=== PATIENT | female | born 1985 | race Caucasian/White ===

== ENCOUNTER 2018-12-02 06:00 | Outpatient (CLI) | payer BC ==
[~2018-12-02] VITALS: Ht 170.2 cm; Wt 99.8 kg
[2018-12-02] MEDS ORDERED: ALPR0.5T7 PO (12:15)
[2018-12-02] MEDS ORDERED: METR500T PO (12:15)
[2018-12-02] MEDS ORDERED: SERT100T8 PO ×2 (12:15→12:25)
[2018-12-02] MEDS ORDERED: L.AC1CAP6 PO (12:15)
[2018-12-02] MEDS ORDERED: SERT50TA9 PO (12:25)
[2018-12-04] MEDS ORDERED: OXYC1TAB87 PO (13:04)
[2018-12-04] MEDS ORDERED: IBUP-1780 PO (13:04)
[2018-12-04] MEDS ORDERED: DOCU100C37 PO (13:04)
== END 2018-12-02 13:20 | disposition home or self-care (01) ==
LOC: PREOP 06:00
PROVIDERS: ATTEND Obstetrics & Gynecology
DX: Z01.818 Encounter for other preprocedural examination (principal)

== ENCOUNTER 2018-12-04 11:07 | Day surgery (SDC) | payer BC ==
[2018-12-04] VITALS (9 sets, daily range): BP systolic 84–133; BP diastolic 36–91
[~2018-12-04] VITALS: Ht 170.2 cm; Wt 99.8 kg
[~2018-12-04 11:07] MED LIST: ALPR0.5T7 PO; L.AC1CAP6 PO; METR500T PO; SERT100T8 PO; SERT50TA9 PO
[2018-12-04 11:39] LABS: BASOPHILS % (AUTO) 1 % (0-10); EOSINOPHILS # (AUTO) 0.2 10^3/uL (0.0-0.3); EOSINOPHILS % (AUTO) 2 % (0-10); HEMATOCRIT 40 % (35-52); HEMOGLOBIN 13.3 G/DL (11.5-16.0); LYMPHOCYTES # (AUTO) 2.1 X 10^3 (1.0-4.0); LYMPHOCYTES % (AUTO) 25 % (12-44); MEAN CORPUSCULAR HEMOGLOBIN 27 PG (25-34); MEAN CORPUSCULAR HGB CONC 33 G/DL (32-36); MEAN CORPUSCULAR VOLUME 82 FL (80-99); MONOCYTES # (AUTO) 0.5 X 10^3 (0.0-1.0); MONOCYTES % (AUTO) 6 % (0-12); NEUTROPHILS # (AUTO) 5.6 X 10^3 (1.8-7.8); NEUTROPHILS % (AUTO) 67 % (42-75); PLATELET COUNT 244 10^3/uL (130-400); RED BLOOD COUNT 4.88 10^6/uL (4.35-5.85); RED CELL DISTRIBUTION WIDTH 15.5 % (10.0-14.5); WHITE BLOOD COUNT 8.4 10^3/uL (4.3-11.0)
[2018-12-04] MEDS: LACTATED RINGERS 1,000 ML IV PRN ×2 (11:50→14:10)
[2018-12-04] MEDS ORDERED: ceFAZolin INJECTION 1,000 MG in NS (IVPB) 50 ML IV ONE (12:00)
[2018-12-04] MEDS ORDERED: fentaNYL INJECTION 100 MCG/2 ML AMP ONE (12:14)
[2018-12-04] MEDS ORDERED: DEXAMETHASONE 10 MG/ML (DECADRON) 1 ML VIAL ONE (12:14)
[2018-12-04] MEDS ORDERED: SEVOFLURANE (ULTANE) 15 ML INHAL SOLN ONE ×9 (12:14→14:59)
[2018-12-04] MEDS ORDERED: ONDANSETRON 4 MG/2 ML (SDV) Z0FRAN ONE (12:14)
[2018-12-04] MEDS ORDERED: LIDOCAINE PF 2% 5 ML (XYLOCAINE) VIAL ONE (12:14)
[2018-12-04] MEDS ORDERED: proPOfol 200 MG/20 ML (DIPRIVAN) VIAL IV ONE ×2 (12:14→14:05)
[2018-12-04] MEDS ORDERED: MIDAZOLAM 2 MG/2 ML (VERSED) VIAL ONE (12:14)
[2018-12-04] MEDS ORDERED: ROCURONIUM 10 MG/ML 5 ML SYRINGE IV ONE ×2 (12:14→14:04)
[2018-12-04] MEDS ORDERED: GLYCOPYRROLATE 0.2 MG/ML (ROBINUL) 2 ML VIAL ONE (12:15)
[2018-12-04] MEDS ORDERED: NEOSTIGMINE 1 MG/ML 5 ML SYRINGE ONE ×4 (12:15→13:34)
[2018-12-04] MEDS ORDERED: KETOROLAC 30 MG/ML VIAL ONE (12:16)
[2018-12-04] MEDS ORDERED: BUP/EPI 0.5% 1:200,000 (SENSORCAINE) 30 ML VIAL ONE (12:26)
--- NOTE | 2018-12-04 12:59 | Progress Note-Pre Operative ---
Pre-Operative Progress Note H&P Reviewed The H&P was reviewed, patient examined and no changes noted. Date Seen by Provider: Dec 04, 2018 Time Seen by Provider: 12:58 Date H&P Reviewed: Dec 04, 2018 Time H&P Reviewed: 12:58 Pre-Operative Diagnosis: Dysfunctional uterine bleeding/chronic pelvic pain/ endometriosis/ovary cyst MIYA RETANA MD Dec 04, 2018 12:59
[2018-12-04] MEDS ORDERED: WATER (STERILE) FOR INJ 10 ML BTL INJ ONE (13:00)
[2018-12-04] MEDS ORDERED: MEPERIDINE (DEMEROL) INJ 100 MG/ML IM PRN (13:00)
[2018-12-04] MEDS ORDERED: ONDANSETRON 4 MG/2 ML (SDV) Z0FRAN IVP PRN ×2 (13:00→15:15)
[2018-12-04] MEDS ORDERED: PROMETHAZINE INJ 25 MG/ML (PHENERGAN) AMP IM PRN (13:00)
--- NOTE | 2018-12-04 13:00 | Progress Note-Post Operative ---
Post-Operative Progess Note Surgeon (s)/Camera Person (s) Surgeon MIYA RETANA MD Camera Person: Joselin Song Pre-Operative Diagnosis Dysfunctional uterine bleeding/chronic pelvic pain/endometriosis/ovary cyst Post-Operative Diagnosis Same with overt endometriosis, pelvic adhesions, abnormal appendix, and with pathology pending Procedure & Operative Findings Date of Procedure 12/04/18 Procedure Performed/Findings TLH with BS and with left oophorectomy, laparoscopic adhesiolysis, laparoscopic destruction of endometriosis, laparoscopic appendectomy Anesthesia Type GETA Estimated Blood Loss Estimated blood loss (mL): Minimal Specimens/Packing Specimens Removed Uterus fallopian tubes left ovary Packing: None MIYA RETANA MD Dec 04, 2018 13:00
[2018-12-04] MEDS ORDERED: OXYC1TAB87 PO (13:04)
[2018-12-04] MEDS ORDERED: IBUP-1780 PO (13:04)
[2018-12-04] MEDS ORDERED: DOCU100C37 PO (13:04)
--- NOTE | 2018-12-04 13:06 | Discharge Instructions ---
Discharge Instructions Discharge Medications New, Converted or Re-Newed RX: RX on Chart Patient Instructions Patient Instructions: As directed Return to The Hospital For: as directed Activity & Diet Discharge Diet: No Restrictions Activity as Tolerated: No Orders-Post D/C & Referrals Follow Up Appt: Return to clinic on Sunday, December 06, 2018 at 930 a.m. for staple removal Call to make follow up appt. for patient in 4 weeks. Activity: Rest for 24 hours, than as tolerated. Wound Care: May remove Band-Aid tomorrow. Replace as desired. Keep incisions clean and dry. Wash daily with soap and water. Please call in RX to patient pharmacy. Diet: As tolerated-Clear Liquids only if nauseated. May shower or tub bathe as desired. No driving for 24 hours, no alcoholic beverages for 24 hours, and nothing per vagina (no tampons, douching, or intercourse) for 8 weeks. Patient to return to the clinic as soon as possible for: Temperature greater than 101F, Severe Pain, Foul discharge from incision or vagina, Excessive Bleeding (more than a period). MIYA RETANA MD Dec 04, 2018 13:06
[2018-12-04] MEDS ORDERED: INDIGO CARMINE 8 MG/ML 5 ML AMP ONE (14:42)
[2018-12-04] MEDS ORDERED: FUROSEMIDE 40 MG/4 ML INJ (LASIX) ONE (14:42)
[2018-12-04] MEDS: KETOROLAC 30 MG/ML VIAL IVP SCH ×2 (15:00→20:26)
--- OUTSIDE RECORDS SUMMARY | 2018-12-04 15:03 | XMS REPORT ---
Author [facility] [employer] [facility] Medical Staff Organization [facility] Address [address] [id number] Phone [phone] Summary purpose TRANSITION OF CARE AUTO GENERATION Chief Complaint and Reason for Visit No authorized Reason for Visit (Admitting Diagnosis) is available for this visit. Problem list No authorized problems tracked for continuity of care are available for this visit. Encounters No authorized problems tracked for encounter diagnoses are available for this visit. Medications No medications recorded for this patient visit Allergies, adverse reactions, alerts Allergen Category Ingredient Status Reaction Severity Onset No Known Drug Allergies No known drug allergies No Known Drug Allergies Confirmed or Verified Immunizations No immunizations recorded for this patient visit Relevant diagnostic tests and/or laboratory data No authorized results are available for this patient visit History of procedures No procedures recorded for this patient visit. Functional status No functional or cognitive status observations are available for this visit. Vital signs No authorized vital signs are available for this visit. Social history No Social History or smoking status observations were recorded for this visit. ( Unknown if ever smoked.) Treatment Plan No treatment plan text is available for this visit. Hospital discharge instructions No discharge instruction text is available for this visit.
--- OUTSIDE RECORDS SUMMARY | 2018-12-04 15:03 | XMS REPORT ---
[facility] Medical Staff Organization [facility] Address [address] [id number] Phone [phone] Care Team Providers Care Radiation Oncology Nurse Name Role Phone MARCEL LORENZANA APRN PP [phone] Summary purpose TRANSITION OF CARE AUTO GENERATION Chief Complaint and Reason for Visit No authorized Reason for Visit (Admitting Diagnosis) is available for this visit. Problem list No authorized problems tracked for continuity of care are available for this visit. Encounters No authorized problems tracked for encounter diagnoses are available for this visit. Medications No home medications recorded for this patient visit Allergies, adverse reactions, alerts Allergen Category Ingredient Status Reaction Severity Onset No Known Drug Allergies No known drug allergies No Known Drug Allergies Confirmed or Verified Immunizations No immunizations recorded for this patient visit Relevant diagnostic tests and/or laboratory data RESULTS Chemistry :00:00 Result Normal Range Units Sodium 141 134-145 mEq/l Potassium 3.7 3.5-5.1 mEq/l Chloride 102 98-107 mEq/l CO2 H 28.3 22-28 mEq/l Glucose H 129 70-105 mg/dl BUN 11 7-18 mg/dl Creatinine 0.97 0.6-1.0 mg/dl Calcium 8.8 8.4-10.2 mg/dl TP - Total Protein 7.5 6.0-8.3 g/dl Albumin 4.1 3.5-5 g/dl Bilirubin - Total 0.4 0.1-1.0 mg/dl AST 14 10-42 IU/L ALT 25 12-65 IU/L ALP H 78 25-72 IU/L Osmolality 282.4 280-300 mOsm/L Albumin/Globulin Ratio 1.2 0-8 Anion GAP 10.7 8-16 BUN/Creatinine Ratio 11.3 10-20 Estimated GFR 67 >=60 mL/min/1.7 C-Reactive Protein 0.2 0-1 mg/dl Hematology :00:00 Result Normal Range Units WBC 8.4 4.8-10.8 103/uL RBC 4.6 4.2-5.4 106/uL HGB 12.7 12.0-16.0 g/dl HCT 39.0 36.9-47.0 % MCV 85.0 81-99 FL MCH 27.7 27-31 pg MCHC L 32.6 33-37 g/dl RDW 13.2 11.5-15.5 % PLT 233 130-400 103/uL MPV H 11.5 7.3-10.4 FL Cardiac :00:00 Result Normal Range Units CK 86 26-192 IU/L CKMB 1.5 0-3.6 ng/ml Patient samples may contain heterophilic antibodies that could react with immunoassays to give falsely elevated or depressed results. This Dimension assay has been designed to minimize interference from heterophilic antibodies. Nevertheless, complete elimination of this interference from all patient specimens cannot be guaranteed. A test result that is inconsistent with the clinical picture and patient history should be interpreted with caution. Troponin I < 0.04 0.0-0.4 ng/ml Patient samples may contain heterophilic antibodies that could react in immunoassays to give falsely elevated or depressed results. This Dimension assay has been designed to minimize interference from heterophilic antibodies. Nevertheless, complete elimination of this interference from all patient specimens cannot be guaranteed. A test result that is inconsistent with the clinical picture and patient history should be interpreted with caution. Hematology - Other (Misc) :00:00 Result Normal Range Units Sed Rate 4 0-20 Test SEDR with result of 4 was originally reported as 2 and was changed on 02/21/2015 22:41 by RW Thyroid Testing :00:00 Result Normal Range Units TSH 2.01 0.36-3.74 uIU/mL Radiology Results :00:00 Result Normal Range Units MPV H 11.5 7.3-10.4 FL History of procedures No procedures recorded for this patient visit. Functional status Functional Status Finding Observation Time Vision Problems yes : Vision Correct Dev glasses : Diet regular : Abdomen Appearance round :30 Abdomen non-tender :30 Bowel Sounds present :30 [place] no :30 Urination normal :30 Quality sym/unlabored : Cough absent : Secretions no : Breath Sounds RUL clear : Breath Sounds RML clear : Breath Sounds RLL clear : Breath Sounds MARIAM clear : Breath Sounds LLL clear :30 Airway natural : Chest Tube no : Oxygen no : Temp >100.4 no : Temp <96.8 no : Chills with rigors no : HR > 90bpm no : Respirations > 20 no : Systolic <90 no : headache stiff neck no :30 Rapid Resp no :30 IV Site Location None :34 Nursing Note Pt was given home instructions and Pt was off of floor in stable condtion :34 Vital signs Type Value Date Respiration Rate 18breaths per minute : Pulse 70beats per minute :30 Oxygen Saturation 100% :30 BP Systolic 109mmHg :30 BP Diastolic 60mmHg :30 Temperature 97.8F :30 Social history Type Value Smoking Status NEVER SMOKER Treatment Plan No treatment plan text is available for this visit. Hospital discharge instructions Dismissal Condition good Disposition on DC home DC Inst/Educ Give yes Med/Side Effects Rev yes Comment: Toradol injection PNE Vac none Flu Vac none Tetanus Vac none
--- OUTSIDE RECORDS SUMMARY | 2018-12-04 15:03 | XMS REPORT ---
[facility] Medical Staff Organization [facility] Address [address] [id number] Phone [phone] Care Team Providers Care Maintenance Associate Name Role Phone MARCEL LORENZANA APRN PP [phone] Summary purpose TRANSITION OF CARE AUTO GENERATION [...] Relevant diagnostic tests and/or laboratory data RESULTS Hematology [id number]:16:00 Result Normal Range Units WBC 7.7 4.8-10.8 103/uL RBC 4.7 4.2-5.4 106/uL HGB 13.4 12.0-16.0 g/dl HCT 41.6 36.9-47.0 % MCV 87.8 81-99 FL MCH 28.3 27-31 pg MCHC L 32.2 33-37 g/dl RDW 12.7 11.5-15.5 % PLT 221 130-400 103/uL MPV H 12.6 7.3-10.4 FL Neutro % 67.9 40-70 % Lymph % 23.9 20-40 % [place] % 6.1 0-10.0 % Eos % 1.3 0-7.0 % Baso % 0.5 0-2 % Neutro # 5.2 1.5-7.5 103/uL Lymph # 1.8 0.9-4.0 103/uL [place] # 0.5 0-0.8 103/uL Eos # 0.1 0-0.6 103/uL Baso # 0.0 0-0.1 103/uL Radiology Results [id number]:16:00 Result Normal Range Units MPV H 12.6 7.3-10.4 FL History of procedures Procedure Code Code Type Description Date Performed Performing Physician 54671 CPT-4 COMPLETE CBC W/AUTO DIFF WBC 12-22-2015 MARCEL LORENZANA Functional status No functional or cognitive status [...]
--- OUTSIDE RECORDS SUMMARY | 2018-12-04 15:03 | XMS REPORT ---
Author [facility] [facility] Medical Staff Organization [facility] Address [address] [id number] Phone [phone] Care Team Providers Care Stitcher Utility Name Role Phone MARCEL LORENZANA APRN PP [phone] Summary purpose TRANSITION OF CARE AUTO GENERATION Chief Complaint and Reason for Visit Admit Diagnosis 1 URINARY FREQUENCY Problem list No authorized problems tracked for [...] Relevant diagnostic tests and/or laboratory data RESULTS Routine Urinalysis [id number]:30:00 Result Normal Range Units Color YELLOW Clarity Hazy Specific [place] 1.025 1.003-1.035 pH 6.5 4.5-8.0 Glucose NEGATIVE Bilirubin NEGATIVE Ketones NEGATIVE Protein 1+ Urobilinogen 0.2 0-0.2 E.U./dL Nitrites NEGATIVE Blood 2+ Leukocytes NEGATIVE WBCs Too numerous to count RBCs 0-5 Squamous Epithelial 1+ Amorphous Crystals Few Bacteria 3+ Mucous 1+ Body Fluid [id number]:30:00 Result Normal Range Units pH 6.5 4.5-8.0 History of procedures Procedure Code Code Type Description Date Performed Performing Physician 57094 CPT-4 URINALYSIS, AUTO W/SCOPE 04-23-2015 MARCEL LORENZANA Functional status No functional or [...]
--- OUTSIDE RECORDS SUMMARY | 2018-12-04 15:03 | XMS REPORT ---
Author [facility] [email or web address] [facility] Medical Staff Organization [facility] Address [address] [id number] Phone [phone] Summary purpose TRANSITION OF CARE AUTO GENERATION [...]
--- OUTSIDE RECORDS SUMMARY | 2018-12-04 15:03 | XMS REPORT ---
Author Author [facility] Medical Staff Organization [facility] [employer] [facility] Address [address] [place] [id number] Phone [phone] Summary purpose TRANSITION OF CARE AUTO GENERATION Chief Complaint and Reason for Visit Admit Diagnosis 1 PALPITATIONS Problem list No authorized problems tracked for [...] for this patient visit History of procedures Procedure Code Code Type Description Date Performed Performing Physician 75759 CPT-4 ELECTROCARDIOGRAM, TRACING 06-16-2015 MICHELLE MORRISON 92413 CPT-4 ECG MONITOR/RECORD, 24 HRS 06-18-2015 MICHELLE MORRISON 15057 CPT-4 ELECTROCARDIOGRAM REPORT 06-19-2015 DEANDRE RASHEED Functional status Functional Status Finding Observation Time Nursing Note Monitor #4 returned and memory card is mailed to [place]. 201412:39 Vital signs No authorized vital signs are available for this visit. Social history No Social History or smoking status observations were recorded for this visit. ( Unknown if ever smoked.) Treatment Plan No treatment plan text is available for this visit. Hospital discharge instructions No discharge instruction text is available for this visit.
--- OUTSIDE RECORDS SUMMARY | 2018-12-04 15:03 | XMS REPORT ---
Author [facility] [email or web address] [facility] Medical Staff Organization [facility] [employer] [facility] Address [address] [id number] Phone [phone] Care Team Providers Care Ross Lift Operator Name Role Phone MARCEL LORENZANA APRN PP [phone] Summary purpose TRANSITION OF CARE AUTO GENERATION [...] diagnostic tests and/or laboratory data RESULTS Chemistry [id number]:00:00 Result Normal Range Units Sodium 140 134-145 mEq/l Potassium 3.9 3.5-5.1 mEq/l Chloride 104 98-107 mEq/l CO2 26.1 22-28 mEq/l Glucose 83 70-105 mg/dl BUN 11 7-18 mg/dl Creatinine 0.88 0.6-1.0 mg/dl Calcium 8.4 8.4-10.2 mg/dl TP - Total Protein 7.4 6.0-8.3 g/dl Albumin 3.8 3.5-5 g/dl Bilirubin - Total 0.4 0.1-1.0 mg/dl AST 16 10-42 IU/L ALT 23 12-65 IU/L ALP 67 25-72 IU/L Osmolality L 277.9 280-300 mOsm/L Albumin/Globulin Ratio 1.1 0-8 Anion GAP 9.9 8-16 BUN/Creatinine Ratio 12.5 10-20 Estimated GFR 75 >=60 mL/min/1.7 Hematology [id number]:00:00 Result Normal Range Units WBC 7.3 4.8-10.8 103/uL RBC 4.5 4.2-5.4 106/uL HGB 12.3 12.0-16.0 g/dl HCT 38.9 36.9-47.0 % MCV 87.2 81-99 FL MCH 27.6 27-31 pg MCHC L 31.6 33-37 g/dl RDW 13.0 11.5-15.5 % PLT 224 130-400 103/uL MPV H 12.1 7.3-10.4 FL History of procedures No procedures [...]
--- OUTSIDE RECORDS SUMMARY | 2018-12-04 15:03 | XMS REPORT ---
Author [facility] Medical Staff Organization [facility] Address [address] [id number] Phone [phone] Care Team Providers Care Bradley Linebacker Crewmember Name Role Phone MARCEL LORENZANA APRN PP [phone] Summary purpose TRANSITION OF CARE AUTO GENERATION [...] tests and/or laboratory data RESULTS Routine Urinalysis [id number]:30:00 Result Normal Range Units Color YELLOW Clarity Hazy Specific [place] 1.025 1.003-1.035 pH 6.5 4.5-8.0 Glucose NEGATIVE Bilirubin NEGATIVE Ketones NEGATIVE Protein 1+ Urobilinogen 0.2 0-0.2 E.U./dL Nitrites NEGATIVE Blood 2+ Leukocytes NEGATIVE WBCs Too numerous to count RBCs 0-5 Squamous Epithelial 1+ Amorphous Crystals Few Bacteria 3+ Mucous 1+ Body Fluid [id number]:30:00 Result Normal Range Units pH 6.5 4.5-8.0 History of procedures No procedures recorded for [...]
--- OUTSIDE RECORDS SUMMARY | 2018-12-04 15:04 | XMS REPORT ---
Author [facility] [employer] [facility] Medical Staff Organization [facility] [employer] [facility] Address [address] [id number] Phone [phone] Care Team Providers Care It Program Auditor Name Role Phone MARCEL LORENZANA APRN PP [phone] Summary purpose TRANSITION OF CARE AUTO GENERATION [...] diagnostic tests and/or laboratory data RESULTS Chemistry [id number]:00:00 Result Normal Range Units Sodium 140 134-145 [...] 10-20 Estimated GFR 75 >=60 mL/min/1.7 Hematology [id number]:00:00 Result Normal Range Units WBC 7.3 4.8-10.8 [...]
--- OUTSIDE RECORDS SUMMARY | 2018-12-04 15:04 | XMS REPORT ---
Author Author PAMELA QUACH Organization [facility] Address [address] [place] [address] Care Team Providers Care Oven Roaster Name Role Phone PAMELA QUACH Unavailable PROBLEMS Type Condition ICD9-CM Code XUR05-XL Code Onset Dates Condition Status SNOMED Code Problem Adjustment disorder with mixed anxiety and depressed mood F43.23 Active 11735284 ALLERGIES No Information ENCOUNTERS Encounter Location Date Diagnosis [place] [address] [address] 15 Sep, 2018 [place] [address] [address] Sep, [place] [address] [address] Apr, Adjustment disorder with mixed anxiety and depressed mood F43.23 [place] [address] [address] March, Adjustment disorder with mixed anxiety and depressed mood F43.23 [place] [address] [place] [id number] [place] [address] March, [facility] [address] [place] [id number] [place] [address] Dec, Adjustment disorder with mixed anxiety and depressed mood F43.23 [place] [address] [place] [id number] [place] [address] Nov, Adjustment disorder with mixed anxiety and depressed mood F43.23 [place] [address] [place] [id number] [place] [address] Sep, Adjustment disorder with mixed anxiety and depressed mood F43.23 [place] [address] [place] [id number] [place] [address] Sep, Adjustment disorder with mixed anxiety and depressed mood F43.23 [facility] [address] [facility] [id number] [place] [address] Aug, Adjustment disorder with mixed anxiety and depressed mood F43.23 IMMUNIZATIONS No Known Immunizations SOCIAL HISTORY Never Assessed REASON FOR VISIT Requests return call PLAN OF CARE VITAL SIGNS MEDICATIONS Unknown Medications RESULTS No Results PROCEDURES No Known procedures INSTRUCTIONS MEDICATIONS ADMINISTERED No Known Medications
--- OUTSIDE RECORDS SUMMARY | 2018-12-04 15:04 | XMS REPORT ---
Author Author [facility] Medical Staff Organization [facility] Address [address] [place] [id number] Phone [phone] Care Team Providers Care Weekday Babysitter Name Role Phone VENTURA PROPERTY SITE MANAGERTOMMARCEL PP [phone] Summary purpose TRANSITION OF CARE AUTO GENERATION Chief Complaint and Reason for Visit Admit Diagnosis 1 CHEST PAIN NEC Problem list No authorized problems tracked for [...] diagnostic tests and/or laboratory data RESULTS Chemistry [id number]:00:00 Result Normal Range Units Sodium 141 134-145 [...] mL/min/1.7 C-Reactive Protein 0.2 0-1 mg/dl Hematology [id number]:00:00 Result Normal Range Units WBC 8.4 4.8-10.8 103/uL RBC 4.6 4.2-5.4 106/uL HGB 12.7 12.0-16.0 g/dl HCT 39.0 36.9-47.0 % MCV 85.0 81-99 FL MCH 27.7 27-31 pg MCHC L 32.6 33-37 g/dl RDW 13.2 11.5-15.5 % PLT 233 130-400 103/uL MPV H 11.5 7.3-10.4 FL Cardiac [id number]:00:00 Result Normal Range Units CK 86 26-192 [...] interpreted with caution. Hematology - Other (Misc) [id number]:00:00 Result Normal Range Units Sed Rate 4 0-20 Test SEDR with result of 4 was originally reported as 2 and was changed on 02/21/2015 22:41 by RW Thyroid Testing [id number]:00:00 Result Normal Range Units TSH 2.01 0.36-3.74 uIU/mL Radiology Results [id number]:13:00 Chest X-Ray - 2 View PACs Image DATE OF EXAM: 2014 RAD 0300-CHEST XRAY 2 VIEW : RADIOLOGY REPORT DATE OF SERVICE: 02/21/15 HISTORY: Chest pain and left arm numbness CHEST 2 VIEWS 2200 HOURS The lungs are clear. Heart size and pulmonary vessels are normal. There are no hilar or mediastinal abnormalities. IMPRESSION: Negative chest. No significant change when compared with 11/14/2011. MD STEPHAN Leblanc/mn02/22/2015 06:53:00 / 02/22/2015 08:26:47 cc:Marcel Ventura APRN This document has been electronically Signed by: On: DATE OF EXAM: 2014 RAD 0300-CHEST XRAY 2 VIEW : RADIOLOGY REPORT DATE OF SERVICE: 02/21/15 HISTORY: Chest pain and left arm numbness CHEST 2 VIEWS 2200 HOURS The lungs are clear. Heart size and pulmonary vessels are normal. There are no hilar or mediastinal abnormalities. IMPRESSION: Negative chest. No significant change when compared with 11/14/2011. MD STEPHAN Leblanc/mn02/22/2015 06:53:00 / 02/22/2015 08:26:47 cc:Marcel Ventura APRN This document has been electronically Signed by: CHAD HOLLIDAY On: 2014 12:13P Result Amended on 2015-02-22 at 12:13:26. Previous status was AR. [id number]:00:00 Result Normal Range Units MPV H 11.5 7.3-10.4 FL History of procedures Procedure Code Code Type Description Date Performed Performing Physician 49850 CPT-4 COMPLETE CBC, AUTOMATED 02-21-2015 HAWA HUGHES 97831 CPT-4 COMPREHEN METABOLIC PANEL 02-21-2015 HAWA HUGHES 20286 CPT-4 ASSAY OF CK (CPK) 02-21-2015 HAWA HUGHES 46598 CPT-4 ASSAY OF TROPONIN, QUANT 02-21-2015 HAWA HUGHES 33734 CPT-4 CREATINE, MB FRACTION 02-21-2015 HAWA HUGHES 11434 CPT-4 CHEST X-RAY 02-21-2015 HAWA HUGHES 93855 CPT-4 RBC SED RATE, NONAUTOMATED 02-21-2015 HAWA HUGHES 05981 CPT-4 C-REACTIVE PROTEIN 02-21-2015 HAWA HUGHES 00510 CPT-4 ASSAY THYROID STIM HORMONE 02-21-2015 HAWA HUGHES 93236 CPT-4 ROUTINE VENIPUNCTURE 02-21-2015 HAWA HUGHES 24769 CPT-4 ELECTROCARDIOGRAM, TRACING 02-21-2015 HAWA HUGHES J1885 CPT-4 TORADOL SYR 30MG/ML 02-21-2015 HAWA HUGHES 65584 CPT-4 EMERGENCY DEPT VISIT 02-21-2015 HAWA HUGHES 40331 CPT-4 THER/PROPH/DIAG INJ, SC/IM 02-21-2015 HAWA HUGHES 23259 CPT-4 EMERGENCY DEPT VISIT 02-21-2015 HAWA HUGHES 84539 CPT-4 ELECTROCARDIOGRAM REPORT 02-26-2015 DEANDRE RASHEED Functional status Functional Status Finding Observation Time Vision Problems yes :30 Vision Correct Dev glasses :30 Diet regular :30 Abdomen Appearance round :30 Abdomen non-tender :30 Bowel Sounds present :30 [place] no :30 Urination normal :30 Quality sym/unlabored : Cough absent : Secretions no :30 Breath Sounds RUL clear :30 Breath Sounds RML clear :30 Breath Sounds RLL clear :30 Breath Sounds MARIAM clear :30 Breath Sounds LLL clear :30 Airway natural :30 Chest Tube no :30 Oxygen no :30 Temp >100.4 no : Temp <96.8 no :30 Chills with rigors no : HR > 90bpm no :30 Respirations > 20 no : Systolic <90 no :30 headache stiff neck no :30 Rapid Resp no :30 IV Site Location None :34 Nursing Note Pt was given home instructions and Pt was off of floor in stable condtion :34 Vital signs Type Value Date Respiration Rate 18breaths per minute :30 Pulse 70beats per minute :30 Oxygen Saturation 100% :30 BP Systolic 109mmHg :30 BP Diastolic 60mmHg 29-39-740832:30 Temperature 97.8F 63-67-091222:30 Social history Type Value Smoking Status NEVER SMOKER Treatment Plan No treatment plan text is available for this visit. Hospital discharge instructions Dismissal Condition good Disposition on DC home DC Inst/Educ Give yes Med/Side Effects Rev yes Comment: Toradol injection PNE Vac none Flu Vac none Tetanus Vac none
--- OUTSIDE RECORDS SUMMARY | 2018-12-04 15:04 | XMS REPORT ---
Author Author PAMELA QUACH Organization [facility] Address [address] [place] [address] Care Team Providers Care Hinging Machine Operator Name Role Phone PAMELA QUACH Unavailable PROBLEMS Type Condition ICD9-CM Code EMI32-MD Code Onset Dates Condition Status SNOMED Code Problem Adjustment disorder with mixed anxiety and depressed mood F43.23 Active 76025543 ALLERGIES No Information ENCOUNTERS Encounter Location Date Diagnosis [place] [address] [address] Nov, [place] [address] 59969- 2218 Nov, [place] [address] 14509- 9339 Nov, [facility] [address] [place] [id number] [place] [address] 29161- 4649 Oct, Adjustment disorder with mixed anxiety and depressed mood F43.23 [place] [address] [place] [id number] [place] [address] 16731- 1451 Sep, Adjustment disorder with mixed anxiety and depressed mood F43.23 [place] [address] [place] [id number] [place] [address] 06174- 0699 Sep, Adjustment disorder with mixed anxiety and depressed mood F43.23 [place] [address] [place] [id number] [place] [address] 26476- 9005 Sep, [place] [address] 31065- 2249 Apr, Adjustment disorder with mixed anxiety and depressed mood F43.23 [place] [address] [place] [id number] [place] [address] 57309- 5975 March, Adjustment disorder with mixed anxiety and depressed mood F43.23 [place] [address], [place] [address] March, [place] [address] [place] [address] 76385- 4937 Dec, Adjustment disorder with mixed anxiety and depressed mood F43.23 [place] [address] [place] [address] 32584- 2801 Nov, Adjustment disorder with mixed anxiety and depressed mood F43.23 [place] [address] [place] [address] 26347- 9512 Sep, Adjustment disorder with mixed anxiety and depressed mood F43.23 [place] [address] [address] Sep, Adjustment disorder with mixed anxiety and depressed mood F43.23 [place] [address] [address] Aug, Adjustment disorder with mixed anxiety and depressed mood F43.23 IMMUNIZATIONS No Known Immunizations SOCIAL HISTORY Never Assessed REASON FOR VISIT Follow-up Adjustment PLAN OF CARE Activity Details Follow Up 3 Weeks Reason: Follow-up VITAL SIGNS MEDICATIONS Unknown Medications RESULTS No Results PROCEDURES Procedure Date Ordered Result Body Site Psychotherapy, patient and family, 45 minutes, established patient Oct 31, 2018 INSTRUCTIONS MEDICATIONS ADMINISTERED No Known Medications
--- OUTSIDE RECORDS SUMMARY | 2018-12-04 15:04 | XMS REPORT ---
Author Author [facility] Medical Staff Organization [facility] Address [address] [id number] Phone [phone] Summary purpose TRANSITION OF CARE AUTO GENERATION [...] Functional Status Finding Observation Time Nursing Note Holter monitor #4 placed on patient. Instructions given to patient verbally and written. Patient voiced understanding. She will return tomorrow with the monitor. [id number] Vital signs No authorized vital signs are available for this visit. Social history No Social History or smoking status observations were recorded for this visit. ( Unknown if ever smoked.) Treatment Plan No treatment plan text is available for this visit. Hospital discharge instructions No discharge instruction text is available for this visit.
--- OUTSIDE RECORDS SUMMARY | 2018-12-04 15:04 | XMS REPORT ---
Author Author PAMELA QUACH Organization [facility] Address [address] [place] [address] Care Team Providers Care Industrial Engineering Manager Name Role Phone PAMELA QUACH Unavailable PROBLEMS Type Condition ICD9-CM Code GVO58-FJ Code Onset Dates Condition Status SNOMED Code Problem Adjustment disorder with mixed anxiety and depressed mood F43.23 Active [id number] ALLERGIES No Information ENCOUNTERS Encounter Location Date Diagnosis [place] [address] [place] [id number] [place] [address] 32372- 6256 Nov, [place] [address] [place] [id number] [place] [address] 94347- 8557 Nov, [place] [address] [place] [id number] [place] [address] 46355- 0692 Oct, [facility] [address] [place] [id number] [place] [address] 56358- 7516 Sep, Adjustment disorder with mixed anxiety and depressed mood F43.23 [place] [address] [place] [id number] [place] [address] 63402- 5275 Sep, Adjustment disorder with mixed anxiety and depressed mood F43.23 [place] [address] [place] [id number] [place] [address] 63692- 7567 Sep, [facility] [address] [place] [address] [id number] [place] [address] 70110- 3652 Apr, Adjustment disorder with mixed anxiety and depressed mood F43.23 [place] [address] [place] [id number] [place] [address] 83916- 5296 March, Adjustment disorder with mixed anxiety and depressed mood F43.23 [place] [address] [place] [id number] [place] [address] 56573- 5119 March, [facility] [address] [facility] [id number] [address] Dec, Adjustment disorder with mixed anxiety and depressed mood F43.23 [place] [address], [place] [address] Nov, Adjustment disorder with mixed anxiety and depressed mood F43.23 [place] [address] [place] [address] 17745- 5609 Sep, Adjustment disorder with mixed anxiety and depressed mood F43.23 [place] [address], [place] [address] 4[address] Sep, Adjustment disorder with mixed anxiety and depressed mood F43.23 [place] [address] [address] 6[address] Aug, Adjustment disorder with mixed anxiety and depressed mood F43.23 IMMUNIZATIONS No Known Immunizations SOCIAL HISTORY Never Assessed REASON FOR VISIT Follow-up depression/anxiety PLAN OF CARE Activity Details Follow Up Next available Reason: Follow-up VITAL SIGNS MEDICATIONS Unknown Medications RESULTS No Results PROCEDURES Procedure Date Ordered Result Body Site Psychotherapy, patient and/family, 45 minutes, established patient Oct 15, 2018 INSTRUCTIONS MEDICATIONS ADMINISTERED No Known Medications
--- OUTSIDE RECORDS SUMMARY | 2018-12-04 15:04 | XMS REPORT ---
Author Author [facility] Medical Staff Organization [facility] Address [address] [id number] Phone [phone] Care Team Providers Care Overage Shortage And Damage Clerk Name Role Phone MARCEL LORENZANA APRN PP [phone] Summary purpose TRANSITION OF CARE AUTO GENERATION [...] diagnostic tests and/or laboratory data RESULTS Hematology [id number]:00 Result Normal Range Units WBC 7.7 4.8-10.8 103/uL RBC 4.7 4.2-5.4 106/uL HGB 13.4 12.0-16.0 g/dl HCT 41.6 36.9-47.0 % MCV 87.8 81-99 FL MCH 28.3 27-31 pg MCHC L 32.2 33-37 g/dl RDW 12.7 11.5-15.5 % PLT 221 130-400 103/uL MPV H 12.6 7.3-10.4 FL Neutro % 67.9 40-70 % Lymph % 23.9 20-40 % Ellsworth % 6.1 0-10.0 % Eos % 1.3 0-7.0 % Baso % 0.5 0-2 % Neutro # 5.2 1.5-7.5 103/uL Lymph # 1.8 0.9-4.0 103/uL Ellsworth # 0.5 0-0.8 103/uL Eos # 0.1 0-0.6 103/uL Baso # 0.0 0-0.1 103/uL Radiology Results [id number]:00 Result Normal Range Units MPV H 12.6 7.3-10.4 FL History of procedures No procedures [...]
--- OUTSIDE RECORDS SUMMARY | 2018-12-04 15:05 | XMS REPORT ---
Author Author PAMELA QUACH Organization [facility] Address [address] [place] [address] Care Team Providers Care Patent Engineer Name Role Phone PAMELA QUACH Unavailable PROBLEMS Type Condition ICD9-CM Code GEY28-WH Code Onset Dates Condition Status SNOMED Code Problem Adjustment disorder with mixed anxiety and depressed mood F43.23 Active [id number] ALLERGIES No Information ENCOUNTERS Encounter Location Date Diagnosis [place] [address] [place] [id number] [place] [address] 54621- 8262 Apr, Adjustment disorder with mixed anxiety and depressed mood F43.23 [place] [address] 37810- 2603 March, Adjustment disorder with mixed anxiety and depressed mood F43.23 [place] [address] [place] [id number] [place] [address] 59677- 8611 March, [place] [address] 91811- 4093 Dec, Adjustment disorder with mixed anxiety and depressed mood F43.23 [place] [address] [id number] [place] [address] 51792- 0883 Nov, Adjustment disorder with mixed anxiety and depressed mood F43.23 [place] [address] [place] [id number] [place] [address] 31257- 8911 Sep, Adjustment disorder with mixed anxiety and depressed mood F43.23 [place] [address] [place] [id number] [place] [address] 88865- 3828 Sep, Adjustment disorder with mixed anxiety and depressed mood F43.23 [place] [address] [id number] [place] [address] 79817- 8644 Aug, Adjustment disorder with mixed anxiety and depressed mood F43.23 IMMUNIZATIONS No Known Immunizations SOCIAL HISTORY Never Assessed REASON FOR VISIT Requests return call PLAN OF CARE VITAL SIGNS MEDICATIONS Unknown Medications RESULTS No Results PROCEDURES No Known procedures INSTRUCTIONS MEDICATIONS ADMINISTERED No Known Medications
--- OUTSIDE RECORDS SUMMARY | 2018-12-04 15:05 | XMS REPORT ---
Author Author PAMELA QUACH Organization [facility] Address [address] [place] [address] Care Team Providers Care Aerial Applicator Pilot Name Role Phone PAMELA QUACH Unavailable PROBLEMS Type Condition ICD9-CM Code XVS88-KK Code Onset Dates Condition Status SNOMED Code Problem Adjustment disorder with mixed anxiety and depressed mood F43.23 Active [id number] ALLERGIES No Information ENCOUNTERS Encounter Location Date Diagnosis [place] [address] [place] [id number] [place] [address] 95507- 8851 Apr, [place] [address] 70611- 7611 Apr, Adjustment disorder with mixed anxiety and depressed mood F43.23 [place] [address] [place] [id number] [place] [address] 17808- 7422 March, Adjustment disorder with mixed anxiety and depressed mood F43.23 [place] [address] 49388- 2260 March, [place] [address] [place] [id number] [place] [address] 28686- 8727 Dec, Adjustment disorder with mixed anxiety and depressed mood F43.23 [place] [address] [place] [id number] [place] [address] 10165- 7111 Nov, Adjustment disorder with mixed anxiety and depressed mood F43.23 [place] [address] 92681- 4191 Sep, Adjustment disorder with mixed anxiety and depressed mood F43.23 [place] [address] [place] [id number] [place] [address] 74247- 9091 Sep, Adjustment disorder with mixed anxiety and depressed mood F43.23 [place] [address] [facility] [id number] [address]- 3[address] Aug, Adjustment disorder with mixed anxiety and depressed mood F43.23 IMMUNIZATIONS No Known Immunizations SOCIAL HISTORY Never Assessed REASON FOR VISIT Follow-up Depression/Anxiety PLAN OF CARE Activity Details Follow Up 2 Weeks Reason: Folllow-up VITAL SIGNS MEDICATIONS Unknown Medications RESULTS No Results PROCEDURES Procedure Date Ordered Result Body Site Psychotherapy, patient &/family, 45 minutes, established patient Nov 22, 2017 INSTRUCTIONS MEDICATIONS ADMINISTERED No Known Medications
--- OUTSIDE RECORDS SUMMARY | 2018-12-04 15:05 | XMS REPORT ---
Author Author PAMELA QUACH Organization [facility] Address [address] [place] [address] Care Team Providers Care Robotic Welding Operator Name Role Phone PAMELA QUACH Unavailable PROBLEMS Type Condition ICD9-CM Code OBG54-VV Code Onset Dates Condition Status SNOMED Code Problem Adjustment disorder with mixed anxiety and depressed mood F43.23 Active [id number] ALLERGIES No Information ENCOUNTERS Encounter Location Date Diagnosis [place] [address] [place] [id number] [place] [address] 00798- 4546 Apr, Adjustment disorder with mixed anxiety and depressed mood F43.23 [place] [address] 90663- 4046 March, Adjustment disorder with mixed anxiety and depressed mood F43.23 [place] [address] [place] [id number] [place] [address] 04501- 7841 March, [place] [address] 88631- 7043 Dec, Adjustment disorder with mixed anxiety and depressed mood F43.23 [place] [address] [place] [id number] [place] [address] 17596- 8796 Nov, Adjustment disorder with mixed anxiety and depressed mood F43.23 [place] [address] [place] [id number] [place] [address] 05198- 0120 Sep, Adjustment disorder with mixed anxiety and depressed mood F43.23 [place] [address] [place] [id number] [place] [address] 85097- 3459 Sep, Adjustment disorder with mixed anxiety and depressed mood F43.23 [place] [address] [place] [id number] [place] [address] 69523- 6441 Aug, Adjustment disorder with mixed anxiety and depressed mood F43.23 IMMUNIZATIONS No Known Immunizations SOCIAL HISTORY Never Assessed REASON FOR VISIT Follow-up Depression/Anxiety PLAN OF CARE Activity Details Follow Up Next available Reason: Follow-up VITAL SIGNS MEDICATIONS Unknown Medications RESULTS No Results PROCEDURES Procedure Date Ordered Result Body Site Psychotherapy, patient &/family, 45 minutes, established patient March 27, 2018 INSTRUCTIONS MEDICATIONS ADMINISTERED No Known Medications
--- OUTSIDE RECORDS SUMMARY | 2018-12-04 15:05 | XMS REPORT ---
Author Author PAMELA QUACH Organization [facility] Address [address] [place] [address] Care Team Providers Care Transitional Care Liaison Name Role Phone PAMELA QUACH Unavailable PROBLEMS Type Condition ICD9-CM Code QGO64-AL Code Onset Dates Condition Status SNOMED Code Problem Adjustment disorder with mixed anxiety and depressed mood F43.23 Active 73533741 ALLERGIES No Information ENCOUNTERS Encounter Location Date Diagnosis [place] [address] [place] [address] [id number] [place] [address] 08505- 3981 Apr, Adjustment disorder with mixed anxiety and depressed mood F43.23 [place] [address] 85635- 7993 March, Adjustment disorder with mixed anxiety and depressed mood F43.23 [place] [address] [place] [id number] [place] [address] 26010- 9452 March, [place] [address] 35902- 6025 Dec, Adjustment disorder with mixed anxiety and depressed mood F43.23 [place] [address] [place] [id number] [place] [address] 50988- 7146 Nov, Adjustment disorder with mixed anxiety and depressed mood F43.23 [place] [address] [id number] [place] [address] 25722- 5862 Sep, Adjustment disorder with mixed anxiety and depressed mood F43.23 [place] [address] [place] [id number] [place] [address] 94794- 8255 Sep, Adjustment disorder with mixed anxiety and depressed mood F43.23 [place] [address] [place] [id number] [place] [address] 86028- 1289 Aug, Adjustment disorder with mixed anxiety and depressed mood F43.23 IMMUNIZATIONS No Known Immunizations SOCIAL HISTORY Never Assessed REASON FOR VISIT Follow-up Depression/Anxiety PLAN OF CARE Activity Details Follow Up Next available Reason: Follow-up VITAL SIGNS MEDICATIONS Unknown Medications RESULTS No Results PROCEDURES Procedure Date Ordered Result Body Site Psychotherapy, patient &/family, 45 minutes, established patient Jan 15, 2018 INSTRUCTIONS MEDICATIONS ADMINISTERED No Known Medications
--- OUTSIDE RECORDS SUMMARY | 2018-12-04 15:05 | XMS REPORT ---
Author Author PAMELA QUACH Organization [facility] Address [address] [place] [address] Care Team Providers Care Superintendent Institution Name Role Phone PAMELA QUACH Unavailable PROBLEMS Type Condition ICD9-CM Code UYQ19-VD Code Onset Dates Condition Status SNOMED Code Problem Adjustment disorder with mixed anxiety and depressed mood F43.23 Active 94543254 ALLERGIES No Information ENCOUNTERS Encounter Location Date Diagnosis [place] [address] 33875- 9063 Apr, [place] [address] 75828- 7984 Apr, [place] [address] 79864- 9283 March, Adjustment disorder with mixed anxiety and depressed mood F43.23 [place] [address] 34623- 2095 March, [place] [address] 29732- 6704 Dec, Adjustment disorder with mixed anxiety and depressed mood F43.23 [place] [address] 18654- 4999 Nov, Adjustment disorder with mixed anxiety and depressed mood F43.23 [facility] [address] [place] [id number] [place] [address] 62623- 8522 Sep, Adjustment disorder with mixed anxiety and depressed mood F43.23 [place] [address] [place] [address] [id number] [place] [address] 37820- 2100 Sep, Adjustment disorder with mixed anxiety and depressed mood F43.23 [place] [address] 59605- 9936 Aug, Adjustment disorder with mixed anxiety and depressed mood F43.23 IMMUNIZATIONS No Known Immunizations SOCIAL HISTORY Never Assessed REASON FOR VISIT intake PLAN OF CARE Activity Details Follow Up 2 Weeks Reason: Follow-up VITAL SIGNS MEDICATIONS Medication Instructions Dosage Frequency Start Date End Date Duration Status Zoloft Active RESULTS No Results PROCEDURES Procedure Date Ordered Result Body Site Psych diagnostic evaluation, established patient Sep 11, 2017 INSTRUCTIONS MEDICATIONS ADMINISTERED No Known Medications
--- OUTSIDE RECORDS SUMMARY | 2018-12-04 15:05 | XMS REPORT ---
Author Author PAMELA QUACH Organization [facility] Address [address] [place] [address] Care Team Providers Care Washer Blanket Name Role Phone PAMELA QUACH Unavailable PROBLEMS Type Condition ICD9-CM Code SHE99-KM Code Onset Dates Condition Status SNOMED Code Problem Adjustment disorder with mixed anxiety and depressed mood F43.23 Active 59626410 ALLERGIES No Information ENCOUNTERS Encounter Location Date Diagnosis [place] [address] [id number] [place] [address] 96644- 3814 Apr, Adjustment disorder with mixed anxiety and depressed mood F43.23 [place] [address] 91097- 4788 March, Adjustment disorder with mixed anxiety and depressed mood F43.23 [place] [address] [place] [id number] [place] [address] 96222- 4649 March, [place] [address] 48790- 8380 Dec, Adjustment disorder with mixed anxiety and depressed mood F43.23 [place] [address] [place] [id number] [place] [address] 78411- 0151 Nov, Adjustment disorder with mixed anxiety and depressed mood F43.23 [place] [address] [place] [id number] [place] [address] 39654- 5486 Sep, Adjustment disorder with mixed anxiety and depressed mood F43.23 [place] [address] [id number] [place] [address] 40869- 5811 Sep, Adjustment disorder with mixed anxiety and depressed mood F43.23 [place] [address] [place] [address] [id number] [place] [address] 65470- 4212 Aug, Adjustment disorder with mixed anxiety and depressed mood F43.23 IMMUNIZATIONS No Known Immunizations SOCIAL HISTORY Never Assessed REASON FOR VISIT Follow-up Depression/Anxiety PLAN OF CARE Activity Details Follow Up 2 Weeks Reason: Follow-up VITAL SIGNS MEDICATIONS Unknown Medications RESULTS No Results PROCEDURES Procedure Date Ordered Result Body Site Psychotherapy, patient &/family, 45 minutes, established patient April 30, 2018 INSTRUCTIONS MEDICATIONS ADMINISTERED No Known Medications
--- OUTSIDE RECORDS SUMMARY | 2018-12-04 15:05 | XMS REPORT ---
Author Author PAMELA QUACH Organization [facility] Address [address] [place] [address] Care Team Providers Care Photo Tube Assembler Name Role Phone PAMELA QUACH Unavailable PROBLEMS Type Condition ICD9-CM Code DEP88-ZS Code Onset Dates Condition Status SNOMED Code Problem Adjustment disorder with mixed anxiety and depressed mood F43.23 Active 44488881 ALLERGIES No Information ENCOUNTERS Encounter Location Date Diagnosis [place] [address] 12661- 3503 Apr, [place] [address] 62479- 9490 Apr, [place] [address] 85497- 1394 March, Adjustment disorder with mixed anxiety and depressed mood F43.23 [place] [address] 48240- 7302 March, [place] [address] 73446- 3144 Dec, Adjustment disorder with mixed anxiety and depressed mood F43.23 [place] [address] 10612- 7290 Nov, Adjustment disorder with mixed anxiety and depressed mood F43.23 [facility] [address] [place] [id number] [place] [address] 70438- 6401 Sep, Adjustment disorder with mixed anxiety and depressed mood F43.23 [place] [address] [place] [id number] [place] [address] 71228- 9604 Sep, Adjustment disorder with mixed anxiety and depressed mood F43.23 [place] [address] 96070- 4656 Aug, Adjustment disorder with mixed anxiety and depressed mood F43.23 IMMUNIZATIONS No Known Immunizations SOCIAL HISTORY Never Assessed REASON FOR VISIT Follow-up Depression/Anxiety PLAN OF CARE Activity Details Follow Up 2 Weeks Reason: Follow-up VITAL SIGNS MEDICATIONS Unknown Medications RESULTS No Results PROCEDURES Procedure Date Ordered Result Body Site Psychotherapy, patient &/family, 45 minutes, established patient Sep 24, 2017 INSTRUCTIONS MEDICATIONS ADMINISTERED No Known Medications
--- OUTSIDE RECORDS SUMMARY | 2018-12-04 15:06 | XMS REPORT | Clinical Summary ---
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 UPPER RESPIRATORY INFECTION, ACUTE 465.9 Resolved Esperanza Pool PA Acute upper respiratory infections of unspecified site EUSTACHIAN TUBE DYSFUNCTION, RIGHT 381.81 Resolved Esperanza Pool PA Dysfunction of Eustachian tube CHEST PAIN 786.50 Resolved Esperanza Pool PA Unspecified chest pain ROUTINE GYNECOLOGICAL EXAMINATION V72.31 Resolved Esperanza Pool PA Routine gynecological examination ROUTINE GYNECOLOGICAL EXAMINATION V72.31 Resolved Lulu Arreguin MD Routine gynecological examination SINUSITIS, ACUTE 461.9 Resolved Esperanza Pool PA Acute sinusitis, unspecified EUSTACHIAN TUBE DYSFUNCTION, RIGHT 381.81 Resolved Esperanza Pool PA Dysfunction of Eustachian tube ALLERGIC RHINITIS 477.9 Active Esperanza Pool PA Allergic rhinitis, cause unspecified FATIGUE 780.79 Resolved Esperanza Pool PA Other malaise and fatigue SNORING 786.09 Resolved Esperanza Pool PA Other dyspnea and respiratory abnormality HYPERSOMNIA 780.54 Resolved Esperanza Pool PA Hypersomnia, unspecified COLITIS 558.9 Resolved Esperanza Pool PA Other and unspecified noninfectious gastroenteritis and colitis MENSTRUAL BLEEDING, ABNORMAL 626.9 Resolved Esperanza Pool PA Unspecified disorders of menstruation and other abnormal bleeding from female genital tract PELVIC PAIN 789.09 Resolved Esperanza Pool PA Abdominal pain, other specified site; multiple sites FOOT PAIN, LEFT 729.5 Resolved Esperanza Pool PA Pain in limb SINUSITIS, ACUTE 461.9 Resolved Esperanza Pool PA Acute sinusitis, unspecified ANKLE EDEMA 782.3 Resolved Esperanza Pool PA Edema KNEE PAIN, RIGHT, ACUTE 719.46 Resolved Esperanza Pool PA Pain in joint involving lower leg BENIGN PAROXYSMAL POSITIONAL VERTIGO 386.11 Resolved Esperanza Pool PA Benign paroxysmal positional vertigo DIETARY SURVEILLANCE AND COUNSELING V65.3 Active Esperanza Pool PA Dietary surveillance and counseling NEED PROPHYLACTIC VACCINATION&INOCULATION FLU V04.81 Active 2012 Esperanza Pool PA Need for prophylactic vaccination and inoculation against influenza Obesity 278.00 Active Isatu Coburn APRN Obesity, unspecified Hematuria 599.70 Resolved Lulu Arreguin MD Hematuria, unspecified Elevated blood pressure 796.2 Active Isatu Coburn APRN Elevated blood pressure reading without diagnosis of hypertension Knee pain, right 719.46 Active Isatu Coburn APRN Pain in joint involving lower leg UTI 599.0 Resolved Lulu Arreguin MD Urinary tract infection, site not specified Vaginal pruritus 698.1 Active Lulu Arreguin MD Pruritus of genital organs WELL WOMAN EXAMINATION V72.31 Active Lulu Arreguin MD Routine gynecological examination Menorrhagia 626.2 Active Lulu Arreguin MD Excessive or frequent menstruation UPPER RESPIRATORY INFECTION, ACUTE ICD-465.9 Inactive Esperanza Pool PA EUSTACHIAN TUBE DYSFUNCTION, RIGHT ICD-381.81 Inactive Esperanza Pool PA CHEST PAIN ICD-786.50 Inactive Esperanza Pool PA 06/09 ROUTINE GYNECOLOGICAL EXAMINATION ICD-V72.31 Inactive Lulu Arreguin MD SINUSITIS, ACUTE ICD-461.9 Inactive Esperanza Pool PA EUSTACHIAN TUBE DYSFUNCTION, RIGHT ICD-381.81 Inactive Esperanza Pool PA FATIGUE ICD-780.79 Inactive Esperanza Pool PA SNORING ICD-786.09 Inactive Esperanza Pool PA HYPERSOMNIA ICD-780.54 Inactive Esperanza Pool PA 08/27 COLITIS ICD-558.9 Inactive Esperanza Pool PA MENSTRUAL BLEEDING, ABNORMAL ICD-626.9 Inactive Esperanza Pool PA PELVIC PAIN ICD-789.09 Inactive Esperanza Pool PA 2012 FOOT PAIN, LEFT ICD-729.5 Inactive Esperanza Pool PA SINUSITIS, ACUTE ICD-461.9 Inactive Esperanza Pool PA ANKLE EDEMA ICD-782.3 Inactive Esperanza Pool PA 06/09 KNEE PAIN, RIGHT, ACUTE ICD-719.46 Inactive Esperanza Pool PA BENIGN PAROXYSMAL POSITIONAL VERTIGO ICD-386.11 Inactive Esperanza Sanabria PA Hematuria ICD-599.70 Inactive Lulu Arreguin MD 2013 UTI ICD-599.0 Inactive Lulu Arreguin MD Medication List Medication Instructions Start Date Stop Date Generic Name NDC Status Provider Patient Instruction FLAGYL 500 MG TAB 1 tablet by mouth bid METRONIDAZOLE 03719443193 Active Cynthia Rae LPN Active DIFLUCAN 150 MG TABS one tab PO x 1 FLUCONAZOLE 15479440465 No Longer Active Lulu Arreguin MD Active CIPRO 500 MG TAB 1 tablet by mouth twice daily CIPROFLOXACIN HCL 08340610545 No Longer Active Lulu Arreguin MD Active PYRIDIUM 200 MG TAB 1 po TID PRN Dysuria PHENAZOPYRIDINE HCL 87349475391 No Longer Active Isatu Coburn APRN Active BRITTANIE-28 0.15-30 MG-MCG TABS take one tab po daily LEVONORGESTREL-ETHINYL ESTRAD 87211939117 No Longer Active Petty Mcgrath Active ALPRAZOLAM 0.5 MG TABS one tab tid as needed ALPRAZOLAM 36065913901 Active 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 PHENTERMINE HCL 37.5 MG TABS take one tab po daily PHENTERMINE HCL 83984483464 No Longer Active Isatu Coburn APRN Active DIETHYLPROPION HCL ER 75 MG [id number] take one tab po daily 09/04 DIETHYLPROPION HCL 99269786469 No Longer Active Esperanza Sanabria PA Active FLEXERIL 10 MG TABS take one tab po tid prn CYCLOBENZAPRINE HCL 54403754658 No Longer Active Esperanza Sanabria PA Active TEMAZEPAM 15 MG CAPS 2 capsules every h.s TEMAZEPAM 14759775178 No Longer Active Esperanza Sanabria PA Active PRILOSEC OTC 20 MG TBEC take one tab po bid OMEPRAZOLE MAGNESIUM 65039111151 No Longer Active Esperanza Pool PA Active TRIAMTERENE-HCTZ 37.5-25 MG CAPS Take 1 tablet by mouth daily TRIAMTERENE-HCTZ 81499153339 No Longer Active Esperanza Pool PA Active AMOXICILLIN 875 MG TABS Take one (1) tablet by mouth twice a day AMOXICILLIN 31466556117 No Longer Active Esperanza Pool PA Active HYDROCODONE-ACETAMINOPHEN 5-325 MG TABS take 1 tab po q4-6 hrs prn HYDROCODONE-ACETAMINOPHEN 73419400639 No Longer Active Esperanza Pool PA Active PREDNISONE 20 MG TAB 1 twice daily for two days, the once daily for two days PREDNISONE 51731760159 No Longer Active Esperanza Pool PA Active TAMIFLU 75 MG CAPS take one tab po daily x 10 days OSELTAMIVIR PHOSPHATE 79561541746 No Longer Active Esperanza Pool PA Active FLAGYL 500 MG TABS take one tab po bid x 10 days METRONIDAZOLE 63951240258 No Longer Active Esperanza Pool PA Active CIPRO 500 MG TABS take one tab po bid x 10 days CIPROFLOXACIN HCL 89535102062 No Longer Active Esperanza Pool PA Active SUDAFED 12 HOUR 120 MG [id number] take 1 tab po bid prn PSEUDOEPHEDRINE HCL 63170117316 No Longer Active Esperanza Pool PA Active MEDROL (JESSICA) 4 MG TABS take as directed METHYLPREDNISOLONE 95085750108 No Longer Active Sammi Hernandes RN Active BRITTANIE-28 TABS one tab p.o. q.d LEVONORGESTREL- ETHINYL ESTRAD TABS 12990973347 No Longer Active Esperanza Pool PA Active ZITHROMAX 250 MG TABS take 2 tabs po day one then 1 tab po days 2-5 AZITHROMYCIN 68082373472 No Longer Active Esperanza Pool PA Active METRONIDAZOLE 500 MG TABS 1 tab po bid x 7 days METRONIDAZOLE 83796969994 No Longer Active Lock RN Active AMOXICILLIN 500 MG TABS Take one (1) tablet by mouth three times a day 03/08 AMOXICILLIN 51207448104 No Longer Active Lock RN Active CLINDAMYCIN HCL 300 MG CAPS take 1 cap po QID x 10 days CLINDAMYCIN HCL 31054401461 No Longer Active Lock RN Active CIPRO 500 MG TABS take 1 tab po bid x 10 days CIPROFLOXACIN HCL 22122667923 No Longer Active Lock RN Active BACTRIM DS 800-160 MG TABS 1 tab po bid x 10 days SULFAMETHOXAZOLE-TRIMETHOPRIM 64029546344 No Longer Active Esperanza Pool PA Active ZOLOFT 100 MG TABS take 1 tab po daily SERTRALINE HCL 24205295374 Active Shannan Yoabum INSPECTOR [employer]IE Active ZOLOFT 100 MG TABS take 1/2 tab po daily SERTRALINE HCL 13337284239 No Longer Active Esperanza Pool PA Active BACTRIM DS 800-160 MG TABS 1 tab po bid x 10 days BACTRIM DS 800-160 MG TABS 689968 SULFAMETHOXAZOLE-TRIMETHOPRIM Inactive CIPRO 500 MG TABS take 1 tab po bid x 10 days CIPRO 500 MG TABS 562225 CIPROFLOXACIN HCL Inactive CLINDAMYCIN HCL 300 MG CAPS take 1 cap po QID x 10 days CLINDAMYCIN HCL 300 MG CAPS 642582 CLINDAMYCIN HCL Inactive AMOXICILLIN 500 MG TABS Take one (1) tablet by mouth three times a day 03/08 AMOXICILLIN 500 MG TABS 825085 AMOXICILLIN Inactive METRONIDAZOLE 500 MG TABS 1 tab po bid x 7 days METRONIDAZOLE 500 MG TABS 112474 METRONIDAZOLE Inactive ZITHROMAX 250 MG TABS take 2 tabs po day one then 1 tab po days 2-5 ZITHROMAX 250 MG TABS 4192570 AZITHROMYCIN Inactive BRITTANIE-28 TABS one tab p.o. q.d BRITTANIE-28 TABS LEVONORGESTREL-ETHINYL ESTRAD TABS Inactive MEDROL (JESSICA) 4 MG TABS take as directed MEDROL (JESSICA) 4 MG TABS METHYLPREDNISOLONE Inactive SUDAFED 12 HOUR 120 MG [id number] take 1 tab po bid prn SUDAFED 12 HOUR 120 MG [id number] PSEUDOEPHEDRINE HCL Inactive CIPRO 500 MG TABS take one tab po bid x 10 days CIPRO 500 MG TABS 349875 CIPROFLOXACIN HCL Inactive FLAGYL 500 MG TABS take one tab po bid x 10 days FLAGYL 500 MG TABS 402009 METRONIDAZOLE Inactive TAMIFLU 75 MG CAPS take one tab po daily x 10 days TAMIFLU 75 MG CAPS OSELTAMIVIR PHOSPHATE Inactive PREDNISONE 20 MG TAB 1 twice daily for two days, the once daily for two days PREDNISONE 20 MG TAB 671787 PREDNISONE Inactive HYDROCODONE-ACETAMINOPHEN 5-325 MG TABS take 1 tab po q4-6 hrs prn HYDROCODONE-ACETAMINOPHEN 5-325 MG TABS 463608 HYDROCODONE- ACETAMINOPHEN Inactive AMOXICILLIN 875 MG TABS Take one (1) tablet by mouth twice a day AMOXICILLIN 875 MG TABS 757127 AMOXICILLIN Inactive TRIAMTERENE-HCTZ 37.5-25 MG CAPS Take 1 tablet by mouth daily TRIAMTERENE-HCTZ 37.5-25 MG CAPS 851274 TRIAMTERENE-HCTZ Inactive PRILOSEC OTC 20 MG TBEC take one tab po bid PRILOSEC OTC 20 MG TBEC OMEPRAZOLE MAGNESIUM Inactive TEMAZEPAM 15 MG CAPS 2 capsules every h.s TEMAZEPAM 15 MG CAPS 105546 TEMAZEPAM Inactive FLEXERIL 10 MG TABS take one tab po tid prn FLEXERIL 10 MG TABS CYCLOBENZAPRINE HCL Inactive DIETHYLPROPION HCL ER 75 MG [id number] take one tab po daily 09/04 DIETHYLPROPION HCL ER 75 MG [id number] DIETHYLPROPION HCL Inactive PHENTERMINE HCL 37.5 MG TABS take one tab po daily PHENTERMINE HCL 37.5 MG TABS 927219 PHENTERMINE HCL Inactive BRITTANIE-28 0.15-30 MG-MCG TABS take one tab po daily BRITTANIE-28 0.15-30 MG-MCG TABS 920100 LEVONORGESTREL-ETHINYL ESTRAD Inactive CIPRO 500 MG TAB 1 tablet by mouth twice daily CIPRO 500 MG TAB 750924 CIPROFLOXACIN HCL Inactive ZOLOFT 100 MG TABS take 1/2 tab po daily ZOLOFT 100 MG TABS 093622 SERTRALINE HCL Inactive PYRIDIUM 200 MG TAB 1 po TID PRN Dysuria PYRIDIUM 200 MG TAB 5936106 PHENAZOPYRIDINE HCL Inactive DIFLUCAN 150 MG TABS one tab PO x 1 DIFLUCAN 150 MG TABS 918252 FLUCONAZOLE Inactive Immunizations Vaccine Administration Date Value Standard Description Seasonal influenza vaccine, injectable, containing preservative, for > 3 years old (Afluria, FluLaval, Fluzone, Fluvirin, Fluarix, Agriflu(>=18 yo)) Fluzone (>3 yrs.) [[id number]] Influenza, seasonal, injectable Diagnostic Results Date Name Value Unit Range Description Lab Report: UADIP W/MICRO, AUTO - Chemistry protein, total urine random Negative mg/dL Negative RBC, urine, dipstick Negative Negative Lab Report: UADIP W/MICRO, AUTO - Urinalysis urobilinogen, urine, semiquantitative (dipstick) 0.2 Normal leukocyte esterase, urine, by dipstick Negative Negative nitrite, urine, semiquantitative Negative Negative glucose, urine, semiquantitative Negative Negative ketones, urine, by test strip Negative Negative bilirubin, urine Negative Negative urine color Yellow Colorless;Lightyellow;Straw;Yellow appearance, urine Hazy Clear specific gravity, urine 1.020 1.000-1.030 pH, urine, semiquantitative 7.5 5.0-8.5 Encounters Code Encounter Date Provider Facility CPT-41946 Level 3 Est. Patient 11:13:24 AGRONOMY PROFESSOR Isatu Coburn [facility] CPT-10339 Level 3 Est. Patient 11:56:59 AGRONOMY PROFESSOR Isatu Coburn [facility] CPT-98620 Level 3 Est. Patient 11:17:35 AGRONOMY PROFESSOR Isatu Coburn [facility] CPT-62934 Level 3 Est. Patient 11:02:41 CDT Esperanza Sanabria [facility] CPT-41152 Level 3 Est. Patient 14:35:51 CDT Kalin Carlos DO [facility] CPT-99023 Level 3 Est. Patient 15:48:05 CDT Esperanza Sanabria [facility] CPT-43464 Level 3 Est. Patient 10:40:32 CDT Gonzalez Pinto [facility] CPT-26950 Level 3 Est. Patient 16:15:36 CDT Esperanza Sanabria [facility] CPT-37887 Level 3 Est. Patient 08:25:45 AGRONOMY PROFESSOR Esperanza Sanabria [facility] CPT-85081 Level 3 Est. Patient 16:30:43 AGRONOMY PROFESSOR Esperanza Sanabria [facility] CPT-99821 Level 3 Est. Patient 09:15:02 AGRONOMY PROFESSOR Esperanza Sanabria [facility]-83234 Level 3 Est. Patient 15:29:15 CDT Esperanza [facility] CPT-31382 Level 3 Est. [facility] 12:48:[facility] Est. Patient 14:10:29 CDT Esperanza [facility] CPT-31187 Level 3 Est. Patient 10:08:36 CDT Esperanza [facility] CPT-68763 Level 3 Est. Patient 08:21:51 CDT Gonzalez Pinto [facility] CPT-54566 Level 3 Est. Patient 15:57:32 AGRONOMY PROFESSOR Esperanaz [facility] CPT-76285 Level 3 Est. Patient 09:40:30 AGRONOMY PROFESSOR Esperanza [facility] CPT-44577 Level 3 Est. Patient 08:57:52 A[facility]ONOMY [facility]ESS[facility]67311 Level 3 Est. Patient 14:31:11 [facility]33416 Level 3 Est. Patient 09:44:45 [facility] Procedures Code Procedure Name Date Entry Date Standard Description CPT-OV Office Visit 12:35:22 AGRONOMY PROFESSOR CPT-OV Office Visit 10:39:58 AGRONOMY PROFESSOR CPT-OV Office Visit 10:06:26 CDT CPT-OV Office Visit 14:03:44 CDT CPT-66503 Sono retroperitoneal complete kidneys and bladder 12:58: 45 AGRONOMY PROFESSOR CPT-J1020 Depo Medrol 20 mg (Methyl Prednisolone Acetate) 15:48: 05 CDT CPT-J1020 Depo Medrol 100 mg (Methyl Prednisolone Acetate) 15:48: 05 CDT CPT-59377 Abx/Therapy Injection 15:48:05 CDT CPT-OV Office Visit 14:58:44 AGRONOMY PROFESSOR CPT-66218 Sono transvag pelvis non OB uterus ovaries cervix 16:31: 03 AGRONOMY PROFESSOR CPT-14575 Venipuncture Draw Fee 09:15:02 AGRONOMY PROFESSOR CPT-87405 Venipuncture Draw Fee 15:29:15 CDT CPT-88090 Abx/Therapy Injection 14:10:29 CDT CPT-J1030 Depo Medrol 40 mg (Methyl Prednisolone Acetate) 14:10: 29 CDT CPT-J1040 Depo Medrol 80 mg (Methyl Prednisolone Acetate) 14:10: 29 CDT CPT-11794 Spec Collection and Handling Fee 08:44:23 AGRONOMY PROFESSOR CPT-56555 Prv Med Est Pt 18-39yrs 08:44:23 AGRONOMY PROFESSOR CPT-37895 Abx/Therapy Injection 08:57:52 AGRONOMY PROFESSOR CPT-J1030 Depo Medrol 40 mg (Methyl Prednisolone Acetate) 08:57: 52 AGRONOMY PROFESSOR CPT-J1040 Depo Medrol 80 mg (Methyl Prednisolone Acetate) 08:57: 52 AGRONOMY PROFESSOR
--- OUTSIDE RECORDS SUMMARY | 2018-12-04 15:06 | XMS REPORT | Clinical Summary ---
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 Obesity, unspecified Hematuria 599.70 Resolved Lulu Arreguin [...] TAB 1 tablet by mouth bid METRONIDAZOLE 59675474398 Active Cynthia Rae LPN Active DIFLUCAN 150 MG TABS one tab PO x 1 FLUCONAZOLE 69137411547 No Longer Active Lulu Arreguin MD Active CIPRO 500 MG TAB 1 tablet by mouth twice daily CIPROFLOXACIN HCL 98353975180 No Longer Active Lulu Arreguin MD Active PYRIDIUM 200 MG TAB 1 po TID PRN Dysuria PHENAZOPYRIDINE HCL 80651972742 No Longer Active Isatu Coburn APRN Active BRITTANIE-28 0.15-30 MG-MCG TABS take one tab po daily LEVONORGESTREL-ETHINYL ESTRAD 75884270927 No Longer Active Petty Mcgrath Active ALPRAZOLAM 0.5 MG TABS one tab tid as needed ALPRAZOLAM 27418730348 Active Shannan Yomark CHEMICAL ENGINEERING TEACHER Active PHENTERMINE HCL 37.5 MG TABS take one tab po daily PHENTERMINE HCL 27613714035 No Longer Active Isatu Coburn APRN Active DIETHYLPROPION HCL ER 75 MG [id number] take one tab po daily 09/04 DIETHYLPROPION HCL 43935399723 No Longer Active Esperanza Sanabria PA Active FLEXERIL 10 MG TABS take one tab po tid prn CYCLOBENZAPRINE HCL 04349662171 No Longer Active Esperanza Sanabria PA Active TEMAZEPAM 15 MG CAPS 2 capsules every h.s TEMAZEPAM 98139541184 No Longer Active Esperanza Sanabria PA Active PRILOSEC OTC 20 MG TBEC take one tab po bid OMEPRAZOLE MAGNESIUM 80930822337 No Longer Active Esperanza Pool PA Active TRIAMTERENE-HCTZ 37.5-25 MG CAPS Take 1 tablet by mouth daily TRIAMTERENE-HCTZ 95038527900 No Longer Active Esperanza Pool PA Active AMOXICILLIN 875 MG TABS Take one (1) tablet by mouth twice a day AMOXICILLIN 57561176563 No Longer Active Esperanza Pool PA Active HYDROCODONE-ACETAMINOPHEN 5-325 MG TABS take 1 tab po q4-6 hrs prn HYDROCODONE-ACETAMINOPHEN 81439873116 No Longer Active Esperanza Pool PA Active PREDNISONE 20 MG TAB 1 twice daily for two days, the once daily for two days PREDNISONE 65849473817 No Longer Active Esperanza Pool PA Active TAMIFLU 75 MG CAPS take one tab po daily x 10 days OSELTAMIVIR PHOSPHATE 88088068674 No Longer Active Esperanza Pool PA Active FLAGYL 500 MG TABS take one tab po bid x 10 days METRONIDAZOLE 28528253980 No Longer Active Esperanza Pool PA Active CIPRO 500 MG TABS take one tab po bid x 10 days CIPROFLOXACIN HCL 53017534066 No Longer Active Esperanza Pool PA Active SUDAFED 12 HOUR 120 MG [id number] take 1 tab po bid prn PSEUDOEPHEDRINE HCL 47235485991 No Longer Active Esperanza Pool PA Active MEDROL (JESSICA) 4 MG TABS take as directed METHYLPREDNISOLONE 72554366133 No Longer Active Sammi Hernandes RN Active BRITTANIE-28 TABS one tab p.o. q.d LEVONORGESTREL- ETHINYL ESTRAD TABS 53996408312 No Longer Active Esperanza Pool PA Active ZITHROMAX 250 MG TABS take 2 tabs po day one then 1 tab po days 2-5 AZITHROMYCIN 53491918295 No Longer Active Esperanza Pool PA Active METRONIDAZOLE 500 MG TABS 1 tab po bid x 7 days METRONIDAZOLE 87367263675 No Longer Active Lock RN Active AMOXICILLIN 500 MG TABS Take one (1) tablet by mouth three times a day 03/08 AMOXICILLIN 72315659162 No Longer Active Lock RN Active CLINDAMYCIN HCL 300 MG CAPS take 1 cap po QID x 10 days CLINDAMYCIN HCL 49873380196 No Longer Active Lock RN Active CIPRO 500 MG TABS take 1 tab po bid x 10 days CIPROFLOXACIN HCL 34022910208 No Longer Active Lock RN Active BACTRIM DS 800-160 MG TABS 1 tab po bid x 10 days SULFAMETHOXAZOLE-TRIMETHOPRIM 47663198089 No Longer Active Esperanza Pool PA Active ZOLOFT 100 MG TABS take 1 tab po daily SERTRALINE HCL 30797718585 Active Shannan Yoabum CHEMICAL ENGINEERING TEACHER Active ZOLOFT 100 MG TABS take 1/2 tab po daily SERTRALINE HCL 60964999572 No Longer Active Esperanza Pool PA Active BACTRIM DS 800-160 MG TABS 1 tab po bid x 10 days BACTRIM DS 800-160 MG TABS 926488 SULFAMETHOXAZOLE-TRIMETHOPRIM Inactive CIPRO 500 MG TABS take 1 tab po bid x 10 days CIPRO 500 MG TABS 274839 CIPROFLOXACIN HCL Inactive CLINDAMYCIN HCL 300 MG CAPS take 1 cap po QID x 10 days CLINDAMYCIN HCL 300 MG CAPS 027901 CLINDAMYCIN HCL Inactive AMOXICILLIN 500 MG TABS Take one (1) tablet by mouth three times a day 03/08 AMOXICILLIN 500 MG TABS 236875 AMOXICILLIN Inactive METRONIDAZOLE 500 MG TABS 1 tab po bid x 7 days METRONIDAZOLE 500 MG TABS 196337 METRONIDAZOLE Inactive ZITHROMAX 250 MG TABS take 2 tabs po day one then 1 tab po days 2-5 ZITHROMAX 250 MG TABS 6194694 AZITHROMYCIN Inactive BRITTANIE-28 TABS one tab p.o. q.d BRITTANIE-28 TABS LEVONORGESTREL-ETHINYL ESTRAD TABS Inactive MEDROL (JESSICA) 4 MG TABS take as directed MEDROL (JESSICA) 4 MG TABS METHYLPREDNISOLONE Inactive SUDAFED 12 HOUR 120 MG [id number] take 1 tab po bid prn SUDAFED 12 HOUR 120 MG [id number] PSEUDOEPHEDRINE HCL Inactive CIPRO 500 MG TABS take one tab po bid x 10 days CIPRO 500 MG TABS 116624 CIPROFLOXACIN HCL Inactive FLAGYL 500 MG TABS take one tab po bid x 10 days FLAGYL 500 MG TABS 726798 METRONIDAZOLE Inactive TAMIFLU 75 MG CAPS take one tab po daily x 10 days TAMIFLU 75 MG CAPS OSELTAMIVIR PHOSPHATE Inactive PREDNISONE 20 MG TAB 1 twice daily for two days, the once daily for two days PREDNISONE 20 MG TAB 154611 PREDNISONE Inactive HYDROCODONE-ACETAMINOPHEN 5-325 MG TABS take 1 tab po q4-6 hrs prn HYDROCODONE-ACETAMINOPHEN 5-325 MG TABS 818612 HYDROCODONE- ACETAMINOPHEN Inactive AMOXICILLIN 875 MG TABS Take one (1) tablet by mouth twice a day AMOXICILLIN 875 MG TABS 603676 AMOXICILLIN Inactive TRIAMTERENE-HCTZ 37.5-25 MG CAPS Take 1 tablet by mouth daily TRIAMTERENE-HCTZ 37.5-25 MG CAPS 464296 TRIAMTERENE-HCTZ Inactive PRILOSEC OTC 20 MG TBEC take one tab po bid PRILOSEC OTC 20 MG TBEC OMEPRAZOLE MAGNESIUM Inactive TEMAZEPAM 15 MG CAPS 2 capsules every h.s TEMAZEPAM 15 MG CAPS 19820217 TEMAZEPAM Inactive FLEXERIL 10 MG TABS take one tab po tid prn FLEXERIL 10 MG TABS CYCLOBENZAPRINE HCL Inactive DIETHYLPROPION HCL ER 75 MG [id number] take one tab po daily 09/04 DIETHYLPROPION HCL ER 75 MG [id number] DIETHYLPROPION HCL Inactive PHENTERMINE HCL 37.5 MG TABS take one tab po daily PHENTERMINE HCL 37.5 MG TABS 506899 PHENTERMINE HCL Inactive BRITTANIE-28 0.15-30 MG-MCG TABS take one tab po daily BRITTANIE-28 0.15-30 MG-MCG TABS 861628 LEVONORGESTREL-ETHINYL ESTRAD Inactive CIPRO 500 MG TAB 1 tablet by mouth twice daily CIPRO 500 MG TAB 867478 CIPROFLOXACIN HCL Inactive ZOLOFT 100 MG TABS take 1/2 tab po daily ZOLOFT 100 MG TABS 586523 SERTRALINE HCL Inactive PYRIDIUM 200 MG TAB 1 po TID PRN Dysuria PYRIDIUM 200 MG TAB 8828669 PHENAZOPYRIDINE HCL Inactive DIFLUCAN 150 MG TABS one tab PO x 1 DIFLUCAN 150 MG TABS 313609 FLUCONAZOLE Inactive Immunizations Vaccine Administration Date Value Standard Description Seasonal influenza vaccine, injectable, containing preservative, for > 3 years old (Afluria, FluLaval, Fluzone, Fluvirin, Fluarix, Agriflu(>=18 yo)) Fluzone (>3 yrs.) [[id number]] Influenza, seasonal, injectable Vital Signs Date Name Value Unit Range Description blood pressure, diastolic - 8462-4 74 mm[Hg] BP tineo blood pressure, systolic - 8480-6 148 mm[Hg] BP sys pulse rate E&M - 8867-4 77 /min Heart rate temperature E&M 99.3 [degF] Body temperature weight E&M - 3141-9 239 [lb_av] Weight Measured Diagnostic Results Date Name Value Unit Range [...] 5.0-8.5 Encounters Code Encounter Date Provider Facility CPT-01232 Level 3 Est. Patient 11:13:24 CHIEF WRITER Isatu Coburn [facility] CPT-11475 Level 3 Est. Patient 11:56:59 CHIEF WR[address] Isatu Coburn [facility] CPT-53859 Level 3 Est. Patient 11:17:35 CHIEF WRITER Isatu Coburn [facility] CPT-02372 Level 3 Est. Patient 11:02:41 CDT Esperanza Sanabria [facility] CPT-49978 Level 3 Est. Patient 14:35:51 CDT Kalin Carlos DO [facility] CPT-45835 Level 3 Est. Patient 15:48:05 CDT Esperanza Sanabria [facility] CPT-77887 Level 3 Est. Patient 10:40:32 CDT Gonzalez Pinto [facility] CPT-41775 Level 3 Est. Patient 16:15:36 CDT [facility] CPT-48845 Level 3 Est. Patient 08:25:45 CHIEF WRITER [facility] CPT-04617 Level 3 Est. Patient 16:30:43 CHIEF WRITER [facility] CPT-21897 Level 3 Est. Patient 09:15:02 CHIEF WRITER Esperanza [facility] CPT-28358 Level 3 Est. Patient 15:29:15 CDT [facility] CPT-56362 Level 3 Est. Patient 12:48:23 CDT [facility] CPT-53231 Level 3 Est. Patient 14[facility]10:29 [facility]45[facility] Level 3 Est. Patient 10:08:36 [facility] CPT-12695 Level 3 Est. Patient 08:21:51 CDT Goznalez Pinto [facility] CPT-93175 Level 3 Est. Patient 15:57:32 [facility] CPT-18651 Level 3 Est. Patient 09:40:30 CHIEF WRITER Esperanza [facility] CPT-53938 Level 3 Est. Patient 08:57:52 [facility] CPT-64948 Level 3 Est. Patient 14:31:11 [facility] CPT-09651 Level 3 Est. Patient 09:44:45 [facility] Procedures Code Procedure Name Date Entry Date Standard Description CPT-05645 Sono pelvis non OB uterus ovaries cervix 12:08:42 CHIEF WRITER CPT-OV Office Visit 12:35:22 CHIEF WRITER CPT-OV Office Visit 10:39:58 CHIEF WRITER CPT-OV Office Visit 10:06:26 CDT CPT-OV Office Visit 14:03:44 CDT CPT-41958 Sono retroperitoneal complete kidneys and bladder 12:58: 45 CHIEF WRITER CPT-J1020 Depo Medrol 20 mg (Methyl Prednisolone Acetate) 15:48: 05 CDT CPT-J1020 Depo Medrol 100 mg (Methyl Prednisolone Acetate) 15:48: 05 CDT CPT-09782 Abx/Therapy Injection 15:48:05 CDT CPT-OV Office Visit 14:58:44 CHIEF WRITER CPT-48899 Sono transvag pelvis non OB uterus ovaries cervix 16:31: 03 CHIEF WRITER CPT-71506 Venipuncture Draw Fee 09:15:02 CHIEF WRITER CPT-28707 Venipuncture Draw Fee 15:29:15 CDT CPT-02124 Abx/Therapy Injection 14:10:29 CDT CPT-J1030 Depo Medrol 40 mg (Methyl Prednisolone Acetate) 14:10: 29 CDT CPT-J1040 Depo Medrol 80 mg (Methyl Prednisolone Acetate) 14:10: 29 CDT CPT-84219 Spec Collection and Handling Fee 08:44:23 CHIEF WRITER CPT-25768 Prv Med Est Pt 18-39yrs 08:44:23 CHIEF WRITER CPT-23445 Abx/Therapy Injection 08:57:52 CHIEF WRITER CPT-J1030 Depo Medrol 40 mg (Methyl Prednisolone Acetate) 08:57: 52 CHIEF WRITER CPT-J1040 Depo Medrol 80 mg (Methyl Prednisolone Acetate) 08:57: 52 CHIEF WRITER
--- OUTSIDE RECORDS SUMMARY | 2018-12-04 15:07 | XMS REPORT | Clinical Summary ---
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 UPPER RESPIRATORY INFECTION, [...] against influenza Obesity 278.00 Active 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 Obesity, unspecified Hematuria 599.70 Resolved Lulu Arreguin [...] TAB 1 tablet by mouth bid METRONIDAZOLE 25077235033 Active Cynthia Rae LPN Active DIFLUCAN 150 MG TABS one tab PO x 1 FLUCONAZOLE 80138224529 No Longer Active Lulu Arreguin MD Active CIPRO 500 MG TAB 1 tablet by mouth twice daily CIPROFLOXACIN HCL 38452169665 No Longer Active Lulu Arreguin MD Active PYRIDIUM 200 MG TAB 1 po TID PRN Dysuria PHENAZOPYRIDINE HCL 92916405430 No Longer Active Isatu Coburn APRN Active BRITTANIE-28 0.15-30 MG-MCG TABS take one tab po daily LEVONORGESTREL-ETHINYL ESTRAD 19078867577 No Longer Active Petty Mcgrath Active ALPRAZOLAM 0.5 MG TABS one tab tid as needed ALPRAZOLAM 26574599104 Active Shannan Yomark SERVICE ARCHITECT Active PHENTERMINE HCL 37.5 MG TABS take one tab po daily PHENTERMINE HCL 82499558092 No Longer Active Isatu Coburn APRN Active DIETHYLPROPION HCL ER 75 MG [id number] take one tab po daily 09/04 DIETHYLPROPION HCL 01161786386 No Longer Active Esperanza Sanabria PA Active FLEXERIL 10 MG TABS take one tab po tid prn CYCLOBENZAPRINE HCL 11656642549 No Longer Active Esperanza Sanabria PA Active TEMAZEPAM 15 MG CAPS 2 capsules every h.s TEMAZEPAM 23914671887 No Longer Active Esperanza Sanabria PA Active PRILOSEC OTC 20 MG TBEC take one tab po bid OMEPRAZOLE MAGNESIUM 91198960219 No Longer Active Esperanza Pool PA Active TRIAMTERENE-HCTZ 37.5-25 MG CAPS Take 1 tablet by mouth daily TRIAMTERENE-HCTZ 93436006221 No Longer Active Esperanza Pool PA Active AMOXICILLIN 875 MG TABS Take one (1) tablet by mouth twice a day AMOXICILLIN 56427965372 No Longer Active Esperanza Pool PA Active HYDROCODONE-ACETAMINOPHEN 5-325 MG TABS take 1 tab po q4-6 hrs prn HYDROCODONE-ACETAMINOPHEN 68095092528 No Longer Active Esperanza Pool PA Active PREDNISONE 20 MG TAB 1 twice daily for two days, the once daily for two days PREDNISONE 18198344313 No Longer Active Esperanza Pool PA Active TAMIFLU 75 MG CAPS take one tab po daily x 10 days OSELTAMIVIR PHOSPHATE 14707568119 No Longer Active Esperanza Pool PA Active FLAGYL 500 MG TABS take one tab po bid x 10 days METRONIDAZOLE 14283905144 No Longer Active Esperanza Pool PA Active CIPRO 500 MG TABS take one tab po bid x 10 days CIPROFLOXACIN HCL 63425885772 No Longer Active Esperanza Pool PA Active SUDAFED 12 HOUR 120 MG [id number] take 1 tab po bid prn PSEUDOEPHEDRINE HCL 54371923786 No Longer Active Esperanza Pool PA Active MEDROL (JESSICA) 4 MG TABS take as directed METHYLPREDNISOLONE 78416509261 No Longer Active Sammi Hernandes RN Active BRITTANIE-28 TABS one tab p.o. q.d LEVONORGESTREL- ETHINYL ESTRAD TABS 65251128494 No Longer Active Esperanza Pool PA Active ZITHROMAX 250 MG TABS take 2 tabs po day one then 1 tab po days 2-5 AZITHROMYCIN 59118695314 No Longer Active Esperanza Pool PA Active METRONIDAZOLE 500 MG TABS 1 tab po bid x 7 days METRONIDAZOLE 84026797991 No Longer Active Lock RN Active AMOXICILLIN 500 MG TABS Take one (1) tablet by mouth three times a day 03/08 AMOXICILLIN 29200009564 No Longer Active Lock RN Active CLINDAMYCIN HCL 300 MG CAPS take 1 cap po QID x 10 days CLINDAMYCIN HCL 20475637529 No Longer Active Lock RN Active CIPRO 500 MG TABS take 1 tab po bid x 10 days CIPROFLOXACIN HCL 71200089857 No Longer Active Lock RN Active BACTRIM DS 800-160 MG TABS 1 tab po bid x 10 days SULFAMETHOXAZOLE-TRIMETHOPRIM 32021350683 No Longer Active Esperanza Pool PA Active ZOLOFT 100 MG TABS take 1 tab po daily SERTRALINE HCL 60673213584 Active Shannan Yoabum SERVICE ARCHITECT Active ZOLOFT 100 MG TABS take 1/2 tab po daily SERTRALINE HCL 28232373775 No Longer Active Esperanza Pool PA Active BACTRIM DS 800-160 MG TABS 1 tab po bid x 10 days BACTRIM DS 800-160 MG TABS 033520 SULFAMETHOXAZOLE-TRIMETHOPRIM Inactive CIPRO 500 MG TABS take 1 tab po bid x 10 days CIPRO 500 MG TABS 510916 CIPROFLOXACIN HCL Inactive CLINDAMYCIN HCL 300 MG CAPS take 1 cap po QID x 10 days CLINDAMYCIN HCL 300 MG CAPS 633860 CLINDAMYCIN HCL Inactive AMOXICILLIN 500 MG TABS Take one (1) tablet by mouth three times a day 03/08 AMOXICILLIN 500 MG TABS 644774 AMOXICILLIN Inactive METRONIDAZOLE 500 MG TABS 1 tab po bid x 7 days METRONIDAZOLE 500 MG TABS 287293 METRONIDAZOLE Inactive ZITHROMAX 250 MG TABS take 2 tabs po day one then 1 tab po days 2-5 ZITHROMAX 250 MG TABS 2766460 AZITHROMYCIN Inactive BRITTANIE-28 TABS one tab p.o. q.d BRITTANIE-28 TABS LEVONORGESTREL-ETHINYL ESTRAD TABS Inactive MEDROL (JESSICA) 4 MG TABS take as directed MEDROL (JESSICA) 4 MG TABS METHYLPREDNISOLONE Inactive SUDAFED 12 HOUR 120 MG [id number] take 1 tab po bid prn SUDAFED 12 HOUR 120 MG [id number] PSEUDOEPHEDRINE HCL Inactive CIPRO 500 MG TABS take one tab po bid x 10 days CIPRO 500 MG TABS 529023 CIPROFLOXACIN HCL Inactive FLAGYL 500 MG TABS take one tab po bid x 10 days FLAGYL 500 MG TABS 909995 METRONIDAZOLE Inactive TAMIFLU 75 MG CAPS take one tab po daily x 10 days TAMIFLU 75 MG CAPS OSELTAMIVIR PHOSPHATE Inactive PREDNISONE 20 MG TAB 1 twice daily for two days, the once daily for two days PREDNISONE 20 MG TAB 382363 PREDNISONE Inactive HYDROCODONE-ACETAMINOPHEN 5-325 MG TABS take 1 tab po q4-6 hrs prn HYDROCODONE-ACETAMINOPHEN 5-325 MG TABS 301286 HYDROCODONE- ACETAMINOPHEN Inactive AMOXICILLIN 875 MG TABS Take one (1) tablet by mouth twice a day AMOXICILLIN 875 MG TABS 792854 AMOXICILLIN Inactive TRIAMTERENE-HCTZ 37.5-25 MG CAPS Take 1 tablet by mouth daily TRIAMTERENE-HCTZ 37.5-25 MG CAPS 396831 TRIAMTERENE-HCTZ Inactive PRILOSEC OTC 20 MG TBEC take one tab po bid PRILOSEC OTC 20 MG TBEC OMEPRAZOLE MAGNESIUM Inactive TEMAZEPAM 15 MG CAPS 2 capsules every h.s TEMAZEPAM 15 MG CAPS 19820217 TEMAZEPAM Inactive FLEXERIL 10 MG TABS take one tab po tid prn FLEXERIL 10 MG TABS CYCLOBENZAPRINE HCL Inactive DIETHYLPROPION HCL ER 75 MG [id number] take one tab po daily 09/04 DIETHYLPROPION HCL ER 75 MG [id number] DIETHYLPROPION HCL Inactive PHENTERMINE HCL 37.5 MG TABS take one tab po daily PHENTERMINE HCL 37.5 MG TABS 548540 PHENTERMINE HCL Inactive BRITTANIE-28 0.15-30 MG-MCG TABS take one tab po daily BRITTANIE-28 0.15-30 MG-MCG TABS 529916 LEVONORGESTREL-ETHINYL ESTRAD Inactive CIPRO 500 MG TAB 1 tablet by mouth twice daily CIPRO 500 MG TAB 194131 CIPROFLOXACIN HCL Inactive ZOLOFT 100 MG TABS take 1/2 tab po daily ZOLOFT 100 MG TABS 409365 SERTRALINE HCL Inactive PYRIDIUM 200 MG TAB 1 po TID PRN Dysuria PYRIDIUM 200 MG TAB 3123946 PHENAZOPYRIDINE HCL Inactive DIFLUCAN 150 MG TABS one tab PO x 1 DIFLUCAN 150 MG TABS 694105 FLUCONAZOLE Inactive Immunizations Vaccine Administration Date Value Standard Description Seasonal influenza vaccine, injectable, containing preservative, for > 3 years old (Afluria, FluLaval, Fluzone, Fluvirin, Fluarix, Agriflu(>=18 yo)) Fluzone (>3 yrs.) [[id number]] Influenza, seasonal, injectable Vital Signs Date Name [...] 5.0-8.5 Encounters Code Encounter Date Provider Facility CPT-15430 Level 3 Est. Patient 11:13:24 BPM ANALYST Isatu Coburn [facility] CPT-13987 Level 3 Est. Patient 11:56:59 BPM ANALYST Isatu Coburn [facility] CPT-72032 Level 3 Est. Patient 11:17:35 BPM ANALYST Isatu Coburn [facility] CPT-29042 Level 3 Est. Patient 11:02:41 CDT Esperanza Sanabria [facility] CPT-68760 Level 3 Est. Patient 14:35:51 CDT Kalin Carlos DO [facility] CPT-11503 Level 3 Est. Patient 15:48:05 CDT Esperanza Sanabria [facility] CPT-05668 Level 3 Est. Patient 10:40:32 CDT Gonzalez Pinto [facility] CPT-61767 Level 3 Est. Patient 16:15:36 CDT Esperanza [facility] CPT-27653 Level 3 Est. Patient 08:25:45 BPM ANALYST Esperanza [facility] CPT-73072 Level 3 Est. Patient 16:30:43 BPM ANALYST Esperanza [facility] CPT-23740 Level 3 Est. Patient 09:15:02 BPM ANALYST Esperanza [facility] CPT-81947 Level 3 Est. Patient 15:29:15 CDT Esperanza [facility] CPT-95270 Level 3 Est. Patient 12:48:23 CDT Esperanza [facility] CPT-98305 Level 3 Est. [facility] 14:10:[facility] Level [facility] Est[facility] 10:08:36 [facility] Level 3 Est. Patient 08:21:51 CDT Gonzalez Pinto [facility] CPT-57609 Level 3 Est. Patient 15:57:32 [facility] Level 3 Est. Patient 09:40:30 BPM ANALYST Esperanza [facility] CPT-86327 Level 3 Est. Patient 08:57:52 [facility] Level 3 Est. Patient 14:31:11 CD[facility] CPT-43198 Level 3 Est. Patient 09:44:45 CDT [facility] Procedures Code Procedure Name Date Entry Date Standard Description CPT-34779 Sono pelvis non OB uterus ovaries cervix 12:08:42 BPM ANALYST CPT-OV Office Visit 12:35:22 BPM ANALYST CPT-OV Office Visit 10:39:58 BPM ANALYST CPT-OV Office Visit 10:06:26 CDT CPT-OV Office Visit 14:03:44 CDT CPT-78801 Sono retroperitoneal complete kidneys and bladder 12:58: 45 BPM ANALYST CPT-J1020 Depo Medrol 20 mg (Methyl Prednisolone Acetate) 15:48: 05 CDT CPT-J1020 Depo Medrol 100 mg (Methyl Prednisolone Acetate) 15:48: 05 CDT CPT-55428 Abx/Therapy Injection 15:48:05 CDT CPT-OV Office Visit 14:58:44 BPM ANALYST CPT-40203 Sono transvag pelvis non OB uterus ovaries cervix 16:31: 03 BPM ANALYST CPT-72877 Venipuncture Draw Fee 09:15:02 BPM ANALYST CPT-65083 Venipuncture Draw Fee 15:29:15 CDT CPT-56852 Abx/Therapy Injection 14:10:29 CDT CPT-J1030 Depo Medrol 40 mg (Methyl Prednisolone Acetate) 14:10: 29 CDT CPT-J1040 Depo Medrol 80 mg (Methyl Prednisolone Acetate) 14:10: 29 CDT CPT-16403 Spec Collection and Handling Fee 08:44:23 BPM ANALYST CPT-90048 Prv Med Est Pt 18-39yrs 08:44:23 BPM ANALYST CPT-58987 Abx/Therapy Injection 08:57:52 BPM ANALYST CPT-J1030 Depo Medrol 40 mg (Methyl Prednisolone Acetate) 08:57: 52 BPM ANALYST CPT-J1040 Depo Medrol 80 mg (Methyl Prednisolone Acetate) 08:57: 52 BPM ANALYST
--- OUTSIDE RECORDS SUMMARY | 2018-12-04 15:07 | XMS REPORT | Clinical Summary ---
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 Obesity, unspecified Hematuria 599.70 Resolved Lulu Arreguin [...] Lulu Arreguin MD SINUSITIS, ACUTE ICD-461.9 Inactive Espernaza Pool PA EUSTACHIAN TUBE DYSFUNCTION, RIGHT ICD-381.81 [...] TAB 1 tablet by mouth bid METRONIDAZOLE 64203778056 Active Cynthia Rae LPN Active DIFLUCAN 150 MG TABS one tab PO x 1 FLUCONAZOLE 21619168613 No Longer Active Lulu Arreguin MD Active CIPRO 500 MG TAB 1 tablet by mouth twice daily CIPROFLOXACIN HCL 29687649389 No Longer Active Lulu Arreguin MD Active PYRIDIUM 200 MG TAB 1 po TID PRN Dysuria PHENAZOPYRIDINE HCL 80583249851 No Longer Active Isatu Coburn APRN Active BRITTANIE-28 0.15-30 MG-MCG TABS take one tab po daily LEVONORGESTREL-ETHINYL ESTRAD 59073428762 No Longer Active Petty Mcgrath Active ALPRAZOLAM 0.5 MG TABS one tab tid as needed ALPRAZOLAM 76574593640 Active Shannan Yomark [employer]2B SALES PROFESSIONAL Active PHENTERMINE HCL 37.5 MG TABS take one tab po daily PHENTERMINE HCL 14439661157 No Longer Active Isatu Coburn APRN Active DIETHYLPROPION HCL ER 75 MG [id number] take one tab po daily 09/04 DIETHYLPROPION HCL 53787813710 No Longer Active Esperanza Sanabria PA Active FLEXERIL 10 MG TABS take one tab po tid prn CYCLOBENZAPRINE HCL 41752053439 No Longer Active Esperanza Sanabria PA Active TEMAZEPAM 15 MG CAPS 2 capsules every h.s TEMAZEPAM 77369353440 No Longer Active Esperanza Sanabria PA Active PRILOSEC OTC 20 MG TBEC take one tab po bid OMEPRAZOLE MAGNESIUM 54272840001 No Longer Active Esperanza Pool PA Active TRIAMTERENE-HCTZ 37.5-25 MG CAPS Take 1 tablet by mouth daily TRIAMTERENE-HCTZ 27522950777 No Longer Active Esperanza Pool PA Active AMOXICILLIN 875 MG TABS Take one (1) tablet by mouth twice a day AMOXICILLIN 77247912138 No Longer Active Esperanza Pool PA Active HYDROCODONE-ACETAMINOPHEN 5-325 MG TABS take 1 tab po q4-6 hrs prn HYDROCODONE-ACETAMINOPHEN 58081469080 No Longer Active Esperanza Pool PA Active PREDNISONE 20 MG TAB 1 twice daily for two days, the once daily for two days PREDNISONE 26303628805 No Longer Active Esperanza Pool PA Active TAMIFLU 75 MG CAPS take one tab po daily x 10 days OSELTAMIVIR PHOSPHATE 39015569302 No Longer Active Esperanza Pool PA Active FLAGYL 500 MG TABS take one tab po bid x 10 days METRONIDAZOLE 40894069238 No Longer Active Esperanza Pool PA Active CIPRO 500 MG TABS take one tab po bid x 10 days CIPROFLOXACIN HCL 58912854498 No Longer Active Esperanza Pool PA Active SUDAFED 12 HOUR 120 MG [id number] take 1 tab po bid prn PSEUDOEPHEDRINE HCL 67745024402 No Longer Active Esperanza Pool PA Active MEDROL (JESSICA) 4 MG TABS take as directed METHYLPREDNISOLONE 67967558646 No Longer Active Sammi Hernandes RN Active BRITTANIE-28 TABS one tab p.o. q.d LEVONORGESTREL- ETHINYL ESTRAD TABS 64284131423 No Longer Active Esperanza Pool PA Active ZITHROMAX 250 MG TABS take 2 tabs po day one then 1 tab po days 2-5 AZITHROMYCIN 14434523264 No Longer Active Esperanza Pool PA Active METRONIDAZOLE 500 MG TABS 1 tab po bid x 7 days METRONIDAZOLE 24443279002 No Longer Active Lock RN Active AMOXICILLIN 500 MG TABS Take one (1) tablet by mouth three times a day 03/08 AMOXICILLIN 07197615348 No Longer Active Lock RN Active CLINDAMYCIN HCL 300 MG CAPS take 1 cap po QID x 10 days CLINDAMYCIN HCL 38190626383 No Longer Active Lock RN Active CIPRO 500 MG TABS take 1 tab po bid x 10 days CIPROFLOXACIN HCL 03949065049 No Longer Active Lock RN Active BACTRIM DS 800-160 MG TABS 1 tab po bid x 10 days SULFAMETHOXAZOLE-TRIMETHOPRIM 05220683853 No Longer Active Esperanza Pool PA Active ZOLOFT 100 MG TABS take 1 tab po daily SERTRALINE HCL 55647999928 Active Shannan Yoabum B2B SALES PROFESSIONAL Active ZOLOFT 100 MG TABS take 1/2 tab po daily SERTRALINE HCL 05505026226 No Longer Active Esperanza Pool PA Active BACTRIM DS 800-160 MG TABS 1 tab po bid x 10 days BACTRIM DS 800-160 MG TABS 830990 SULFAMETHOXAZOLE-TRIMETHOPRIM Inactive CIPRO 500 MG TABS take 1 tab po bid x 10 days CIPRO 500 MG TABS 919558 CIPROFLOXACIN HCL Inactive CLINDAMYCIN HCL 300 MG CAPS take 1 cap po QID x 10 days CLINDAMYCIN HCL 300 MG CAPS 727850 CLINDAMYCIN HCL Inactive AMOXICILLIN 500 MG TABS Take one (1) tablet by mouth three times a day 03/08 AMOXICILLIN 500 MG TABS 050645 AMOXICILLIN Inactive METRONIDAZOLE 500 MG TABS 1 tab po bid x 7 days METRONIDAZOLE 500 MG TABS 689980 METRONIDAZOLE Inactive ZITHROMAX 250 MG TABS take 2 tabs po day one then 1 tab po days 2-5 ZITHROMAX 250 MG TABS 2777748 AZITHROMYCIN Inactive BRITTANIE-28 TABS one tab p.o. q.d BRITTANIE-28 TABS LEVONORGESTREL-ETHINYL ESTRAD TABS Inactive MEDROL (JESSICA) 4 MG TABS take as directed MEDROL (JESSICA) 4 MG TABS METHYLPREDNISOLONE Inactive SUDAFED 12 HOUR 120 MG [id number] take 1 tab po bid prn SUDAFED 12 HOUR 120 MG [id number] PSEUDOEPHEDRINE HCL Inactive CIPRO 500 MG TABS take one tab po bid x 10 days CIPRO 500 MG TABS 923575 CIPROFLOXACIN HCL Inactive FLAGYL 500 MG TABS take one tab po bid x 10 days FLAGYL 500 MG TABS 669297 METRONIDAZOLE Inactive TAMIFLU 75 MG CAPS take one tab po daily x 10 days TAMIFLU 75 MG CAPS OSELTAMIVIR PHOSPHATE Inactive PREDNISONE 20 MG TAB 1 twice daily for two days, the once daily for two days PREDNISONE 20 MG TAB 394561 PREDNISONE Inactive HYDROCODONE-ACETAMINOPHEN 5-325 MG TABS take 1 tab po q4-6 hrs prn HYDROCODONE-ACETAMINOPHEN 5-325 MG TABS 649058 HYDROCODONE- ACETAMINOPHEN Inactive AMOXICILLIN 875 MG TABS Take one (1) tablet by mouth twice a day AMOXICILLIN 875 MG TABS 625325 AMOXICILLIN Inactive TRIAMTERENE-HCTZ 37.5-25 MG CAPS Take 1 tablet by mouth daily TRIAMTERENE-HCTZ 37.5-25 MG CAPS 488521 TRIAMTERENE-HCTZ Inactive PRILOSEC OTC 20 MG TBEC take one tab po bid PRILOSEC OTC 20 MG TBEC OMEPRAZOLE MAGNESIUM Inactive TEMAZEPAM 15 MG CAPS 2 capsules every h.s TEMAZEPAM 15 MG CAPS 19820217 TEMAZEPAM Inactive FLEXERIL 10 MG TABS take one tab po tid prn FLEXERIL 10 MG TABS CYCLOBENZAPRINE HCL Inactive DIETHYLPROPION HCL ER 75 MG [id number] take one tab po daily 09/04 DIETHYLPROPION HCL ER 75 MG [id number] DIETHYLPROPION HCL Inactive PHENTERMINE HCL 37.5 MG TABS take one tab po daily PHENTERMINE HCL 37.5 MG TABS 219436 PHENTERMINE HCL Inactive BRITTANIE-28 0.15-30 MG-MCG TABS take one tab po daily BRITTANIE-28 0.15-30 MG-MCG TABS 846271 LEVONORGESTREL-ETHINYL ESTRAD Inactive CIPRO 500 MG TAB 1 tablet by mouth twice daily CIPRO 500 MG TAB 951390 CIPROFLOXACIN HCL Inactive ZOLOFT 100 MG TABS take 1/2 tab po daily ZOLOFT 100 MG TABS 185243 SERTRALINE HCL Inactive PYRIDIUM 200 MG TAB 1 po TID PRN Dysuria PYRIDIUM 200 MG TAB 5519024 PHENAZOPYRIDINE HCL Inactive DIFLUCAN 150 MG TABS one tab PO x 1 DIFLUCAN 150 MG TABS 926222 FLUCONAZOLE Inactive Immunizations Vaccine Administration Date Value Standard Description Seasonal influenza vaccine, injectable, containing preservative, for > 3 years old (Afluria, FluLaval, Fluzone, Fluvirin, Fluarix, Agriflu(>=18 yo)) Fluzone (>3 yrs.) [[id number]] Influenza, seasonal, injectable Diagnostic Results Date Name [...] 5.0-8.5 Encounters Code Encounter Date Provider Facility CPT-29751 Level 3 Est. Patient 11:13:24 BOTTLE CAPPING MACHINE OPERATOR Isatu Coburn [facility] CPT-85623 Level 3 Est. Patient 11:56:59 BOTTLE CAPPING MACHINE OPERATOR Isatu Coburn [facility] CPT-52422 Level 3 Est. Patient 11:17:35 BOTTLE CAPPING MACHINE OPERATOR Isatu Coburn [facility] CPT-11824 Level 3 Est. Patient 11:02:41 CDT Esperanza Sanabria [facility] CPT-91336 Level 3 Est. Patient 14:35:51 CDT Kalin Carlos DO [facility] CPT-84512 Level 3 Est. Patient 15:48:05 CDT Esperanza Sanabria [facility] CPT-88126 Level 3 Est. Patient 10:40:32 CDT Gonzalez Pinto [facility] CPT-77219 Level 3 Est. Patient 16:15:36 CDT Esperanza Sanabria [facility] CPT-24277 Level 3 Est. Patient 08:25:45 BOTTLE CAPPING MACHINE OPERATOR Esperanza Sanabria [facility] CPT-28382 Level 3 Est. Patient 16:30:43 BOTTLE CAPPING MACHINE OPERATOR Esperanza Sanabria [facility] CPT-09012 Level 3 Est. Patient 09:15:02 BOTTLE CAPPING MACHINE OPERATOR Esperanza Sanabria [facility]-25343 Level 3 Est. Patient 15:29:15 CDT Esperanza [facility] CPT-20070 Level 3 Est. Patient 12:48:23 CDT Esperanza [facility] CPT-01406 Level 3 Est. Patient 14:10:29 CDT Esperanza [facility] CPT-56162 Level 3 Est. Patient 10:08:36 CDT Esperanza [facility] CPT-05870 Level 3 Est. Patient 08:21:51 CDT Gonzalez Pinto [facility] CPT-37727 Level 3 Est. Patient 15:57:32 BOTTLE CAPPING MACHINE OPERATOR Esperanza [facility] CPT-37997 Level 3 Est. Patient 09:40:30 BOTTLE CAPPING MACHINE OPERATOR [facility]-35737 Level 3 Est. Patient 08:57:52 BOTTLE CAPPING MACHINE OPERATOR [facility] CPT-51634 Level 3 Est. Patient 14:31:11 CDT [facility] CPT-54049 Level 3 Est. Patient 09:44:45 CDT [facility] Procedures Code Procedure Name Date Entry Date Standard Description CPT-OV Office Visit 12:35:22 BOTTLE CAPPING MACHINE OPERATOR CPT-OV Office Visit 10:39:58 BOTTLE CAPPING MACHINE OPERATOR CPT-OV Office Visit 10:06:26 CDT CPT-OV Office Visit 14:03:44 CDT CPT-76674 Sono retroperitoneal complete kidneys and bladder 12:58: 45 BOTTLE CAPPING MACHINE OPERATOR CPT-J1020 Depo Medrol 20 mg (Methyl Prednisolone Acetate) 15:48: 05 CDT CPT-J1020 Depo Medrol 100 mg (Methyl Prednisolone Acetate) 15:48: 05 CDT CPT-11306 Abx/Therapy Injection 15:48:05 CDT CPT-OV Office Visit 14:58:44 BOTTLE CAPPING MACHINE OPERATOR CPT-77389 Sono transvag pelvis non OB uterus ovaries cervix 16:31: 03 BOTTLE CAPPING MACHINE OPERATOR CPT-06495 Venipuncture Draw Fee 09:15:02 BOTTLE CAPPING MACHINE OPERATOR CPT-04825 Venipuncture Draw Fee 15:29:15 CDT CPT-94417 Abx/Therapy Injection 14:10:29 CDT CPT-J1030 Depo Medrol 40 mg (Methyl Prednisolone Acetate) 14:10: 29 CDT CPT-J1040 Depo Medrol 80 mg (Methyl Prednisolone Acetate) 14:10: 29 CDT CPT-76953 Spec Collection and Handling Fee 08:44:23 BOTTLE CAPPING MACHINE OPERATOR CPT-04933 Prv Med Est Pt 18-39yrs 08:44:23 BOTTLE CAPPING MACHINE OPERATOR CPT-85875 Abx/Therapy Injection 08:57:52 BOTTLE CAPPING MACHINE OPERATOR CPT-J1030 Depo Medrol 40 mg (Methyl Prednisolone Acetate) 08:57: 52 BOTTLE CAPPING MACHINE OPERATOR CPT-J1040 Depo Medrol 80 mg (Methyl Prednisolone Acetate) 08:57: 52 BOTTLE CAPPING MACHINE OPERATOR
--- OUTSIDE RECORDS SUMMARY | 2018-12-04 15:08 | XMS REPORT | Clinical Summary ---
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 UPPER RESPIRATORY INFECTION, ACUTE 465.9 Resolved Esperanza Pool PA Acute upper respiratory infections of unspecified site EUSTACHIAN TUBE DYSFUNCTION, RIGHT 381.81 Resolved Esperanza Pool PA Dysfunction of Eustachian tube CHEST PAIN 786.50 Resolved Esperanza Pool PA Unspecified chest pain ROUTINE GYNECOLOGICAL EXAMINATION V72.31 Resolved Esperanza Pool PA Routine gynecological examination ROUTINE GYNECOLOGICAL EXAMINATION V72.31 Resolved Luul Arreguin MD Routine gynecological examination SINUSITIS, ACUTE [...] TAB 1 tablet by mouth bid METRONIDAZOLE 72207357799 Active Cynthia Rae LPN Active DIFLUCAN 150 MG TABS one tab PO x 1 FLUCONAZOLE 78346897438 No Longer Active Lulu Arreguin MD Active CIPRO 500 MG TAB 1 tablet by mouth twice daily CIPROFLOXACIN HCL 02963459522 No Longer Active Lulu Arreguin MD Active PYRIDIUM 200 MG TAB 1 po TID PRN Dysuria PHENAZOPYRIDINE HCL 55762679034 No Longer Active Isatu Coburn APRN Active BRITTANIE-28 0.15-30 MG-MCG TABS take one tab po daily LEVONORGESTREL-ETHINYL ESTRAD 22477819496 No Longer Active Petty Mcgrath Active ALPRAZOLAM 0.5 MG TABS one tab tid as needed ALPRAZOLAM 39581662633 Active Shannan Yomark TELEMARKETING SUPERVISOR Active PHENTERMINE HCL 37.5 MG TABS take one tab po daily PHENTERMINE HCL 54075252802 No Longer Active Isatu Coburn APRN Active DIETHYLPROPION HCL ER 75 MG [id number] take one tab po daily 09/04 DIETHYLPROPION HCL 35286488232 No Longer Active Esperanza Sanabria PA Active FLEXERIL 10 MG TABS take one tab po tid prn CYCLOBENZAPRINE HCL 94861916986 No Longer Active Esperanza Sanabria PA Active TEMAZEPAM 15 MG CAPS 2 capsules every h.s TEMAZEPAM 55607150998 No Longer Active Esperanza Sanabria PA Active PRILOSEC OTC 20 MG TBEC take one tab po bid OMEPRAZOLE MAGNESIUM 19438568017 No Longer Active Esperanza Pool PA Active TRIAMTERENE-HCTZ 37.5-25 MG CAPS Take 1 tablet by mouth daily TRIAMTERENE-HCTZ 72399921593 No Longer Active Esperanza Pool PA Active AMOXICILLIN 875 MG TABS Take one (1) tablet by mouth twice a day AMOXICILLIN 42340736964 No Longer Active Esperanza Pool PA Active HYDROCODONE-ACETAMINOPHEN 5-325 MG TABS take 1 tab po q4-6 hrs prn HYDROCODONE-ACETAMINOPHEN 07861695731 No Longer Active Esperanza Pool PA Active PREDNISONE 20 MG TAB 1 twice daily for two days, the once daily for two days PREDNISONE 98572760602 No Longer Active Esperanza Pool PA Active TAMIFLU 75 MG CAPS take one tab po daily x 10 days OSELTAMIVIR PHOSPHATE 94921848129 No Longer Active Esperanza Pool PA Active FLAGYL 500 MG TABS take one tab po bid x 10 days METRONIDAZOLE 30132603009 No Longer Active Esperanza Pool PA Active CIPRO 500 MG TABS take one tab po bid x 10 days CIPROFLOXACIN HCL 67812145787 No Longer Active Esperanza Pool PA Active SUDAFED 12 HOUR 120 MG [id number] take 1 tab po bid prn PSEUDOEPHEDRINE HCL 49288844909 No Longer Active Esperanza Pool PA Active MEDROL (JESSICA) 4 MG TABS take as directed METHYLPREDNISOLONE 25202347896 No Longer Active Sammi Hernandes RN Active BRITTANIE-28 TABS one tab p.o. q.d LEVONORGESTREL- ETHINYL ESTRAD TABS 14478424542 No Longer Active Esperanza Pool PA Active ZITHROMAX 250 MG TABS take 2 tabs po day one then 1 tab po days 2-5 AZITHROMYCIN 60483060284 No Longer Active Esperanza Pool PA Active METRONIDAZOLE 500 MG TABS 1 tab po bid x 7 days METRONIDAZOLE 47251659735 No Longer Active Lock RN Active AMOXICILLIN 500 MG TABS Take one (1) tablet by mouth three times a day 03/08 AMOXICILLIN 84941496152 No Longer Active Lock RN Active CLINDAMYCIN HCL 300 MG CAPS take 1 cap po QID x 10 days CLINDAMYCIN HCL 74476592877 No Longer Active Lock RN Active CIPRO 500 MG TABS take 1 tab po bid x 10 days CIPROFLOXACIN HCL 25111341744 No Longer Active Lock RN Active BACTRIM DS 800-160 MG TABS 1 tab po bid x 10 days SULFAMETHOXAZOLE-TRIMETHOPRIM 33525849038 No Longer Active Esperanza Pool PA Active ZOLOFT 100 MG TABS take 1 tab po daily SERTRALINE HCL 51632897586 Active Shannan Yoabum TELEMARKETING SUPERVISOR Active ZOLOFT 100 MG TABS take 1/2 tab po daily SERTRALINE HCL 03856140473 No Longer Active Esperanza Pool PA Active BACTRIM DS 800-160 MG TABS 1 tab po bid x 10 days BACTRIM DS 800-160 MG TABS 391126 SULFAMETHOXAZOLE-TRIMETHOPRIM Inactive CIPRO 500 MG TABS take 1 tab po bid x 10 days CIPRO 500 MG TABS 351680 CIPROFLOXACIN HCL Inactive CLINDAMYCIN HCL 300 MG CAPS take 1 cap po QID x 10 days CLINDAMYCIN HCL 300 MG CAPS 834698 CLINDAMYCIN HCL Inactive AMOXICILLIN 500 MG TABS Take one (1) tablet by mouth three times a day 03/08 AMOXICILLIN 500 MG TABS 236253 AMOXICILLIN Inactive METRONIDAZOLE 500 MG TABS 1 tab po bid x 7 days METRONIDAZOLE 500 MG TABS 966303 METRONIDAZOLE Inactive ZITHROMAX 250 MG TABS take 2 tabs po day one then 1 tab po days 2-5 ZITHROMAX 250 MG TABS 0395210 AZITHROMYCIN Inactive BRITTANIE-28 TABS one tab p.o. q.d BRITTANIE-28 TABS LEVONORGESTREL-ETHINYL ESTRAD TABS Inactive MEDROL (JESSICA) 4 MG TABS take as directed MEDROL (JESSICA) 4 MG TABS METHYLPREDNISOLONE Inactive SUDAFED 12 HOUR 120 MG [id number] take 1 tab po bid prn SUDAFED 12 HOUR 120 MG [id number] PSEUDOEPHEDRINE HCL Inactive CIPRO 500 MG TABS take one tab po bid x 10 days CIPRO 500 MG TABS 846363 CIPROFLOXACIN HCL Inactive FLAGYL 500 MG TABS take one tab po bid x 10 days FLAGYL 500 MG TABS 059056 METRONIDAZOLE Inactive TAMIFLU 75 MG CAPS take one tab po daily x 10 days TAMIFLU 75 MG CAPS OSELTAMIVIR PHOSPHATE Inactive PREDNISONE 20 MG TAB 1 twice daily for two days, the once daily for two days PREDNISONE 20 MG TAB 792928 PREDNISONE Inactive HYDROCODONE-ACETAMINOPHEN 5-325 MG TABS take 1 tab po q4-6 hrs prn HYDROCODONE-ACETAMINOPHEN 5-325 MG TABS 073078 HYDROCODONE- ACETAMINOPHEN Inactive AMOXICILLIN 875 MG TABS Take one (1) tablet by mouth twice a day AMOXICILLIN 875 MG TABS 729240 AMOXICILLIN Inactive TRIAMTERENE-HCTZ 37.5-25 MG CAPS Take 1 tablet by mouth daily TRIAMTERENE-HCTZ 37.5-25 MG CAPS 495696 TRIAMTERENE-HCTZ Inactive PRILOSEC OTC 20 MG TBEC take one tab po bid PRILOSEC OTC 20 MG TBEC OMEPRAZOLE MAGNESIUM Inactive TEMAZEPAM 15 MG CAPS 2 capsules every h.s TEMAZEPAM 15 MG CAPS 900225 TEMAZEPAM Inactive FLEXERIL 10 MG TABS take one tab po tid prn FLEXERIL 10 MG TABS CYCLOBENZAPRINE HCL Inactive DIETHYLPROPION HCL ER 75 MG [id number] take one tab po daily 09/04 DIETHYLPROPION HCL ER 75 MG [id number] DIETHYLPROPION HCL Inactive PHENTERMINE HCL 37.5 MG TABS take one tab po daily PHENTERMINE HCL 37.5 MG TABS 020719 PHENTERMINE HCL Inactive BRITTANIE-28 0.15-30 MG-MCG TABS take one tab po daily BRITTANIE-28 0.15-30 MG-MCG TABS 700661 LEVONORGESTREL-ETHINYL ESTRAD Inactive CIPRO 500 MG TAB 1 tablet by mouth twice daily CIPRO 500 MG TAB 803571 CIPROFLOXACIN HCL Inactive ZOLOFT 100 MG TABS take 1/2 tab po daily ZOLOFT 100 MG TABS 296811 SERTRALINE HCL Inactive PYRIDIUM 200 MG TAB 1 po TID PRN Dysuria PYRIDIUM 200 MG TAB 1276735 PHENAZOPYRIDINE HCL Inactive DIFLUCAN 150 MG TABS one tab PO x 1 DIFLUCAN 150 MG TABS 454413 FLUCONAZOLE Inactive Immunizations Vaccine Administration Date Value Standard Description Seasonal influenza vaccine, injectable, containing preservative, for > 3 years old (Afluria, FluLaval, Fluzone, Fluvirin, Fluarix, Agriflu(>=18 yo)) Fluzone (>3 yrs.) [[id number]] Influenza, seasonal, injectable Vital Signs Date Name [...] 5.0-8.5 Encounters Code Encounter Date Provider Facility CPT-81251 Level 3 Est. Patient 11:13:24 DATA SCIENCE AND IOT MANAGER Isatu Coburn [facility] CPT-43226 Level 3 Est. Patient 11:56:59 DATA SCIENCE AND IOT MANAGER Isatu Coburn [facility] CPT-33630 Level 3 Est. Patient 11:17:35 DATA SCIENCE AND IOT MANAGER Isatu Coburn [facility] CPT-04848 Level 3 Est. Patient 11:02:41 CDT Esperanza Sanabria [facility] CPT-78601 Level 3 Est. Patient 14:35:51 CDT Kalin Carlos DO [facility] CPT-29411 Level 3 Est. Patient 15:48:05 CDT Esperanza Sanabria [facility] CPT-00960 Level 3 Est. Patient 10:40:32 CDT Gonzalez Pinto [facility] CPT-66565 Level 3 Est. Patient 16:15:36 CDT Esperanza [facility] CPT-16953 Level 3 Est. Patient 08:25:45 DATA SCIENCE AND IOT MANAGER Esperanza [facility] CPT-27418 Level 3 Est. Patient 16:30:43 DATA SCIENCE AND IOT MANAGER [facility]14 Level 3 Est. Patient 09:15:02 DATA SCIENCE AND IOT MANAGER Esperanza [facility] CPT-65932 Level 3 Est. Patient 15:29:15 CDT Esperanza [facility] CPT-83552 Level 3 Est. Patient 12:48:23 CDT Esperanza [facility] CPT-01265 Level 3 Est. Patient 14:10:29 CDT [facility] CPT-04632 Level 3 Est. Patient 10:08:36 CDT [facility] CPT-38498 Level 3 Est. Patient 08:21:51 CDT Gonzalez Pinto [facility] CPT-26552 Level 3 Est. Patient 15:57:32 DATA SCIENCE AND IOT MANAGER [facility] CPT-11264 Level 3 Est. Patient 09:40:30 DATA SCIENCE AND IOT MANAGER Esperanza [facility] CPT-78502 Level 3 Est. Patient 08:57:52 DATA SCIENCE AND IOT MANAGER [facility] CPT-19385 Level 3 Est. Patient 14:31:11 [facility] Level 3 Est. [facility] 09:44:45 [facility] Procedures Code Procedure Name Date Entry Date Standard Description CPT-64934 Sono pelvis non OB uterus ovaries cervix 12:08:42 DATA SCIENCE AND IOT MANAGER CPT-OV Office Visit 12:35:22 DATA SCIENCE AND IOT MANAGER CPT-OV Office Visit 10:39:58 DATA SCIENCE AND IOT MANAGER CPT-OV Office Visit 10:06:26 CDT CPT-OV Office Visit 14:03:44 CDT CPT-81260 Sono retroperitoneal complete kidneys and bladder 12:58: 45 DATA SCIENCE AND IOT MANAGER CPT-J1020 Depo Medrol 20 mg (Methyl Prednisolone Acetate) 15:48: 05 CDT CPT-J1020 Depo Medrol 100 mg (Methyl Prednisolone Acetate) 15:48: 05 CDT CPT-15881 Abx/Therapy Injection 15:48:05 CDT CPT-OV Office Visit 14:58:44 DATA SCIENCE AND IOT MANAGER CPT-55168 Sono transvag pelvis non OB uterus ovaries cervix 16:31: 03 DATA SCIENCE AND IOT MANAGER CPT-17110 Venipuncture Draw Fee 09:15:02 DATA SCIENCE AND IOT MANAGER CPT-95253 Venipuncture Draw Fee 15:29:15 CDT CPT-21332 Abx/Therapy Injection 14:10:29 CDT CPT-J1030 Depo Medrol 40 mg (Methyl Prednisolone Acetate) 14:10: 29 CDT CPT-J1040 Depo Medrol 80 mg (Methyl Prednisolone Acetate) 14:10: 29 CDT CPT-47406 Spec Collection and Handling Fee 08:44:23 DATA SCIENCE AND IOT MANAGER CPT-53030 Prv Med Est Pt 18-39yrs 08:44:23 DATA SCIENCE AND IOT MANAGER CPT-53380 Abx/Therapy Injection 08:57:52 DATA SCIENCE AND IOT MANAGER CPT-J1030 Depo Medrol 40 mg (Methyl Prednisolone Acetate) 08:57: 52 DATA SCIENCE AND IOT MANAGER CPT-J1040 Depo Medrol 80 mg (Methyl Prednisolone Acetate) 08:57: 52 DATA SCIENCE AND IOT MANAGER
--- OUTSIDE RECORDS SUMMARY | 2018-12-04 15:09 | XMS REPORT | Clinical Summary ---
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 UPPER RESPIRATORY [...] TAB 1 tablet by mouth bid METRONIDAZOLE 58241853828 Active Cynthia Rae LPN Active DIFLUCAN 150 MG TABS one tab PO x 1 FLUCONAZOLE 32296296097 No Longer Active Lulu Arreguin MD Active CIPRO 500 MG TAB 1 tablet by mouth twice daily CIPROFLOXACIN HCL 10621969027 No Longer Active Lulu Arreguin MD Active PYRIDIUM 200 MG TAB 1 po TID PRN Dysuria PHENAZOPYRIDINE HCL 29712357403 No Longer Active Isatu Coburn APRN Active BRITTANIE-28 0.15-30 MG-MCG TABS take one tab po daily LEVONORGESTREL-ETHINYL ESTRAD 30947706267 No Longer Active Petty Mcgrath Active ALPRAZOLAM 0.5 MG TABS one tab tid as needed ALPRAZOLAM 83980392640 Active Shannan Yomark DISPATCH ASSOCIATE Active PHENTERMINE HCL 37.5 MG TABS take one tab po daily PHENTERMINE HCL 26877176959 No Longer Active Isatu Coburn APRN Active DIETHYLPROPION HCL ER 75 MG [id number] take one tab po daily 09/04 DIETHYLPROPION HCL 01340823668 No Longer Active Esperanza Sanabria PA Active FLEXERIL 10 MG TABS take one tab po tid prn CYCLOBENZAPRINE HCL 25130406572 No Longer Active Esperanza Sanabria PA Active TEMAZEPAM 15 MG CAPS 2 capsules every h.s TEMAZEPAM 44680685906 No Longer Active Esperanza Sanabria PA Active PRILOSEC OTC 20 MG TBEC take one tab po bid OMEPRAZOLE MAGNESIUM 62372887470 No Longer Active Esperanza Pool PA Active TRIAMTERENE-HCTZ 37.5-25 MG CAPS Take 1 tablet by mouth daily TRIAMTERENE-HCTZ 81572712546 No Longer Active Esperanza Pool PA Active AMOXICILLIN 875 MG TABS Take one (1) tablet by mouth twice a day AMOXICILLIN 48807187854 No Longer Active Esperanza Pool PA Active HYDROCODONE-ACETAMINOPHEN 5-325 MG TABS take 1 tab po q4-6 hrs prn HYDROCODONE-ACETAMINOPHEN 53553118782 No Longer Active Esperanza Pool PA Active PREDNISONE 20 MG TAB 1 twice daily for two days, the once daily for two days PREDNISONE 92754562322 No Longer Active Esperanza Pool PA Active TAMIFLU 75 MG CAPS take one tab po daily x 10 days OSELTAMIVIR PHOSPHATE 67545865620 No Longer Active Esperanza Pool PA Active FLAGYL 500 MG TABS take one tab po bid x 10 days METRONIDAZOLE 14869076108 No Longer Active Esperanza Pool PA Active CIPRO 500 MG TABS take one tab po bid x 10 days CIPROFLOXACIN HCL 56785762173 No Longer Active Esperanza Pool PA Active SUDAFED 12 HOUR 120 MG [id number] take 1 tab po bid prn PSEUDOEPHEDRINE HCL 74725440565 No Longer Active Esperanza Pool PA Active MEDROL (JESSICA) 4 MG TABS take as directed METHYLPREDNISOLONE 99666853562 No Longer Active Sammi Hernandes RN Active BRITTANIE-28 TABS one tab p.o. q.d LEVONORGESTREL- ETHINYL ESTRAD TABS 38204533873 No Longer Active Esperanza Pool PA Active ZITHROMAX 250 MG TABS take 2 tabs po day one then 1 tab po days 2-5 AZITHROMYCIN 02409058565 No Longer Active Esperanza Pool PA Active METRONIDAZOLE 500 MG TABS 1 tab po bid x 7 days METRONIDAZOLE 85790214442 No Longer Active Lock RN Active AMOXICILLIN 500 MG TABS Take one (1) tablet by mouth three times a day 03/08 AMOXICILLIN 87716039376 No Longer Active Lock RN Active CLINDAMYCIN HCL 300 MG CAPS take 1 cap po QID x 10 days CLINDAMYCIN HCL 24833113273 No Longer Active Lock RN Active CIPRO 500 MG TABS take 1 tab po bid x 10 days CIPROFLOXACIN HCL 88780328665 No Longer Active Lock RN Active BACTRIM DS 800-160 MG TABS 1 tab po bid x 10 days SULFAMETHOXAZOLE-TRIMETHOPRIM 13306284726 No Longer Active Esperanza Pool PA Active ZOLOFT 100 MG TABS take 1 tab po daily SERTRALINE HCL 86675913712 Active Shannan Yoabum DISPATCH ASSOCIATE Active ZOLOFT 100 MG TABS take 1/2 tab po daily SERTRALINE HCL 63605271527 No Longer Active Esperanza Pool PA Active BACTRIM DS 800-160 MG TABS 1 tab po bid x 10 days BACTRIM DS 800-160 MG TABS 191018 SULFAMETHOXAZOLE-TRIMETHOPRIM Inactive CIPRO 500 MG TABS take 1 tab po bid x 10 days CIPRO 500 MG TABS 546808 CIPROFLOXACIN HCL Inactive CLINDAMYCIN HCL 300 MG CAPS take 1 cap po QID x 10 days CLINDAMYCIN HCL 300 MG CAPS 936535 CLINDAMYCIN HCL Inactive AMOXICILLIN 500 MG TABS Take one (1) tablet by mouth three times a day 03/08 AMOXICILLIN 500 MG TABS 701157 AMOXICILLIN Inactive METRONIDAZOLE 500 MG TABS 1 tab po bid x 7 days METRONIDAZOLE 500 MG TABS 630262 METRONIDAZOLE Inactive ZITHROMAX 250 MG TABS take 2 tabs po day one then 1 tab po days 2-5 ZITHROMAX 250 MG TABS 4575717 AZITHROMYCIN Inactive BRITTANIE-28 TABS one tab p.o. q.d BRITTANIE-28 TABS LEVONORGESTREL-ETHINYL ESTRAD TABS Inactive MEDROL (JESSICA) 4 MG TABS take as directed MEDROL (JESSICA) 4 MG TABS METHYLPREDNISOLONE Inactive SUDAFED 12 HOUR 120 MG [id number] take 1 tab po bid prn SUDAFED 12 HOUR 120 MG [id number] PSEUDOEPHEDRINE HCL Inactive CIPRO 500 MG TABS take one tab po bid x 10 days CIPRO 500 MG TABS 440710 CIPROFLOXACIN HCL Inactive FLAGYL 500 MG TABS take one tab po bid x 10 days FLAGYL 500 MG TABS 923532 METRONIDAZOLE Inactive TAMIFLU 75 MG CAPS take one tab po daily x 10 days TAMIFLU 75 MG CAPS OSELTAMIVIR PHOSPHATE Inactive PREDNISONE 20 MG TAB 1 twice daily for two days, the once daily for two days PREDNISONE 20 MG TAB 201183 PREDNISONE Inactive HYDROCODONE-ACETAMINOPHEN 5-325 MG TABS take 1 tab po q4-6 hrs prn HYDROCODONE-ACETAMINOPHEN 5-325 MG TABS 799716 HYDROCODONE- ACETAMINOPHEN Inactive AMOXICILLIN 875 MG TABS Take one (1) tablet by mouth twice a day AMOXICILLIN 875 MG TABS 260004 AMOXICILLIN Inactive TRIAMTERENE-HCTZ 37.5-25 MG CAPS Take 1 tablet by mouth daily TRIAMTERENE-HCTZ 37.5-25 MG CAPS 617662 TRIAMTERENE-HCTZ Inactive PRILOSEC OTC 20 MG TBEC take one tab po bid PRILOSEC OTC 20 MG TBEC OMEPRAZOLE MAGNESIUM Inactive TEMAZEPAM 15 MG CAPS 2 capsules every h.s TEMAZEPAM 15 MG CAPS 942853 TEMAZEPAM Inactive FLEXERIL 10 MG TABS take one tab po tid prn FLEXERIL 10 MG TABS CYCLOBENZAPRINE HCL Inactive DIETHYLPROPION HCL ER 75 MG [id number] take one tab po daily 09/04 DIETHYLPROPION HCL ER 75 MG [id number] DIETHYLPROPION HCL Inactive PHENTERMINE HCL 37.5 MG TABS take one tab po daily PHENTERMINE HCL 37.5 MG TABS 188584 PHENTERMINE HCL Inactive BRITTANIE-28 0.15-30 MG-MCG TABS take one tab po daily BRITTANIE-28 0.15-30 MG-MCG TABS 810729 LEVONORGESTREL-ETHINYL ESTRAD Inactive CIPRO 500 MG TAB 1 tablet by mouth twice daily CIPRO 500 MG TAB 553072 CIPROFLOXACIN HCL Inactive ZOLOFT 100 MG TABS take 1/2 tab po daily ZOLOFT 100 MG TABS 382193 SERTRALINE HCL Inactive PYRIDIUM 200 MG TAB 1 po TID PRN Dysuria PYRIDIUM 200 MG TAB 8690183 PHENAZOPYRIDINE HCL Inactive DIFLUCAN 150 MG TABS one tab PO x 1 DIFLUCAN 150 MG TABS 493712 FLUCONAZOLE Inactive Immunizations Vaccine Administration Date Value Standard Description Seasonal influenza vaccine, injectable, containing preservative, for > 3 years old (Afluria, FluLaval, Fluzone, Fluvirin, Fluarix, Agriflu(>=18 yo)) Fluzone (>3 yrs.) [CBQ031] Influenza, seasonal, injectable Vital Signs Date Name [...] 5.0-8.5 Encounters Code Encounter Date Provider Facility CPT-65103 Level 3 Est. Patient 11:13:24 GERIATRIC SOCIAL WORK PROFESSOR Isatu Coburn [facility] CPT-99829 Level 3 Est. Patient 11:56:59 GERIATRIC SOCIAL WORK PROFESSOR Isatu Coburn [facility] CPT-08544 Level 3 Est. Patient 11:17:35 GERIATRIC SOCIAL WORK PROFESSOR Isatu Coburn [facility] CPT-54077 Level 3 Est. Patient 11:02:41 CDT Esperanza Sanabria [facility] CPT-35695 Level 3 Est. Patient 14:35:51 CDT Kalin Carlos DO [facility] CPT-89343 Level 3 Est. Patient 15:48:05 CDT Esperanza Sanabria [facility] CPT-49559 Level 3 Est. Patient 10:40:32 CDT Gonzalez Pinto [facility] CPT-71633 Level 3 Est. Patient 16:15:36 CDT Esperanza [facility] CPT-01749 Level 3 Est. Patient 08:25:45 GERIATRIC SOCIAL WORK PROFESSOR Esperanza [facility] CPT-24318 Level 3 Est. Patient 16:30:43 GERIATRIC SOCIAL WORK PROFESS[facility] Level 3 Est. Patient 09:15:02 GERIATRIC SOCIAL WORK PROFESSOR Esperanza [facility] CPT-92573 Level 3 Est. Patient 15:29:15 CDT Esperanza [facility] CPT-66227 Level 3 Est. Patient 12:48:23 CDT Esperanza [facility] CPT-02701 Level 3 Est. Patient 14:10:29 [facility]66[facility] Level 3 Est. Patient 10:08:36 [facility] CPT-75969 Level 3 Est. Patient 08:21:51 CDT Gonzalez Pinto [facility] CPT-31436 Level 3 Est. Patient 15:57:32 GERIATRIC SOCIAL WORK PROFESSOR [facility] CPT-94042 Level 3 Est. Patient 09:40:30 GERIATRIC SOCIAL WORK PROFESSOR Esperanza [facility] CPT-13344 Level 3 Est. Patient 08:57:52 GERIATRIC SOCIAL WORK PROFESSOR [facility] CPT-46317 Level 3 Est. Patient 14:31:11 [facility]PT-15441 Level 3 Est. Patient 09:44:45 CDT [facility] Procedures Code Procedure Name Date Entry Date Standard Description CPT-61205 Sono pelvis non OB uterus ovaries cervix 12:08:42 GERIATRIC SOCIAL WORK PROFESSOR CPT-OV Office Visit 12:35:22 GERIATRIC SOCIAL WORK PROFESSOR CPT-OV Office Visit 10:39:58 GERIATRIC SOCIAL WORK PROFESSOR CPT-OV Office Visit 10:06:26 CDT CPT-OV Office Visit 14:03:44 CDT CPT-23590 Sono retroperitoneal complete kidneys and bladder 12:58: 45 GERIATRIC SOCIAL WORK PROFESSOR CPT-J1020 Depo Medrol 20 mg (Methyl Prednisolone Acetate) 15:48: 05 CDT CPT-J1020 Depo Medrol 100 mg (Methyl Prednisolone Acetate) 15:48: 05 CDT CPT-19108 Abx/Therapy Injection 15:48:05 CDT CPT-OV Office Visit 14:58:44 GERIATRIC SOCIAL WORK PROFESSOR CPT-30891 Sono transvag pelvis non OB uterus ovaries cervix 16:31: 03 GERIATRIC SOCIAL WORK PROFESSOR CPT-78818 Venipuncture Draw Fee 09:15:02 GERIATRIC SOCIAL WORK PROFESSOR CPT-72321 Venipuncture Draw Fee 15:29:15 CDT CPT-49604 Abx/Therapy Injection 14:10:29 CDT CPT-J1030 Depo Medrol 40 mg (Methyl Prednisolone Acetate) 14:10: 29 CDT CPT-J1040 Depo Medrol 80 mg (Methyl Prednisolone Acetate) 14:10: 29 CDT CPT-32230 Spec Collection and Handling Fee 08:44:23 GERIATRIC SOCIAL WORK PROFESSOR CPT-79774 Prv Med Est Pt 18-39yrs 08:44:23 GERIATRIC SOCIAL WORK PROFESSOR CPT-01186 Abx/Therapy Injection 08:57:52 GERIATRIC SOCIAL WORK PROFESSOR CPT-J1030 Depo Medrol 40 mg (Methyl Prednisolone Acetate) 08:57: 52 GERIATRIC SOCIAL WORK PROFESSOR CPT-J1040 Depo Medrol 80 mg (Methyl Prednisolone Acetate) 08:57: 52 GERIATRIC SOCIAL WORK PROFESSOR
--- OUTSIDE RECORDS SUMMARY | 2018-12-04 15:09 | XMS REPORT | Clinical Summary ---
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.] TAB 1 tablet by mouth bid METRONIDAZOLE 60587033732 Active Cynthia Rae LPN Active DIFLUCAN 150 MG TABS one tab PO x 1 FLUCONAZOLE 68336640981 No Longer Active Lulu Arreguin MD Active CIPRO 500 MG TAB 1 tablet by mouth twice daily CIPROFLOXACIN HCL 72491457624 No Longer Active Lulu Arerguin MD Active PYRIDIUM 200 MG TAB 1 po TID PRN Dysuria PHENAZOPYRIDINE HCL 31825078094 No Longer Active Isatu Coburn APRN Active BRITTANIE-28 0.15-30 MG-MCG TABS take one tab po daily LEVONORGESTREL-ETHINYL ESTRAD 29106616368 No Longer Active Petty Mcgrath Active ALPRAZOLAM 0.5 MG TABS one tab tid as needed ALPRAZOLAM 70824659588 Active Shannan Yomark WIND POWER PROJECT MANAGER Active PHENTERMINE HCL 37.5 MG TABS take one tab po daily PHENTERMINE HCL 81736542660 No Longer Active Isatu Coburn APRN Active DIETHYLPROPION HCL ER 75 MG [id number] take one tab po daily 09/04 DIETHYLPROPION HCL 86729357030 No Longer Active Esperanza Sanabria PA Active FLEXERIL 10 MG TABS take one tab po tid prn CYCLOBENZAPRINE HCL 14025206521 No Longer Active Esperanza Sanabria PA Active TEMAZEPAM 15 MG CAPS 2 capsules every h.s TEMAZEPAM 57184787881 No Longer Active Esperanza Sanabria PA Active PRILOSEC OTC 20 MG TBEC take one tab po bid OMEPRAZOLE MAGNESIUM 80312565659 No Longer Active Esperanza Pool PA Active TRIAMTERENE-HCTZ 37.5-25 MG CAPS Take 1 tablet by mouth daily TRIAMTERENE-HCTZ 54140882932 No Longer Active Esperanza Pool PA Active AMOXICILLIN 875 MG TABS Take one (1) tablet by mouth twice a day AMOXICILLIN 73311914255 No Longer Active Esperanza Pool PA Active HYDROCODONE-ACETAMINOPHEN 5-325 MG TABS take 1 tab po q4-6 hrs prn HYDROCODONE-ACETAMINOPHEN 51592078163 No Longer Active Esperanza Pool PA Active PREDNISONE 20 MG TAB 1 twice daily for two days, the once daily for two days PREDNISONE 25487124805 No Longer Active Esperanza Pool PA Active TAMIFLU 75 MG CAPS take one tab po daily x 10 days OSELTAMIVIR PHOSPHATE 23618235042 No Longer Active Esperanza Pool PA Active FLAGYL 500 MG TABS take one tab po bid x 10 days METRONIDAZOLE 54792644814 No Longer Active Esperanza Pool PA Active CIPRO 500 MG TABS take one tab po bid x 10 days CIPROFLOXACIN HCL 57228032380 No Longer Active Esperanza Pool PA Active SUDAFED 12 HOUR 120 MG [id number] take 1 tab po bid prn PSEUDOEPHEDRINE HCL 71380015233 No Longer Active Esperanza Pool PA Active MEDROL (JESSICA) 4 MG TABS take as directed METHYLPREDNISOLONE 39264288283 No Longer Active Sammi Hernandes RN Active BRITTANIE-28 TABS one tab p.o. q.d LEVONORGESTREL- ETHINYL ESTRAD TABS 71296971759 No Longer Active Esperanza Pool PA Active ZITHROMAX 250 MG TABS take 2 tabs po day one then 1 tab po days 2-5 AZITHROMYCIN 68617729871 No Longer Active Esperanza Pool PA Active METRONIDAZOLE 500 MG TABS 1 tab po bid x 7 days METRONIDAZOLE 56861340632 No Longer Active Lock RN Active AMOXICILLIN 500 MG TABS Take one (1) tablet by mouth three times a day 03/08 AMOXICILLIN 33109435432 No Longer Active Lock RN Active CLINDAMYCIN HCL 300 MG CAPS take 1 cap po QID x 10 days CLINDAMYCIN HCL 36951623986 No Longer Active Lock RN Active CIPRO 500 MG TABS take 1 tab po bid x 10 days CIPROFLOXACIN HCL 78049399491 No Longer Active Lock RN Active BACTRIM DS 800-160 MG TABS 1 tab po bid x 10 days SULFAMETHOXAZOLE-TRIMETHOPRIM 50631443357 No Longer Active Esperanza Pool PA Active ZOLOFT 100 MG TABS take 1 tab po daily SERTRALINE HCL 58846538214 Active Shannan Yoabum WIND POWER PROJECT MANAGER Active ZOLOFT 100 MG TABS take 1/2 tab po daily SERTRALINE HCL 20370133120 No Longer Active Esperanza Pool PA Active BACTRIM DS 800-160 MG TABS 1 tab po bid x 10 days BACTRIM DS 800-160 MG TABS 217984 SULFAMETHOXAZOLE-TRIMETHOPRIM Inactive CIPRO 500 MG TABS take 1 tab po bid x 10 days CIPRO 500 MG TABS 738655 CIPROFLOXACIN HCL Inactive CLINDAMYCIN HCL 300 MG CAPS take 1 cap po QID x 10 days CLINDAMYCIN HCL 300 MG CAPS 243282 CLINDAMYCIN HCL Inactive AMOXICILLIN 500 MG TABS Take one (1) tablet by mouth three times a day 03/08 AMOXICILLIN 500 MG TABS 991232 AMOXICILLIN Inactive METRONIDAZOLE 500 MG TABS 1 tab po bid x 7 days METRONIDAZOLE 500 MG TABS 098726 METRONIDAZOLE Inactive ZITHROMAX 250 MG TABS take 2 tabs po day one then 1 tab po days 2-5 ZITHROMAX 250 MG TABS 8102438 AZITHROMYCIN Inactive BRITTANIE-28 TABS one tab p.o. q.d BRITTANIE-28 TABS LEVONORGESTREL-ETHINYL ESTRAD TABS Inactive MEDROL (JESSICA) 4 MG TABS take as directed MEDROL (JESSICA) 4 MG TABS METHYLPREDNISOLONE Inactive SUDAFED 12 HOUR 120 MG [id number] take 1 tab po bid prn SUDAFED 12 HOUR 120 MG [id number] PSEUDOEPHEDRINE HCL Inactive CIPRO 500 MG TABS take one tab po bid x 10 days CIPRO 500 MG TABS 451132 CIPROFLOXACIN HCL Inactive FLAGYL 500 MG TABS take one tab po bid x 10 days FLAGYL 500 MG TABS 830361 METRONIDAZOLE Inactive TAMIFLU 75 MG CAPS take one tab po daily x 10 days TAMIFLU 75 MG CAPS OSELTAMIVIR PHOSPHATE Inactive PREDNISONE 20 MG TAB 1 twice daily for two days, the once daily for two days PREDNISONE 20 MG TAB 634129 PREDNISONE Inactive HYDROCODONE-ACETAMINOPHEN 5-325 MG TABS take 1 tab po q4-6 hrs prn HYDROCODONE-ACETAMINOPHEN 5-325 MG TABS 568498 HYDROCODONE- ACETAMINOPHEN Inactive AMOXICILLIN 875 MG TABS Take one (1) tablet by mouth twice a day AMOXICILLIN 875 MG TABS 601636 AMOXICILLIN Inactive TRIAMTERENE-HCTZ 37.5-25 MG CAPS Take 1 tablet by mouth daily TRIAMTERENE-HCTZ 37.5-25 MG CAPS 749463 TRIAMTERENE-HCTZ Inactive PRILOSEC OTC 20 MG TBEC take one tab po bid PRILOSEC OTC 20 MG TBEC OMEPRAZOLE MAGNESIUM Inactive TEMAZEPAM 15 MG CAPS 2 capsules every h.s TEMAZEPAM 15 MG CAPS 19820217 TEMAZEPAM Inactive FLEXERIL 10 MG TABS take one tab po tid prn FLEXERIL 10 MG TABS CYCLOBENZAPRINE HCL Inactive DIETHYLPROPION HCL ER 75 MG [id number] take one tab po daily 09/04 DIETHYLPROPION HCL ER 75 MG [id number] DIETHYLPROPION HCL Inactive PHENTERMINE HCL 37.5 MG TABS take one tab po daily PHENTERMINE HCL 37.5 MG TABS 224554 PHENTERMINE HCL Inactive BRITTANIE-28 0.15-30 MG-MCG TABS take one tab po daily BRITTANIE-28 0.15-30 MG-MCG TABS 787621 LEVONORGESTREL-ETHINYL ESTRAD Inactive CIPRO 500 MG TAB 1 tablet by mouth twice daily CIPRO 500 MG TAB 407714 CIPROFLOXACIN HCL Inactive ZOLOFT 100 MG TABS take 1/2 tab po daily ZOLOFT 100 MG TABS 680018 SERTRALINE HCL Inactive PYRIDIUM 200 MG TAB 1 po TID PRN Dysuria PYRIDIUM 200 MG TAB 8513817 PHENAZOPYRIDINE HCL Inactive DIFLUCAN 150 MG TABS one tab PO x 1 DIFLUCAN 150 MG TABS 950762 FLUCONAZOLE Inactive Immunizations Vaccine Administration Date Value Standard Description Seasonal influenza vaccine, injectable, containing preservative, for > 3 years old (Afluria, FluLaval, Fluzone, Fluvirin, Fluarix, Agriflu(>=18 yo)) Fluzone (>3 yrs.) [[id number]] Influenza, seasonal, injectable Vital Signs Date Name [...] 5.0-8.5 Encounters Code Encounter Date Provider Facility CPT-79339 Level 3 Est. Patient 11:13:24 FITNESS AND WELLNESS MANAGER Isatu Coburn [facility] CPT-35968 Level 3 Est. Patient 11:56:59 FITNESS AND WELLNESS MANAGER Isatu Coburn [facility] CPT-28865 Level 3 Est. Patient 11:17:35 FITNESS AND WELLNESS MANAGER Isatu Coburn [facility] CPT-41895 Level 3 Est. Patient 11:02:41 CDT Esperanza Sanabria [facility] CPT-28271 Level 3 Est. Patient 14:35:51 CDT Kalin Carlos DO [facility] CPT-69552 Level 3 Est. Patient 15:48:05 CDT Esperanza Sanabria [facility] CPT-35455 Level 3 Est. Patient 10:40:32 CDT Gonzalez Pinto [facility] CPT-55525 Level 3 Est. Patient 16:15:36 CDT Esperanza [facility] CPT-59894 Level 3 Est. Patient 08:25:45 FITNESS AND WELLNESS MANAGER Esperanza [facility] CPT-58010 Level 3 Est. Patient 16:30:43 FITNESS AND WELLNESS MANAGER Esperanza [facility] CPT-74551 Level 3 Est. Patient 09:15:02 FITNESS AND WELLNESS MANAGER Esperanza [facility] CPT-07264 Level 3 Est. Patient 15:29:15 CDT Esperanza [facility] CPT-48205 Level 3 Est. Patient 12:48:23 CDT Esperanza [facility] CPT-86807 Level 3 Est. Patient 14:10:29 [facility]28 Level 3 Est. Patient 10:08:36 [facility] CPT-53197 Level 3 Est. Patient 08:21:51 CDT Gonzalez Pinto [facility] CPT-57912 Level 3 Est. Patient 15:57:32 FITNESS AND WELLNESS MANAGER [facility] CPT-38179 Level 3 Est. Patient 09:40:30 FITNESS AND WELLNESS MANAGER Esperanza [facility] CPT-72510 Level 3 Est. Patient 08:57:52 FITNESS AND WELLNESS MANAGER [facility]17688 Level 3 Est. Patient 14:31:11 [facility]997 Level 3 Est. Patient 09:44:45 [facility] Procedures Code Procedure Name Date Entry Date Standard Description CPT-22165 Sono pelvis non OB uterus ovaries cervix 12:08:42 FITNESS AND WELLNESS MANAGER CPT-OV Office Visit 12:35:22 FITNESS AND WELLNESS MANAGER CPT-OV Office Visit 10:39:58 FITNESS AND WELLNESS MANAGER CPT-OV Office Visit 10:06:26 CDT CPT-OV Office Visit 14:03:44 CDT CPT-11062 Sono retroperitoneal complete kidneys and bladder 12:58: 45 FITNESS AND WELLNESS MANAGER CPT-J1020 Depo Medrol 20 mg (Methyl Prednisolone Acetate) 15:48: 05 CDT CPT-J1020 Depo Medrol 100 mg (Methyl Prednisolone Acetate) 15:48: 05 CDT CPT-77217 Abx/Therapy Injection 15:48:05 CDT CPT-OV Office Visit 14:58:44 FITNESS AND WELLNESS MANAGER CPT-65511 Sono transvag pelvis non OB uterus ovaries cervix 16:31: 03 FITNESS AND WELLNESS MANAGER CPT-46867 Venipuncture Draw Fee 09:15:02 FITNESS AND WELLNESS MANAGER CPT-58615 Venipuncture Draw Fee 15:29:15 CDT CPT-72962 Abx/Therapy Injection 14:10:29 CDT CPT-J1030 Depo Medrol 40 mg (Methyl Prednisolone Acetate) 14:10: 29 CDT CPT-J1040 Depo Medrol 80 mg (Methyl Prednisolone Acetate) 14:10: 29 CDT CPT-11933 Spec Collection and Handling Fee 08:44:23 FITNESS AND WELLNESS MANAGER CPT-72798 Prv Med Est Pt 18-39yrs 08:44:23 FITNESS AND WELLNESS MANAGER CPT-38962 Abx/Therapy Injection 08:57:52 FITNESS AND WELLNESS MANAGER CPT-J1030 Depo Medrol 40 mg (Methyl Prednisolone Acetate) 08:57: 52 FITNESS AND WELLNESS MANAGER CPT-J1040 Depo Medrol 80 mg (Methyl Prednisolone Acetate) 08:57: 52 FITNESS AND WELLNESS MANAGER
--- OUTSIDE RECORDS SUMMARY | 2018-12-04 15:10 | XMS REPORT | Clinical Summary ---
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5 MG TABS one tab tid as needed ALPRAZOLAM 57918292478 Active Shannan Yomark BRAIDING MACHINE TENDER Active PHENTERMINE HCL 37.5 MG TABS take one tab po daily PHENTERMINE HCL 43787953424 No Longer Active Isatu Coburn APRN Active DIETHYLPROPION HCL ER 75 MG [id number] take one tab po daily 09/04 DIETHYLPROPION HCL 29054482902 No Longer Active Esperanza Sanabria PA Active FLEXERIL 10 MG TABS take one tab po tid prn CYCLOBENZAPRINE HCL 04398933955 No Longer Active Esperanza Sanabria PA Active TEMAZEPAM 15 MG CAPS 2 capsules every h.s TEMAZEPAM 70052057290 No Longer Active Esperanza Sanabria PA Active PRILOSEC OTC 20 MG TBEC take one tab po bid OMEPRAZOLE MAGNESIUM 09804789512 No Longer Active Esperanza Pool PA Active TRIAMTERENE-HCTZ 37.5-25 MG CAPS Take 1 tablet by mouth daily TRIAMTERENE-HCTZ 17787625216 No Longer Active Esperanza Pool PA Active AMOXICILLIN 875 MG TABS Take one (1) tablet by mouth twice a day AMOXICILLIN 44302386426 No Longer Active Esperanza Pool PA Active HYDROCODONE-ACETAMINOPHEN 5-325 MG TABS take 1 tab po q4-6 hrs prn HYDROCODONE-ACETAMINOPHEN 17534835301 No Longer Active Esperanza Pool PA Active PREDNISONE 20 MG TAB 1 twice daily for two days, the once daily for two days PREDNISONE 01589655645 No Longer Active Esperanza Pool PA Active TAMIFLU 75 MG CAPS take one tab po daily x 10 days OSELTAMIVIR PHOSPHATE 43143163667 No Longer Active Esperanza Pool PA Active FLAGYL 500 MG TABS take one tab po bid x 10 days METRONIDAZOLE 95631210959 No Longer Active Esperanza Pool PA Active CIPRO 500 MG TABS take one tab po bid x 10 days CIPROFLOXACIN HCL 04210289980 No Longer Active Esperanza Pool PA Active SUDAFED 12 HOUR 120 MG [id number] take 1 tab po bid prn PSEUDOEPHEDRINE HCL 56938215709 No Longer Active Esperanza Pool PA Active MEDROL (JESSICA) 4 MG TABS take as directed METHYLPREDNISOLONE 91601747968 No Longer Active Sammi Hernandes RN Active BRITTANIE-28 TABS one tab p.o. q.d LEVONORGESTREL- ETHINYL ESTRAD TABS 61762115731 No Longer Active Esperanza Pool PA Active ZITHROMAX 250 MG TABS take 2 tabs po day one then 1 tab po days 2-5 AZITHROMYCIN 69343451433 No Longer Active Esperanza Pool PA Active METRONIDAZOLE 500 MG TABS 1 tab po bid x 7 days METRONIDAZOLE 94194827015 No Longer Active Lock RN Active AMOXICILLIN 500 MG TABS Take one (1) tablet by mouth three times a day 03/08 AMOXICILLIN 69572670239 No Longer Active Lock RN Active CLINDAMYCIN HCL 300 MG CAPS take 1 cap po QID x 10 days CLINDAMYCIN HCL 33699578575 No Longer Active Lock RN Active CIPRO 500 MG TABS take 1 tab po bid x 10 days CIPROFLOXACIN HCL 40712883429 No Longer Active Lock RN Active BACTRIM DS 800-160 MG TABS 1 tab po bid x 10 days SULFAMETHOXAZOLE-TRIMETHOPRIM 41040975554 No Longer Active Esperanza Pool PA Active ZOLOFT 100 MG TABS take 1 tab po daily SERTRALINE HCL 96539394772 Active Shannan Yoabum BRAIDING MACHINE TENDER Active ZOLOFT 100 MG TABS take 1/2 tab po daily SERTRALINE HCL 44478070144 No Longer Active Esperanza Pool PA Active BACTRIM DS 800-160 MG TABS 1 tab po bid x 10 days BACTRIM DS 800-160 MG TABS 873447 SULFAMETHOXAZOLE-TRIMETHOPRIM Inactive CIPRO 500 MG TABS take 1 tab po bid x 10 days CIPRO 500 MG TABS 484092 CIPROFLOXACIN HCL Inactive CLINDAMYCIN HCL 300 MG CAPS take 1 cap po QID x 10 days CLINDAMYCIN HCL 300 MG CAPS 590003 CLINDAMYCIN HCL Inactive AMOXICILLIN 500 MG TABS Take one (1) tablet by mouth three times a day 03/08 AMOXICILLIN 500 MG TABS 419517 AMOXICILLIN Inactive METRONIDAZOLE 500 MG TABS 1 tab po bid x 7 days METRONIDAZOLE 500 MG TABS 194613 METRONIDAZOLE Inactive ZITHROMAX 250 MG TABS take 2 tabs po day one then 1 tab po days 2-5 ZITHROMAX 250 MG TABS 6958137 AZITHROMYCIN Inactive BRITTANIE-28 TABS one tab p.o. q.d BRITTANIE-28 TABS LEVONORGESTREL-ETHINYL ESTRAD TABS Inactive MEDROL (JESSICA) 4 MG TABS take as directed MEDROL (JESSICA) 4 MG TABS METHYLPREDNISOLONE Inactive SUDAFED 12 HOUR 120 MG [id number] take 1 tab po bid prn SUDAFED 12 HOUR 120 MG [id number] PSEUDOEPHEDRINE HCL Inactive CIPRO 500 MG TABS take one tab po bid x 10 days CIPRO 500 MG TABS 186484 CIPROFLOXACIN HCL Inactive FLAGYL 500 MG TABS take one tab po bid x 10 days FLAGYL 500 MG TABS 775640 METRONIDAZOLE Inactive TAMIFLU 75 MG CAPS take one tab po daily x 10 days TAMIFLU 75 MG CAPS OSELTAMIVIR PHOSPHATE Inactive PREDNISONE 20 MG TAB 1 twice daily for two days, the once daily for two days PREDNISONE 20 MG TAB 273021 PREDNISONE Inactive HYDROCODONE-ACETAMINOPHEN 5-325 MG TABS take 1 tab po q4-6 hrs prn HYDROCODONE-ACETAMINOPHEN 5-325 MG TABS 688867 HYDROCODONE- ACETAMINOPHEN Inactive AMOXICILLIN 875 MG TABS Take one (1) tablet by mouth twice a day AMOXICILLIN 875 MG TABS 818644 AMOXICILLIN Inactive TRIAMTERENE-HCTZ 37.5-25 MG CAPS Take 1 tablet by mouth daily TRIAMTERENE-HCTZ 37.5-25 MG CAPS 029889 TRIAMTERENE-HCTZ Inactive PRILOSEC OTC 20 MG TBEC take one tab po bid PRILOSEC OTC 20 MG TBEC OMEPRAZOLE MAGNESIUM Inactive TEMAZEPAM 15 MG CAPS 2 capsules every h.s TEMAZEPAM 15 MG CAPS 536474 TEMAZEPAM Inactive FLEXERIL 10 MG TABS take one tab po tid prn FLEXERIL 10 MG TABS CYCLOBENZAPRINE HCL Inactive DIETHYLPROPION HCL ER 75 MG [id number] take one tab po daily 09/04 DIETHYLPROPION HCL ER 75 MG [id number] DIETHYLPROPION HCL Inactive PHENTERMINE HCL 37.5 MG TABS take one tab po daily PHENTERMINE HCL 37.5 MG TABS 422344 PHENTERMINE HCL Inactive BRITTANIE-28 0.15-30 MG-MCG TABS take one tab po daily BRITTANIE-28 0.15-30 MG-MCG TABS 424896 LEVONORGESTREL-ETHINYL ESTRAD Inactive CIPRO 500 MG TAB 1 tablet by mouth twice daily CIPRO 500 MG TAB 228089 CIPROFLOXACIN HCL Inactive ZOLOFT 100 MG TABS take 1/2 tab po daily ZOLOFT 100 MG TABS 052829 SERTRALINE HCL Inactive PYRIDIUM 200 MG TAB 1 po TID PRN Dysuria PYRIDIUM 200 MG TAB 4681765 PHENAZOPYRIDINE HCL Inactive DIFLUCAN 150 MG TABS one tab PO x 1 DIFLUCAN 150 MG TABS 734992 FLUCONAZOLE Inactive Immunizations Vaccine Administration Date Value Standard Description Seasonal influenza vaccine, injectable, containing preservative, for > 3 years old (Afluria, FluLaval, Fluzone, Fluvirin, Fluarix, Agriflu(>=18 yo)) Fluzone (>3 yrs.) [[id number]] Influenza, seasonal, injectable Diagnostic Results Date Name [...] 5.0-8.5 Encounters Code Encounter Date Provider Facility CPT-84458 Level 3 Est. Patient 11:13:24 INSIDE B2B SALES Isatu Coburn [facility] CPT-62225 Level 3 Est. Patient 11:56:59 INSIDE B2B SALES Isatu Coburn [facility] CPT-29227 Level 3 Est. Patient 11:17:35 INSIDE B2B SALES Isatu Coburn [facility] CPT-07449 Level 3 Est. Patient 11:02:41 CDT Esperanza Sanabria [facility] CPT-25658 Level 3 Est. Patient 14:35:51 CDT Kalin Carlos DO [facility] CPT-44180 Level 3 Est. Patient 15:48:05 CDT Esperanza Sanabria [facility] CPT-14684 Level 3 Est. Patient 10:40:32 CDT Gonzalez Pinto [facility] CPT-77962 Level 3 Est. Patient 16:15:36 CDT Esperanza Sanabria [facility] CPT-92179 Level 3 Est. Patient 08:25:45 INSIDE B2B SALES Esperanza Sanabria [facility] CPT-23335 Level 3 Est. Patient 16:30:43 INSIDE B2B SALES Esperanza Sanabria [facility] CPT-49757 Level 3 Est. Patient 09:15:02 INSIDE B2B SALES Esperanza Sanabria [facility]-13653 Level 3 Est. Patient 15:29:15 CDT Esperanza [facility] CPT-37110 Level 3 Est. [facility] 12:48:23 [facility] Level 3 Est. Patient 14:10:29 CDT Esperanza [facility] CPT-46266 Level 3 Est. Patient 10:08:36 CDT Esperanza [facility] CPT-41412 Level 3 Est. Patient 08:21:51 CDT Gonzalez Pinto [facility] CPT-82577 Level 3 Est. Patient 15:57:32 INSIDE B2B SALES Esperanza [facility] CPT-31668 Level 3 Est. Patient 09:40:30 INSIDE B2B SALES Esperanza [facility] CPT-80243 Level 3 Est. Patient 08:57:52 INSIDE B2B SALES [facility]95 Level 3 Est. Patient 14:31:11 [facility]-74177 Level 3 Est. Patient 09:44:45 [facility] Procedures Code Procedure Name Date Entry Date Standard Description CPT-OV Office Visit 12:35:22 INSIDE B2B SALES CPT-OV Office Visit 10:39:58 INSIDE B2B SALES CPT-OV Office Visit 10:06:26 CDT CPT-OV Office Visit 14:03:44 CDT CPT-23206 Sono retroperitoneal complete kidneys and bladder 12:58: 45 INSIDE B2B SALES CPT-J1020 Depo Medrol 20 mg (Methyl Prednisolone Acetate) 15:48: 05 CDT CPT-J1020 Depo Medrol 100 mg (Methyl Prednisolone Acetate) 15:48: 05 CDT CPT-95180 Abx/Therapy Injection 15:48:05 CDT CPT-OV Office Visit 14:58:44 INSIDE B2B SALES CPT-98710 Sono transvag pelvis non OB uterus ovaries cervix 16:31: 03 INSIDE B2B SALES CPT-78411 Venipuncture Draw Fee 09:15:02 INSIDE [employer]2B SALES CPT-24076 Venipuncture Draw Fee 15:29:15 CDT CPT-62451 Abx/Therapy Injection 14:10:29 CDT CPT-J1030 Depo Medrol 40 mg (Methyl Prednisolone Acetate) 14:10: 29 CDT CPT-J1040 Depo Medrol 80 mg (Methyl Prednisolone Acetate) 14:10: 29 CDT CPT-20381 Spec Collection and Handling Fee 08:44:23 INSIDE B2B SALES CPT-61531 Prv Med Est Pt 18-39yrs 08:44:23 INSIDE B2B SALES CPT-00798 Abx/Therapy Injection 08:57:52 INSIDE B2B SALES CPT-J1030 Depo Medrol 40 mg (Methyl Prednisolone Acetate) 08:57: 52 INSIDE B2B SALES CPT-J1040 Depo Medrol 80 mg (Methyl Prednisolone Acetate) 08:57: 52 INSIDE B2B SALES
--- OUTSIDE RECORDS SUMMARY | 2018-12-04 15:11 | XMS REPORT | Clinical Summary ---
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5 MG TABS one tab tid as needed ALPRAZOLAM 28518673749 Active Shannan Yomark WELDER OPERATOR Active PHENTERMINE HCL 37.5 MG TABS take one tab po daily PHENTERMINE HCL 94707004313 No Longer Active Isatu Coburn APRN Active DIETHYLPROPION HCL ER 75 MG [id number] take one tab po daily 09/04 DIETHYLPROPION HCL 21562746563 No Longer Active Esperanza Sanabria PA Active FLEXERIL 10 MG TABS take one tab po tid prn CYCLOBENZAPRINE HCL 01103294742 No Longer Active Esperanza Sanabria PA Active TEMAZEPAM 15 MG CAPS 2 capsules every h.s TEMAZEPAM 16177278025 No Longer Active Esperanza Sanabria PA Active PRILOSEC OTC 20 MG TBEC take one tab po bid OMEPRAZOLE MAGNESIUM 38491460205 No Longer Active Esperanza Pool PA Active TRIAMTERENE-HCTZ 37.5-25 MG CAPS Take 1 tablet by mouth daily TRIAMTERENE-HCTZ 83955433923 No Longer Active Esperanza Pool PA Active AMOXICILLIN 875 MG TABS Take one (1) tablet by mouth twice a day AMOXICILLIN 11321990259 No Longer Active Esperanza Pool PA Active HYDROCODONE-ACETAMINOPHEN 5-325 MG TABS take 1 tab po q4-6 hrs prn HYDROCODONE-ACETAMINOPHEN 59066818559 No Longer Active Esperanza Pool PA Active PREDNISONE 20 MG TAB 1 twice daily for two days, the once daily for two days PREDNISONE 97142021580 No Longer Active Esperanza Pool PA Active TAMIFLU 75 MG CAPS take one tab po daily x 10 days OSELTAMIVIR PHOSPHATE 97223592028 No Longer Active Esperanza Pool PA Active FLAGYL 500 MG TABS take one tab po bid x 10 days METRONIDAZOLE 16744546934 No Longer Active Esperanza Pool PA Active CIPRO 500 MG TABS take one tab po bid x 10 days CIPROFLOXACIN HCL 60331375482 No Longer Active Esperanza Pool PA Active SUDAFED 12 HOUR 120 MG [id number] take 1 tab po bid prn PSEUDOEPHEDRINE HCL 41104470506 No Longer Active Esperanza Pool PA Active MEDROL (JESSICA) 4 MG TABS take as directed METHYLPREDNISOLONE 09797540376 No Longer Active Sammi Hernandes RN Active BRITTANIE-28 TABS one tab p.o. q.d LEVONORGESTREL- ETHINYL ESTRAD TABS 07344460901 No Longer Active Esperanza Pool PA Active ZITHROMAX 250 MG TABS take 2 tabs po day one then 1 tab po days 2-5 AZITHROMYCIN 01851897216 No Longer Active Esperanza Pool PA Active METRONIDAZOLE 500 MG TABS 1 tab po bid x 7 days METRONIDAZOLE 70626256817 No Longer Active Lock RN Active AMOXICILLIN 500 MG TABS Take one (1) tablet by mouth three times a day 03/08 AMOXICILLIN 45434373100 No Longer Active Lock RN Active CLINDAMYCIN HCL 300 MG CAPS take 1 cap po QID x 10 days CLINDAMYCIN HCL 71441181595 No Longer Active Lock RN Active CIPRO 500 MG TABS take 1 tab po bid x 10 days CIPROFLOXACIN HCL 34505944803 No Longer Active Lock RN Active BACTRIM DS 800-160 MG TABS 1 tab po bid x 10 days SULFAMETHOXAZOLE-TRIMETHOPRIM 07347725493 No Longer Active Esperanza Pool PA Active ZOLOFT 100 MG TABS take 1 tab po daily SERTRALINE HCL 72649079111 Active Shannan Yoabum WELDER OPERATOR Active ZOLOFT 100 MG TABS take 1/2 tab po daily SERTRALINE HCL 31923937491 No Longer Active Esperanza Pool PA Active BACTRIM DS 800-160 MG TABS 1 tab po bid x 10 days BACTRIM DS 800-160 MG TABS 947049 SULFAMETHOXAZOLE-TRIMETHOPRIM Inactive CIPRO 500 MG TABS take 1 tab po bid x 10 days CIPRO 500 MG TABS 231723 CIPROFLOXACIN HCL Inactive CLINDAMYCIN HCL 300 MG CAPS take 1 cap po QID x 10 days CLINDAMYCIN HCL 300 MG CAPS 505442 CLINDAMYCIN HCL Inactive AMOXICILLIN 500 MG TABS Take one (1) tablet by mouth three times a day 03/08 AMOXICILLIN 500 MG TABS 574922 AMOXICILLIN Inactive METRONIDAZOLE 500 MG TABS 1 tab po bid x 7 days METRONIDAZOLE 500 MG TABS 728192 METRONIDAZOLE Inactive ZITHROMAX 250 MG TABS take 2 tabs po day one then 1 tab po days 2-5 ZITHROMAX 250 MG TABS 7743377 AZITHROMYCIN Inactive BRITTANIE-28 TABS one tab p.o. q.d BRITTANIE-28 TABS LEVONORGESTREL-ETHINYL ESTRAD TABS Inactive MEDROL (JESSICA) 4 MG TABS take as directed MEDROL (JESSICA) 4 MG TABS METHYLPREDNISOLONE Inactive SUDAFED 12 HOUR 120 MG [id number] take 1 tab po bid prn SUDAFED 12 HOUR 120 MG [id number] PSEUDOEPHEDRINE HCL Inactive CIPRO 500 MG TABS take one tab po bid x 10 days CIPRO 500 MG TABS 082089 CIPROFLOXACIN HCL Inactive FLAGYL 500 MG TABS take one tab po bid x 10 days FLAGYL 500 MG TABS 974804 METRONIDAZOLE Inactive TAMIFLU 75 MG CAPS take one tab po daily x 10 days TAMIFLU 75 MG CAPS OSELTAMIVIR PHOSPHATE Inactive PREDNISONE 20 MG TAB 1 twice daily for two days, the once daily for two days PREDNISONE 20 MG TAB 981659 PREDNISONE Inactive HYDROCODONE-ACETAMINOPHEN 5-325 MG TABS take 1 tab po q4-6 hrs prn HYDROCODONE-ACETAMINOPHEN 5-325 MG TABS 911735 HYDROCODONE- ACETAMINOPHEN Inactive AMOXICILLIN 875 MG TABS Take one (1) tablet by mouth twice a day AMOXICILLIN 875 MG TABS 399022 AMOXICILLIN Inactive TRIAMTERENE-HCTZ 37.5-25 MG CAPS Take 1 tablet by mouth daily TRIAMTERENE-HCTZ 37.5-25 MG CAPS 787570 TRIAMTERENE-HCTZ Inactive PRILOSEC OTC 20 MG TBEC take one tab po bid PRILOSEC OTC 20 MG TBEC OMEPRAZOLE MAGNESIUM Inactive TEMAZEPAM 15 MG CAPS 2 capsules every h.s TEMAZEPAM 15 MG CAPS 828828 TEMAZEPAM Inactive FLEXERIL 10 MG TABS take one tab po tid prn FLEXERIL 10 MG TABS CYCLOBENZAPRINE HCL Inactive DIETHYLPROPION HCL ER 75 MG [id number] take one tab po daily 09/04 DIETHYLPROPION HCL ER 75 MG [id number] DIETHYLPROPION HCL Inactive PHENTERMINE HCL 37.5 MG TABS take one tab po daily PHENTERMINE HCL 37.5 MG TABS 560469 PHENTERMINE HCL Inactive BRITTANIE-28 0.15-30 MG-MCG TABS take one tab po daily BRITTANIE-28 0.15-30 MG-MCG TABS 456209 LEVONORGESTREL-ETHINYL ESTRAD Inactive CIPRO 500 MG TAB 1 tablet by mouth twice daily CIPRO 500 MG TAB 790506 CIPROFLOXACIN HCL Inactive ZOLOFT 100 MG TABS take 1/2 tab po daily ZOLOFT 100 MG TABS 961642 SERTRALINE HCL Inactive PYRIDIUM 200 MG TAB 1 po TID PRN Dysuria PYRIDIUM 200 MG TAB 1773671 PHENAZOPYRIDINE HCL Inactive DIFLUCAN 150 MG TABS one tab PO x 1 DIFLUCAN 150 MG TABS 827428 FLUCONAZOLE Inactive Immunizations Vaccine Administration Date Value Standard Description Seasonal influenza vaccine, injectable, containing preservative, for > 3 years old (Afluria, FluLaval, Fluzone, Fluvirin, Fluarix, Agriflu(>=18 yo)) Fluzone (>3 yrs.) [[id number]] Influenza, seasonal, injectable Diagnostic Results Date Name [...] 5.0-8.5 Encounters Code Encounter Date Provider Facility CPT-05966 Level 3 Est. 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 Patient 11:56:59 BOARD WORKER Isatu Coburn [facility] CPT-36493 Level 3 Est. Patient 11:17:35 BOARD WORKER Isatu Coburn [facility] CPT-67357 Level 3 Est. Patient 11:02:41 CDT Esperanza Sanabria [facility] CPT-92565 Level 3 Est. Patient 14:35:51 CDT Kalin aCrlos DO [facility] CPT-84069 Level 3 Est. Patient 15:48:05 CDT Esperanza Sanabria [facility] CPT-58606 Level 3 Est. Patient 10:40:32 CDT Gonzalez Pinto [facility] CPT-70064 Level 3 Est. Patient 16:15:36 CDT Esperanza Sanabria [facility] CPT-21181 Level 3 Est. Patient 08:25:45 BOARD WORKER Esperanza Sanabria [facility] CPT-82997 Level 3 Est. Patient 16:30:43 BOARD WORKER Esperanza Sanabria [facility] CPT-93329 Level 3 Est. Patient 09:15:02 BOARD WORKER Esperanza Sanabria [facility]-94332 Level 3 Est. Patient 15:29:15 CDT Esperanza [facility] CPT-97273 Level 3 Est. [facility] 12:48[facility]23 [facility] Level 3 Est. Patient 14:10:29 CDT Esperanza [facility] CPT-31674 Level 3 Est. Patient 10:08:36 CDT Esperanza [facility] CPT-64841 Level 3 Est. Patient 08:21:51 CDT Gonzalez Pinto [facility] CPT-58962 Level 3 Est. Patient 15:57:32 BOARD WORKER Esperanza [facility] CPT-59144 Level 3 Est. Patient 09:40:30 BOARD WORKER Esperanza [facility] CPT-39538 Level 3 Est. Patient 08:57:52 BOARD [facility]ER [facility]92527 Level 3 Est. Patient 14:31:11 [facility]PT-70695 Level 3 Est. Patient 09:44:45 [facility]T [facility] Procedures Code Procedure Name Date Entry Date Standard Description CPT-OV Office Visit 12:35:22 BOARD WORKER CPT-OV Office Visit 10:39:58 BOARD WORKER CPT-OV Office Visit 10:06:26 CDT CPT-OV Office Visit 14:03:44 CDT CPT-42151 Sono retroperitoneal complete kidneys and bladder 12:58: 45 BOARD WORKER CPT-J1020 Depo Medrol 20 mg (Methyl Prednisolone Acetate) 15:48: 05 CDT CPT-J1020 Depo Medrol 100 mg (Methyl Prednisolone Acetate) 15:48: 05 CDT CPT-27740 Abx/Therapy Injection 15:48:05 CDT CPT-OV Office Visit 14:58:44 BOARD WORKER CPT-65941 Sono transvag pelvis non OB uterus ovaries cervix 16:31: 03 BOARD WORKER CPT-63566 Venipuncture Draw Fee 09:15:02 BOARD WORKER CPT-72236 Venipuncture Draw Fee 15:29:15 CDT CPT-97215 Abx/Therapy Injection 14:10:29 CDT CPT-J1030 Depo Medrol 40 mg (Methyl Prednisolone Acetate) 14:10: 29 CDT CPT-J1040 Depo Medrol 80 mg (Methyl Prednisolone Acetate) 14:10: 29 CDT CPT-01951 Spec Collection and Handling Fee 08:44:23 BOARD WORKER CPT-56377 Prv Med Est Pt 18-39yrs 08:44:23 BOARD WORKER CPT-95305 Abx/Therapy Injection 08:57:52 BOARD WORKER CPT-J1030 Depo Medrol 40 mg (Methyl Prednisolone Acetate) 08:57: 52 BOARD WORKER CPT-J1040 Depo Medrol 80 mg (Methyl Prednisolone Acetate) 08:57: 52 BOARD WORKER
--- OUTSIDE RECORDS SUMMARY | 2018-12-04 15:14 | XMS REPORT | Clinical Summary ---
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 UPPER RESPIRATORY INFECTION, [...] BENIGN PAROXYSMAL POSITIONAL VERTIGO ICD-386.11 Inactive Esperanza Daniele PA Hematuria ICD-599.70 Inactive Lulu Arreguin MD 2013 UTI ICD-599.0 Inactive Lulu Arreguin MD Medication List Medication Instructions Start Date Stop Date Generic Name NDC Status Provider Patient Instruction DIFLUCAN 150 MG TABS one tab PO x 1 FLUCONAZOLE [id number] No Longer Active Lulu Arreguin MD Active CIPRO 500 MG TAB 1 tablet by mouth twice daily CIPROFLOXACIN HCL 44187543052 No Longer Active Lulu Arreguin MD Active PYRIDIUM 200 MG TAB 1 po TID PRN Dysuria PHENAZOPYRIDINE HCL 74668411257 No Longer Active Isatu Coburn APRN Active BRITTANIE-28 0.15-30 MG-MCG TABS take one tab po daily LEVONORGESTREL-ETHINYL ESTRAD 24095965104 No Longer Active Petty Mcgrath Active ALPRAZOLAM 0.5 MG TABS one tab tid as needed ALPRAZOLAM 46821719587 Active Shannan Villarreal APRN Active PHENTERMINE HCL 37.5 MG TABS take one tab po daily PHENTERMINE HCL 42631481773 No Longer Active Isatu Coburn APRN Active DIETHYLPROPION HCL ER 75 MG [id number] take one tab po daily 09/04 DIETHYLPROPION HCL 92440696031 No Longer Active Esperanza Sanabria PA Active FLEXERIL 10 MG TABS take one tab po tid prn CYCLOBENZAPRINE HCL 95633809286 No Longer Active Esperanza Sanabria PA Active TEMAZEPAM 15 MG CAPS 2 capsules every h.s TEMAZEPAM 15434134167 No Longer Active Esperanza Sanabria PA Active PRILOSEC OTC 20 MG TBEC take one tab po bid OMEPRAZOLE MAGNESIUM 74852891643 No Longer Active Esperanza Pool PA Active TRIAMTERENE-HCTZ 37.5-25 MG CAPS Take 1 tablet by mouth daily TRIAMTERENE-HCTZ 38486697125 No Longer Active Esperanza Pool PA Active AMOXICILLIN 875 MG TABS Take one (1) tablet by mouth twice a day AMOXICILLIN 09698681594 No Longer Active Esperanza Pool PA Active HYDROCODONE-ACETAMINOPHEN 5-325 MG TABS take 1 tab po q4-6 hrs prn HYDROCODONE-ACETAMINOPHEN 98389563120 No Longer Active Esperanza Pool PA Active PREDNISONE 20 MG TAB 1 twice daily for two days, the once daily for two days PREDNISONE 90667076936 No Longer Active Esperanza Pool PA Active TAMIFLU 75 MG CAPS take one tab po daily x 10 days OSELTAMIVIR PHOSPHATE 85305052866 No Longer Active Esperanza Pool PA Active FLAGYL 500 MG TABS take one tab po bid x 10 days METRONIDAZOLE 12109510092 No Longer Active Esperanza Pool PA Active CIPRO 500 MG TABS take one tab po bid x 10 days CIPROFLOXACIN HCL 80780273437 No Longer Active Esperanza Pool PA Active SUDAFED 12 HOUR 120 MG [id number] take 1 tab po bid prn PSEUDOEPHEDRINE HCL 76491374247 No Longer Active Esperanza Pool PA Active MEDROL (JESSICA) 4 MG TABS take as directed METHYLPREDNISOLONE 80050617165 No Longer Active Sammi Hernandes RN Active BRITTANIE-28 TABS one tab p.o. q.d LEVONORGESTREL- ETHINYL ESTRAD TABS 69236790526 No Longer Active Esperanza Pool PA Active ZITHROMAX 250 MG TABS take 2 tabs po day one then 1 tab po days 2-5 AZITHROMYCIN 72105992836 No Longer Active Esperanza Pool PA Active METRONIDAZOLE 500 MG TABS 1 tab po bid x 7 days METRONIDAZOLE 15764796178 No Longer Active Lock RN Active AMOXICILLIN 500 MG TABS Take one (1) tablet by mouth three times a day 03/08 AMOXICILLIN 09945332125 No Longer Active Lock RN Active CLINDAMYCIN HCL 300 MG CAPS take 1 cap po QID x 10 days CLINDAMYCIN HCL 33081679296 No Longer Active Lock RN Active CIPRO 500 MG TABS take 1 tab po bid x 10 days CIPROFLOXACIN HCL 51609359663 No Longer Active Lock RN Active BACTRIM DS 800-160 MG TABS 1 tab po bid x 10 days SULFAMETHOXAZOLE-TRIMETHOPRIM 58370482596 No Longer Active Esperanza Pool PA Active ZOLOFT 100 MG TABS take 1 tab po daily SERTRALINE HCL 24793478507 Active Shannan Yoabum PENAL OFFICER Active ZOLOFT 100 MG TABS take 1/2 tab po daily SERTRALINE HCL 12160574424 No Longer Active Esperanza Pool PA Active BACTRIM DS 800-160 MG TABS 1 tab po bid x 10 days BACTRIM DS 800-160 MG TABS 800806 SULFAMETHOXAZOLE-TRIMETHOPRIM Inactive CIPRO 500 MG TABS take 1 tab po bid x 10 days CIPRO 500 MG TABS 585615 CIPROFLOXACIN HCL Inactive CLINDAMYCIN HCL 300 MG CAPS take 1 cap po QID x 10 days CLINDAMYCIN HCL 300 MG CAPS 916887 CLINDAMYCIN HCL Inactive AMOXICILLIN 500 MG TABS Take one (1) tablet by mouth three times a day 03/08 AMOXICILLIN 500 MG TABS 444147 AMOXICILLIN Inactive METRONIDAZOLE 500 MG TABS 1 tab po bid x 7 days METRONIDAZOLE 500 MG TABS 937269 METRONIDAZOLE Inactive ZITHROMAX 250 MG TABS take 2 tabs po day one then 1 tab po days 2-5 ZITHROMAX 250 MG TABS 4332505 AZITHROMYCIN Inactive BRITTANIE-28 TABS one tab p.o. q.d BRITTANIE-28 TABS LEVONORGESTREL-ETHINYL ESTRAD TABS Inactive MEDROL (JESSICA) 4 MG TABS take as directed MEDROL (JESSICA) 4 MG TABS METHYLPREDNISOLONE Inactive SUDAFED 12 HOUR 120 MG [id number] take 1 tab po bid prn SUDAFED 12 HOUR 120 MG [id number] PSEUDOEPHEDRINE HCL Inactive CIPRO 500 MG TABS take one tab po bid x 10 days CIPRO 500 MG TABS 785263 CIPROFLOXACIN HCL Inactive FLAGYL 500 MG TABS take one tab po bid x 10 days FLAGYL 500 MG TABS 236103 METRONIDAZOLE Inactive TAMIFLU 75 MG CAPS take one tab po daily x 10 days TAMIFLU 75 MG CAPS OSELTAMIVIR PHOSPHATE Inactive PREDNISONE 20 MG TAB 1 twice daily for two days, the once daily for two days PREDNISONE 20 MG TAB 856145 PREDNISONE Inactive HYDROCODONE-ACETAMINOPHEN 5-325 MG TABS take 1 tab po q4-6 hrs prn HYDROCODONE-ACETAMINOPHEN 5-325 MG TABS 246045 HYDROCODONE- ACETAMINOPHEN Inactive AMOXICILLIN 875 MG TABS Take one (1) tablet by mouth twice a day AMOXICILLIN 875 MG TABS 456867 AMOXICILLIN Inactive TRIAMTERENE-HCTZ 37.5-25 MG CAPS Take 1 tablet by mouth daily TRIAMTERENE-HCTZ 37.5-25 MG CAPS 621659 TRIAMTERENE-HCTZ Inactive PRILOSEC OTC 20 MG TBEC take one tab po bid PRILOSEC OTC 20 MG TBEC OMEPRAZOLE MAGNESIUM Inactive TEMAZEPAM 15 MG CAPS 2 capsules every h.s TEMAZEPAM 15 MG CAPS 323113 TEMAZEPAM Inactive FLEXERIL 10 MG TABS take one tab po tid prn FLEXERIL 10 MG TABS CYCLOBENZAPRINE HCL Inactive DIETHYLPROPION HCL ER 75 MG [id number] take one tab po daily 09/04 DIETHYLPROPION HCL ER 75 MG [id number] DIETHYLPROPION HCL Inactive PHENTERMINE HCL 37.5 MG TABS take one tab po daily PHENTERMINE HCL 37.5 MG TABS 974900 PHENTERMINE HCL Inactive BRITTANIE-28 0.15-30 MG-MCG TABS take one tab po daily BRITTANIE-28 0.15-30 MG-MCG TABS 491981 LEVONORGESTREL-ETHINYL ESTRAD Inactive CIPRO 500 MG TAB 1 tablet by mouth twice daily CIPRO 500 MG TAB 676252 CIPROFLOXACIN HCL Inactive ZOLOFT 100 MG TABS take 1/2 tab po daily ZOLOFT 100 MG TABS 890289 SERTRALINE HCL Inactive PYRIDIUM 200 MG TAB 1 po TID PRN Dysuria PYRIDIUM 200 MG TAB 1315756 PHENAZOPYRIDINE HCL Inactive DIFLUCAN 150 MG TABS one tab PO x 1 DIFLUCAN 150 MG TABS 463104 FLUCONAZOLE Inactive Immunizations Vaccine Administration Date Value Standard Description Seasonal influenza vaccine, injectable, containing preservative, for > 3 years old (Afluria, FluLaval, Fluzone, Fluvirin, Fluarix, Agriflu(>=18 yo)) Fluzone (>3 yrs.) [[id number]] Influenza, seasonal, injectable Diagnostic Results Date Name [...] 5.0-8.5 Encounters Code Encounter Date Provider Facility CPT-22890 Level 3 Est. Patient 11:13:24 MULTIMEDIA COORDINATOR Isatu Coburn [facility] CPT-70486 Level 3 Est. Patient 11:56:59 MULTIMEDIA COORDINATOR Isatu Coburn [facility]-75504 Level 3 Est. Patient 11:17:35 MULTIMEDIA COORDINATOR Isatu Coburn [facility] CPT-80158 Level 3 Est. Patient 11:02:41 CDT Esperanza Sanabria [facility]-45506 Level 3 Est. Patient 14:35:51 CDT Kalin Carlos DO [facility] CPT-87899 Level 3 Est. Patient 15:48:05 CDT Esperanza [facility]-36023 Level 3 Est. Patient 10:40:32 CDT Gonzalez Pinto [facility]-96407 Level 3 Est. Patient 16:15:36 CDT Esperanza [facility]-33253 Level 3 Est. Patient 08:25:45 MULTIMEDIA COORDINATOR Esperanza Sanabria [facility]-21565 Level 3 Est. Patient 16:30:43 MULTIMEDIA COORDINATOR Esperanza Sanabria [facility]-83866 Level 3 Est. Patient 09:15:02 MULTIMEDIA COORDINATOR Esperanza Sanabria [facility]-84472 Level 3 Est. Patient 15:29:15 CDT Esperanza [facility] CPT-54512 Level 3 Est. Patient 12:48:23 CDT Esperanza [facility] CPT-98215 Level 3 Est. Patient 14:10:29 CDT Esperanza [facility] CPT-41642 Level 3 Est. Patient 10:08:36 CDT Esperanza [facility] CPT-75261 Level 3 Est. Patient 08:21:51 CDT Gonzalez Pinto [facility] CPT-59672 Level 3 Est. Patient 15:57:32 MULTIMEDIA COORDINATOR Esperanza [facility] CPT-03866 Level 3 Est. Patient 09:40:30 MULTIMEDIA COORDINATOR Esperanza [facility] CPT-61516 Level 3 Est. Patient 08:57:52 MULTIMEDIA COORDINATOR Esperanza [facility] CPT-81387 Level 3 Est. Patient 14:31:11 CDT Esperanza [facility] CPT-76351 Level 3 Est. Patient 09:44:45 CDT Esperanza [facility] Procedures Code Procedure Name Date Entry Date Standard Description CPT-OV Office Visit 12:35:22 MULTIMEDIA COORDINATOR CPT-OV Office Visit 10:39:58 MULTIMEDIA COORDINATOR CPT-OV Office Visit 10:06:26 CDT CPT-OV Office Visit 14:03:44 CDT CPT-04510 Sono retroperitoneal complete kidneys and bladder 12:58: 45 MULTIMEDIA COORDINATOR CPT-J1020 Depo Medrol 20 mg (Methyl Prednisolone Acetate) 15:48: 05 CDT CPT-J1020 Depo Medrol 100 mg (Methyl Prednisolone Acetate) 15:48: 05 CDT CPT-60314 Abx/Therapy Injection 15:48:05 CDT CPT-OV Office Visit 14:58:44 MULTIMEDIA COORDINATOR CPT-24525 Sono transvag pelvis non OB uterus ovaries cervix 16:31: 03 MULTIMEDIA COORDINATOR CPT-53206 Venipuncture Draw Fee 09:15:02 MULTIMEDIA COORDINATOR CPT-26086 Venipuncture Draw Fee 15:29:15 CDT CPT-70812 Abx/Therapy Injection 14:10:29 CDT CPT-J1030 Depo Medrol 40 mg (Methyl Prednisolone Acetate) 14:10: 29 CDT CPT-J1040 Depo Medrol 80 mg (Methyl Prednisolone Acetate) 14:10: 29 CDT CPT-06116 Spec Collection and Handling Fee 08:44:23 MULTIMEDIA COORDINATOR CPT-35030 Prv Med Est Pt 18-39yrs 08:44:23 MULTIMEDIA COORDINATOR CPT-90937 Abx/Therapy Injection 08:57:52 MULTIMEDIA COORDINATOR CPT-J1030 Depo Medrol 40 mg (Methyl Prednisolone Acetate) 08:57: 52 MULTIMEDIA COORDINATOR CPT-J1040 Depo Medrol 80 mg (Methyl Prednisolone Acetate) 08:57: 52 MULTIMEDIA COORDINATOR
[2018-12-04] MEDS ORDERED: HYDROmorphone 2 MG/ML VIAL (DILAUDID) IV ONE (15:15)
[2018-12-04] MEDS ORDERED: morphine INJ 10 MG/ML 1ML (SYR OR VIAL) IVP ONE (15:15)
[2018-12-04] MEDS ORDERED: MEPERIDINE (DEMEROL) INJ 50 MG/ML IVP ONE (15:15)
[2018-12-04] MEDS ORDERED: PROMETHAZINE INJ 25 MG/ML (PHENERGAN) AMP IVP ONE (15:15)
--- OUTSIDE RECORDS SUMMARY | 2018-12-04 15:16 | XMS REPORT | Clinical Summary ---
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 UPPER RESPIRATORY INFECTION, [...] against influenza Obesity 278.00 Active Isatu Coburn HUMAN RESOURCES OPERATIONS COORDINATOR Obesity, unspecified Hematuria 599.70 Resolved Lulu Arreguin [...] Esperanza Pool PA CHEST PAIN ICD-786.50 Inactive Espernaza Pool PA 06/09 ROUTINE GYNECOLOGICAL EXAMINATION ICD-V72.31 [...] TAB 1 tablet by mouth bid METRONIDAZOLE 38626718447 Active Cynthia Rae LPN Active DIFLUCAN 150 MG TABS one tab PO x 1 FLUCONAZOLE 13592166656 No Longer Active Lulu Arreguin MD Active CIPRO 500 MG TAB 1 tablet by mouth twice daily CIPROFLOXACIN HCL 85945201122 No Longer Active Lulu Arreguin MD Active PYRIDIUM 200 MG TAB 1 po TID PRN Dysuria PHENAZOPYRIDINE HCL 62756386456 No Longer Active Isatu Coburn APRN Active BRITTANIE-28 0.15-30 MG-MCG TABS take one tab po daily LEVONORGESTREL-ETHINYL ESTRAD 10598954547 No Longer Active Petty Mcgrath Active ALPRAZOLAM 0.5 MG TABS one tab tid as needed ALPRAZOLAM 31731788419 Active Shannan Yomark HUMAN RESOURCES OPERATIONS COORDINATOR Active PHENTERMINE HCL 37.5 MG TABS take one tab po daily PHENTERMINE HCL 38349658399 No Longer Active Isatu Coburn APRN Active DIETHYLPROPION HCL ER 75 MG [id number] take one tab po daily 09/04 DIETHYLPROPION HCL 94024537274 No Longer Active Esperanza Sanabria PA Active FLEXERIL 10 MG TABS take one tab po tid prn CYCLOBENZAPRINE HCL 54866539181 No Longer Active Esperanza Sanabria PA Active TEMAZEPAM 15 MG CAPS 2 capsules every h.s TEMAZEPAM 01875812786 No Longer Active Esperanza Sanabria PA Active PRILOSEC OTC 20 MG TBEC take one tab po bid OMEPRAZOLE MAGNESIUM 48297871662 No Longer Active Esperanza Pool PA Active TRIAMTERENE-HCTZ 37.5-25 MG CAPS Take 1 tablet by mouth daily TRIAMTERENE-HCTZ 49664305766 No Longer Active Esperanza Pool PA Active AMOXICILLIN 875 MG TABS Take one (1) tablet by mouth twice a day AMOXICILLIN 93601307449 No Longer Active Esperanza Pool PA Active HYDROCODONE-ACETAMINOPHEN 5-325 MG TABS take 1 tab po q4-6 hrs prn HYDROCODONE-ACETAMINOPHEN 05427675569 No Longer Active Esperanza Pool PA Active PREDNISONE 20 MG TAB 1 twice daily for two days, the once daily for two days PREDNISONE 02424134352 No Longer Active Esperanza Pool PA Active TAMIFLU 75 MG CAPS take one tab po daily x 10 days OSELTAMIVIR PHOSPHATE 34874080820 No Longer Active Esperanza Pool PA Active FLAGYL 500 MG TABS take one tab po bid x 10 days METRONIDAZOLE 28814557147 No Longer Active Esperanza Pool PA Active CIPRO 500 MG TABS take one tab po bid x 10 days CIPROFLOXACIN HCL 16056550043 No Longer Active Esperanza Pool PA Active SUDAFED 12 HOUR 120 MG [id number] take 1 tab po bid prn PSEUDOEPHEDRINE HCL 81747555186 No Longer Active Esperanza Pool PA Active MEDROL (JESSICA) 4 MG TABS take as directed METHYLPREDNISOLONE 11105732958 No Longer Active Sammi Hernandes RN Active BRITTANIE-28 TABS one tab p.o. q.d LEVONORGESTREL- ETHINYL ESTRAD TABS 86558440088 No Longer Active Esperanza Pool PA Active ZITHROMAX 250 MG TABS take 2 tabs po day one then 1 tab po days 2-5 AZITHROMYCIN 39186951133 No Longer Active Esperanza Pool PA Active METRONIDAZOLE 500 MG TABS 1 tab po bid x 7 days METRONIDAZOLE 07288928387 No Longer Active Lock RN Active AMOXICILLIN 500 MG TABS Take one (1) tablet by mouth three times a day 03/08 AMOXICILLIN 72173166759 No Longer Active Lock RN Active CLINDAMYCIN HCL 300 MG CAPS take 1 cap po QID x 10 days CLINDAMYCIN HCL 38279194986 No Longer Active Lock RN Active CIPRO 500 MG TABS take 1 tab po bid x 10 days CIPROFLOXACIN HCL 56252709404 No Longer Active Lock RN Active BACTRIM DS 800-160 MG TABS 1 tab po bid x 10 days SULFAMETHOXAZOLE-TRIMETHOPRIM 51676131226 No Longer Active Esperanza Pool PA Active ZOLOFT 100 MG TABS take 1 tab po daily SERTRALINE HCL 65015679448 Active Shannan Yoabum HUMAN RESOURCES OPERATIONS COORDINATOR Active ZOLOFT 100 MG TABS take 1/2 tab po daily SERTRALINE HCL 66770436674 No Longer Active Esperanza Pool PA Active BACTRIM DS 800-160 MG TABS 1 tab po bid x 10 days BACTRIM DS 800-160 MG TABS 458292 SULFAMETHOXAZOLE-TRIMETHOPRIM Inactive CIPRO 500 MG TABS take 1 tab po bid x 10 days CIPRO 500 MG TABS 346190 CIPROFLOXACIN HCL Inactive CLINDAMYCIN HCL 300 MG CAPS take 1 cap po QID x 10 days CLINDAMYCIN HCL 300 MG CAPS 882876 CLINDAMYCIN HCL Inactive AMOXICILLIN 500 MG TABS Take one (1) tablet by mouth three times a day 03/08 AMOXICILLIN 500 MG TABS 574174 AMOXICILLIN Inactive METRONIDAZOLE 500 MG TABS 1 tab po bid x 7 days METRONIDAZOLE 500 MG TABS 133518 METRONIDAZOLE Inactive ZITHROMAX 250 MG TABS take 2 tabs po day one then 1 tab po days 2-5 ZITHROMAX 250 MG TABS 0031434 AZITHROMYCIN Inactive BRITTANIE-28 TABS one tab p.o. q.d BRITTANIE-28 TABS LEVONORGESTREL-ETHINYL ESTRAD TABS Inactive MEDROL (JESSICA) 4 MG TABS take as directed MEDROL (JESSICA) 4 MG TABS METHYLPREDNISOLONE Inactive SUDAFED 12 HOUR 120 MG [id number] take 1 tab po bid prn SUDAFED 12 HOUR 120 MG [id number] PSEUDOEPHEDRINE HCL Inactive CIPRO 500 MG TABS take one tab po bid x 10 days CIPRO 500 MG TABS 242957 CIPROFLOXACIN HCL Inactive FLAGYL 500 MG TABS take one tab po bid x 10 days FLAGYL 500 MG TABS 211362 METRONIDAZOLE Inactive TAMIFLU 75 MG CAPS take one tab po daily x 10 days TAMIFLU 75 MG CAPS OSELTAMIVIR PHOSPHATE Inactive PREDNISONE 20 MG TAB 1 twice daily for two days, the once daily for two days PREDNISONE 20 MG TAB 831969 PREDNISONE Inactive HYDROCODONE-ACETAMINOPHEN 5-325 MG TABS take 1 tab po q4-6 hrs prn HYDROCODONE-ACETAMINOPHEN 5-325 MG TABS 289535 HYDROCODONE- ACETAMINOPHEN Inactive AMOXICILLIN 875 MG TABS Take one (1) tablet by mouth twice a day AMOXICILLIN 875 MG TABS 889113 AMOXICILLIN Inactive TRIAMTERENE-HCTZ 37.5-25 MG CAPS Take 1 tablet by mouth daily TRIAMTERENE-HCTZ 37.5-25 MG CAPS 271637 TRIAMTERENE-HCTZ Inactive PRILOSEC OTC 20 MG TBEC take one tab po bid PRILOSEC OTC 20 MG TBEC OMEPRAZOLE MAGNESIUM Inactive TEMAZEPAM 15 MG CAPS 2 capsules every h.s TEMAZEPAM 15 MG CAPS 19820217 TEMAZEPAM Inactive FLEXERIL 10 MG TABS take one tab po tid prn FLEXERIL 10 MG TABS CYCLOBENZAPRINE HCL Inactive DIETHYLPROPION HCL ER 75 MG [id number] take one tab po daily 09/04 DIETHYLPROPION HCL ER 75 MG [id number] DIETHYLPROPION HCL Inactive PHENTERMINE HCL 37.5 MG TABS take one tab po daily PHENTERMINE HCL 37.5 MG TABS 239950 PHENTERMINE HCL Inactive BRITTANIE-28 0.15-30 MG-MCG TABS take one tab po daily BRITTANIE-28 0.15-30 MG-MCG TABS 424850 LEVONORGESTREL-ETHINYL ESTRAD Inactive CIPRO 500 MG TAB 1 tablet by mouth twice daily CIPRO 500 MG TAB 327373 CIPROFLOXACIN HCL Inactive ZOLOFT 100 MG TABS take 1/2 tab po daily ZOLOFT 100 MG TABS 217146 SERTRALINE HCL Inactive PYRIDIUM 200 MG TAB 1 po TID PRN Dysuria PYRIDIUM 200 MG TAB 6492651 PHENAZOPYRIDINE HCL Inactive DIFLUCAN 150 MG TABS one tab PO x 1 DIFLUCAN 150 MG TABS 973138 FLUCONAZOLE Inactive Immunizations Vaccine Administration Date Value Standard Description Seasonal influenza vaccine, injectable, containing preservative, for > 3 years old (Afluria, FluLaval, Fluzone, Fluvirin, Fluarix, Agriflu(>=18 yo)) Fluzone (>3 yrs.) [[id number]] Influenza, seasonal, injectable Vital Signs Date Name [...] 5.0-8.5 Encounters Code Encounter Date Provider Facility CPT-45355 Level 3 Est. Patient 11:13:24 PHOTOSTAT OPERATOR HELPER Isatu Coburn [facility] CPT-56772 Level 3 Est. Patient 11:56:59 PHOTOSTAT OPERATOR HELPER Isatu Coburn [facility] CPT-57030 Level 3 Est. Patient 11:17:35 PHOTOSTAT OPERATOR HELPER Isatu Coburn [facility] CPT-68818 Level 3 Est. Patient 11:02:41 CDT Esperanza Sanabria [facility] CPT-11169 Level 3 Est. Patient 14:35:51 CDT Kalin Carlos DO [facility] CPT-95034 Level 3 Est. Patient 15:48:05 CDT Esperanza Sanabria [facility] CPT-96908 Level 3 Est. Patient 10:40:32 CDT Gonzalez Pinto [facility] CPT-62272 Level 3 Est. Patient 16:15:36 CDT Esperanza [facility] CPT-59310 Level 3 Est. Patient 08:25:45 PHOTOSTAT OPERATOR HELPER Esperanza [facility] CPT-09322 Level 3 Est. Patient 16:30:43 PHOTOSTAT OPERATOR HELPER Esperanza [facility] CPT-02414 Level 3 Est. Patient 09:15:02 PHOTOSTAT OPERATOR HELPER Esperanza [facility] CPT-26486 Level 3 Est. Patient 15:29:15 CDT Esperanza [facility] CPT-01451 Level 3 Est. Patient 12:48:23 CDT Esperanza [facility] CPT-02135 Level 3 Est. Patient 14:10:29 [facility]-22222 Level 3 Est. Patient 10:08:36 CDT [facility] CPT-11164 Level 3 Est. Patient 08:21:51 CDT Gonzalez Pinto [facility] CPT-08580 Level 3 Est. Patient 15:57:32 PHOTOSTAT OPERATOR HELPER [facility] CPT-46708 Level 3 Est. Patient 09:40:30 PHOTOSTAT OPERATOR HELPER Esperanza [facility] CPT-81679 Level 3 Est. Patient 08:57:52 PHOTOSTAT OPERATOR HELPER [facility]1005 Level 3 Est. Patient 14:31:11 [facility]-53309 Level 3 Est. Patient 09:44:45 CDT [facility] Procedures Code Procedure Name Date Entry Date Standard Description CPT-54341 Sono pelvis non OB uterus ovaries cervix 12:08:42 PHOTOSTAT OPERATOR HELPER CPT-OV Office Visit 12:35:22 PHOTOSTAT OPERATOR HELPER CPT-OV Office Visit 10:39:58 PHOTOSTAT OPERATOR HELPER CPT-OV Office Visit 10:06:26 CDT CPT-OV Office Visit 14:03:44 CDT CPT-08608 Sono retroperitoneal complete kidneys and bladder 12:58: 45 PHOTOSTAT OPERATOR HELPER CPT-J1020 Depo Medrol 20 mg (Methyl Prednisolone Acetate) 15:48: 05 CDT CPT-J1020 Depo Medrol 100 mg (Methyl Prednisolone Acetate) 15:48: 05 CDT CPT-40068 Abx/Therapy Injection 15:48:05 CDT CPT-OV Office Visit 14:58:44 PHOTOSTAT OPERATOR HELPER CPT-70754 Sono transvag pelvis non OB uterus ovaries cervix 16:31: 03 PHOTOSTAT OPERATOR HELPER CPT-25271 Venipuncture Draw Fee 09:15:02 PHOTOSTAT OPERATOR HELPER CPT-41404 Venipuncture Draw Fee 15:29:15 CDT CPT-46895 Abx/Therapy Injection 14:10:29 CDT CPT-J1030 Depo Medrol 40 mg (Methyl Prednisolone Acetate) 14:10: 29 CDT CPT-J1040 Depo Medrol 80 mg (Methyl Prednisolone Acetate) 14:10: 29 CDT CPT-58857 Spec Collection and Handling Fee 08:44:23 PHOTOSTAT OPERATOR HELPER CPT-39001 Prv Med Est Pt 18-39yrs 08:44:23 PHOTOSTAT OPERATOR HELPER CPT-58018 Abx/Therapy Injection 08:57:52 PHOTOSTAT OPERATOR HELPER CPT-J1030 Depo Medrol 40 mg (Methyl Prednisolone Acetate) 08:57: 52 PHOTOSTAT OPERATOR HELPER CPT-J1040 Depo Medrol 80 mg (Methyl Prednisolone Acetate) 08:57: 52 PHOTOSTAT OPERATOR HELPER
[2018-12-04] MEDS ORDERED: morphine INJ 10 MG/ML 1ML (SYR OR VIAL) ONE (15:18)
--- OUTSIDE RECORDS SUMMARY | 2018-12-04 15:18 | XMS REPORT | Clinical Summary ---
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 UPPER RESPIRATORY INFECTION, ACUTE 465.9 Resolved Esperanza Pool PA Acute upper respiratory infections of unspecified site EUSTACHIAN TUBE DYSFUNCTION, RIGHT 381.81 Resolved Esperanza Pool PA Dysfunction of Eustachian tube CHEST PAIN 786.50 Resolved Esperanza Pool PA Unspecified chest pain ROUTINE GYNECOLOGICAL EXAMINATION V72.31 Resolved Esperanza Pool PA Routine gynecological examination ROUTINE GYNECOLOGICAL EXAMINATION V72.31 Active Lulu Arreguin MD Routine gynecological examination SINUSITIS, [...] Isatu Coburn APRN Obesity, unspecified Hematuria 599.70 Active Isatu Coburn APRN Hematuria, unspecified Elevated blood pressure 796.2 Active Isatu Coburn APRN Elevated blood pressure reading without diagnosis of hypertension Knee pain, right 719.46 Active Isatu Coburn APRN Pain in joint involving lower leg UTI 599.0 Active Isatu Coburn APRN Urinary tract infection, site not specified UPPER RESPIRATORY INFECTION, ACUTE ICD-465.9 Inactive Esperanza Pool PA EUSTACHIAN TUBE DYSFUNCTION, RIGHT ICD-381.81 Inactive Esperanza Pool PA CHEST PAIN ICD-786.50 Inactive Esperanza Pool PA 06/09 SINUSITIS, ACUTE ICD-461.9 Inactive Esperanza Pool PA [...] BENIGN PAROXYSMAL POSITIONAL VERTIGO ICD-386.11 Inactive Esperanza Pool PA Medication List Medication Instructions Start Date Stop Date Generic Name NDC Status Provider Patient Instruction PYRIDIUM 200 MG TAB 1 po TID PRN Dysuria PHENAZOPYRIDINE HCL 49015285793 No Longer Active Isatu Coburn CERTIFIED NOVELL ADMINISTRATOR Active CIPRO 500 MG TAB 1 tablet by mouth twice daily CIPROFLOXACIN HCL 09965181990 Active Isatu Coburn APRN Active BRITTANIE-28 0.15-30 MG-MCG TABS take one tab po daily LEVONORGESTREL-ETHINYL ESTRAD 71234362389 No Longer Active Petty Ramila Active ALPRAZOLAM 0.5 MG TABS one tab tid as needed ALPRAZOLAM 35378201275 Active Luke Ballard MD Active PHENTERMINE HCL 37.5 MG TABS take one tab po daily PHENTERMINE HCL 33683659001 No Longer Active Isatu Coburn APRN Active DIETHYLPROPION HCL ER 75 MG [id number] take one tab po daily 09/04 DIETHYLPROPION HCL 67769380725 No Longer Active Esperanza Sanabria PA Active FLEXERIL 10 MG TABS take one tab po tid prn CYCLOBENZAPRINE HCL 31104664826 No Longer Active Esperanza Pool PA Active TEMAZEPAM 15 MG CAPS 2 capsules every h.s TEMAZEPAM 46379317110 No Longer Active Esperanza Pool PA Active PRILOSEC OTC 20 MG TBEC take one tab po bid OMEPRAZOLE MAGNESIUM 69635936623 No Longer Active Esperanza Pool PA Active TRIAMTERENE-HCTZ 37.5-25 MG CAPS Take 1 tablet by mouth daily TRIAMTERENE-HCTZ 35275900457 No Longer Active Esperanza Pool PA Active AMOXICILLIN 875 MG TABS Take one (1) tablet by mouth twice a day AMOXICILLIN 55559900462 No Longer Active Esperanza Pool PA Active HYDROCODONE-ACETAMINOPHEN 5-325 MG TABS take 1 tab po q4-6 hrs prn HYDROCODONE-ACETAMINOPHEN 32952684555 No Longer Active Esperanza Pool PA Active PREDNISONE 20 MG TAB 1 twice daily for two days, the once daily for two days PREDNISONE 31548525184 No Longer Active Esperanza Pool PA Active TAMIFLU 75 MG CAPS take one tab po daily x 10 days OSELTAMIVIR PHOSPHATE 88637678245 No Longer Active Esperanza Pool PA Active FLAGYL 500 MG TABS take one tab po bid x 10 days METRONIDAZOLE 28593748380 No Longer Active Esperanza Pool PA Active CIPRO 500 MG TABS take one tab po bid x 10 days CIPROFLOXACIN HCL 14534471328 No Longer Active Esperanza Pool PA Active SUDAFED 12 HOUR 120 MG [id number] take 1 tab po bid prn PSEUDOEPHEDRINE HCL 10032725081 No Longer Active Esperanza Pool PA Active MEDROL (JESSICA) 4 MG TABS take as directed METHYLPREDNISOLONE 52306625687 No Longer Active Sammi Hernandes RN Active BRITTANIE-28 TABS one tab p.o. q.d LEVONORGESTREL- ETHINYL ESTRAD TABS 12044026115 No Longer Active Esperanza Pool PA Active ZITHROMAX 250 MG TABS take 2 tabs po day one then 1 tab po days 2-5 AZITHROMYCIN 21446598846 No Longer Active Esperanza Pool PA Active METRONIDAZOLE 500 MG TABS 1 tab po bid x 7 days METRONIDAZOLE 41168488745 No Longer Active Lock RN Active AMOXICILLIN 500 MG TABS Take one (1) tablet by mouth three times a day 03/08 AMOXICILLIN 72238318948 No Longer Active Lock RN Active CLINDAMYCIN HCL 300 MG CAPS take 1 cap po QID x 10 days CLINDAMYCIN HCL 77134238914 No Longer Active Lock RN Active CIPRO 500 MG TABS take 1 tab po bid x 10 days CIPROFLOXACIN HCL 19002801295 No Longer Active Lock RN Active BACTRIM DS 800-160 MG TABS 1 tab po bid x 10 days SULFAMETHOXAZOLE-TRIMETHOPRIM 35172341653 No Longer Active Esperanza Pool PA Active ZOLOFT 100 MG TABS take 1 tab po daily SERTRALINE HCL 72805078420 Active Luke Ballard MD Active ZOLOFT 100 MG TABS take 1/2 tab po daily SERTRALINE HCL 13524218271 No Longer Active Esperanza MEJIA Active BACTRIM DS 800-160 MG TABS 1 tab po bid x 10 days BACTRIM DS 800-160 MG TABS SULFAMETHOXAZOLE-TRIMETHOPRIM Inactive CIPRO 500 MG TABS take 1 tab po bid x 10 days CIPRO 500 MG TABS 286323 CIPROFLOXACIN HCL Inactive CLINDAMYCIN HCL 300 MG CAPS take 1 cap po QID x 10 days CLINDAMYCIN HCL 300 MG CAPS 639637 CLINDAMYCIN HCL Inactive AMOXICILLIN 500 MG TABS Take one (1) tablet by mouth three times a day 03/08 AMOXICILLIN 500 MG TABS 664304 AMOXICILLIN Inactive METRONIDAZOLE 500 MG TABS 1 tab po bid x 7 days METRONIDAZOLE 500 MG TABS 287342 METRONIDAZOLE Inactive ZITHROMAX 250 MG TABS take 2 tabs po day one then 1 tab po days 2-5 ZITHROMAX 250 MG TABS 3359753 AZITHROMYCIN Inactive BRITTANIE-28 TABS one tab p.o. q.d BRITTANIE-28 TABS LEVONORGESTREL-ETHINYL ESTRAD TABS Inactive MEDROL (JESSICA) 4 MG TABS take as directed MEDROL (JESSICA) 4 MG TABS METHYLPREDNISOLONE Inactive SUDAFED 12 HOUR 120 MG [id number] take 1 tab po bid prn SUDAFED 12 HOUR 120 MG [id number] PSEUDOEPHEDRINE HCL Inactive CIPRO 500 MG TABS take one tab po bid x 10 days CIPRO 500 MG TABS 245819 CIPROFLOXACIN HCL Inactive FLAGYL 500 MG TABS take one tab po bid x 10 days FLAGYL 500 MG TABS 493049 METRONIDAZOLE Inactive TAMIFLU 75 MG CAPS take one tab po daily x 10 days TAMIFLU 75 MG CAPS OSELTAMIVIR PHOSPHATE Inactive PREDNISONE 20 MG TAB 1 twice daily for two days, the once daily for two days PREDNISONE 20 MG TAB 861672 PREDNISONE Inactive HYDROCODONE-ACETAMINOPHEN 5-325 MG TABS take 1 tab po q4-6 hrs prn HYDROCODONE-ACETAMINOPHEN 5-325 MG TABS 909639 HYDROCODONE- ACETAMINOPHEN Inactive AMOXICILLIN 875 MG TABS Take one (1) tablet by mouth twice a day AMOXICILLIN 875 MG TABS 437360 AMOXICILLIN Inactive TRIAMTERENE-HCTZ 37.5-25 MG CAPS Take 1 tablet by mouth daily TRIAMTERENE-HCTZ 37.5-25 MG CAPS 176275 TRIAMTERENE-HCTZ Inactive PRILOSEC OTC 20 MG TBEC take one tab po bid PRILOSEC OTC 20 MG TBEC OMEPRAZOLE MAGNESIUM Inactive TEMAZEPAM 15 MG CAPS 2 capsules every h.s TEMAZEPAM 15 MG CAPS 068506 TEMAZEPAM Inactive FLEXERIL 10 MG TABS take one tab po tid prn FLEXERIL 10 MG TABS CYCLOBENZAPRINE HCL Inactive DIETHYLPROPION HCL ER 75 MG [id number] take one tab po daily 09/04 DIETHYLPROPION HCL ER 75 MG [id number] DIETHYLPROPION HCL Inactive PHENTERMINE HCL 37.5 MG TABS take one tab po daily PHENTERMINE HCL 37.5 MG TABS 876149 PHENTERMINE HCL Inactive BRITTANIE-28 0.15-30 MG-MCG TABS take one tab po daily BRITTANIE-28 0.15-30 MG-MCG TABS 172443 LEVONORGESTREL-ETHINYL ESTRAD Inactive ZOLOFT 100 MG TABS take 1/2 tab po daily ZOLOFT 100 MG TABS 657811 SERTRALINE HCL Inactive PYRIDIUM 200 MG TAB 1 po TID PRN Dysuria PYRIDIUM 200 MG TAB 9167086 PHENAZOPYRIDINE HCL Inactive Immunizations Vaccine Administration Date Value Standard Description Seasonal influenza vaccine, injectable, containing preservative, for > 3 years old (Afluria, FluLaval, Fluzone, Fluvirin, Fluarix, Agriflu(>=18 yo)) Fluzone (>3 yrs.) [[id number]] Influenza, seasonal, injectable Vital Signs Date Name Value Unit Range Description blood pressure, diastolic 78 mm[Hg] BP tineo blood pressure, systolic 126 mm[Hg] BP sys height E&M 67 [in_us] Bdy height pulse rate E&M 71 /min Heart rate temperature E&M 98.4 [degF] Body temperature weight E&M 228 [lb_av] Weight Measured blood pressure, diastolic 82 mm[Hg] BP tineo blood pressure, systolic 126 mm[Hg] BP sys height E&M 67 [in_us] Bdy height pulse rate E&M 72 /min Heart rate temperature E&M 98.3 [degF] Body temperature weight E&M 230 [lb_av] Weight Measured blood pressure, diastolic 85 mm[Hg] BP tineo blood pressure, systolic 142 mm[Hg] BP sys height E&M 67 [in_us] Bdy height pulse rate E&M 80 /min Heart rate temperature E&M 98.4 [degF] Body temperature weight E&M 218.25 [lb_av] Weight Measured blood pressure, diastolic 89 mm[Hg] BP tineo blood pressure, systolic 154 mm[Hg] BP sys pulse rate E&M 69 /min Heart rate temperature E&M 99.2 [degF] Body temperature weight E&M 209 [lb_av] Weight Measured blood pressure, diastolic 76 mm[Hg] BP tineo blood pressure, systolic 118 mm[Hg] BP sys height E&M 67 [in_us] Bdy height pulse rate E&M 94 /min Heart rate temperature E&M 98.5 [degF] Body temperature weight E&M 208 [lb_av] Weight Measured blood pressure, diastolic 79 mm[Hg] BP tineo blood pressure, systolic 130 mm[Hg] BP sys height E&M 67 [in_us] Bdy height pulse rate E&M 74 /min Heart rate temperature E&M 99.3 [degF] Body temperature weight E&M 208 [lb_av] Weight Measured blood pressure, diastolic 78 mm[Hg] BP tineo blood pressure, systolic 118 mm[Hg] BP sys height E&M 67 [in_us] Bdy height pulse rate E&M 80 /min Heart rate temperature E&M 98.8 [degF] Body temperature weight E&M 207 [lb_av] Weight Measured blood pressure, diastolic 80 mm[Hg] BP tineo blood pressure, systolic 147 mm[Hg] BP sys height E&M 67 [in_us] Bdy height pulse rate E&M 85 /min Heart rate temperature E&M 99.2 [degF] Body temperature weight E&M 210.31 [lb_av] Weight Measured Diagnostic Results Date Name Value Unit Range Description Lab Report: Thyroid Stimulating Hormone (L), Comp. Metabolic Panel, Free ... - Chemistry TSH 1.76 m[iU]/mL 0.36-3.74 sodium, serum 139 mmol/L 307-027 5063/11/20 potassium, serum 4.0 mmol/L 3.5-5.2 chloride, serum 103 mmol/L 98-107 carbon dioxide, venous blood 30.4 mmol/L 21.0-32.0 blood glucose 80 mg/dL 65-110 urea nitrogen, blood 7 mg/dL 7-18 creatinine, serum 0.80 mg/dL 0.60-1.30 alanine aminotransferase (SGPT), serum 34 U/L 12-78 aspartate aminotransferase (SGOT), serum 15 U/L 15-37 alkaline phosphatase, serum 106 U/L 50-136 calcium, serum 8.8 mg/dL 8.5-10.1 bilirubin, serum, total 0.40 mg/dL 0.00-1.00 thyroxine, serum, free 0.99 ng/dL 0.76-1.46 Lab Report: UADIP (AUTO), Comp. Metabolic Panel, CPK - Chemistry sodium, serum 140 mmol/L 438-596 7096/12/06 potassium, serum 3.8 mmol/L 3.5-5.2 chloride, serum 102 mmol/L 98-107 carbon dioxide, venous blood 30.4 mmol/L 21.0-32.0 blood glucose 69 mg/dL 65-110 urea nitrogen, blood 8 mg/dL 7-18 creatinine, serum 0.80 mg/dL 0.60-1.30 alanine aminotransferase (SGPT), serum 30 U/L -78 aspartate aminotransferase (SGOT), serum 12 U/L 15-37 alkaline phosphatase, serum 91 U/L 50-136 calcium, serum 8.9 mg/dL 8.5-10.1 bilirubin, serum, total 0.40 mg/dL 0.00-1.00 protein, total urine random Negative mg/dL Negative RBC, urine, dipstick 2+ Negative Lab Report: UADIP (AUTO), Comp. Metabolic Panel, CPK - Urinalysis urobilinogen, urine, semiquantitative (dipstick) 0.2 Normal leukocyte esterase, urine, by dipstick Negative Negative nitrite, urine, semiquantitative Negative Negative glucose, urine, semiquantitative Negative Negative ketones, urine, by test strip Negative Negative bilirubin, urine Negative Negative urine color Yellow Colorless;Lightyellow;Straw;Yellow appearance, urine Clear Clear specific gravity, urine 1.010 1.000-1.030 pH, urine, semiquantitative 7.5 5.0-8.5 Lab Report: UADIP W/MICRO, AUTO - Chemistry protein, total urine random Negative mg/dL Negative RBC, urine, dipstick Trace Negative Lab Report: UADIP W/MICRO, AUTO - Urinalysis urobilinogen, urine, semiquantitative (dipstick) 0.2 Normal leukocyte esterase, urine, by dipstick Negative Negative nitrite, urine, semiquantitative Negative Negative glucose, urine, semiquantitative Negative Negative ketones, urine, by test strip Negative Negative bilirubin, urine Negative Negative urine color Yellow Colorless;Lightyellow;Straw;Yellow appearance, urine Clear Clear specific gravity, urine 1.025 1.000-1.030 pH, urine, semiquantitative 6.0 5.0-8.5 Encounters Code Encounter Date Provider Facility CPT-56780 Level 3 Est. Patient 11:13:24 LAUNDRY OPERATOR FINISHING Isatu Coburn [facility] [place] CPT-24380 Level 3 Est. Patient 11:56:59 LAUNDRY OPERATOR FINISHING Isatu Coburn [facility] [place] [facility] [place] CPT-97197 Level 3 Est. Patient 11:17:35 LAUNDRY OPERATOR FINISHING Isatu Coburn [facility] [place] [place] CPT-03189 Level 3 Est. Patient 11:02:41 CDT Esperanza [facility] CPT-01165 Level 3 Est. Patient 14:35:51 CDT Kalin Carlos DO [facility] CPT-98865 Level 3 Est. Patient 15:48:05 CDT Esperanza [facility] CPT-19443 Level 3 Est. Patient 10:40:32 CDT Gonzalez Pinto [facility] CPT-85621 Level 3 Est. Patient 16:15:36 CDT Esperanza Pool [facility] CPT-21636 Level 3 Est. Patient 08:25:45 LAUNDRY OPERATOR FINISHING Esperanza Pool [facility] CPT-43699 Level 3 Est. Patient 16:30:43 LAUNDRY OPERATOR FINISHING Esperanza Pool [facility] CPT-21708 Level 3 Est. Patient 09:15:02 LAUNDRY OPERATOR FINISHING Esperanza Pool [facility] CPT-97314 Level 3 Est. Patient 15:29:15 CDT Esperanza [facility] CPT-80435 Level 3 Est. Patient 12:48:23 CDT Esperanza [facility] CPT-07309 Level 3 Est. Patient 14:10:29 CDT Esperanza [facility] CPT-56201 Level 3 Est. Patient 10:08:36 CDT Esperanza [facility] CPT-40644 Level 3 Est. Patient 08:21:51 CDT Gonzalez Pinto [facility] CPT-67580 Level 3 Est. Patient 15:57:32 LAUNDRY OPERATOR FINISHING Esperanza [facility] CPT-03656 Level 3 Est. Patient 09:40:30 LAUNDRY OPERATOR FINISHING Esperanza Pool [facility] CPT-33228 Level 3 Est. Patient 08:57:52 LAUNDRY OPERATOR FINISHING [facility] CPT-52658 Level 3 Est. Patient 14:31:11 CDT Esperanza Sanabria [facility] CPT-93623 Level 3 Est. Patient 09:44:45 CDT Esperanza Sanabria [facility] Procedures Code Procedure Name Date Entry Date Standard Description CPT-OV Office Visit 14:03:44 CDT CPT-76459 Sono retroperitoneal complete kidneys and bladder 12:58: 45 LAUNDRY OPERATOR FINISHING CPT-J1020 Depo Medrol 20 mg (Methyl Prednisolone Acetate) 15:48: 05 CDT CPT-J1020 Depo Medrol 100 mg (Methyl Prednisolone Acetate) 15:48: 05 CDT CPT-26570 Abx/Therapy Injection 15:48:05 CDT CPT-OV Office Visit 14:58:44 LAUNDRY OPERATOR FINISHING CPT-28189 Sono transvag pelvis non OB uterus ovaries cervix 16:31: 03 LAUNDRY OPERATOR FINISHING CPT-10567 Venipuncture Draw Fee 09:15:02 LAUNDRY OPERATOR FINISHING CPT-38038 Venipuncture Draw Fee 15:29:15 CDT CPT-95668 Abx/Therapy Injection 14:10:29 CDT CPT-J1030 Depo Medrol 40 mg (Methyl Prednisolone Acetate) 14:10: 29 CDT CPT-J1040 Depo Medrol 80 mg (Methyl Prednisolone Acetate) 14:10: 29 CDT CPT-12518 Spec Collection and Handling Fee 08:44:23 LAUNDRY OPERATOR FINISHING CPT-08522 Prv Med Est Pt 18-39yrs 08:44:23 LAUNDRY OPERATOR FINISHING CPT-76985 Abx/Therapy Injection 08:57:52 LAUNDRY OPERATOR FINISHING CPT-J1030 Depo Medrol 40 mg (Methyl Prednisolone Acetate) 08:57: 52 LAUNDRY OPERATOR FINISHING CPT-J1040 Depo Medrol 80 mg (Methyl Prednisolone Acetate) 08:57: 52 LAUNDRY OPERATOR FINISHING
--- OUTSIDE RECORDS SUMMARY | 2018-12-04 15:18 | XMS REPORT ---
Author Author [facility] Medical Staff Organization [facility] Address [address] [id number] Phone [phone] Care Team Providers Care Organic Chemist Name Role Phone MARCEL LORENZANA APRN, PP [phone] Summary purpose TRANSITION OF CARE AUTO GENERATION Chief Complaint and Reason for Visit Admit Diagnosis 1 ACUTE PHARYNGITIS Problem list No authorized problems tracked for [...] diagnostic tests and/or laboratory data RESULTS Routine Cultures 11-13-005270:57:00 Nose/Throat Culture Plate Date and Time 08/05/2014 15:57 SourceTHROAT CULTURE REPORT Large Amount Apparent Normal Inez Release Date/Time: 08/06/2014 08:18 CULTURE REPORT Large Amount Apparent Normal Inez Release Date/Time: 08/07/2014 10:23 History of procedures Procedure Code Code Type Description Date Performed Performing Physician [id number] CPT-4 CULTURE BACTERI AEROBIC OTHR 08-05-2014 MARCEL LORENZANA Functional status No functional or [...]
--- OUTSIDE RECORDS SUMMARY | 2018-12-04 15:19 | XMS REPORT | Clinical Summary ---
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 UPPER RESPIRATORY INFECTION, [...] Lulu Arreguin MD Pruritus of genital organs UPPER RESPIRATORY INFECTION, ACUTE ICD-465.9 Inactive Esperanza Pool PA EUSTACHIAN TUBE DYSFUNCTION, RIGHT ICD-381.81 Inactive Epseranza Pool PA CHEST PAIN ICD-786.50 Inactive Esperanza [...] POSITIONAL VERTIGO ICD-386.11 Inactive Esperanza Pool PA Hematuria ICD-599.70 Inactive Lulu Arreguin MD 2013 UTI ICD-599.0 Inactive Lulu Arreguin MD Medication List Medication Instructions Start Date Stop Date Generic Name NDC Status Provider Patient Instruction DIFLUCAN 150 MG TABS one tab PO x 1 FLUCONAZOLE [id number] No Longer Active Lulu Arreguin MD Active CIPRO 500 MG TAB 1 tablet by mouth twice daily CIPROFLOXACIN HCL 31113945419 No Longer Active Lulu Arreguin MD Active PYRIDIUM 200 MG TAB 1 po TID PRN Dysuria PHENAZOPYRIDINE HCL 46590133556 No Longer Active Isatu Coburn APRN Active BRITTANIE-28 0.15-30 MG-MCG TABS take one tab po daily LEVONORGESTREL-ETHINYL ESTRAD 46287546497 No Longer Active Petty Gordilloson Active ALPRAZOLAM 0.5 MG TABS one tab tid as needed ALPRAZOLAM 15167183706 Active Luke Ballard MD Active PHENTERMINE HCL 37.5 MG TABS take one tab po daily PHENTERMINE HCL 02683755436 No Longer Active Isatu Coburn APRN Active DIETHYLPROPION HCL ER 75 MG [id number] take one tab po daily 09/04 DIETHYLPROPION HCL 38579503533 No Longer Active Esperanza Sanabria PA Active FLEXERIL 10 MG TABS take one tab po tid prn CYCLOBENZAPRINE HCL 50967841258 No Longer Active Esperanza Sanabria PA Active TEMAZEPAM 15 MG CAPS 2 capsules every h.s TEMAZEPAM 20052191333 No Longer Active Esperanza Sanabria PA Active PRILOSEC OTC 20 MG TBEC take one tab po bid OMEPRAZOLE MAGNESIUM 54238474037 No Longer Active Esperanza Sanabria PA Active TRIAMTERENE-HCTZ 37.5-25 MG CAPS Take 1 tablet by mouth daily TRIAMTERENE-HCTZ 86321135771 No Longer Active Esperanza Pool PA Active AMOXICILLIN 875 MG TABS Take one (1) tablet by mouth twice a day AMOXICILLIN 00101624652 No Longer Active Esperanza Pool PA Active HYDROCODONE-ACETAMINOPHEN 5-325 MG TABS take 1 tab po q4-6 hrs prn HYDROCODONE-ACETAMINOPHEN 30431616382 No Longer Active Esperanza Pool PA Active PREDNISONE 20 MG TAB 1 twice daily for two days, the once daily for two days PREDNISONE 37387702698 No Longer Active Esperanza Pool PA Active TAMIFLU 75 MG CAPS take one tab po daily x 10 days OSELTAMIVIR PHOSPHATE 82450937456 No Longer Active Esperanza Pool PA Active FLAGYL 500 MG TABS take one tab po bid x 10 days METRONIDAZOLE 45812659535 No Longer Active Esperanza Pool PA Active CIPRO 500 MG TABS take one tab po bid x 10 days CIPROFLOXACIN HCL 83212194728 No Longer Active Esperanza Pool PA Active SUDAFED 12 HOUR 120 MG [id number] take 1 tab po bid prn PSEUDOEPHEDRINE HCL 89736763351 No Longer Active Esperanza Pool PA Active MEDROL (JESSICA) 4 MG TABS take as directed METHYLPREDNISOLONE 04636875285 No Longer Active Sammi Hernandes RN Active BRITTANIE-28 TABS one tab p.o. q.d LEVONORGESTREL- ETHINYL ESTRAD TABS 68819790661 No Longer Active Esperanza Pool PA Active ZITHROMAX 250 MG TABS take 2 tabs po day one then 1 tab po days 2-5 AZITHROMYCIN 17993561645 No Longer Active Esperanza Pool PA Active METRONIDAZOLE 500 MG TABS 1 tab po bid x 7 days METRONIDAZOLE 54114639643 No Longer Active Patricia Dockery RN Active AMOXICILLIN 500 MG TABS Take one (1) tablet by mouth three times a day 03/08 AMOXICILLIN 18502796977 No Longer Active Lock RN Active CLINDAMYCIN HCL 300 MG CAPS take 1 cap po QID x 10 days CLINDAMYCIN HCL 28874547892 No Longer Active Lock RN Active CIPRO 500 MG TABS take 1 tab po bid x 10 days CIPROFLOXACIN HCL 19349930626 No Longer Active Lock RN Active BACTRIM DS 800-160 MG TABS 1 tab po bid x 10 days SULFAMETHOXAZOLE-TRIMETHOPRIM 60120224099 No Longer Active Esperanza Pool PA Active ZOLOFT 100 MG TABS take 1 tab po daily SERTRALINE HCL 93204957722 Active Shannan Yoabum MORTGAGE ASSISTANT Active ZOLOFT 100 MG TABS take 1/2 tab po daily SERTRALINE HCL 94717301083 No Longer Active Esperanza Pool PA Active BACTRIM DS 800-160 MG TABS 1 tab po bid x 10 days BACTRIM DS 800-160 MG TABS SULFAMETHOXAZOLE-TRIMETHOPRIM Inactive CIPRO 500 MG TABS take 1 tab po bid x 10 days CIPRO 500 MG TABS 341513 CIPROFLOXACIN HCL Inactive CLINDAMYCIN HCL 300 MG CAPS take 1 cap po QID x 10 days CLINDAMYCIN HCL 300 MG CAPS 523970 CLINDAMYCIN HCL Inactive AMOXICILLIN 500 MG TABS Take one (1) tablet by mouth three times a day 03/08 AMOXICILLIN 500 MG TABS 779228 AMOXICILLIN Inactive METRONIDAZOLE 500 MG TABS 1 tab po bid x 7 days METRONIDAZOLE 500 MG TABS 662429 METRONIDAZOLE Inactive ZITHROMAX 250 MG TABS take 2 tabs po day one then 1 tab po days 2-5 ZITHROMAX 250 MG TABS 2768850 AZITHROMYCIN Inactive BRITTANIE-28 TABS one tab p.o. q.d BRITTANIE-28 TABS LEVONORGESTREL-ETHINYL ESTRAD TABS Inactive MEDROL (JESSICA) 4 MG TABS take as directed MEDROL (JESSICA) 4 MG TABS METHYLPREDNISOLONE Inactive SUDAFED 12 HOUR 120 MG [id number] take 1 tab po bid prn SUDAFED 12 HOUR 120 MG [id number] PSEUDOEPHEDRINE HCL Inactive CIPRO 500 MG TABS take one tab po bid x 10 days CIPRO 500 MG TABS 446595 CIPROFLOXACIN HCL Inactive FLAGYL 500 MG TABS take one tab po bid x 10 days FLAGYL 500 MG TABS 905465 METRONIDAZOLE Inactive TAMIFLU 75 MG CAPS take one tab po daily x 10 days TAMIFLU 75 MG CAPS OSELTAMIVIR PHOSPHATE Inactive PREDNISONE 20 MG TAB 1 twice daily for two days, the once daily for two days PREDNISONE 20 MG TAB 469672 PREDNISONE Inactive HYDROCODONE-ACETAMINOPHEN 5-325 MG TABS take 1 tab po q4-6 hrs prn HYDROCODONE-ACETAMINOPHEN 5-325 MG TABS 676512 HYDROCODONE- ACETAMINOPHEN Inactive AMOXICILLIN 875 MG TABS Take one (1) tablet by mouth twice a day AMOXICILLIN 875 MG TABS 675876 AMOXICILLIN Inactive TRIAMTERENE-HCTZ 37.5-25 MG CAPS Take 1 tablet by mouth daily TRIAMTERENE-HCTZ 37.5-25 MG CAPS 918089 TRIAMTERENE-HCTZ Inactive PRILOSEC OTC 20 MG TBEC take one tab po bid PRILOSEC OTC 20 MG TBEC OMEPRAZOLE MAGNESIUM Inactive TEMAZEPAM 15 MG CAPS 2 capsules every h.s TEMAZEPAM 15 MG CAPS 719144 TEMAZEPAM Inactive FLEXERIL 10 MG TABS take one tab po tid prn FLEXERIL 10 MG TABS CYCLOBENZAPRINE HCL Inactive DIETHYLPROPION HCL ER 75 MG [id number] take one tab po daily 09/04 DIETHYLPROPION HCL ER 75 MG [id number] DIETHYLPROPION HCL Inactive PHENTERMINE HCL 37.5 MG TABS take one tab po daily PHENTERMINE HCL 37.5 MG TABS 575577 PHENTERMINE HCL Inactive BRITTANIE-28 0.15-30 MG-MCG TABS take one tab po daily BRITTANIE-28 0.15-30 MG-MCG TABS 821131 LEVONORGESTREL-ETHINYL ESTRAD Inactive CIPRO 500 MG TAB 1 tablet by mouth twice daily CIPRO 500 MG TAB 073204 CIPROFLOXACIN HCL Inactive ZOLOFT 100 MG TABS take 1/2 tab po daily ZOLOFT 100 MG TABS 643702 SERTRALINE HCL Inactive PYRIDIUM 200 MG TAB 1 po TID PRN Dysuria PYRIDIUM 200 MG TAB 2675140 PHENAZOPYRIDINE HCL Inactive DIFLUCAN 150 MG TABS one tab PO x 1 DIFLUCAN 150 MG TABS 446954 FLUCONAZOLE Inactive Immunizations Vaccine Administration Date Value Standard Description Seasonal influenza vaccine, injectable, containing preservative, for > 3 years old (Afluria, FluLaval, Fluzone, Fluvirin, Fluarix, Agriflu(>=18 yo)) Fluzone (>3 yrs.) [[id number]] Influenza, seasonal, injectable Vital Signs Date Name Value Unit Range Description blood pressure, diastolic - 8462-4 81 mm[Hg] BP tineo blood pressure, systolic - 8480-6 132 mm[Hg] BP sys height E&M - 8302-2 67 [in_us] Bdy height pulse rate E&M - 8867-4 72 /min Heart rate temperature E&M 99.2 [degF] Body temperature weight E&M - 3141-9 262 [lb_av] Weight Measured blood pressure, diastolic - 8462-4 78 mm[Hg] BP tineo blood pressure, systolic - 8480-6 126 mm[Hg] BP sys height E&M - 8302-2 67 [in_us] Bdy height pulse rate E&M - 8867-4 71 /min Heart rate temperature E&M 98.4 [degF] Body temperature weight E&M - 3141-9 228 [lb_av] Weight Measured blood pressure, diastolic - 8462-4 82 mm[Hg] BP tineo blood pressure, systolic - 8480-6 126 mm[Hg] BP sys height E&M - 8302-2 67 [in_us] Bdy height pulse rate E&M - 8867-4 72 /min Heart rate temperature E&M 98.3 [degF] Body temperature weight E&M - 3141-9 230 [lb_av] Weight Measured Diagnostic Results Date Name Value Unit Range Description Lab Report: Chlamydia/GC APTIMA/99395 - Lab chlamydia DNA probe NOT DETECTED NOT DETECTED Lab Report: Chlamydia/GC APTIMA/30707 - Microbiology Neisseria gonorrhoeae DNA probe NOT DETECTED NOT DETECTED Lab Report: UADIP W/MICRO, AUTO - Chemistry protein, total urine random Negative mg/dL Negative RBC, urine, dipstick 3+ Negative protein, total urine random Negative mg/dL Negative RBC, urine, dipstick Trace Negative Lab Report: UADIP W/MICRO, AUTO - Urinalysis urobilinogen, urine, semiquantitative (dipstick) 0.2 Normal leukocyte esterase, urine, by dipstick Negative Negative nitrite, urine, semiquantitative Negative Negative urine color Yellow Colorless;Lightyellow;Straw;Yellow appearance, urine Hazy Clear specific gravity, urine 1.025 1.000-1.030 pH, urine, semiquantitative 5.5 5.0-8.5 glucose, urine, semiquantitative Negative Negative ketones, urine, by test strip Negative Negative bilirubin, urine Negative Negative urine color Yellow Colorless;Lightyellow;Straw;Yellow appearance, urine Clear Clear specific gravity, urine 1.025 1.000-1.030 pH, urine, semiquantitative 6.0 5.0-8.5 urobilinogen, urine, semiquantitative (dipstick) 0.2 Normal leukocyte esterase, urine, by dipstick Trace Negative nitrite, urine, semiquantitative Negative Negative glucose, urine, semiquantitative Negative Negative ketones, urine, by test strip Negative Negative bilirubin, urine Negative Negative Encounters Code Encounter Date Provider Facility CPT-11229 Level 3 Est. Patient 11:13:24 BLUEPRINT CUTTER sIatu Coburn [facility] CPT-69935 Level 3 Est. Patient 11:56:59 BLUEPRINT CUTTER Isatu Coburn [facility] CPT-31480 Level 3 Est. Patient 11:17:35 BLUEPRINT CUTTER Isatu Coburn [facility] CPT-46675 Level 3 Est. Patient 11:02:41 CDT Esperanza Sanabria [facility] CPT-74620 Level 3 Est. Patient 14:35:51 CDT Kalin Carlos DO [facility] CPT-20352 Level 3 Est. Patient 15:48:05 CDT Esperanza Sanabria [facility] CPT-70363 Level 3 Est. Patient 10:40:32 CDT Gonzalez Pinto [facility] CPT-41657 Level 3 Est. Patient 16:15:36 CDT Esperanza Sanabria [facility] CPT-28725 Level 3 Est. Patient 08:25:45 BLUEPRINT CUTTER Esperanza Sanabria [facility] CPT-91668 Level 3 Est. Patient 16:30:43 [facility]UEPRINT CUTTER [facility]70[facility] Level 3 Est. Patient 09:15:02 [facility]PRINT CUTTER [facility]-31456 Level 3 Est. Patient 15:29:15 CDT [facility] CPT-40101 Level 3 Est. Patient 12:48:23 CDT [facility] CPT-87778 Level 3 Est. Patient 14:10:29 CDT [facility] CPT-85424 Level 3 Est. Patient 10:08:36 CDT [facility] CPT-29451 Level 3 Est. Patient 08:21:51 CDT Gonzalez Pinto [facility] CPT-99153 Level 3 Est. Patient 15:57:32 BLUEPRINT CUTTER [facility] CPT-81146 Level 3 Est. Patient 09:40:30 BLUEPRINT CUTTER [facility] CPT-93515 Level 3 Est. Patient 08:57:52 BLUEPRINT CUTTER [facility] CPT-88709 Level 3 Est. Patient 14:31:11 CDT [facility] CPT-52775 Level 3 Est. Patient 09:44:45 CDT [facility] Procedures Code Procedure Name Date Entry Date Standard Description CPT-OV Office Visit 10:06:26 CDT CPT-OV Office Visit 14:03:44 CDT CPT-65528 Sono retroperitoneal complete kidneys and bladder 12:58: 45 BLUEPRINT CUTTER CPT-J1020 Depo Medrol 20 mg (Methyl Prednisolone Acetate) 15:48: 05 CDT CPT-J1020 Depo Medrol 100 mg (Methyl Prednisolone Acetate) 15:48: 05 CDT CPT-84162 Abx/Therapy Injection 15:48:05 CDT CPT-OV Office Visit 14:58:44 BLUEPRINT CUTTER CPT-48624 Sono transvag pelvis non OB uterus ovaries cervix 16:31: 03 BLUEPRINT CUTTER CPT-59618 Venipuncture Draw Fee 09:15:02 BLUEPRINT CUTTER CPT-02088 Venipuncture Draw Fee 15:29:15 CDT CPT-33911 Abx/Therapy Injection 14:10:29 CDT CPT-J1030 Depo Medrol 40 mg (Methyl Prednisolone Acetate) 14:10: 29 CDT CPT-J1040 Depo Medrol 80 mg (Methyl Prednisolone Acetate) 14:10: 29 CDT CPT-25201 Spec Collection and Handling Fee 08:44:23 BLUEPRINT CUTTER CPT-77651 Prv Med Est Pt 18-39yrs 08:44:23 BLUEPRINT CUTTER CPT-76924 Abx/Therapy Injection 08:57:52 BLUEPRINT CUTTER CPT-J1030 Depo Medrol 40 mg (Methyl Prednisolone Acetate) 08:57: 52 BLUEPRINT CUTTER CPT-J1040 Depo Medrol 80 mg (Methyl Prednisolone Acetate) 08:57: 52 BLUEPRINT CUTTER
--- OUTSIDE RECORDS SUMMARY | 2018-12-04 15:20 | XMS REPORT | Clinical Summary ---
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 history of psychiatric condition UPPER RESPIRATORY INFECTION, [...] 1 po TID PRN Dysuria PHENAZOPYRIDINE HCL 31257626687 No Longer Active Isatu Coburn ORACLE ANALYST Active CIPRO 500 MG TAB 1 tablet by mouth twice daily CIPROFLOXACIN HCL 75183171557 Active Isatu Coburn APRN Active BRITTANIE-28 0.15-30 MG-MCG TABS take one tab po daily LEVONORGESTREL-ETHINYL ESTRAD 53707539448 No Longer Active Petty Ramila Active ALPRAZOLAM 0.5 MG TABS one tab tid as needed ALPRAZOLAM 74670199352 Active Luke Ballard MD Active PHENTERMINE HCL 37.5 MG TABS take one tab po daily PHENTERMINE HCL 12856648731 No Longer Active Isatu Coburn APRN Active DIETHYLPROPION HCL ER 75 MG [id number] take one tab po daily 09/04 DIETHYLPROPION HCL 07132880778 No Longer Active Esperanza Sanabria PA Active FLEXERIL 10 MG TABS take one tab po tid prn CYCLOBENZAPRINE HCL 90855970330 No Longer Active Esperanza Pool PA Active TEMAZEPAM 15 MG CAPS 2 capsules every h.s TEMAZEPAM 55054094332 No Longer Active Esperanza Pool PA Active PRILOSEC OTC 20 MG TBEC take one tab po bid OMEPRAZOLE MAGNESIUM 52130034862 No Longer Active Esperanza Pool PA Active TRIAMTERENE-HCTZ 37.5-25 MG CAPS Take 1 tablet by mouth daily TRIAMTERENE-HCTZ 17760317025 No Longer Active Esperanza Pool PA Active AMOXICILLIN 875 MG TABS Take one (1) tablet by mouth twice a day AMOXICILLIN 78476466398 No Longer Active Esperanza Pool PA Active HYDROCODONE-ACETAMINOPHEN 5-325 MG TABS take 1 tab po q4-6 hrs prn HYDROCODONE-ACETAMINOPHEN 68178781603 No Longer Active Esperanza Pool PA Active PREDNISONE 20 MG TAB 1 twice daily for two days, the once daily for two days PREDNISONE 41189649198 No Longer Active Esperanza Pool PA Active TAMIFLU 75 MG CAPS take one tab po daily x 10 days OSELTAMIVIR PHOSPHATE 20025349175 No Longer Active Esperanza Pool PA Active FLAGYL 500 MG TABS take one tab po bid x 10 days METRONIDAZOLE 77505284736 No Longer Active Esperanza Pool PA Active CIPRO 500 MG TABS take one tab po bid x 10 days CIPROFLOXACIN HCL 27812938325 No Longer Active Esperanza Pool PA Active SUDAFED 12 HOUR 120 MG [id number] take 1 tab po bid prn PSEUDOEPHEDRINE HCL 43876269241 No Longer Active Esperanza Pool PA Active MEDROL (JESSICA) 4 MG TABS take as directed METHYLPREDNISOLONE 51132072566 No Longer Active aSmmi Hernandes RN Active BRITTANIE-28 TABS one tab p.o. q.d LEVONORGESTREL- ETHINYL ESTRAD TABS 55141233127 No Longer Active Esperanza Pool PA Active ZITHROMAX 250 MG TABS take 2 tabs po day one then 1 tab po days 2-5 AZITHROMYCIN 01422362058 No Longer Active Esperanza Pool PA Active METRONIDAZOLE 500 MG TABS 1 tab po bid x 7 days METRONIDAZOLE 49273109122 No Longer Active Lock RN Active AMOXICILLIN 500 MG TABS Take one (1) tablet by mouth three times a day 03/08 AMOXICILLIN 57201396111 No Longer Active Lock RN Active CLINDAMYCIN HCL 300 MG CAPS take 1 cap po QID x 10 days CLINDAMYCIN HCL 30955287939 No Longer Active Lock RN Active CIPRO 500 MG TABS take 1 tab po bid x 10 days CIPROFLOXACIN HCL 87850519461 No Longer Active Lock RN Active BACTRIM DS 800-160 MG TABS 1 tab po bid x 10 days SULFAMETHOXAZOLE-TRIMETHOPRIM 90449282624 No Longer Active Esperanza Pool PA Active ZOLOFT 100 MG TABS take 1 tab po daily SERTRALINE HCL 72704733808 Active Luke Ballard MD Active ZOLOFT 100 MG TABS take 1/2 tab po daily SERTRALINE HCL 33488703873 No Longer Active Esperanza MEJIA Active BACTRIM DS 800-160 MG TABS 1 tab po bid x 10 days BACTRIM DS 800-160 MG TABS SULFAMETHOXAZOLE-TRIMETHOPRIM Inactive CIPRO 500 MG TABS take 1 tab po bid x 10 days CIPRO 500 MG TABS 933832 CIPROFLOXACIN HCL Inactive CLINDAMYCIN HCL 300 MG CAPS take 1 cap po QID x 10 days CLINDAMYCIN HCL 300 MG CAPS 208054 CLINDAMYCIN HCL Inactive AMOXICILLIN 500 MG TABS Take one (1) tablet by mouth three times a day 03/08 AMOXICILLIN 500 MG TABS 925104 AMOXICILLIN Inactive METRONIDAZOLE 500 MG TABS 1 tab po bid x 7 days METRONIDAZOLE 500 MG TABS 107622 METRONIDAZOLE Inactive ZITHROMAX 250 MG TABS take 2 tabs po day one then 1 tab po days 2-5 ZITHROMAX 250 MG TABS 1019010 AZITHROMYCIN Inactive BRITTANIE-28 TABS one tab p.o. q.d BRITTANIE-28 TABS LEVONORGESTREL-ETHINYL ESTRAD TABS Inactive MEDROL (JESSICA) 4 MG TABS take as directed MEDROL (JESSICA) 4 MG TABS METHYLPREDNISOLONE Inactive SUDAFED 12 HOUR 120 MG [id number] take 1 tab po bid prn SUDAFED 12 HOUR 120 MG [id number] PSEUDOEPHEDRINE HCL Inactive CIPRO 500 MG TABS take one tab po bid x 10 days CIPRO 500 MG TABS 795978 CIPROFLOXACIN HCL Inactive FLAGYL 500 MG TABS take one tab po bid x 10 days FLAGYL 500 MG TABS 925785 METRONIDAZOLE Inactive TAMIFLU 75 MG CAPS take one tab po daily x 10 days TAMIFLU 75 MG CAPS OSELTAMIVIR PHOSPHATE Inactive PREDNISONE 20 MG TAB 1 twice daily for two days, the once daily for two days PREDNISONE 20 MG TAB 104600 PREDNISONE Inactive HYDROCODONE-ACETAMINOPHEN 5-325 MG TABS take 1 tab po q4-6 hrs prn HYDROCODONE-ACETAMINOPHEN 5-325 MG TABS 101551 HYDROCODONE- ACETAMINOPHEN Inactive AMOXICILLIN 875 MG TABS Take one (1) tablet by mouth twice a day AMOXICILLIN 875 MG TABS 729341 AMOXICILLIN Inactive TRIAMTERENE-HCTZ 37.5-25 MG CAPS Take 1 tablet by mouth daily TRIAMTERENE-HCTZ 37.5-25 MG CAPS 579021 TRIAMTERENE-HCTZ Inactive PRILOSEC OTC 20 MG TBEC take one tab po bid PRILOSEC OTC 20 MG TBEC OMEPRAZOLE MAGNESIUM Inactive TEMAZEPAM 15 MG CAPS 2 capsules every h.s TEMAZEPAM 15 MG CAPS 312622 TEMAZEPAM Inactive FLEXERIL 10 MG TABS take one tab po tid prn FLEXERIL 10 MG TABS CYCLOBENZAPRINE HCL Inactive DIETHYLPROPION HCL ER 75 MG [id number] take one tab po daily 09/04 DIETHYLPROPION HCL ER 75 MG [id number] DIETHYLPROPION HCL Inactive PHENTERMINE HCL 37.5 MG TABS take one tab po daily PHENTERMINE HCL 37.5 MG TABS 781467 PHENTERMINE HCL Inactive BRITTANIE-28 0.15-30 MG-MCG TABS take one tab po daily BRITTANIE-28 0.15-30 MG-MCG TABS 882450 LEVONORGESTREL-ETHINYL ESTRAD Inactive ZOLOFT 100 MG TABS take 1/2 tab po daily ZOLOFT 100 MG TABS 392920 SERTRALINE HCL Inactive PYRIDIUM 200 MG TAB 1 po TID PRN Dysuria PYRIDIUM 200 MG TAB 0054516 PHENAZOPYRIDINE HCL Inactive Immunizations Vaccine Administration Date Value Standard Description Seasonal influenza vaccine, injectable, containing preservative, for > 3 years old (Afluria, FluLaval, Fluzone, Fluvirin, Fluarix, Agriflu(>=18 yo)) Fluzone (>3 yrs.) [[id number]] Influenza, seasonal, injectable Vital Signs Date Name Value Unit Range Description blood pressure, diastolic - 8462-4 78 mm[Hg] [...] E&M - 3141-9 230 [lb_av] Weight Measured blood pressure, diastolic - 8462-4 85 mm[Hg] BP tineo blood pressure, systolic - 8480-6 142 mm[Hg] BP sys height E&M - 8302-2 67 [in_us] Bdy height pulse rate E&M - 8867-4 80 /min Heart rate temperature E&M 98.4 [degF] Body temperature weight E&M - 3141-9 218.25 [lb_av] Weight Measured blood pressure, diastolic - 8462-4 89 mm[Hg] BP tineo blood pressure, systolic - 8480-6 154 mm[Hg] BP sys pulse rate E&M - 8867-4 69 /min Heart rate temperature E&M 99.2 [degF] Body temperature weight E&M - 3141-9 209 [lb_av] Weight Measured blood pressure, diastolic - 8462-4 76 mm[Hg] BP tineo blood pressure, systolic - 8480-6 118 mm[Hg] BP sys height E&M - 8302-2 67 [in_us] Bdy height pulse rate E&M - 8867-4 94 /min Heart rate temperature E&M 98.5 [degF] Body temperature weight E&M - 3141-9 208 [lb_av] Weight Measured blood pressure, diastolic - 8462-4 79 mm[Hg] BP tineo blood pressure, systolic - 8480-6 130 mm[Hg] BP sys height E&M - 8302-2 67 [in_us] Bdy height pulse rate E&M - 8867-4 74 /min Heart rate temperature E&M 99.3 [degF] Body temperature weight E&M - 3141-9 208 [lb_av] Weight Measured blood pressure, diastolic - 8462-4 78 mm[Hg] BP tineo blood pressure, systolic - 8480-6 118 mm[Hg] BP sys height E&M - 8302-2 67 [in_us] Bdy height pulse rate E&M - 8867-4 80 /min Heart rate temperature E&M 98.8 [degF] Body temperature weight E&M - 3141-9 207 [lb_av] Weight Measured blood pressure, diastolic - 8462-4 80 mm[Hg] BP tineo blood pressure, systolic - 8480-6 147 mm[Hg] BP sys height E&M - 8302-2 67 [in_us] Bdy height pulse rate E&M - 8867-4 85 /min Heart rate temperature E&M 99.2 [degF] Body temperature weight E&M - 3141-9 210.31 [lb_av] Weight Measured Diagnostic Results Date Name Value Unit Range Description Lab Report: Thyroid Stimulating Hormone (L), Comp. Metabolic Panel, Free ... - Chemistry TSH 1.76 m[iU]/mL 0.36-3.74 sodium, serum 139 mmol/L 750-090 5923/11/20 potassium, serum 4.0 mmol/L 3.5-5.2 chloride, serum [...] CPK - Chemistry sodium, serum 140 mmol/L 409-994 8918/12/06 potassium, serum 3.8 mmol/L 3.5-5.2 chloride, serum 102 mmol/L 98-107 carbon dioxide, venous blood 30.4 mmol/L 21.0-32.0 blood glucose 69 mg/dL 65-110 urea nitrogen, blood 8 mg/dL 7-18 creatinine, serum 0.80 mg/dL 0.60-1.30 alanine aminotransferase (SGPT), serum 30 U/L 12-78 aspartate aminotransferase (SGOT), serum 12 U/L 15-37 [...] 5.0-8.5 Encounters Code Encounter Date Provider Facility CPT-28388 Level 3 Est. Patient 11:13:24 BARREL CAP SETTER Isatu Coburn [facility] CPT-60099 Level 3 Est. Patient 11:56:59 BARREL CAP SETTER Isatujuan diego [facility] CPT-27054 Level 3 Est. Patient 11:17:35 BARREL CAP SETTER Isatu Coburn [facility]-42685 Level 3 Est. Patient 11:02:41 CDT Esperanza [facility] CPT-29460 Level 3 Est. Patient 14:35:51 CDT Kalin Carlos DO [facility] CPT-28650 Level 3 Est. Patient 15:48:05 CDT Esperanza [facility] CPT-90190 Level 3 Est. Patient 10:40:32 CDT Gonzalez Pinto [facility][note 3]-51832 Level 3 Est. Patient 16:15:36 CDT Esperanza [facility] CPT-04595 Level 3 Est. Patient 08:25:45 BARREL CAP SETTER Esperanza Pool [facility] CPT-41290 Level 3 Est. Patient 16:30:43 BARREL CAP SETTER Esperanza Pool [facility] CPT-39935 Level 3 Est. Patient 09:15:02 BARREL CAP SETTER Esperanza Pool [facility]-32391 Level 3 Est. Patient 15:29:15 CDT Esperanza [facility] CPT-26075 Level 3 Est. Patient 12:48:23 CDT Esperanza [facility] CPT-43029 Level 3 Est. [facility] 14:10:29 [facility] Level 3 Est. Patient 10:08:36 CDT Esperanza [facility] CPT-45633 Level 3 Est. Patient 08:21:51 CDT Gonzalez Pinto [facility] CPT-72290 Level 3 Est. Patient 15:57:32 BARREL CAP SETTER [facility]99651 Level 3 Est. Patient 09:40:30 BARREL CAP SETTER Esperanza [facility] CPT-57174 Level 3 Est. Patient 08:57:52 [facility] 14:31[facility]11 [facility] 09[facility]44[facility]45 [facility] Procedures Code Procedure Name Date Entry Date Standard Description CPT-OV Office Visit 14:03:44 CDT CPT-14802 Sono retroperitoneal complete kidneys and bladder 12:58: 45 BARREL CAP SETTER CPT-J1020 Depo Medrol 20 mg (Methyl Prednisolone Acetate) 15:48: 05 CDT CPT-J1020 Depo Medrol 100 mg (Methyl Prednisolone Acetate) 15:48: 05 CDT CPT-72923 Abx/Therapy Injection 15:48:05 CDT CPT-OV Office Visit 14:58:44 BARREL CAP SETTER CPT-92267 Sono transvag pelvis non OB uterus ovaries cervix 16:31: 03 BARREL CAP SETTER CPT-80527 Venipuncture Draw Fee 09:15:02 BARREL CAP SETTER CPT-00261 Venipuncture Draw Fee 15:29:15 CDT CPT-09827 Abx/Therapy Injection 14:10:29 CDT CPT-J1030 Depo Medrol 40 mg (Methyl Prednisolone Acetate) 14:10: 29 CDT CPT-J1040 Depo Medrol 80 mg (Methyl Prednisolone Acetate) 14:10: 29 CDT CPT-45726 Spec Collection and Handling Fee 08:44:23 BARREL CAP SETTER CPT-78619 [facility] Med Est Pt 18-39yrs 08:44:23 BARREL CAP SETTER CPT-94707 Abx/Therapy Injection 08:57:52 BARREL CAP SETTER CPT-J1030 Depo Medrol 40 mg (Methyl Prednisolone Acetate) 08:57: 52 BARREL CAP SETTER CPT-J1040 Depo Medrol 80 mg (Methyl Prednisolone Acetate) 08:57: 52 BARREL CAP SETTER
--- OUTSIDE RECORDS SUMMARY | 2018-12-04 15:20 | XMS REPORT | Clinical Summary ---
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 UPPER RESPIRATORY [...] TABS one tab PO x 1 FLUCONAZOLE 98918821423 Active Lulu Arreguin MD Active CIPRO 500 MG TAB 1 tablet by mouth twice daily CIPROFLOXACIN HCL 21467144828 No Longer Active Lulu Arreguin MD Active PYRIDIUM 200 MG TAB 1 po TID PRN Dysuria PHENAZOPYRIDINE HCL 06863046819 No Longer Active Isatu Coburn APRN Active BRITTANIE-28 0.15-30 MG-MCG TABS take one tab po daily LEVONORGESTREL-ETHINYL ESTRAD 86085982640 No Longer Active Petty Mcgrath Active ALPRAZOLAM 0.5 MG TABS one tab tid as needed ALPRAZOLAM 70738896009 Active Luke Ballard MD Active PHENTERMINE HCL 37.5 MG TABS take one tab po daily PHENTERMINE HCL 53817910648 No Longer Active Isatu Coburn APRN Active DIETHYLPROPION HCL ER 75 MG [id number] take one tab po daily 09/04 DIETHYLPROPION HCL 61268409318 No Longer Active Esperanza Daniele PA Active FLEXERIL 10 MG TABS take one tab po tid prn CYCLOBENZAPRINE HCL 91466179545 No Longer Active Esperanzafelipa Sanabria PA Active TEMAZEPAM 15 MG CAPS 2 capsules every h.s TEMAZEPAM 28845532491 No Longer Active Esperanza Pool PA Active PRILOSEC OTC 20 MG TBEC take one tab po bid OMEPRAZOLE MAGNESIUM 28495697194 No Longer Active Esperanza Pool PA Active TRIAMTERENE-HCTZ 37.5-25 MG CAPS Take 1 tablet by mouth daily TRIAMTERENE-HCTZ 02637611069 No Longer Active Esperanza Pool PA Active AMOXICILLIN 875 MG TABS Take one (1) tablet by mouth twice a day AMOXICILLIN 28415479589 No Longer Active Esperanza Pool PA Active HYDROCODONE-ACETAMINOPHEN 5-325 MG TABS take 1 tab po q4-6 hrs prn HYDROCODONE-ACETAMINOPHEN 17531287621 No Longer Active Esperanza Pool PA Active PREDNISONE 20 MG TAB 1 twice daily for two days, the once daily for two days PREDNISONE 64042610603 No Longer Active Esperanza Pool PA Active TAMIFLU 75 MG CAPS take one tab po daily x 10 days OSELTAMIVIR PHOSPHATE 92766885677 No Longer Active Esperanza Pool PA Active FLAGYL 500 MG TABS take one tab po bid x 10 days METRONIDAZOLE 82051608432 No Longer Active Esperanza Pool PA Active CIPRO 500 MG TABS take one tab po bid x 10 days CIPROFLOXACIN HCL 20237217211 No Longer Active Esperanza Pool PA Active SUDAFED 12 HOUR 120 MG [id number] take 1 tab po bid prn PSEUDOEPHEDRINE HCL 71468730570 No Longer Active Esperanza Pool PA Active MEDROL (JESSICA) 4 MG TABS take as directed METHYLPREDNISOLONE 98589822464 No Longer Active Sammi Hernandes RN Active BRITTANIE-28 TABS one tab p.o. q.d LEVONORGESTREL- ETHINYL ESTRAD TABS 80840383763 No Longer Active Esperanza Pool PA Active ZITHROMAX 250 MG TABS take 2 tabs po day one then 1 tab po days 2-5 AZITHROMYCIN 44011297207 No Longer Active Esperanza Pool PA Active METRONIDAZOLE 500 MG TABS 1 tab po bid x 7 days METRONIDAZOLE 31925598000 No Longer Active Patricia Dockery RN Active AMOXICILLIN 500 MG TABS Take one (1) tablet by mouth three times a day 03/08 AMOXICILLIN 34685918612 No Longer Active Lock RN Active CLINDAMYCIN HCL 300 MG CAPS take 1 cap po QID x 10 days CLINDAMYCIN HCL 39407627057 No Longer Active Lock RN Active CIPRO 500 MG TABS take 1 tab po bid x 10 days CIPROFLOXACIN HCL 49333410850 No Longer Active Lock RN Active BACTRIM DS 800-160 MG TABS 1 tab po bid x 10 days SULFAMETHOXAZOLE-TRIMETHOPRIM 76702519001 No Longer Active Esperanza Pool PA Active ZOLOFT 100 MG TABS take 1 tab po daily SERTRALINE HCL 24541438755 Active Luke Ballard MD Active ZOLOFT 100 MG TABS take 1/2 tab po daily SERTRALINE HCL 29521444197 No Longer Active Esperanza Pool PA Active BACTRIM DS 800-160 MG TABS 1 tab po bid x 10 days BACTRIM DS 800-160 MG TABS SULFAMETHOXAZOLE-TRIMETHOPRIM Inactive CIPRO 500 MG TABS take 1 tab po bid x 10 days CIPRO 500 MG TABS 543518 CIPROFLOXACIN HCL Inactive CLINDAMYCIN HCL 300 MG CAPS take 1 cap po QID x 10 days CLINDAMYCIN HCL 300 MG CAPS 450181 CLINDAMYCIN HCL Inactive AMOXICILLIN 500 MG TABS Take one (1) tablet by mouth three times a day 03/08 AMOXICILLIN 500 MG TABS 908577 AMOXICILLIN Inactive METRONIDAZOLE 500 MG TABS 1 tab po bid x 7 days METRONIDAZOLE 500 MG TABS 723288 METRONIDAZOLE Inactive ZITHROMAX 250 MG TABS take 2 tabs po day one then 1 tab po days 2-5 ZITHROMAX 250 MG TABS 2188184 AZITHROMYCIN Inactive BRITTANIE-28 TABS one tab p.o. q.d BRITTANIE-28 TABS LEVONORGESTREL-ETHINYL ESTRAD TABS Inactive MEDROL (JESSICA) 4 MG TABS take as directed MEDROL (JESSICA) 4 MG TABS METHYLPREDNISOLONE Inactive SUDAFED 12 HOUR 120 MG [id number] take 1 tab po bid prn SUDAFED 12 HOUR 120 MG [id number] PSEUDOEPHEDRINE HCL Inactive CIPRO 500 MG TABS take one tab po bid x 10 days CIPRO 500 MG TABS 375815 CIPROFLOXACIN HCL Inactive FLAGYL 500 MG TABS take one tab po bid x 10 days FLAGYL 500 MG TABS 943872 METRONIDAZOLE Inactive TAMIFLU 75 MG CAPS take one tab po daily x 10 days TAMIFLU 75 MG CAPS OSELTAMIVIR PHOSPHATE Inactive PREDNISONE 20 MG TAB 1 twice daily for two days, the once daily for two days PREDNISONE 20 MG TAB 934416 PREDNISONE Inactive HYDROCODONE-ACETAMINOPHEN 5-325 MG TABS take 1 tab po q4-6 hrs prn HYDROCODONE-ACETAMINOPHEN 5-325 MG TABS 323730 HYDROCODONE- ACETAMINOPHEN Inactive AMOXICILLIN 875 MG TABS Take one (1) tablet by mouth twice a day AMOXICILLIN 875 MG TABS 624479 AMOXICILLIN Inactive TRIAMTERENE-HCTZ 37.5-25 MG CAPS Take 1 tablet by mouth daily TRIAMTERENE-HCTZ 37.5-25 MG CAPS 171434 TRIAMTERENE-HCTZ Inactive PRILOSEC OTC 20 MG TBEC take one tab po bid PRILOSEC OTC 20 MG TBEC OMEPRAZOLE MAGNESIUM Inactive TEMAZEPAM 15 MG CAPS 2 capsules every h.s TEMAZEPAM 15 MG CAPS 256606 TEMAZEPAM Inactive FLEXERIL 10 MG TABS take one tab po tid prn FLEXERIL 10 MG TABS CYCLOBENZAPRINE HCL Inactive DIETHYLPROPION HCL ER 75 MG [id number] take one tab po daily 09/04 DIETHYLPROPION HCL ER 75 MG [id number] DIETHYLPROPION HCL Inactive PHENTERMINE HCL 37.5 MG TABS take one tab po daily PHENTERMINE HCL 37.5 MG TABS 120131 PHENTERMINE HCL Inactive BRITTANIE-28 0.15-30 MG-MCG TABS take one tab po daily BRITTANIE-28 0.15-30 MG-MCG TABS 935722 LEVONORGESTREL-ETHINYL ESTRAD Inactive CIPRO 500 MG TAB 1 tablet by mouth twice daily CIPRO 500 MG TAB 355210 CIPROFLOXACIN HCL Inactive ZOLOFT 100 MG TABS take 1/2 tab po daily ZOLOFT 100 MG TABS 748435 SERTRALINE HCL Inactive PYRIDIUM 200 MG TAB 1 po TID PRN Dysuria PYRIDIUM 200 MG TAB 7380133 PHENAZOPYRIDINE HCL Inactive Immunizations Vaccine Administration Date Value Standard Description Seasonal influenza vaccine, injectable, containing preservative, for > 3 years old (Afluria, FluLaval, Fluzone, Fluvirin, Fluarix, Agriflu(>=18 yo)) Fluzone (>3 yrs.) [[id number]] Influenza, seasonal, injectable Vital Signs Date Name [...] 1.76 m[iU]/mL 0.36-3.74 sodium, serum 139 mmol/L 269-688 6975/11/20 potassium, serum 4.0 mmol/L 3.5-5.2 chloride, serum [...] CPK - Chemistry sodium, serum 140 mmol/L 659-797 5022/12/06 potassium, serum 3.8 mmol/L 3.5-5.2 chloride, serum 102 mmol/L 98-107 carbon dioxide, venous blood 30.4 mmol/L 21.0-32.0 blood glucose 69 mg/dL 65-110 urea nitrogen, blood 8 mg/dL 7-18 creatinine, serum 0.80 mg/dL 0.60-1.30 alanine aminotransferase (SGPT), serum 30 U/L 78 aspartate aminotransferase (SGOT), serum 12 U/L 15-37 [...] Lab Report: UADIP W/MICRO, AUTO - Chemistry RBC, urine, dipstick Trace Negative protein, total urine random Negative mg/dL Negative protein, total urine random Negative mg/dL Negative RBC, urine, dipstick 3+ Negative Lab Report: UADIP W/MICRO, AUTO - Urinalysis urobilinogen, urine, semiquantitative (dipstick) 0.2 Normal leukocyte esterase, urine, by dipstick Trace Negative nitrite, urine, semiquantitative Negative Negative glucose, urine, semiquantitative Negative Negative ketones, urine, by test strip Negative Negative bilirubin, urine Negative Negative glucose, urine, semiquantitative Negative Negative ketones, urine, by test strip Negative Negative bilirubin, urine Negative Negative urobilinogen, urine, semiquantitative (dipstick) 0.2 Normal leukocyte esterase, urine, by dipstick Negative Negative nitrite, urine, semiquantitative Negative Negative urine color Yellow Colorless;Lightyellow;Straw;Yellow appearance, urine Hazy Clear specific gravity, urine 1.025 1.000-1.030 pH, urine, semiquantitative 5.5 5.0-8.5 urine color Yellow Colorless;Lightyellow;Straw;Yellow appearance, urine Clear Clear specific gravity, urine 1.025 1.000-1.030 pH, urine, semiquantitative 6.0 5.0-8.5 Encounters Code Encounter Date Provider Facility CPT-90955 Level 3 Est. 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 Patient 11:56:59 RFID SPECIALIST Isatu Coburn [facility] CPT-49389 Level 3 Est. Patient 11:17:35 RFID SPECIALIST Isatu Coburn [facility] CPT-11366 Level 3 Est. Patient 11:02:41 CDT Esperanza Pool [facility] CPT-37746 Level 3 Est. Patient 14:35:51 CDT Kalin Carlos DO [facility] CPT-17487 Level 3 Est. Patient 15:48:05 CDT Esperanza [facility] CPT-79470 Level 3 Est. Patient 10:40:32 CDT Gonzalez Pinto [facility] CPT-26165 Level 3 Est. Patient 16:15:36 CDT Esperanza [facility] CPT-94744 Level 3 Est. Patient 08:25:45 RFID SPECIALIST Esperanza Pool [facility] CPT-76703 Level 3 Est. Patient 16:30:43 RFID SPECIALIST Esperanza Pool [facility] CPT-58896 Level 3 Est. Patient 09:15:02 RFID SPECIALIST Esperanza Pool [facility] CPT-79845 Level 3 Est. Patient 15:29:15 CDT Esperanza Pool [facility] CPT-91741 Level 3 Est. Patient 12:48:23 CDT Esperanza [facility] CPT-02686 Level 3 Est. Patient 14:10:29 CDT Esperanza Pool [facility] CPT-58539 Level 3 Est. Patient 10:08:36 CDT Esperanza [facility] CPT-70317 Level 3 Est. Patient 08:21:51 CDT Gonzalez Pinto [facility] CPT-26471 Level 3 Est. Patient 15:57:32 RFID SPECIALIST Esperanza Sanabria [facility] CPT-88185 Level 3 Est. Patient 09:40:30 RFID SPECIALIST Esperanza Sanabria [facility] CPT-67079 Level 3 Est. Patient 08:57:52 RFID SPECIALIST Esperanza Sanabria [facility] CPT-19458 Level 3 Est. Patient 14:31:11 CDT Esperanza [facility] CPT-14495 Level 3 Est. Patient 09:44:45 CDT [facility] Procedures Code Procedure Name Date Entry Date Standard Description CPT-OV Office Visit 10:06:26 CDT CPT-OV Office Visit 14:03:44 CDT CPT-52636 Sono retroperitoneal complete kidneys and bladder 12:58: 45 RFID SPECIALIST CPT-J1020 Depo Medrol 20 mg (Methyl Prednisolone Acetate) 15:48: 05 CDT CPT-J1020 Depo Medrol 100 mg (Methyl Prednisolone Acetate) 15:48: 05 CDT CPT-22443 Abx/Therapy Injection 15:48:05 CDT CPT-OV Office Visit 14:58:44 RFID SPECIALIST CPT-82715 Sono transvag pelvis non OB uterus ovaries cervix 16:31: 03 RFID SPECIALIST CPT-90305 Venipuncture Draw Fee 09:15:02 RFID SPECIALIST CPT-23948 Venipuncture Draw Fee 15:29:15 CDT CPT-83160 Abx/Therapy Injection 14:10:29 CDT CPT-J1030 Depo Medrol 40 mg (Methyl Prednisolone Acetate) 14:10: 29 CDT CPT-J1040 Depo Medrol 80 mg (Methyl Prednisolone Acetate) 14:10: 29 CDT CPT-72807 Spec Collection and Handling Fee 08:44:23 RFID SPECIALIST CPT-43638 Prv Med Est Pt 18-39yrs 08:44:23 RFID SPECIALIST CPT-55104 Abx/Therapy Injection 08:57:52 RFID SPECIALIST CPT-J1030 Depo Medrol 40 mg (Methyl Prednisolone Acetate) 08:57: 52 RFID SPECIALIST CPT-J1040 Depo Medrol 80 mg (Methyl Prednisolone Acetate) 08:57: 52 RFID SPECIALIST
--- OUTSIDE RECORDS SUMMARY | 2018-12-04 15:21 | XMS REPORT | Clinical Summary ---
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 UPPER RESPIRATORY INFECTION, [...] TABS one tab PO x 1 FLUCONAZOLE [id number] No Longer Active Lulu Arreguin MD Active CIPRO 500 MG TAB 1 tablet by mouth twice daily CIPROFLOXACIN HCL 48066155011 No Longer Active Lulu Arreguin MD Active PYRIDIUM 200 MG TAB 1 po TID PRN Dysuria PHENAZOPYRIDINE HCL 29261844815 No Longer Active Isatu Coburn APRN Active BRITTANIE-28 0.15-30 MG-MCG TABS take one tab po daily LEVONORGESTREL-ETHINYL ESTRAD 86133691799 No Longer Active Petty Mcgrath Active ALPRAZOLAM 0.5 MG TABS one tab tid as needed ALPRAZOLAM 70930458069 Active Luke Ballard MD Active PHENTERMINE HCL 37.5 MG TABS take one tab po daily PHENTERMINE HCL 98186011685 No Longer Active Isatu Coburn APRN Active DIETHYLPROPION HCL ER 75 MG [id number] take one tab po daily 09/04 DIETHYLPROPION HCL 64690000111 No Longer Active Esperanza Sanabria PA Active FLEXERIL 10 MG TABS take one tab po tid prn CYCLOBENZAPRINE HCL 44622445235 No Longer Active Esperanza Sanabria PA Active TEMAZEPAM 15 MG CAPS 2 capsules every h.s TEMAZEPAM 77624286776 No Longer Active Esperanza Pool PA Active PRILOSEC OTC 20 MG TBEC take one tab po bid OMEPRAZOLE MAGNESIUM 38886628202 No Longer Active Esperanza Pool PA Active TRIAMTERENE-HCTZ 37.5-25 MG CAPS Take 1 tablet by mouth daily TRIAMTERENE-HCTZ 30351563616 No Longer Active Esperanza Pool PA Active AMOXICILLIN 875 MG TABS Take one (1) tablet by mouth twice a day AMOXICILLIN 45509058357 No Longer Active Esperanza Pool PA Active HYDROCODONE-ACETAMINOPHEN 5-325 MG TABS take 1 tab po q4-6 hrs prn HYDROCODONE-ACETAMINOPHEN 82490397731 No Longer Active Esperanza Pool PA Active PREDNISONE 20 MG TAB 1 twice daily for two days, the once daily for two days PREDNISONE 22247951779 No Longer Active Esperanza Pool PA Active TAMIFLU 75 MG CAPS take one tab po daily x 10 days OSELTAMIVIR PHOSPHATE 30785724953 No Longer Active Esperanza Pool PA Active FLAGYL 500 MG TABS take one tab po bid x 10 days METRONIDAZOLE 37699951646 No Longer Active Esperanza Pool PA Active CIPRO 500 MG TABS take one tab po bid x 10 days CIPROFLOXACIN HCL 83802757458 No Longer Active Esperanza Pool PA Active SUDAFED 12 HOUR 120 MG [id number] take 1 tab po bid prn PSEUDOEPHEDRINE HCL 42012128188 No Longer Active Esperanza Pool PA Active MEDROL (JESSICA) 4 MG TABS take as directed METHYLPREDNISOLONE 34461012897 No Longer Active Sammi Hernandes RN Active BRITTANIE-28 TABS one tab p.o. q.d LEVONORGESTREL- ETHINYL ESTRAD TABS 86224405514 No Longer Active Esperanza Pool PA Active ZITHROMAX 250 MG TABS take 2 tabs po day one then 1 tab po days 2-5 AZITHROMYCIN 37596363463 No Longer Active Esperanza Pool PA Active METRONIDAZOLE 500 MG TABS 1 tab po bid x 7 days METRONIDAZOLE 87819627003 No Longer Active Patricia Dockery RN Active AMOXICILLIN 500 MG TABS Take one (1) tablet by mouth three times a day 03/08 AMOXICILLIN 41151562160 No Longer Active Lock RN Active CLINDAMYCIN HCL 300 MG CAPS take 1 cap po QID x 10 days CLINDAMYCIN HCL 30380977259 No Longer Active Lock RN Active CIPRO 500 MG TABS take 1 tab po bid x 10 days CIPROFLOXACIN HCL 01763442924 No Longer Active Lock RN Active BACTRIM DS 800-160 MG TABS 1 tab po bid x 10 days SULFAMETHOXAZOLE-TRIMETHOPRIM 24119853873 No Longer Active Esperanza Pool PA Active ZOLOFT 100 MG TABS take 1 tab po daily SERTRALINE HCL 53350193080 Active Luke Ballard MD Active ZOLOFT 100 MG TABS take 1/2 tab po daily SERTRALINE HCL 52024965396 No Longer Active Esperanza Pool PA Active BACTRIM DS 800-160 MG TABS 1 tab po bid x 10 days BACTRIM DS 800-160 MG TABS SULFAMETHOXAZOLE-TRIMETHOPRIM Inactive CIPRO 500 MG TABS take 1 tab po bid x 10 days CIPRO 500 MG TABS 620545 CIPROFLOXACIN HCL Inactive CLINDAMYCIN HCL 300 MG CAPS take 1 cap po QID x 10 days CLINDAMYCIN HCL 300 MG CAPS 571228 CLINDAMYCIN HCL Inactive AMOXICILLIN 500 MG TABS Take one (1) tablet by mouth three times a day 03/08 AMOXICILLIN 500 MG TABS 478323 AMOXICILLIN Inactive METRONIDAZOLE 500 MG TABS 1 tab po bid x 7 days METRONIDAZOLE 500 MG TABS 634914 METRONIDAZOLE Inactive ZITHROMAX 250 MG TABS take 2 tabs po day one then 1 tab po days 2-5 ZITHROMAX 250 MG TABS 0314045 AZITHROMYCIN Inactive BRITTANIE-28 TABS one tab p.o. q.d BRITTANIE-28 TABS LEVONORGESTREL-ETHINYL ESTRAD TABS Inactive MEDROL (JESSICA) 4 MG TABS take as directed MEDROL (JESSICA) 4 MG TABS METHYLPREDNISOLONE Inactive SUDAFED 12 HOUR 120 MG AD89C-OFF take 1 tab po bid prn SUDAFED 12 HOUR 120 MG [id number] PSEUDOEPHEDRINE HCL Inactive CIPRO 500 MG TABS take one tab po bid x 10 days CIPRO 500 MG TABS 442430 CIPROFLOXACIN HCL Inactive FLAGYL 500 MG TABS take one tab po bid x 10 days FLAGYL 500 MG TABS 372679 METRONIDAZOLE Inactive TAMIFLU 75 MG CAPS take one tab po daily x 10 days TAMIFLU 75 MG CAPS OSELTAMIVIR PHOSPHATE Inactive PREDNISONE 20 MG TAB 1 twice daily for two days, the once daily for two days PREDNISONE 20 MG TAB 901403 PREDNISONE Inactive HYDROCODONE-ACETAMINOPHEN 5-325 MG TABS take 1 tab po q4-6 hrs prn HYDROCODONE-ACETAMINOPHEN 5-325 MG TABS 631629 HYDROCODONE- ACETAMINOPHEN Inactive AMOXICILLIN 875 MG TABS Take one (1) tablet by mouth twice a day AMOXICILLIN 875 MG TABS 169321 AMOXICILLIN Inactive TRIAMTERENE-HCTZ 37.5-25 MG CAPS Take 1 tablet by mouth daily TRIAMTERENE-HCTZ 37.5-25 MG CAPS 409803 TRIAMTERENE-HCTZ Inactive PRILOSEC OTC 20 MG TBEC take one tab po bid PRILOSEC OTC 20 MG TBEC OMEPRAZOLE MAGNESIUM Inactive TEMAZEPAM 15 MG CAPS 2 capsules every h.s TEMAZEPAM 15 MG CAPS 178668 TEMAZEPAM Inactive FLEXERIL 10 MG TABS take one tab po tid prn FLEXERIL 10 MG TABS CYCLOBENZAPRINE HCL Inactive DIETHYLPROPION HCL ER 75 MG [id number] take one tab po daily 2013/ 10/17 DIETHYLPROPION HCL ER 75 MG [id number] DIETHYLPROPION HCL Inactive PHENTERMINE HCL 37.5 MG TABS take one tab po daily PHENTERMINE HCL 37.5 MG TABS 941536 PHENTERMINE HCL Inactive BRITTANIE-28 0.15-30 MG-MCG TABS take one tab po daily BRITTANIE-28 0.15-30 MG-MCG TABS 836396 LEVONORGESTREL-ETHINYL ESTRAD Inactive CIPRO 500 MG TAB 1 tablet by mouth twice daily CIPRO 500 MG TAB 787706 CIPROFLOXACIN HCL Inactive ZOLOFT 100 MG TABS take 1/2 tab po daily ZOLOFT 100 MG TABS 690862 SERTRALINE HCL Inactive PYRIDIUM 200 MG TAB 1 po TID PRN Dysuria PYRIDIUM 200 MG TAB 7447798 PHENAZOPYRIDINE HCL Inactive DIFLUCAN 150 MG TABS one tab PO x 1 DIFLUCAN 150 MG TABS 049036 FLUCONAZOLE Inactive Immunizations Vaccine Administration Date Value Standard Description Seasonal influenza vaccine, injectable, containing preservative, for > 3 years old (Afluria, FluLaval, Fluzone, Fluvirin, Fluarix, Agriflu(>=18 yo)) Fluzone (>3 yrs.) [FLJ091] Influenza, seasonal, injectable Vital Signs Date Name [...] Value Unit Range Description Lab Report: Chlamydia/GC APTIMA/[id number] - Lab chlamydia DNA probe NOT DETECTED NOT DETECTED Lab Report: Chlamydia/GC APTIMA/[id number] - Microbiology Neisseria gonorrhoeae DNA probe NOT DETECTED NOT DETECTED Lab Report: Thyroid Stimulating Hormone (L), Comp. Metabolic Panel, Free ... - Chemistry blood glucose 80 mg/dL 65-110 urea nitrogen, blood 7 mg/dL 7-18 creatinine, serum 0.80 mg/dL 0.60-1.30 alanine aminotransferase (SGPT), serum 34 U/L 12-78 aspartate aminotransferase (SGOT), serum 15 U/L 15-37 alkaline phosphatase, serum 106 U/L 50-136 calcium, serum 8.8 mg/dL 8.5-10.1 bilirubin, serum, total 0.40 mg/dL 0.00-1.00 thyroxine, serum, free 0.99 ng/dL 0.76-1.46 carbon dioxide, venous blood 30.4 mmol/L 21.0-32.0 chloride, serum 103 mmol/L 98-107 potassium, serum 4.0 mmol/L 3.5-5.2 sodium, serum 139 mmol/L 205-205 5826/11/20 TSH 1.76 m[iU]/mL 0.36-3.74 Lab Report: UADIP (AUTO), Comp. Metabolic Panel, CPK - Chemistry sodium, serum 140 mmol/L 503-964 1830/12/06 potassium, serum 3.8 mmol/L 3.5-5.2 chloride, serum [...] W/MICRO, AUTO - Chemistry RBC, urine, dipstick 3+ Negative RBC, urine, dipstick Trace Negative protein, total urine random Negative mg/dL Negative protein, total urine random Negative mg/dL Negative Lab Report: UADIP W/MICRO, AUTO - Urinalysis glucose, urine, semiquantitative Negative Negative ketones, urine, [...] 1.025 1.000-1.030 pH, urine, semiquantitative 5.5 5.0-8.5 urobilinogen, urine, semiquantitative (dipstick) 0.2 Normal leukocyte esterase, urine, by dipstick Trace Negative nitrite, urine, semiquantitative Negative Negative urine color Yellow Colorless;Lightyellow;Straw;Yellow appearance, urine Clear Clear specific gravity, urine 1.025 1.000-1.030 pH, urine, semiquantitative 6.0 5.0-8.5 Encounters Code Encounter Date Provider Facility CPT-32282 Level 3 Est. Patient 11:13:24 CRM SYSTEM ADMINISTRATOR Isatu Coburn [facility] CPT-69530 Level 3 Est. Patient 11:56:59 CRM SYSTEM ADMINISTRATOR Isatu Coburn [facility] CPT-80516 Level 3 Est. Patient 11:17:35 CRM SYSTEM ADMINISTRATOR Isatu Coburn [facility] CPT-99474 Level 3 Est. Patient 11:02:41 CDT Esperanza Sanabria [facility] CPT-81908 Level 3 Est. Patient 14:35:51 CDT Kalin Carlos DO [facility] CPT-49036 Level 3 Est. Patient 15:48:05 CDT Esperanza Pool [facility] CPT-91194 Level 3 Est. Patient 10:40:32 CDT Gonzalez Pinto [facility] CPT-04504 Level 3 Est. Patient 16:15:36 CDT Esperanza Pool [facility] CPT-14588 Level 3 Est. Patient 08:25:45 CRM SYSTEM ADMINISTRATOR Esperanza Pool [facility] CPT-02444 Level 3 Est. Patient 16:30:43 CRM SYSTEM ADMINISTRATOR Esperanza Pool [facility] CPT-91442 Level 3 Est. Patient 09:15:02 CRM SYSTEM ADMINISTRATOR Esperanza Pool [facility]-79788 Level 3 Est. Patient 15:29:15 CDT Esperanza Pool [facility] CPT-54515 Level 3 Est. Patient 12:48:23 CDT Esperanza Pool [facility] CPT-44610 Level 3 Est. Patient 14:10:29 CDT Esperanza Pool [facility] CPT-84115 Level 3 Est. Patient 10:08:36 CDT Esperanza Sanabria [facility] CPT-69354 Level 3 Est. Patient 08:21:51 CDT Gonzalez Pinto [facility] CPT-49228 Level 3 Est. Patient 15:57:32 CRM SYSTEM ADMINISTRATOR Esperanza Sanabria [facility] CPT-98620 Level 3 Est. Patient 09:40:30 CRM SYSTEM ADMINISTRATOR Esperanza Sanabria [facility] CPT-27602 Level 3 Est. Patient 08:57:52 CRM SYSTEM ADMINISTRATOR Esperanza Sanabria [facility] CPT-82052 Level 3 Est. Patient 14:31:11 CDT Esperanza [facility] CPT-11397 Level 3 Est. Patient 09:44:45 CDT Esperanza [facility] Procedures Code Procedure Name Date Entry Date Standard Description CPT-OV Office Visit 10:06:26 CDT CPT-OV Office Visit 14:03:44 CDT CPT-25952 Sono retroperitoneal complete kidneys and bladder 12:58: 45 CRM SYSTEM ADMINISTRATOR CPT-J1020 Depo Medrol 20 mg (Methyl Prednisolone Acetate) 15:48: 05 CDT CPT-J1020 Depo Medrol 100 mg (Methyl Prednisolone Acetate) 15:48: 05 CDT CPT-47851 Abx/Therapy Injection 15:48:05 CDT CPT-OV Office Visit 14:58:44 CRM SYSTEM ADMINISTRATOR CPT-46186 Sono transvag pelvis non OB uterus ovaries cervix 16:31: 03 CRM SYSTEM ADMINISTRATOR CPT-96452 Venipuncture Draw Fee 09:15:02 CRM SYSTEM ADMINISTRATOR CPT-10354 Venipuncture Draw Fee 15:29:15 CDT CPT-77365 Abx/Therapy Injection 14:10:29 CDT CPT-J1030 Depo Medrol 40 mg (Methyl Prednisolone Acetate) 14:10: 29 CDT CPT-J1040 Depo Medrol 80 mg (Methyl Prednisolone Acetate) 14:10: 29 CDT CPT-75406 Spec Collection and Handling Fee 08:44:23 CRM SYSTEM ADMINISTRATOR CPT-29464 Prv Med Est Pt 18-39yrs 08:44:23 CRM SYSTEM ADMINISTRATOR CPT-57545 Abx/Therapy Injection 08:57:52 CRM SYSTEM ADMINISTRATOR CPT-J1030 Depo Medrol 40 mg (Methyl Prednisolone Acetate) 08:57: 52 CRM SYSTEM ADMINISTRATOR CPT-J1040 Depo Medrol 80 mg (Methyl Prednisolone Acetate) 08:57: 52 CRM SYSTEM ADMINISTRATOR
--- OUTSIDE RECORDS SUMMARY | 2018-12-04 15:22 | XMS REPORT | Clinical Summary ---
Author Author Admin, FLETCHER Organization 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 UPPER RESPIRATORY INFECTION, [...] TABS one tab PO x 1 FLUCONAZOLE [id number] No Longer Active Lulu Arreguin MD Active CIPRO 500 MG TAB 1 tablet by mouth twice daily CIPROFLOXACIN HCL 98484613220 No Longer Active Lulu Arreguin MD Active PYRIDIUM 200 MG TAB 1 po TID PRN Dysuria PHENAZOPYRIDINE HCL 10033355027 No Longer Active Isatu Coburn APRN Active BRITTANIE-28 0.15-30 MG-MCG TABS take one tab po daily LEVONORGESTREL-ETHINYL ESTRAD 35943224245 No Longer Active Petty Gordilloson Active ALPRAZOLAM 0.5 MG TABS one tab tid as needed ALPRAZOLAM 94948761567 Active Luke Ballard MD Active PHENTERMINE HCL 37.5 MG TABS take one tab po daily PHENTERMINE HCL 27668011045 No Longer Active Isatu Coburn APRN Active DIETHYLPROPION HCL ER 75 MG [id number] take one tab po daily 09/04 DIETHYLPROPION HCL 39582715734 No Longer Active Esperanza Sanabria PA Active FLEXERIL 10 MG TABS take one tab po tid prn CYCLOBENZAPRINE HCL 98811549383 No Longer Active Esperanza Sanabria PA Active TEMAZEPAM 15 MG CAPS 2 capsules every h.s TEMAZEPAM 76964015216 No Longer Active Esperanza Sanabria PA Active PRILOSEC OTC 20 MG TBEC take one tab po bid OMEPRAZOLE MAGNESIUM 45697781648 No Longer Active Esperanza Sanabria PA Active TRIAMTERENE-HCTZ 37.5-25 MG CAPS Take 1 tablet by mouth daily TRIAMTERENE-HCTZ 19318061447 No Longer Active Esperanza Pool PA Active AMOXICILLIN 875 MG TABS Take one (1) tablet by mouth twice a day AMOXICILLIN 48778081766 No Longer Active Esperanza Pool PA Active HYDROCODONE-ACETAMINOPHEN 5-325 MG TABS take 1 tab po q4-6 hrs prn HYDROCODONE-ACETAMINOPHEN 17156718428 No Longer Active Esperanza Pool PA Active PREDNISONE 20 MG TAB 1 twice daily for two days, the once daily for two days PREDNISONE 36424298292 No Longer Active Esperanza Pool PA Active TAMIFLU 75 MG CAPS take one tab po daily x 10 days OSELTAMIVIR PHOSPHATE 12063552460 No Longer Active Esperanza Pool PA Active FLAGYL 500 MG TABS take one tab po bid x 10 days METRONIDAZOLE 76613447489 No Longer Active Esperanza Pool PA Active CIPRO 500 MG TABS take one tab po bid x 10 days CIPROFLOXACIN HCL 44488772485 No Longer Active Esperanza Pool PA Active SUDAFED 12 HOUR 120 MG [id number] take 1 tab po bid prn PSEUDOEPHEDRINE HCL 42896304568 No Longer Active Esperanza Pool PA Active MEDROL (JESSICA) 4 MG TABS take as directed METHYLPREDNISOLONE 98300663523 No Longer Active Sammi Hernandes RN Active BRITTANIE-28 TABS one tab p.o. q.d LEVONORGESTREL- ETHINYL ESTRAD TABS 50143381704 No Longer Active Esperanza Pool PA Active ZITHROMAX 250 MG TABS take 2 tabs po day one then 1 tab po days 2-5 AZITHROMYCIN 85075048588 No Longer Active Esperanza Pool PA Active METRONIDAZOLE 500 MG TABS 1 tab po bid x 7 days METRONIDAZOLE 74499847513 No Longer Active Patricia Dockery RN Active AMOXICILLIN 500 MG TABS Take one (1) tablet by mouth three times a day 03/08 AMOXICILLIN 42659465375 No Longer Active Lock RN Active CLINDAMYCIN HCL 300 MG CAPS take 1 cap po QID x 10 days CLINDAMYCIN HCL 63507411278 No Longer Active Lock RN Active CIPRO 500 MG TABS take 1 tab po bid x 10 days CIPROFLOXACIN HCL 04541994139 No Longer Active Lock RN Active BACTRIM DS 800-160 MG TABS 1 tab po bid x 10 days SULFAMETHOXAZOLE-TRIMETHOPRIM 18130172638 No Longer Active Esperanza Pool PA Active ZOLOFT 100 MG TABS take 1 tab po daily SERTRALINE HCL 63887849785 Active Luke Ballard MD Active ZOLOFT 100 MG TABS take 1/2 tab po daily SERTRALINE HCL 44131655842 No Longer Active Esperanza Pool PA Active BACTRIM DS 800-160 MG TABS 1 tab po bid x 10 days BACTRIM DS 800-160 MG TABS SULFAMETHOXAZOLE-TRIMETHOPRIM Inactive CIPRO 500 MG TABS take 1 tab po bid x 10 days CIPRO 500 MG TABS 694862 CIPROFLOXACIN HCL Inactive CLINDAMYCIN HCL 300 MG CAPS take 1 cap po QID x 10 days CLINDAMYCIN HCL 300 MG CAPS 083255 CLINDAMYCIN HCL Inactive AMOXICILLIN 500 MG TABS Take one (1) tablet by mouth three times a day 03/08 AMOXICILLIN 500 MG TABS 673667 AMOXICILLIN Inactive METRONIDAZOLE 500 MG TABS 1 tab po bid x 7 days METRONIDAZOLE 500 MG TABS 871560 METRONIDAZOLE Inactive ZITHROMAX 250 MG TABS take 2 tabs po day one then 1 tab po days 2-5 ZITHROMAX 250 MG TABS 6607399 AZITHROMYCIN Inactive BRITTANIE-28 TABS one tab p.o. q.d BRITTANIE-28 TABS LEVONORGESTREL-ETHINYL ESTRAD TABS Inactive MEDROL (JESSICA) 4 MG TABS take as directed MEDROL (JESSICA) 4 MG TABS METHYLPREDNISOLONE Inactive SUDAFED 12 HOUR 120 MG [id number] take 1 tab po bid prn SUDAFED 12 HOUR 120 MG [id number] PSEUDOEPHEDRINE HCL Inactive CIPRO 500 MG TABS take one tab po bid x 10 days CIPRO 500 MG TABS 615905 CIPROFLOXACIN HCL Inactive FLAGYL 500 MG TABS take one tab po bid x 10 days FLAGYL 500 MG TABS 387755 METRONIDAZOLE Inactive TAMIFLU 75 MG CAPS take one tab po daily x 10 days TAMIFLU 75 MG CAPS OSELTAMIVIR PHOSPHATE Inactive PREDNISONE 20 MG TAB 1 twice daily for two days, the once daily for two days PREDNISONE 20 MG TAB 237244 PREDNISONE Inactive HYDROCODONE-ACETAMINOPHEN 5-325 MG TABS take 1 tab po q4-6 hrs prn HYDROCODONE-ACETAMINOPHEN 5-325 MG TABS 487818 HYDROCODONE- ACETAMINOPHEN Inactive AMOXICILLIN 875 MG TABS Take one (1) tablet by mouth twice a day AMOXICILLIN 875 MG TABS 619381 AMOXICILLIN Inactive TRIAMTERENE-HCTZ 37.5-25 MG CAPS Take 1 tablet by mouth daily TRIAMTERENE-HCTZ 37.5-25 MG CAPS 374127 TRIAMTERENE-HCTZ Inactive PRILOSEC OTC 20 MG TBEC take one tab po bid PRILOSEC OTC 20 MG TBEC OMEPRAZOLE MAGNESIUM Inactive TEMAZEPAM 15 MG CAPS 2 capsules every h.s TEMAZEPAM 15 MG CAPS 914685 TEMAZEPAM Inactive FLEXERIL 10 MG TABS take one tab po tid prn FLEXERIL 10 MG TABS CYCLOBENZAPRINE HCL Inactive DIETHYLPROPION HCL ER 75 MG [id number] take one tab po daily 09/04 DIETHYLPROPION HCL ER 75 MG [id number] DIETHYLPROPION HCL Inactive PHENTERMINE HCL 37.5 MG TABS take one tab po daily PHENTERMINE HCL 37.5 MG TABS 617048 PHENTERMINE HCL Inactive BRITTANIE-28 0.15-30 MG-MCG TABS take one tab po daily BRITTANIE-28 0.15-30 MG-MCG TABS 186666 LEVONORGESTREL-ETHINYL ESTRAD Inactive CIPRO 500 MG TAB 1 tablet by mouth twice daily CIPRO 500 MG TAB 986073 CIPROFLOXACIN HCL Inactive ZOLOFT 100 MG TABS take 1/2 tab po daily ZOLOFT 100 MG TABS 034617 SERTRALINE HCL Inactive PYRIDIUM 200 MG TAB 1 po TID PRN Dysuria PYRIDIUM 200 MG TAB 3780052 PHENAZOPYRIDINE HCL Inactive DIFLUCAN 150 MG TABS one tab PO x 1 DIFLUCAN 150 MG TABS 822525 FLUCONAZOLE Inactive Immunizations Vaccine Administration Date Value Standard Description Seasonal influenza vaccine, injectable, containing preservative, for > 3 years old (Afluria, FluLaval, Fluzone, Fluvirin, Fluarix, Agriflu(>=18 yo)) Fluzone (>3 yrs.) [[id number]] Influenza, seasonal, injectable Vital Signs Date Name [...] E&M - 3141-9 208 [lb_av] Weight Measured Diagnostic Results Date Name Value Unit Range Description Lab Report: Chlamydia/GC APTIMA/[id number] - Lab chlamydia DNA probe NOT DETECTED NOT DETECTED Lab Report: Chlamydia/GC APTIMA/04062 - Microbiology Neisseria gonorrhoeae DNA probe NOT DETECTED NOT DETECTED Lab Report: Thyroid Stimulating Hormone (L), Comp. Metabolic Panel, Free ... - Chemistry TSH 1.76 m[iU]/mL 0.36-3.74 sodium, serum 139 mmol/L 909-566 4798/11/20 potassium, serum 4.0 mmol/L 3.5-5.2 chloride, serum [...] CPK - Chemistry sodium, serum 140 mmol/L 301-698 6829/12/06 potassium, serum 3.8 mmol/L 3.5-5.2 chloride, serum [...] - Chemistry RBC, urine, dipstick Trace Negative RBC, urine, dipstick 3+ Negative protein, [...] Trace Negative nitrite, urine, semiquantitative Negative Negative urobilinogen, urine, semiquantitative (dipstick) 0.2 Normal leukocyte esterase, urine, by dipstick Negative Negative nitrite, urine, semiquantitative Negative Negative urine color Yellow Colorless;Lightyellow;Straw;Yellow appearance, urine Hazy Clear specific gravity, urine 1.025 1.000-1.030 pH, urine, semiquantitative 5.5 5.0-8.5 urine color Yellow Colorless;Lightyellow;Straw;Yellow appearance, urine Clear Clear specific gravity, urine 1.025 1.000-1.030 pH, urine, semiquantitative 6.0 5.0-8.5 Encounters Code Encounter Date Provider Facility CPT-58320 Level 3 Est. Patient 11:13:24 TECHNICAL SERVICES SPECIALIST Isatu [facility] CPT-50718 Level 3 Est. Patient 11:56:59 TECHNICAL SERVICES SPECIALIST Isatu [facility]urn [facility] CPT-76515 Level 3 Est. Patient 11:17:35 TECHNICAL SERVICES SPECIALIST Isatu [facility]urn [facility] CPT-55879 Level 3 Est. Patient 11:02:41 CDT Esperanza Pool [facility] CPT-98563 Level 3 Est. Patient 14:35:51 CDT Kalin Carlos DO [facility] CPT-65378 Level 3 Est. Patient 15:48:05 CDT Esperanza Pool [facility] CPT-21478 Level 3 Est. Patient 10:40:32 CDT Gonzalez Pinto [facility] CPT-56815 Level 3 Est. Patient 16:15:36 CDT Esperanza Pool [facility] CPT-81625 Level 3 Est. Patient 08:25:45 TECHNICAL SERVICES SPECIALIST Esperanza Pool [facility] CPT-24262 Level 3 Est. Patient 16:30:43 TECHNICAL SERVICES SPECIALIST Esperanza Pool [facility] CPT-70939 Level 3 Est. Patient 09:15:02 TECHNICAL SERVICES SPECIALIST Esperanza Pool [facility] CPT-23733 Level 3 Est. Patient 15:29:15 CDT Esperanza Pool [facility] CPT-05768 Level 3 Est. Patient 12:48:23 CDT Esperanza Pool [facility] CPT-00438 Level 3 Est. Patient 14:10:29 CDT Esperanza Pool [facility] CPT-31994 Level 3 Est. Patient 10:08:36 CDT Esperanza Pool [facility] CPT-72064 Level 3 Est. Patient 08:21:51 CDT Gonzalez Pinto [facility] CPT-40492 Level 3 Est. Patient 15:57:32 TECHNICAL SERVICES SPECIALIST Esperanza Pool [facility] CPT-50876 Level 3 Est. Patient 09:40:30 TECHNICAL SERVICES SPECIALIST Esperanza Pool [facility] CPT-01734 Level 3 Est. Patient 08:57:52 TECHNICAL SERVICES SPECIALIST Esperanza [facility] CPT-15316 Level 3 Est. Patient 14:31:11 CDT Esperanza Sanabria [facility] CPT-80050 Level 3 Est. Patient 09:44:45 CDT Esperanza Sanabria [facility] Procedures Code Procedure Name Date Entry Date Standard Description CPT-OV Office Visit 10:06:26 CDT CPT-OV Office Visit 14:03:44 CDT CPT-85282 Sono retroperitoneal complete kidneys and bladder 12:58: 45 TECHNICAL SERVICES SPECIALIST CPT-J1020 Depo Medrol 20 mg (Methyl Prednisolone Acetate) 15:48: 05 CDT CPT-J1020 Depo Medrol 100 mg (Methyl Prednisolone Acetate) 15:48: 05 CDT CPT-17827 Abx/Therapy Injection 15:48:05 CDT CPT-OV Office Visit 14:58:44 TECHNICAL SERVICES SPECIALIST CPT-73107 Sono transvag pelvis non OB uterus ovaries cervix 16:31: 03 TECHNICAL SERVICES SPECIALIST CPT-33894 Venipuncture Draw Fee 09:15:02 TECHNICAL SERVICES SPECIALIST CPT-42106 Venipuncture Draw Fee 15:29:15 CDT CPT-42717 Abx/Therapy Injection 14:10:29 CDT CPT-J1030 Depo Medrol 40 mg (Methyl Prednisolone Acetate) 14:10: 29 CDT CPT-J1040 Depo Medrol 80 mg (Methyl Prednisolone Acetate) 14:10: 29 CDT CPT-69534 Spec Collection and Handling Fee 08:44:23 TECHNICAL SERVICES SPECIALIST CPT-85016 Prv Med Est Pt 18-39yrs 08:44:23 TECHNICAL SERVICES SPECIALIST CPT-97584 Abx/Therapy Injection 08:57:52 TECHNICAL SERVICES SPECIALIST CPT-J1030 Depo Medrol 40 mg (Methyl Prednisolone Acetate) 08:57: 52 TECHNICAL SERVICES SPECIALIST CPT-J1040 Depo Medrol 80 mg (Methyl Prednisolone Acetate) 08:57: 52 TECHNICAL SERVICES SPECIALIST
--- OUTSIDE RECORDS SUMMARY | 2018-12-04 15:23 | XMS REPORT | Clinical Summary ---
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 UPPER RESPIRATORY INFECTION, [...] multiple sites FOOT PAIN, LEFT 729.5 Resolved Seperanza Pool PA Pain in limb SINUSITIS, ACUTE [...] TABS one tab PO x 1 FLUCONAZOLE 37033141143 No Longer Active Lulu Arreguin MD Active CIPRO 500 MG TAB 1 tablet by mouth twice daily CIPROFLOXACIN HCL 13148190359 No Longer Active Lulu Arreguin MD Active PYRIDIUM 200 MG TAB 1 po TID PRN Dysuria PHENAZOPYRIDINE HCL 26428162191 No Longer Active Isatu Coburn APRN Active BRITTANIE-28 0.15-30 MG-MCG TABS take one tab po daily LEVONORGESTREL-ETHINYL ESTRAD 92774453193 No Longer Active Petty Mcgrath Active ALPRAZOLAM 0.5 MG TABS one tab tid as needed ALPRAZOLAM 48905101508 Active Shannan Villarreal APRN Active PHENTERMINE HCL 37.5 MG TABS take one tab po daily PHENTERMINE HCL 27380835216 No Longer Active Isatu Coburn APRN Active DIETHYLPROPION HCL ER 75 MG [id number] take one tab po daily 09/04 DIETHYLPROPION HCL 03366648158 No Longer Active Esperanza Sanabria PA Active FLEXERIL 10 MG TABS take one tab po tid prn CYCLOBENZAPRINE HCL 11778057874 No Longer Active Esperanza Sanabria PA Active TEMAZEPAM 15 MG CAPS 2 capsules every h.s TEMAZEPAM 24373367759 No Longer Active Esperanza Sanabria PA Active PRILOSEC OTC 20 MG TBEC take one tab po bid OMEPRAZOLE MAGNESIUM 38049754570 No Longer Active Esperanza Pool PA Active TRIAMTERENE-HCTZ 37.5-25 MG CAPS Take 1 tablet by mouth daily TRIAMTERENE-HCTZ 80051817053 No Longer Active Esperanza Pool PA Active AMOXICILLIN 875 MG TABS Take one (1) tablet by mouth twice a day AMOXICILLIN 18041920314 No Longer Active Esperanza Pool PA Active HYDROCODONE-ACETAMINOPHEN 5-325 MG TABS take 1 tab po q4-6 hrs prn HYDROCODONE-ACETAMINOPHEN 40810644978 No Longer Active Esperanza Pool PA Active PREDNISONE 20 MG TAB 1 twice daily for two days, the once daily for two days PREDNISONE 43171466038 No Longer Active Esperanza Pool PA Active TAMIFLU 75 MG CAPS take one tab po daily x 10 days OSELTAMIVIR PHOSPHATE 13480059765 No Longer Active Esperanza Pool PA Active FLAGYL 500 MG TABS take one tab po bid x 10 days METRONIDAZOLE 61080358794 No Longer Active Esperanza Pool PA Active CIPRO 500 MG TABS take one tab po bid x 10 days CIPROFLOXACIN HCL 26382476472 No Longer Active Esperanza Pool PA Active SUDAFED 12 HOUR 120 MG [id number] take 1 tab po bid prn PSEUDOEPHEDRINE HCL 99049655930 No Longer Active Esperanza Pool PA Active MEDROL (JESSICA) 4 MG TABS take as directed METHYLPREDNISOLONE 04290554423 No Longer Active Sammi Hernandes RN Active BRITTANIE-28 TABS one tab p.o. q.d LEVONORGESTREL- ETHINYL ESTRAD TABS 60430681913 No Longer Active Esperanza Pool PA Active ZITHROMAX 250 MG TABS take 2 tabs po day one then 1 tab po days 2-5 AZITHROMYCIN 05177265261 No Longer Active Esperanza Pool PA Active METRONIDAZOLE 500 MG TABS 1 tab po bid x 7 days METRONIDAZOLE 00548543186 No Longer Active Lock RN Active AMOXICILLIN 500 MG TABS Take one (1) tablet by mouth three times a day 03/08 AMOXICILLIN 15035164797 No Longer Active Lock RN Active CLINDAMYCIN HCL 300 MG CAPS take 1 cap po QID x 10 days CLINDAMYCIN HCL 21441863345 No Longer Active Lock RN Active CIPRO 500 MG TABS take 1 tab po bid x 10 days CIPROFLOXACIN HCL 62236986515 No Longer Active Lock RN Active BACTRIM DS 800-160 MG TABS 1 tab po bid x 10 days SULFAMETHOXAZOLE-TRIMETHOPRIM 13647926031 No Longer Active Esperanza Pool PA Active ZOLOFT 100 MG TABS take 1 tab po daily SERTRALINE HCL 65486145847 Active Shannan Yokum ARCHITECTURAL ENGINEER Active ZOLOFT 100 MG TABS take 1/2 tab po daily SERTRALINE HCL 33270506935 No Longer Active Esperanza Pool PA Active BACTRIM DS 800-160 MG TABS 1 tab po bid x 10 days BACTRIM DS 800-160 MG TABS SULFAMETHOXAZOLE-TRIMETHOPRIM Inactive CIPRO 500 MG TABS take 1 tab po bid x 10 days CIPRO 500 MG TABS 937916 CIPROFLOXACIN HCL Inactive CLINDAMYCIN HCL 300 MG CAPS take 1 cap po QID x 10 days CLINDAMYCIN HCL 300 MG CAPS 688017 CLINDAMYCIN HCL Inactive AMOXICILLIN 500 MG TABS Take one (1) tablet by mouth three times a day 03/08 AMOXICILLIN 500 MG TABS 653996 AMOXICILLIN Inactive METRONIDAZOLE 500 MG TABS 1 tab po bid x 7 days METRONIDAZOLE 500 MG TABS 514559 METRONIDAZOLE Inactive ZITHROMAX 250 MG TABS take 2 tabs po day one then 1 tab po days 2-5 ZITHROMAX 250 MG TABS 2726265 AZITHROMYCIN Inactive BRITTANIE-28 TABS one tab p.o. q.d BRITTANIE-28 TABS LEVONORGESTREL-ETHINYL ESTRAD TABS Inactive MEDROL (JESSICA) 4 MG TABS take as directed MEDROL (JESSICA) 4 MG TABS METHYLPREDNISOLONE Inactive SUDAFED 12 HOUR [id number] take 1 tab po bid prn SUDAFED 12 HOUR 120 MG [id number] PSEUDOEPHEDRINE HCL Inactive CIPRO 500 MG TABS take one tab po bid x 10 days CIPRO 500 MG TABS 894075 CIPROFLOXACIN HCL Inactive FLAGYL 500 MG TABS take one tab po bid x 10 days FLAGYL 500 MG TABS 128776 METRONIDAZOLE Inactive TAMIFLU 75 MG CAPS take one tab po daily x 10 days TAMIFLU 75 MG CAPS OSELTAMIVIR PHOSPHATE Inactive PREDNISONE 20 MG TAB 1 twice daily for two days, the once daily for two days PREDNISONE 20 MG TAB 209187 PREDNISONE Inactive HYDROCODONE-ACETAMINOPHEN 5-325 MG TABS take 1 tab po q4-6 hrs prn HYDROCODONE-ACETAMINOPHEN 5-325 MG TABS 597705 HYDROCODONE- ACETAMINOPHEN Inactive AMOXICILLIN 875 MG TABS Take one (1) tablet by mouth twice a day AMOXICILLIN 875 MG TABS 307750 AMOXICILLIN Inactive TRIAMTERENE-HCTZ 37.5-25 MG CAPS Take 1 tablet by mouth daily TRIAMTERENE-HCTZ 37.5-25 MG CAPS 383157 TRIAMTERENE-HCTZ Inactive PRILOSEC OTC 20 MG TBEC take one tab po bid PRILOSEC OTC 20 MG TBEC OMEPRAZOLE MAGNESIUM Inactive TEMAZEPAM 15 MG CAPS 2 capsules every h.s TEMAZEPAM 15 MG CAPS 623027 TEMAZEPAM Inactive FLEXERIL 10 MG TABS take one tab po tid prn FLEXERIL 10 MG TABS CYCLOBENZAPRINE HCL Inactive DIETHYLPROPION HCL ER 75 MG [id number]-JJC take one tab po daily 09/04 DIETHYLPROPION HCL ER 75 MG [id number] DIETHYLPROPION HCL Inactive PHENTERMINE HCL 37.5 MG TABS take one tab po daily PHENTERMINE HCL 37.5 MG TABS 165707 PHENTERMINE HCL Inactive BRITTANIE-28 0.15-30 MG-MCG TABS take one tab po daily BRITTANIE-28 0.15-30 MG-MCG TABS 379735 LEVONORGESTREL-ETHINYL ESTRAD Inactive CIPRO 500 MG TAB 1 tablet by mouth twice daily CIPRO 500 MG TAB 677531 CIPROFLOXACIN HCL Inactive ZOLOFT 100 MG TABS take 1/2 tab po daily ZOLOFT 100 MG TABS 246465 SERTRALINE HCL Inactive PYRIDIUM 200 MG TAB 1 po TID PRN Dysuria PYRIDIUM 200 MG TAB 4490384 PHENAZOPYRIDINE HCL Inactive DIFLUCAN 150 MG TABS one tab PO x 1 DIFLUCAN 150 MG TABS 407054 FLUCONAZOLE Inactive Immunizations Vaccine Administration Date Value Standard Description Seasonal influenza vaccine, injectable, containing preservative, for > 3 years old (Afluria, FluLaval, Fluzone, Fluvirin, Fluarix, Agriflu(>=18 yo)) Fluzone (>3 yrs.) [[id number]] Influenza, seasonal, injectable Vital Signs Date Name [...] Value Unit Range Description Lab Report: Chlamydia/GC APTIMA/07614 - Lab chlamydia DNA probe NOT DETECTED NOT DETECTED Lab Report: Chlamydia/GC APTIMA/27229 - Microbiology Neisseria gonorrhoeae DNA probe NOT [...] Negative Encounters Code Encounter Date Provider Facility CPT-54799 Level 3 Est. Patient 11:13:24 WARP PREPARER Isatu Coburn [facility] CPT-05881 Level 3 Est. Patient 11:56:59 WARP PREPARER Isatu Coburn [facility] CPT-60705 Level 3 Est. Patient 11:17:35 WARP PREPARER Isatu Coburn [facility] CPT-47782 Level 3 Est. Patient 11:02:41 CDT Esperanza Sanabria [facility] CPT-95937 Level 3 Est. Patient 14:35:51 CDT Kalin Carlos DO [facility] CPT-43414 Level 3 Est. Patient 15:48:05 CDT Esperanza Sanabria [facility] CPT-37176 Level 3 Est. Patient 10:40:32 CDT Gonzalez Pinto [facility] CPT-72242 Level 3 Est. Patient 16:15:36 CDT Esperanza Sanabria [facility] CPT-49777 Level 3 Est. Patient 08:25:45 WARP PREPARER Esperanza Pool [facility] CPT-82432 Level 3 Est. Patient 16:30:43 WARP PREPARER Esperanza [facility] CPT-58851 Level 3 Est. Patient 09:15:02 WARP PREPARER Esperanza [facility] CPT-84310 Level 3 Est. Patient 15:29:15 CDT Esperanza [facility] CPT-96170 Level 3 Est. Patient 12:48:23 CDT Esperanza [facility] CPT-79850 Level 3 Est. Patient 14:10:29 CDT Esperanza [facility] CPT-58698 Level 3 Est. Patient 10:08:36 CDT Esperanza [facility] CPT-45008 Level 3 Est. Patient 08:21:51 CDT Gonzalez Pinto [facility] CPT-73354 Level 3 Est. Patient 15:57:32 WARP PREPARER Esperanza [facility] CPT-96990 Level 3 Est. Patient 09:40:30 WARP PREPARER Esperanza [facility] CPT-07810 Level 3 Est. Patient 08:57:52 WARP PREPARER Esperanza [facility] CPT-08656 Level 3 Est. Patient 14:31:11 CDT Esperanza [facility] CPT-40814 Level 3 Est. Patient 09:44:45 [facility] Procedures Code Procedure Name Date Entry Date Standard Description CPT-OV Office Visit 10:39:58 WARP PREPARER CPT-OV Office Visit 10:06:26 CDT CPT-OV Office Visit 14:03:44 CDT CPT-13470 Sono retroperitoneal complete kidneys and bladder 12:58: 45 WARP PREPARER CPT-J1020 Depo Medrol 20 mg (Methyl Prednisolone Acetate) 15:48: 05 CDT CPT-J1020 Depo Medrol 100 mg (Methyl Prednisolone Acetate) 15:48: 05 CDT CPT-25189 Abx/Therapy Injection 15:48:05 CDT CPT-OV Office Visit 14:58:44 WARP PREPARER CPT-84890 Sono transvag pelvis non OB uterus ovaries cervix 16:31: 03 WARP PREPARER CPT-26972 Venipuncture Draw Fee 09:15:02 WARP PREPARER CPT-94797 Venipuncture Draw Fee 15:29:15 CDT CPT-72423 Abx/Therapy Injection 14:10:29 CDT CPT-J1030 Depo Medrol 40 mg (Methyl Prednisolone Acetate) 14:10: 29 CDT CPT-J1040 Depo Medrol 80 mg (Methyl Prednisolone Acetate) 14:10: 29 CDT CPT-70944 Spec Collection and Handling Fee 08:44:23 WARP PREPARER CPT-42307 Prv Med Est Pt 18-39yrs 08:44:23 WARP PREPARER CPT-52586 Abx/Therapy Injection 08:57:52 WARP PREPARER CPT-J1030 Depo Medrol 40 mg (Methyl Prednisolone Acetate) 08:57: 52 WARP PREPARER CPT-J1040 Depo Medrol 80 mg (Methyl Prednisolone Acetate) 08:57: 52 WARP PREPARER
--- OUTSIDE RECORDS SUMMARY | 2018-12-04 15:24 | XMS REPORT | Clinical Summary ---
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 UPPER RESPIRATORY INFECTION, [...] PA 06/09 ROUTINE GYNECOLOGICAL EXAMINATION ICD-V72.31 Inactive uLlu Arreguin MD SINUSITIS, ACUTE ICD-461.9 Inactive Esperanza [...] TABS one tab PO x 1 FLUCONAZOLE 30425103955 No Longer Active Lulu Arreguin MD Active CIPRO 500 MG TAB 1 tablet by mouth twice daily CIPROFLOXACIN HCL 34645598756 No Longer Active Lulu Arreguin MD Active PYRIDIUM 200 MG TAB 1 po TID PRN Dysuria PHENAZOPYRIDINE HCL 29178847650 No Longer Active Isatu Coburn APRN Active BRITTANIE-28 0.15-30 MG-MCG TABS take one tab po daily LEVONORGESTREL-ETHINYL ESTRAD 80963596098 No Longer Active Petty Gordilloson Active ALPRAZOLAM 0.5 MG TABS one tab tid as needed ALPRAZOLAM 06046714002 Active Luke Ballard MD Active PHENTERMINE HCL 37.5 MG TABS take one tab po daily PHENTERMINE HCL 00088049214 No Longer Active Isatu Coburn APRN Active DIETHYLPROPION HCL ER 75 MG [id number] take one tab po daily 09/04 DIETHYLPROPION HCL 77184949060 No Longer Active Esperanza Sanabria PA Active FLEXERIL 10 MG TABS take one tab po tid prn CYCLOBENZAPRINE HCL 41087998962 No Longer Active Esperanza Sanabria PA Active TEMAZEPAM 15 MG CAPS 2 capsules every h.s TEMAZEPAM 13106426721 No Longer Active Esperanza Sanabria PA Active PRILOSEC OTC 20 MG TBEC take one tab po bid OMEPRAZOLE MAGNESIUM 06240565712 No Longer Active Esperanza Pool PA Active TRIAMTERENE-HCTZ 37.5-25 MG CAPS Take 1 tablet by mouth daily TRIAMTERENE-HCTZ 75112020647 No Longer Active Esperanza Pool PA Active AMOXICILLIN 875 MG TABS Take one (1) tablet by mouth twice a day AMOXICILLIN 89528744365 No Longer Active Esperanza Pool PA Active HYDROCODONE-ACETAMINOPHEN 5-325 MG TABS take 1 tab po q4-6 hrs prn HYDROCODONE-ACETAMINOPHEN 30615590560 No Longer Active Esperanza Pool PA Active PREDNISONE 20 MG TAB 1 twice daily for two days, the once daily for two days PREDNISONE 34691772371 No Longer Active Esperanza Pool PA Active TAMIFLU 75 MG CAPS take one tab po daily x 10 days OSELTAMIVIR PHOSPHATE 88585533520 No Longer Active Esperanza Pool PA Active FLAGYL 500 MG TABS take one tab po bid x 10 days METRONIDAZOLE 10824584940 No Longer Active Esperanza Pool PA Active CIPRO 500 MG TABS take one tab po bid x 10 days CIPROFLOXACIN HCL 83619492561 No Longer Active Esperanza Pool PA Active SUDAFED 12 HOUR 120 MG [id number] take 1 tab po bid prn PSEUDOEPHEDRINE HCL 43312557022 No Longer Active Esperanza Pool PA Active MEDROL (JESSICA) 4 MG TABS take as directed METHYLPREDNISOLONE 32228494806 No Longer Active Sammi Hernandes RN Active BRITTANIE-28 TABS one tab p.o. q.d LEVONORGESTREL- ETHINYL ESTRAD TABS 56506865965 No Longer Active Esperanza Pool PA Active ZITHROMAX 250 MG TABS take 2 tabs po day one then 1 tab po days 2-5 AZITHROMYCIN 14700582230 No Longer Active Esperanza Pool PA Active METRONIDAZOLE 500 MG TABS 1 tab po bid x 7 days METRONIDAZOLE 39959374332 No Longer Active Patricia Dockery RN Active AMOXICILLIN 500 MG TABS Take one (1) tablet by mouth three times a day 03/08 AMOXICILLIN 48271833288 No Longer Active Lock RN Active CLINDAMYCIN HCL 300 MG CAPS take 1 cap po QID x 10 days CLINDAMYCIN HCL 95013012030 No Longer Active Lock RN Active CIPRO 500 MG TABS take 1 tab po bid x 10 days CIPROFLOXACIN HCL 40944732260 No Longer Active Lock RN Active BACTRIM DS 800-160 MG TABS 1 tab po bid x 10 days SULFAMETHOXAZOLE-TRIMETHOPRIM 43202601237 No Longer Active Esperanza Pool PA Active ZOLOFT 100 MG TABS take 1 tab po daily SERTRALINE HCL 82920618179 Active Shannan Yoabum AIRPORT ATTENDANT Active ZOLOFT 100 MG TABS take 1/2 tab po daily SERTRALINE HCL 01666323646 No Longer Active Esperanza Pool PA Active BACTRIM DS 800-160 MG TABS 1 tab po bid x 10 days BACTRIM DS 800-160 MG TABS SULFAMETHOXAZOLE-TRIMETHOPRIM Inactive CIPRO 500 MG TABS take 1 tab po bid x 10 days CIPRO 500 MG TABS 335287 CIPROFLOXACIN HCL Inactive CLINDAMYCIN HCL 300 MG CAPS take 1 cap po QID x 10 days CLINDAMYCIN HCL 300 MG CAPS 202810 CLINDAMYCIN HCL Inactive AMOXICILLIN 500 MG TABS Take one (1) tablet by mouth three times a day 03/08 AMOXICILLIN 500 MG TABS 602201 AMOXICILLIN Inactive METRONIDAZOLE 500 MG TABS 1 tab po bid x 7 days METRONIDAZOLE 500 MG TABS 018146 METRONIDAZOLE Inactive ZITHROMAX 250 MG TABS take 2 tabs po day one then 1 tab po days 2-5 ZITHROMAX 250 MG TABS 3281996 AZITHROMYCIN Inactive BRITTANIE-28 TABS one tab p.o. q.d BRITTANIE-28 TABS LEVONORGESTREL-ETHINYL ESTRAD TABS Inactive MEDROL (JESSICA) 4 MG TABS take as directed MEDROL (JESSICA) 4 MG TABS METHYLPREDNISOLONE Inactive SUDAFED 12 HOUR 120 MG [id number] take 1 tab po bid prn SUDAFED 12 HOUR 120 MG [id number] PSEUDOEPHEDRINE HCL Inactive CIPRO 500 MG TABS take one tab po bid x 10 days CIPRO 500 MG TABS 765324 CIPROFLOXACIN HCL Inactive FLAGYL 500 MG TABS take one tab po bid x 10 days FLAGYL 500 MG TABS 850511 METRONIDAZOLE Inactive TAMIFLU 75 MG CAPS take one tab po daily x 10 days TAMIFLU 75 MG CAPS OSELTAMIVIR PHOSPHATE Inactive PREDNISONE 20 MG TAB 1 twice daily for two days, the once daily for two days PREDNISONE 20 MG TAB 887573 PREDNISONE Inactive HYDROCODONE-ACETAMINOPHEN 5-325 MG TABS take 1 tab po q4-6 hrs prn HYDROCODONE-ACETAMINOPHEN 5-325 MG TABS 577919 HYDROCODONE- ACETAMINOPHEN Inactive AMOXICILLIN 875 MG TABS Take one (1) tablet by mouth twice a day AMOXICILLIN 875 MG TABS 596886 AMOXICILLIN Inactive TRIAMTERENE-HCTZ 37.5-25 MG CAPS Take 1 tablet by mouth daily TRIAMTERENE-HCTZ 37.5-25 MG CAPS 019851 TRIAMTERENE-HCTZ Inactive PRILOSEC OTC 20 MG TBEC take one tab po bid PRILOSEC OTC 20 MG TBEC OMEPRAZOLE MAGNESIUM Inactive TEMAZEPAM 15 MG CAPS 2 capsules every h.s TEMAZEPAM 15 MG CAPS 212763 TEMAZEPAM Inactive FLEXERIL 10 MG TABS take one tab po tid prn FLEXERIL 10 MG TABS CYCLOBENZAPRINE HCL Inactive DIETHYLPROPION HCL ER 75 MG [id number] take one tab po daily 09/04 DIETHYLPROPION HCL ER 75 MG [id number] DIETHYLPROPION HCL Inactive PHENTERMINE HCL 37.5 MG TABS take one tab po daily PHENTERMINE HCL 37.5 MG TABS 640185 PHENTERMINE HCL Inactive BRITTANIE-28 0.15-30 MG-MCG TABS take one tab po daily BRITTANIE-28 0.15-30 MG-MCG TABS 944391 LEVONORGESTREL-ETHINYL ESTRAD Inactive CIPRO 500 MG TAB 1 tablet by mouth twice daily CIPRO 500 MG TAB 404694 CIPROFLOXACIN HCL Inactive ZOLOFT 100 MG TABS take 1/2 tab po daily ZOLOFT 100 MG TABS 841180 SERTRALINE HCL Inactive PYRIDIUM 200 MG TAB 1 po TID PRN Dysuria PYRIDIUM 200 MG TAB 3212004 PHENAZOPYRIDINE HCL Inactive DIFLUCAN 150 MG TABS one tab PO x 1 DIFLUCAN 150 MG TABS 226673 FLUCONAZOLE Inactive Immunizations Vaccine Administration Date Value Standard Description Seasonal influenza vaccine, injectable, containing preservative, for > 3 years old (Afluria, FluLaval, Fluzone, Fluvirin, Fluarix, Agriflu(>=18 yo)) Fluzone (>3 yrs.) [[id number]] Influenza, seasonal, injectable Vital Signs Date Name [...] Value Unit Range Description Lab Report: Chlamydia/GC APTIMA/77182 - Lab chlamydia DNA probe NOT DETECTED NOT DETECTED Lab Report: Chlamydia/GC APTIMA/55571 - Microbiology Neisseria gonorrhoeae DNA probe NOT [...] Negative Encounters Code Encounter Date Provider Facility CPT-96889 Level 3 Est. Patient 11:13:24 EVENT PROMOTIONS COORDINATOR Isatu Coburn [facility] CPT-30976 Level 3 Est. Patient 11:56:59 EVENT PROMOTIONS COORDINATOR Isatu Coburn [facility] CPT-35757 Level 3 Est. Patient 11:17:35 EVENT PROMOTIONS COORDINATOR Isatu Coburn [facility] CPT-62438 Level 3 Est. Patient 11:02:41 CDT Esperanza Sanabria [facility] CPT-18560 Level 3 Est. Patient 14:35:51 CDT Kalin Carlos DO [facility] CPT-94716 Level 3 Est. Patient 15:48:05 CDT Esperanza Sanabria [facility] CPT-13099 Level 3 Est. Patient 10:40:32 CDT Gonzalez Pinto [facility] CPT-29486 Level 3 Est. Patient 16:15:36 CDT Esperanza Sanabria [facility] CPT-55724 Level 3 Est. Patient 08:25:45 EVENT PROMOTIONS COORDINATOR Esperanza Sanabria [facility] CPT-62658 Level 3 Est. Patient 16:30:43 [facility]OM[facility]IONS [facility] Level 3 Est. Patient 09:15:02 EVENT PROMOTIONS COORDINATOR [facility] CPT-79012 Level 3 Est. Patient 15:29:15 CDT [facility] CPT-36181 Level 3 Est. Patient 12:48:23 CDT [facility] CPT-95702 Level 3 Est. Patient 14:10:29 CDT [facility] CPT-63252 Level 3 Est. Patient 10:08:36 CDT [facility] CPT-67802 Level 3 Est. Patient 08:21:51 CDT Gonzalez Pinto [facility] CPT-09054 Level 3 Est. Patient 15:57:32 EVENT PROMOTIONS COORDINATOR [facility] CPT-22405 Level 3 Est. Patient 09:40:30 EVENT PROMOTIONS COORDINATOR [facility] CPT-74933 Level 3 Est. Patient 08:57:52 EVENT PROMOTIONS COORDINATOR [facility] CPT-00783 Level 3 Est. Patient 14:31:11 CDT [facility] CPT-99945 Level 3 Est. Patient 09:44:45 CDT [facility] Procedures Code Procedure Name Date Entry Date Standard Description CPT-OV Office Visit 10:06:26 CDT CPT-OV Office Visit 14:03:44 CDT CPT-99107 Sono retroperitoneal complete kidneys and bladder 12:58: 45 EVENT PROMOTIONS COORDINATOR CPT-J1020 Depo Medrol 20 mg (Methyl Prednisolone Acetate) 15:48: 05 CDT CPT-J1020 Depo Medrol 100 mg (Methyl Prednisolone Acetate) 15:48: 05 CDT CPT-65394 Abx/Therapy Injection 15:48:05 CDT CPT-OV Office Visit 14:58:44 EVENT PROMOTIONS COORDINATOR CPT-72056 Sono transvag pelvis non OB uterus ovaries cervix 16:31: 03 EVENT PROMOTIONS COORDINATOR CPT-15288 Venipuncture Draw Fee 09:15:02 EVENT PROMOTIONS COORDINATOR CPT-45324 Venipuncture Draw Fee 15:29:15 CDT CPT-89677 Abx/Therapy Injection 14:10:29 CDT CPT-J1030 Depo Medrol 40 mg (Methyl Prednisolone Acetate) 14:10: 29 CDT CPT-J1040 Depo Medrol 80 mg (Methyl Prednisolone Acetate) 14:10: 29 CDT CPT-78426 Spec Collection and Handling Fee 08:44:23 EVENT PROMOTIONS COORDINATOR CPT-49812 Prv Med Est Pt 18-39yrs 08:44:23 EVENT PROMOTIONS COORDINATOR CPT-07368 Abx/Therapy Injection 08:57:52 EVENT PROMOTIONS COORDINATOR CPT-J1030 Depo Medrol 40 mg (Methyl Prednisolone Acetate) 08:57: 52 EVENT PROMOTIONS COORDINATOR CPT-J1040 Depo Medrol 80 mg (Methyl Prednisolone Acetate) 08:57: 52 EVENT PROMOTIONS COORDINATOR
--- OUTSIDE RECORDS SUMMARY | 2018-12-04 15:24 | XMS REPORT | Clinical Summary ---
Author Author Admin, E Organization 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 UPPER RESPIRATORY INFECTION, [...] TABS one tab PO x 1 FLUCONAZOLE 80827369111 No Longer Active Lulu Arreguin MD Active CIPRO 500 MG TAB 1 tablet by mouth twice daily CIPROFLOXACIN HCL 58915611983 No Longer Active Lulu Arreguin MD Active PYRIDIUM 200 MG TAB 1 po TID PRN Dysuria PHENAZOPYRIDINE HCL 27679559202 No Longer Active Isatu Coburn APRN Active BRITTANIE-28 0.15-30 MG-MCG TABS take one tab po daily LEVONORGESTREL-ETHINYL ESTRAD 47894210212 No Longer Active Petty Mcgrath Active ALPRAZOLAM 0.5 MG TABS one tab tid as needed ALPRAZOLAM 28446528657 Active Shannan Villarreal APRN Active PHENTERMINE HCL 37.5 MG TABS take one tab po daily PHENTERMINE HCL 15813775910 No Longer Active Isatu Coburn APRN Active DIETHYLPROPION HCL ER 75 MG [id number] take one tab po daily 09/04 DIETHYLPROPION HCL 82303027316 No Longer Active Esperanza Daniele PA Active FLEXERIL 10 MG TABS take one tab po tid prn CYCLOBENZAPRINE HCL 96273487157 No Longer Active Esperanza Pool PA Active TEMAZEPAM 15 MG CAPS 2 capsules every h.s TEMAZEPAM 51782266117 No Longer Active Esperanza Pool PA Active PRILOSEC OTC 20 MG TBEC take one tab po bid OMEPRAZOLE MAGNESIUM 55022703242 No Longer Active Esperanza Pool PA Active TRIAMTERENE-HCTZ 37.5-25 MG CAPS Take 1 tablet by mouth daily TRIAMTERENE-HCTZ 54714491327 No Longer Active Esperanza Pool PA Active AMOXICILLIN 875 MG TABS Take one (1) tablet by mouth twice a day AMOXICILLIN 16088052771 No Longer Active Esperanza Pool PA Active HYDROCODONE-ACETAMINOPHEN 5-325 MG TABS take 1 tab po q4-6 hrs prn HYDROCODONE-ACETAMINOPHEN 12846695138 No Longer Active Esperanza Pool PA Active PREDNISONE 20 MG TAB 1 twice daily for two days, the once daily for two days PREDNISONE 31074999264 No Longer Active Esperanza Pool PA Active TAMIFLU 75 MG CAPS take one tab po daily x 10 days OSELTAMIVIR PHOSPHATE 81422384744 No Longer Active Esperanza Pool PA Active FLAGYL 500 MG TABS take one tab po bid x 10 days METRONIDAZOLE 98901937831 No Longer Active Esperanza Pool PA Active CIPRO 500 MG TABS take one tab po bid x 10 days CIPROFLOXACIN HCL 77844254577 No Longer Active Esperanza Pool PA Active SUDAFED 12 HOUR 120 MG [id number] take 1 tab po bid prn PSEUDOEPHEDRINE HCL 81694893027 No Longer Active Esperanza Pool PA Active MEDROL (JESSICA) 4 MG TABS take as directed METHYLPREDNISOLONE 20916951673 No Longer Active Sammi Hernandes RN Active BRITTANIE-28 TABS one tab p.o. q.d LEVONORGESTREL- ETHINYL ESTRAD TABS 05361966987 No Longer Active Esperanza Pool PA Active ZITHROMAX 250 MG TABS take 2 tabs po day one then 1 tab po days 2-5 AZITHROMYCIN 41177372855 No Longer Active Esperanza Pool PA Active METRONIDAZOLE 500 MG TABS 1 tab po bid x 7 days METRONIDAZOLE 42335655283 No Longer Active Patricia Dockery RN Active AMOXICILLIN 500 MG TABS Take one (1) tablet by mouth three times a day 03/08 AMOXICILLIN 39489488421 No Longer Active Lock RN Active CLINDAMYCIN HCL 300 MG CAPS take 1 cap po QID x 10 days CLINDAMYCIN HCL 37830773905 No Longer Active Lock RN Active CIPRO 500 MG TABS take 1 tab po bid x 10 days CIPROFLOXACIN HCL 17104937968 No Longer Active Lock RN Active BACTRIM DS 800-160 MG TABS 1 tab po bid x 10 days SULFAMETHOXAZOLE-TRIMETHOPRIM 07632634918 No Longer Active Esperanza Pool PA Active ZOLOFT 100 MG TABS take 1 tab po daily SERTRALINE HCL 57782349314 Active Shannan Yoabum CLIENT SUPPORT MANAGER Active ZOLOFT 100 MG TABS take 1/2 tab po daily SERTRALINE HCL 89823624480 No Longer Active Esperanza Pool PA Active BACTRIM DS 800-160 MG TABS 1 tab po bid x 10 days BACTRIM DS 800-160 MG TABS SULFAMETHOXAZOLE-TRIMETHOPRIM Inactive CIPRO 500 MG TABS take 1 tab po bid x 10 days CIPRO 500 MG TABS 068682 CIPROFLOXACIN HCL Inactive CLINDAMYCIN HCL 300 MG CAPS take 1 cap po QID x 10 days CLINDAMYCIN HCL 300 MG CAPS 503031 CLINDAMYCIN HCL Inactive AMOXICILLIN 500 MG TABS Take one (1) tablet by mouth three times a day 03/08 AMOXICILLIN 500 MG TABS 232067 AMOXICILLIN Inactive METRONIDAZOLE 500 MG TABS 1 tab po bid x 7 days METRONIDAZOLE 500 MG TABS 544002 METRONIDAZOLE Inactive ZITHROMAX 250 MG TABS take 2 tabs po day one then 1 tab po days 2-5 ZITHROMAX 250 MG TABS 7952003 AZITHROMYCIN Inactive BRITTANIE-28 TABS one tab p.o. q.d BRITTANIE-28 TABS LEVONORGESTREL-ETHINYL ESTRAD TABS Inactive MEDROL (JESSICA) 4 MG TABS take as directed MEDROL (JESSICA) 4 MG TABS METHYLPREDNISOLONE Inactive SUDAFED 12 HOUR 120 MG [id number] take 1 tab po bid prn SUDAFED 12 HOUR 120 MG [id number] PSEUDOEPHEDRINE HCL Inactive CIPRO 500 MG TABS take one tab po bid x 10 days CIPRO 500 MG TABS 809701 CIPROFLOXACIN HCL Inactive FLAGYL 500 MG TABS take one tab po bid x 10 days FLAGYL 500 MG TABS 574623 METRONIDAZOLE Inactive TAMIFLU 75 MG CAPS take one tab po daily x 10 days TAMIFLU 75 MG CAPS OSELTAMIVIR PHOSPHATE Inactive PREDNISONE 20 MG TAB 1 twice daily for two days, the once daily for two days PREDNISONE 20 MG TAB 452124 PREDNISONE Inactive HYDROCODONE-ACETAMINOPHEN 5-325 MG TABS take 1 tab po q4-6 hrs prn HYDROCODONE-ACETAMINOPHEN 5-325 MG TABS 449285 HYDROCODONE- ACETAMINOPHEN Inactive AMOXICILLIN 875 MG TABS Take one (1) tablet by mouth twice a day AMOXICILLIN 875 MG TABS 199317 AMOXICILLIN Inactive TRIAMTERENE-HCTZ 37.5-25 MG CAPS Take 1 tablet by mouth daily TRIAMTERENE-HCTZ 37.5-25 MG CAPS 297713 TRIAMTERENE-HCTZ Inactive PRILOSEC OTC 20 MG TBEC take one tab po bid PRILOSEC OTC 20 MG TBEC OMEPRAZOLE MAGNESIUM Inactive TEMAZEPAM 15 MG CAPS 2 capsules every h.s TEMAZEPAM 15 MG CAPS 454093 TEMAZEPAM Inactive FLEXERIL 10 MG TABS take one tab po tid prn FLEXERIL 10 MG TABS CYCLOBENZAPRINE HCL Inactive DIETHYLPROPION HCL ER 75 MG [id number] take one tab po daily 09/04 DIETHYLPROPION HCL ER 75 MG [id number] DIETHYLPROPION HCL Inactive PHENTERMINE HCL 37.5 MG TABS take one tab po daily PHENTERMINE HCL 37.5 MG TABS 628234 PHENTERMINE HCL Inactive BRITTANIE-28 0.15-30 MG-MCG TABS take one tab po daily BRITTANIE-28 0.15-30 MG-MCG TABS 694680 LEVONORGESTREL-ETHINYL ESTRAD Inactive CIPRO 500 MG TAB 1 tablet by mouth twice daily CIPRO 500 MG TAB 511776 CIPROFLOXACIN HCL Inactive ZOLOFT 100 MG TABS take 1/2 tab po daily ZOLOFT 100 MG TABS 243204 SERTRALINE HCL Inactive PYRIDIUM 200 MG TAB 1 po TID PRN Dysuria PYRIDIUM 200 MG TAB 5021581 PHENAZOPYRIDINE HCL Inactive DIFLUCAN 150 MG TABS one tab PO x 1 DIFLUCAN 150 MG TABS 983827 FLUCONAZOLE Inactive Immunizations Vaccine Administration Date Value Standard Description Seasonal influenza vaccine, injectable, containing preservative, for > 3 years old (Afluria, FluLaval, Fluzone, Fluvirin, Fluarix, Agriflu(>=18 yo)) Fluzone (>3 yrs.) [[id number]] Influenza, seasonal, injectable Vital Signs Date Name [...] Value Unit Range Description Lab Report: Chlamydia/GC APTIMA/[id number] - Lab chlamydia DNA probe NOT DETECTED NOT DETECTED Lab Report: Chlamydia/GC APTIMA/[id number] - Microbiology Neisseria gonorrhoeae DNA probe NOT [...] Negative Encounters Code Encounter Date Provider Facility CPT-22044 Level 3 Est. Patient 11:13:24 SINGLE NEEDLE TUFTING MACHINE OPERATOR Isatu Coburn [facility] CPT-58463 Level 3 Est. Patient 11:56:59 SINGLE NEEDLE TUFTING MACHINE OPERATOR Isatu Coburn [facility] CPT-20166 Level 3 Est. Patient 11:17:35 SINGLE NEEDLE TUFTING MACHINE OPERATOR Isatu Coburn [facility] CPT-03379 Level 3 Est. Patient 11:02:41 CDT Esperanza Sanabria [facility] CPT-67966 Level 3 Est. Patient 14:35:51 CDT Kalin Carlos DO [facility] CPT-70461 Level 3 Est. Patient 15:48:05 CDT Esperanza Sanabria [facility] CPT-78896 Level 3 Est. Patient 10:40:32 CDT Gonzalez Pinto [facility] CPT-93696 Level 3 Est. Patient 16:15:36 CDT Esperanza Sanabria [facility] CPT-38816 Level 3 Est. Patient 08:25:45 SINGLE NEEDLE TUFTING MACHINE OPERATOR Esperanza Sanabria [facility] CPT-12369 Level 3 Est. Patient 16:30:43 SINGLE NEEDLE TUFTING MACHINE [facility] Level 3 Est. Patient 09:15:02 SINGLE NEEDLE TUFTING MACHINE OPERATOR [facility] CPT-12987 Level 3 Est. Patient 15:29:15 CDT [facility] CPT-55324 Level 3 Est. Patient 12:48:23 CDT [facility] CPT-57090 Level 3 Est. Patient 14:10:29 CDT [facility] CPT-34102 Level 3 Est. Patient 10:08:36 [facility] CPT-[facility]77 Level 3 Est. Patient 08:21:51 CDT Gonzalez Pinto [facility] CPT-88991 Level 3 Est. Patient 15:57:32 SINGLE NEEDLE TUFTING MACHINE OPERATOR [facility] CPT-57865 Level 3 Est. Patient 09:40:30 SINGLE NEEDLE TUFTING MACHINE OPERATOR [facility] CPT-57113 Level 3 Est. Patient 08:57:52 SINGLE NEEDLE TUFTING MACHINE OPERATOR [facility] CPT-06750 Level 3 Est. Patient 14:31:[address] [facility] CPT-70406 Level 3 Est. Patient 09:44:45 [facility] Procedures Code Procedure Name Date Entry Date Standard Description CPT-OV Office Visit 10:06:26 CDT CPT-OV Office Visit 14:03:44 CDT CPT-51394 Sono retroperitoneal complete kidneys and bladder 12:58: 45 SINGLE NEEDLE TUFTING MACHINE OPERATOR CPT-J1020 Depo Medrol 20 mg (Methyl Prednisolone Acetate) 15:48: 05 CDT CPT-J1020 Depo Medrol 100 mg (Methyl Prednisolone Acetate) 15:48: 05 CDT CPT-47444 Abx/Therapy Injection 15:48:05 CDT CPT-OV Office Visit 14:58:44 SINGLE NEEDLE TUFTING MACHINE OPERATOR CPT-04625 Sono transvag pelvis non OB uterus ovaries cervix 16:31: 03 SINGLE NEEDLE TUFTING MACHINE OPERATOR CPT-52330 Venipuncture Draw Fee 09:15:02 SINGLE NEEDLE TUFTING MACHINE OPERATOR CPT-47492 Venipuncture Draw Fee 15:29:15 CDT CPT-32385 Abx/Therapy Injection 14:10:29 CDT CPT-J1030 Depo Medrol 40 mg (Methyl Prednisolone Acetate) 14:10: 29 CDT CPT-J1040 Depo Medrol 80 mg (Methyl Prednisolone Acetate) 14:10: 29 CDT CPT-91463 Spec Collection and Handling Fee 08:44:23 SINGLE NEEDLE TUFTING MACHINE OPERATOR CPT-14845 Prv Med Est Pt 18-39yrs 08:44:23 SINGLE NEEDLE TUFTING MACHINE OPERATOR CPT-55676 Abx/Therapy Injection 08:57:52 SINGLE NEEDLE TUFTING MACHINE OPERATOR CPT-J1030 Depo Medrol 40 mg (Methyl Prednisolone Acetate) 08:57: 52 SINGLE NEEDLE TUFTING MACHINE OPERATOR CPT-J1040 Depo Medrol 80 mg (Methyl Prednisolone Acetate) 08:57: 52 SINGLE NEEDLE TUFTING MACHINE OPERATOR
--- OUTSIDE RECORDS SUMMARY | 2018-12-04 15:25 | XMS REPORT | Clinical Summary ---
Author Author Admin, FLETCHER Organization [employer] 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 UPPER RESPIRATORY INFECTION, ACUTE 465.9 Resolved Esperanza Pool PA Acute upper respiratory infections of unspecified site EUSTACHIAN TUBE DYSFUNCTION, RIGHT 381.81 Resolved Espearnza Pool PA Dysfunction of Eustachian tube CHEST [...] against influenza Obesity 278.00 Active Isatu Coburn FINANCIAL PROJECT MANAGER Obesity, unspecified Hematuria 599.70 Resolved [...] TABS one tab PO x 1 FLUCONAZOLE 73075610298 No Longer Active Lulu Arreguin MD Active CIPRO 500 MG TAB 1 tablet by mouth twice daily CIPROFLOXACIN HCL 12058367183 No Longer Active Lulu Arreguin MD Active PYRIDIUM 200 MG TAB 1 po TID PRN Dysuria PHENAZOPYRIDINE HCL 13527003081 No Longer Active Isatu Coburn APRN Active BRITTANIE-28 0.15-30 MG-MCG TABS take one tab po daily LEVONORGESTREL-ETHINYL ESTRAD 01733523608 No Longer Active Petty Mcgrath Active ALPRAZOLAM 0.5 MG TABS one tab tid as needed ALPRAZOLAM 83760397080 Active Shannan Villarreal APRN Active PHENTERMINE HCL 37.5 MG TABS take one tab po daily PHENTERMINE HCL 03620720999 No Longer Active Isatu Coburn APRN Active DIETHYLPROPION HCL ER 75 MG [id number] take one tab po daily 09/04 DIETHYLPROPION HCL 40162649093 No Longer Active Esperanza Daniele PA Active FLEXERIL 10 MG TABS take one tab po tid prn CYCLOBENZAPRINE HCL 73586769029 No Longer Active Esperanza Pool PA Active TEMAZEPAM 15 MG CAPS 2 capsules every h.s TEMAZEPAM 92160570617 No Longer Active Esperanza Pool PA Active PRILOSEC OTC 20 MG TBEC take one tab po bid OMEPRAZOLE MAGNESIUM 72499937496 No Longer Active Esperanza Pool PA Active TRIAMTERENE-HCTZ 37.5-25 MG CAPS Take 1 tablet by mouth daily TRIAMTERENE-HCTZ 20732769452 No Longer Active Esperanza Pool PA Active AMOXICILLIN 875 MG TABS Take one (1) tablet by mouth twice a day AMOXICILLIN 96932714659 No Longer Active Esperanza Pool PA Active HYDROCODONE-ACETAMINOPHEN 5-325 MG TABS take 1 tab po q4-6 hrs prn HYDROCODONE-ACETAMINOPHEN 81837557707 No Longer Active Esperanza Pool PA Active PREDNISONE 20 MG TAB 1 twice daily for two days, the once daily for two days PREDNISONE 64799936342 No Longer Active Esperanza Pool PA Active TAMIFLU 75 MG CAPS take one tab po daily x 10 days OSELTAMIVIR PHOSPHATE 15837183978 No Longer Active Esperanza Pool PA Active FLAGYL 500 MG TABS take one tab po bid x 10 days METRONIDAZOLE 35549162723 No Longer Active Esperanza Pool PA Active CIPRO 500 MG TABS take one tab po bid x 10 days CIPROFLOXACIN HCL 57239694561 No Longer Active Esperanza Pool PA Active SUDAFED 12 HOUR 120 MG [id number] take 1 tab po bid prn PSEUDOEPHEDRINE HCL 46807643631 No Longer Active Esperanza Pool PA Active MEDROL (JESSICA) 4 MG TABS take as directed METHYLPREDNISOLONE 01463715683 No Longer Active Sammi Hernandes RN Active BRITTANIE-28 TABS one tab p.o. q.d LEVONORGESTREL- ETHINYL ESTRAD TABS 92676903706 No Longer Active Esperanza Pool PA Active ZITHROMAX 250 MG TABS take 2 tabs po day one then 1 tab po days 2-5 AZITHROMYCIN 12689844988 No Longer Active Esperanza Pool PA Active METRONIDAZOLE 500 MG TABS 1 tab po bid x 7 days METRONIDAZOLE 86527234150 No Longer Active Lock RN Active AMOXICILLIN 500 MG TABS Take one (1) tablet by mouth three times a day 03/08 AMOXICILLIN 15612458979 No Longer Active Lock RN Active CLINDAMYCIN HCL 300 MG CAPS take 1 cap po QID x 10 days CLINDAMYCIN HCL 69446774375 No Longer Active Lock RN Active CIPRO 500 MG TABS take 1 tab po bid x 10 days CIPROFLOXACIN HCL 86661019902 No Longer Active Lock RN Active BACTRIM DS 800-160 MG TABS 1 tab po bid x 10 days SULFAMETHOXAZOLE-TRIMETHOPRIM 62291571926 No Longer Active Esperanza Pool PA Active ZOLOFT 100 MG TABS take 1 tab po daily SERTRALINE HCL 29829961090 Active Shannan Yokum FINANCIAL PROJECT MANAGER Active ZOLOFT 100 MG TABS take 1/2 tab po daily SERTRALINE HCL 91729974759 No Longer Active Esperanza Pool PA Active BACTRIM DS 800-160 MG TABS 1 tab po bid x 10 days BACTRIM DS 800-160 MG TABS SULFAMETHOXAZOLE-TRIMETHOPRIM Inactive CIPRO 500 MG TABS take 1 tab po bid x 10 days CIPRO 500 MG TABS 143934 CIPROFLOXACIN HCL Inactive CLINDAMYCIN HCL 300 MG CAPS take 1 cap po QID x 10 days CLINDAMYCIN HCL 300 MG CAPS 608582 CLINDAMYCIN HCL Inactive AMOXICILLIN 500 MG TABS Take one (1) tablet by mouth three times a day 03/08 AMOXICILLIN 500 MG TABS 824350 AMOXICILLIN Inactive METRONIDAZOLE 500 MG TABS 1 tab po bid x 7 days METRONIDAZOLE 500 MG TABS 070073 METRONIDAZOLE Inactive ZITHROMAX 250 MG TABS take 2 tabs po day one then 1 tab po days 2-5 ZITHROMAX 250 MG TABS 3707966 AZITHROMYCIN Inactive BRITTANIE-28 TABS one tab p.o. q.d BRITTANIE-28 TABS LEVONORGESTREL-ETHINYL ESTRAD TABS Inactive MEDROL (JESSICA) 4 MG TABS take as directed MEDROL (JESSICA) 4 MG TABS METHYLPREDNISOLONE Inactive SUDAFED 12 HOUR 120 MG [id number] take 1 tab po bid prn SUDAFED 12 HOUR 120 MG [id number] PSEUDOEPHEDRINE HCL Inactive CIPRO 500 MG TABS take one tab po bid x 10 days CIPRO 500 MG TABS 103156 CIPROFLOXACIN HCL Inactive FLAGYL 500 MG TABS take one tab po bid x 10 days FLAGYL 500 MG TABS 303547 METRONIDAZOLE Inactive TAMIFLU 75 MG CAPS take one tab po daily x 10 days TAMIFLU 75 MG CAPS OSELTAMIVIR PHOSPHATE Inactive PREDNISONE 20 MG TAB 1 twice daily for two days, the once daily for two days PREDNISONE 20 MG TAB 512496 PREDNISONE Inactive HYDROCODONE-ACETAMINOPHEN 5-325 MG TABS take 1 tab po q4-6 hrs prn HYDROCODONE-ACETAMINOPHEN 5-325 MG TABS 858683 HYDROCODONE- ACETAMINOPHEN Inactive AMOXICILLIN 875 MG TABS Take one (1) tablet by mouth twice a day AMOXICILLIN 875 MG TABS 073906 AMOXICILLIN Inactive TRIAMTERENE-HCTZ 37.5-25 MG CAPS Take 1 tablet by mouth daily TRIAMTERENE-HCTZ 37.5-25 MG CAPS 237840 TRIAMTERENE-HCTZ Inactive PRILOSEC OTC 20 MG TBEC take one tab po bid PRILOSEC OTC 20 MG TBEC OMEPRAZOLE MAGNESIUM Inactive TEMAZEPAM 15 MG CAPS 2 capsules every h.s TEMAZEPAM 15 MG CAPS 156804 TEMAZEPAM Inactive FLEXERIL 10 MG TABS take one tab po tid prn FLEXERIL 10 MG TABS CYCLOBENZAPRINE HCL Inactive DIETHYLPROPION HCL ER 75 MG [id number] take one tab po daily 09/04 DIETHYLPROPION HCL ER 75 MG [id number] DIETHYLPROPION HCL Inactive PHENTERMINE HCL 37.5 MG TABS take one tab po daily PHENTERMINE HCL 37.5 MG TABS 548703 PHENTERMINE HCL Inactive BRITTANIE-28 0.15-30 MG-MCG TABS take one tab po daily BRITTANIE-28 0.15-30 MG-MCG TABS 236297 LEVONORGESTREL-ETHINYL ESTRAD Inactive CIPRO 500 MG TAB 1 tablet by mouth twice daily CIPRO 500 MG TAB 490757 CIPROFLOXACIN HCL Inactive ZOLOFT 100 MG TABS take 1/2 tab po daily ZOLOFT 100 MG TABS 420985 SERTRALINE HCL Inactive PYRIDIUM 200 MG TAB 1 po TID PRN Dysuria PYRIDIUM 200 MG TAB 5463374 PHENAZOPYRIDINE HCL Inactive DIFLUCAN 150 MG TABS one tab PO x 1 DIFLUCAN 150 MG TABS 906725 FLUCONAZOLE Inactive Immunizations Vaccine Administration Date Value Standard Description Seasonal influenza vaccine, injectable, containing preservative, for > 3 years old (Afluria, FluLaval, Fluzone, Fluvirin, Fluarix, Agriflu(>=18 yo)) Fluzone (>3 yrs.) [[id number]] Influenza, seasonal, injectable Vital Signs Date Name [...] Value Unit Range Description Lab Report: Chlamydia/GC APTIMA/[id number] - Lab chlamydia DNA probe NOT DETECTED NOT DETECTED Lab Report: Chlamydia/GC APTIMA/[id number] - Microbiology Neisseria gonorrhoeae DNA probe NOT [...] Negative Encounters Code Encounter Date Provider Facility CPT-00826 Level 3 Est. Patient 11:13:24 AIRLINE MANAGERIAL SUPERVISOR Isatu Coburn [facility] CPT-57714 Level 3 Est. Patient 11:56:59 AIRLINE MANAGERIAL SUPERVISOR Isatu Coburn [facility] CPT-87435 Level 3 Est. Patient 11:17:35 AIRLINE MANAGERIAL SUPERVISOR Isatu Coburn [facility] CPT-89872 Level 3 Est. Patient 11:02:41 CDT Esperanza Sanabria [facility] CPT-04037 Level 3 Est. Patient 14:35:51 CDT Kalin Carlos DO [facility] CPT-25309 Level 3 Est. Patient 15:48:05 CDT Esperanza Sanabria [facility] CPT-70559 Level 3 Est. Patient 10:40:32 CDT Gonzalez Pinto [facility] CPT-31550 Level 3 Est. Patient 16:15:36 CDT Esperanza Sanabria [facility] CPT-87382 Level 3 Est. Patient 08:25:45 AIRLINE MANAGERIAL SUPERVISOR Esperanza Pool [facility] CPT-41179 Level 3 Est. Patient 16:30:43 AIRLINE MANAGERIAL SUPERVISOR Esperanza Pool [facility] CPT-07925 Level 3 Est. Patient 09:15:02 AIRLINE MANAGERIAL SUPERVISOR Esperanza [facility] CPT-00807 Level 3 Est. Patient 15:29:15 CDT Esperanza [facility] CPT-19273 Level 3 Est. Patient 12:48:23 CDT Esperanza [facility] CPT-44975 Level 3 Est. Patient 14:10:29 CDT Esperanza [facility] CPT-47311 Level 3 Est. Patient 10:08:36 CDT Esperanza [facility] CPT-04825 Level 3 Est. Patient 08:21:51 CDT Gonzalez Pinto [facility] CPT-54587 Level 3 Est. Patient 15:57:32 AIRLINE MANAGERIAL SUPERVISOR Esperanza [facility] CPT-51216 Level 3 Est. Patient 09:40:30 AIRLINE MANAGERIAL SUPERVISOR Esperanza [facility] CPT-04201 Level 3 Est. Patient 08:57:52 AIRLINE MANAGERIAL SUPERVISOR Esperanza [facility] CPT-27342 Level 3 Est. Patient 14:31:11 CDT Esperanza [facility] CPT-89147 Level 3 Est. Patient 09:44:45 CDT Esperanza [facility] Procedures Code Procedure Name Date Entry Date Standard Description CPT-OV Office Visit 10:39:58 AIRLINE MANAGERIAL SUPERVISOR CPT-OV Office Visit 10:06:26 CDT CPT-OV Office Visit 14:03:44 CDT CPT-98080 Sono retroperitoneal complete kidneys and bladder 12:58: 45 AIRLINE MANAGERIAL SUPERVISOR CPT-J1020 Depo Medrol 20 mg (Methyl Prednisolone Acetate) 15:48: 05 CDT CPT-J1020 Depo Medrol 100 mg (Methyl Prednisolone Acetate) 15:48: 05 CDT CPT-30853 Abx/Therapy Injection 15:48:05 CDT CPT-OV Office Visit 14:58:44 AIRLINE MANAGERIAL SUPERVISOR CPT-67018 Sono transvag pelvis non OB uterus ovaries cervix 16:31: 03 AIRLINE MANAGERIAL SUPERVISOR CPT-83151 Venipuncture Draw Fee 09:15:02 AIRLINE MANAGERIAL SUPERVISOR CPT-42921 Venipuncture Draw Fee 15:29:15 CDT CPT-38359 Abx/Therapy Injection 14:10:29 CDT CPT-J1030 Depo Medrol 40 mg (Methyl Prednisolone Acetate) 14:10: 29 CDT CPT-J1040 Depo Medrol 80 mg (Methyl Prednisolone Acetate) 14:10: 29 CDT CPT-14778 Spec Collection and Handling Fee 08:44:23 AIRLINE MANAGERIAL SUPERVISOR CPT-63438 Prv Med Est Pt 18-39yrs 08:44:23 AIRLINE MANAGERIAL SUPERVISOR CPT-41463 Abx/Therapy Injection 08:57:52 AIRLINE MANAGERIAL SUPERVISOR CPT-J1030 Depo Medrol 40 mg (Methyl Prednisolone Acetate) 08:57: 52 AIRLINE MANAGERIAL SUPERVISOR CPT-J1040 Depo Medrol 80 mg (Methyl Prednisolone Acetate) 08:57: 52 AIRLINE MANAGERIAL SUPERVISOR
--- OUTSIDE RECORDS SUMMARY | 2018-12-04 15:26 | XMS REPORT ---
Author Author [facility] Medical Staff Organization [facility] Address [address] [id number] Phone [phone] Care Team Providers Care Ssis Etl Developer Name Role Phone MARCEL LORENZANA APRN PP [phone] Summary purpose TRANSITION OF CARE AUTO GENERATION [...]
--- OUTSIDE RECORDS SUMMARY | 2018-12-04 15:26 | XMS REPORT | Clinical Summary ---
Author Author Admin, [facility] Organization 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 UPPER RESPIRATORY INFECTION, [...] 1 po TID PRN Dysuria PHENAZOPYRIDINE HCL 25195235300 No Longer Active Isatu Coburn APRN Active CIPRO 500 MG TAB 1 tablet by mouth twice daily CIPROFLOXACIN HCL 07516396018 Active Isatu Coburn APRN Active BRITTANIE-28 0.15-30 MG-MCG TABS take one tab po daily LEVONORGESTREL-ETHINYL ESTRAD 01844779670 No Longer Active Petty Mcgrath Active ALPRAZOLAM 0.5 MG TABS one tab tid as needed ALPRAZOLAM 53448722821 Active Luke Ballard MD Active PHENTERMINE HCL 37.5 MG TABS take one tab po daily PHENTERMINE HCL 97569706106 No Longer Active Isatu Coburn APRN Active DIETHYLPROPION HCL ER 75 MG [id number] take one tab po daily 09/04 DIETHYLPROPION HCL 68532242657 No Longer Active Esperanza Sanabria PA Active FLEXERIL 10 MG TABS take one tab po tid prn CYCLOBENZAPRINE HCL 98278381463 No Longer Active Esperanza Pool PA Active TEMAZEPAM 15 MG CAPS 2 capsules every h.s TEMAZEPAM 90934749494 No Longer Active Esperanza Pool PA Active PRILOSEC OTC 20 MG TBEC take one tab po bid OMEPRAZOLE MAGNESIUM 29611315667 No Longer Active Esperanza Pool PA Active TRIAMTERENE-HCTZ 37.5-25 MG CAPS Take 1 tablet by mouth daily TRIAMTERENE-HCTZ 36306732041 No Longer Active Esperanza Pool PA Active AMOXICILLIN 875 MG TABS Take one (1) tablet by mouth twice a day AMOXICILLIN 97206208237 No Longer Active Esperanza Pool PA Active HYDROCODONE-ACETAMINOPHEN 5-325 MG TABS take 1 tab po q4-6 hrs prn HYDROCODONE-ACETAMINOPHEN 70825921241 No Longer Active Esperanza Pool PA Active PREDNISONE 20 MG TAB 1 twice daily for two days, the once daily for two days PREDNISONE 27389349656 No Longer Active Esperanza Pool PA Active TAMIFLU 75 MG CAPS take one tab po daily x 10 days OSELTAMIVIR PHOSPHATE 06780897856 No Longer Active Esperanza Pool PA Active FLAGYL 500 MG TABS take one tab po bid x 10 days METRONIDAZOLE 69922262251 No Longer Active Esperanza Pool PA Active CIPRO 500 MG TABS take one tab po bid x 10 days CIPROFLOXACIN HCL 79082525400 No Longer Active Esperanza Pool PA Active SUDAFED 12 HOUR 120 MG [id number] take 1 tab po bid prn PSEUDOEPHEDRINE HCL 32326626267 No Longer Active Esperanza Pool PA Active MEDROL (JESSICA) 4 MG TABS take as directed METHYLPREDNISOLONE 54935059961 No Longer Active Sammi Cecilio RN Active BRITTANIE-28 TABS one tab p.o. q.d LEVONORGESTREL- ETHINYL ESTRAD TABS 78417274305 No Longer Active Esperanza Pool PA Active ZITHROMAX 250 MG TABS take 2 tabs po day one then 1 tab po days 2-5 AZITHROMYCIN 20709959554 No Longer Active Esperanza Pool PA Active METRONIDAZOLE 500 MG TABS 1 tab po bid x 7 days METRONIDAZOLE 42516510114 No Longer Active Lock RN Active AMOXICILLIN 500 MG TABS Take one (1) tablet by mouth three times a day 03/08 AMOXICILLIN 92907062800 No Longer Active Lock RN Active CLINDAMYCIN HCL 300 MG CAPS take 1 cap po QID x 10 days CLINDAMYCIN HCL 97224324848 No Longer Active Lock RN Active CIPRO 500 MG TABS take 1 tab po bid x 10 days CIPROFLOXACIN HCL 53995678918 No Longer Active Lock RN Active BACTRIM DS 800-160 MG TABS 1 tab po bid x 10 days SULFAMETHOXAZOLE-TRIMETHOPRIM 15486836565 No Longer Active Esperanza Pool PA Active ZOLOFT 100 MG TABS take 1 tab po daily SERTRALINE HCL 63428099059 Active Luke Ballard MD Active ZOLOFT 100 MG TABS take 1/2 tab po daily SERTRALINE HCL 10121330186 No Longer Active Esperanza MEJIA Active BACTRIM DS 800-160 MG TABS 1 tab po bid x 10 days BACTRIM DS 800-160 MG TABS SULFAMETHOXAZOLE-TRIMETHOPRIM Inactive CIPRO 500 MG TABS take 1 tab po bid x 10 days CIPRO 500 MG TABS 229354 CIPROFLOXACIN HCL Inactive CLINDAMYCIN HCL 300 MG CAPS take 1 cap po QID x 10 days CLINDAMYCIN HCL 300 MG CAPS 835980 CLINDAMYCIN HCL Inactive AMOXICILLIN 500 MG TABS Take one (1) tablet by mouth three times a day 03/08 AMOXICILLIN 500 MG TABS 466741 AMOXICILLIN Inactive METRONIDAZOLE 500 MG TABS 1 tab po bid x 7 days METRONIDAZOLE 500 MG TABS 311842 METRONIDAZOLE Inactive ZITHROMAX 250 MG TABS take 2 tabs po day one then 1 tab po days 2-5 ZITHROMAX 250 MG TABS 3765671 AZITHROMYCIN Inactive BRITTANIE-28 TABS one tab p.o. q.d BRITTANIE-28 TABS LEVONORGESTREL-ETHINYL ESTRAD TABS Inactive MEDROL (JESSICA) 4 MG TABS take as directed MEDROL (JESSICA) 4 MG TABS METHYLPREDNISOLONE Inactive SUDAFED 12 HOUR 120 MG [id number] take 1 tab po bid prn SUDAFED 12 HOUR 120 MG [id number] PSEUDOEPHEDRINE HCL Inactive CIPRO 500 MG TABS take one tab po bid x 10 days CIPRO 500 MG TABS 502425 CIPROFLOXACIN HCL Inactive FLAGYL 500 MG TABS take one tab po bid x 10 days FLAGYL 500 MG TABS 507912 METRONIDAZOLE Inactive TAMIFLU 75 MG CAPS take one tab po daily x 10 days TAMIFLU 75 MG CAPS OSELTAMIVIR PHOSPHATE Inactive PREDNISONE 20 MG TAB 1 twice daily for two days, the once daily for two days PREDNISONE 20 MG TAB 664798 PREDNISONE Inactive HYDROCODONE-ACETAMINOPHEN 5-325 MG TABS take 1 tab po q4-6 hrs prn HYDROCODONE-ACETAMINOPHEN 5-325 MG TABS 495318 HYDROCODONE- ACETAMINOPHEN Inactive AMOXICILLIN 875 MG TABS Take one (1) tablet by mouth twice a day AMOXICILLIN 875 MG TABS 188888 AMOXICILLIN Inactive TRIAMTERENE-HCTZ 37.5-25 MG CAPS Take 1 tablet by mouth daily TRIAMTERENE-HCTZ 37.5-25 MG CAPS 355693 TRIAMTERENE-HCTZ Inactive PRILOSEC OTC 20 MG TBEC take one tab po bid PRILOSEC OTC 20 MG TBEC OMEPRAZOLE MAGNESIUM Inactive TEMAZEPAM 15 MG CAPS 2 capsules every h.s TEMAZEPAM 15 MG CAPS 004097 TEMAZEPAM Inactive FLEXERIL 10 MG TABS take one tab po tid prn FLEXERIL 10 MG TABS CYCLOBENZAPRINE HCL Inactive DIETHYLPROPION HCL ER 75 MG [id number] take one tab po daily 09/04 DIETHYLPROPION HCL ER 75 MG [id number] DIETHYLPROPION HCL Inactive PHENTERMINE HCL 37.5 MG TABS take one tab po daily PHENTERMINE HCL 37.5 MG TABS 876500 PHENTERMINE HCL Inactive BRITTANIE-28 0.15-30 MG-MCG TABS take one tab po daily BRITTANIE-28 0.15-30 MG-MCG TABS 482396 LEVONORGESTREL-ETHINYL ESTRAD Inactive ZOLOFT 100 MG TABS take 1/2 tab po daily ZOLOFT 100 MG TABS 971900 SERTRALINE HCL Inactive PYRIDIUM 200 MG TAB 1 po TID PRN Dysuria PYRIDIUM 200 MG TAB 0883489 PHENAZOPYRIDINE HCL Inactive Immunizations Vaccine Administration Date Value Standard Description Seasonal influenza vaccine, injectable, containing preservative, for > 3 years old (Afluria, FluLaval, Fluzone, Fluvirin, Fluarix, Agriflu(>=18 yo)) Fluzone (>3 yrs.) [[id number]] Influenza, seasonal, injectable Vital Signs Date Name [...] Measured blood pressure, diastolic 85 mm[Hg] BP tinoe blood pressure, systolic 142 mm[Hg] BP sys [...] 1.76 m[iU]/mL 0.36-3.74 sodium, serum 139 mmol/L 831-123 3442/11/20 potassium, serum 4.0 mmol/L 3.5-5.2 chloride, serum [...] CPK - Chemistry sodium, serum 140 mmol/L 493-019 4706/12/06 potassium, serum 3.8 mmol/L 3.5-5.2 chloride, serum [...] 5.0-8.5 Encounters Code Encounter Date Provider Facility CPT-84716 Level 3 Est. Patient 11:13:24 PIPE JEEPER Isatu Coburn [facility] CPT-82582 Level 3 Est. Patient 11:56:59 PIPE JEEPER Isatu Coburn [facility] CPT-87949 Level 3 Est. Patient 11:17:35 PIPE JEEPER Isatu Coburn [facility] CPT-98431 Level 3 Est. Patient 11:02:41 CDT Esperanza [facility] CPT-50024 Level 3 Est. Patient 14:35:51 CDT Kalin Carlos DO [facility] CPT-83964 Level 3 Est. Patient 15:48:05 CDT Esperanza [facility] CPT-95506 Level 3 Est. Patient 10:40:32 CDT Gonzalez Pinto [facility] CPT-27698 Level 3 Est. Patient 16:15:36 CDT Esperanza Pool [facility] CPT-90662 Level 3 Est. Patient 08:25:45 PIPE JEEPER Esperanza Pool [facility] CPT-89839 Level 3 Est. Patient 16:30:43 PIPE JEEPER Esperanza Pool [facility] CPT-90612 Level 3 Est. Patient 09:15:02 PIPE JEEPER Esperanza Pool [facility] CPT-54257 Level 3 Est. Patient 15:29:15 CDT Esperanza Pool [facility] CPT-78239 Level 3 Est. Patient 12:48:23 CDT Esperanza Pool [facility] CPT-43236 Level 3 Est. Patient 14:10:29 CDT Esperanza [facility] CPT-46251 Level 3 Est. Patient 10:08:36 CDT Esperanza [facility] CPT-48312 Level 3 Est. Patient 08:21:51 CDT Gonzalez Pinto [facility] CPT-28507 Level 3 Est. Patient 15:57:32 PIPE JEEPER Esperanza Pool [facility] CPT-84930 Level 3 Est. Patient 09:40:30 PIPE JEEPER Esperanza Pool [facility] CPT-97196 Level 3 Est. Patient 08:57:52 PIPE JEEPER Esperanza MEJIA [facility] CPT-54325 Level 3 Est. Patient 14:31:11 CDT Esperanza [facility] CPT-35137 Level 3 Est. Patient 09:44:45 CDT Esperanza Sanabria [facility] Procedures Code Procedure Name Date Entry Date Standard Description CPT-OV Office Visit 14:03:44 CDT CPT-26417 Sono retroperitoneal complete kidneys and bladder 12:58: 45 PIPE JEEPER CPT-J1020 Depo Medrol 20 mg (Methyl Prednisolone Acetate) 15:48: 05 CDT CPT-J1020 Depo Medrol 100 mg (Methyl Prednisolone Acetate) 15:48: 05 CDT CPT-13643 Abx/Therapy Injection 15:48:05 CDT CPT-OV Office Visit 14:58:44 PIPE JEEPER CPT-83377 Sono transvag pelvis non OB uterus ovaries cervix 16:31: 03 PIPE JEEPER CPT-07966 Venipuncture Draw Fee 09:15:02 PIPE JEEPER CPT-99022 Venipuncture Draw Fee 15:29:15 CDT CPT-60003 Abx/Therapy Injection 14:10:29 CDT CPT-J1030 Depo Medrol 40 mg (Methyl Prednisolone Acetate) 14:10: 29 CDT CPT-J1040 Depo Medrol 80 mg (Methyl Prednisolone Acetate) 14:10: 29 CDT CPT-74420 Spec Collection and Handling Fee 08:44:23 PIPE JEEPER CPT-66350 Prv Med Est Pt 18-39yrs 08:44:23 PIPE JEEPER CPT-02418 Abx/Therapy Injection 08:57:52 PIPE JEEPER CPT-J1030 Depo Medrol 40 mg (Methyl Prednisolone Acetate) 08:57: 52 PIPE JEEPER CPT-J1040 Depo Medrol 80 mg (Methyl Prednisolone Acetate) 08:57: 52 PIPE JEEPER
--- OUTSIDE RECORDS SUMMARY | 2018-12-04 15:27 | XMS REPORT | Clinical Summary ---
Author Author Admin, 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 UPPER RESPIRATORY INFECTION, [...] 06/09 KNEE PAIN, RIGHT, ACUTE ICD-719.46 Inactive Epseranza Pool PA BENIGN PAROXYSMAL POSITIONAL VERTIGO ICD-386.11 Inactive Esperanza Pool PA Hematuria ICD-599.70 Inactive Lulu Arreguin MD 2013 UTI ICD-599.0 Inactive Lulu Arreguin MD Medication List Medication Instructions Start Date Stop Date Generic Name NDC Status Provider Patient Instruction DIFLUCAN 150 MG TABS one tab PO x 1 FLUCONAZOLE [id number] No Longer Active Lulu Arreguin MD Active CIPRO 500 MG TAB 1 tablet by mouth twice daily CIPROFLOXACIN HCL 85857611659 No Longer Active Lulu Arreguin MD Active PYRIDIUM 200 MG TAB 1 po TID PRN Dysuria PHENAZOPYRIDINE HCL 22750787786 No Longer Active Isatu Coburn APRN Active BRITTANIE-28 0.15-30 MG-MCG TABS take one tab po daily LEVONORGESTREL-ETHINYL ESTRAD 90374066084 No Longer Active Petty Gordilloson Active ALPRAZOLAM 0.5 MG TABS one tab tid as needed ALPRAZOLAM 64181677831 Active Luke Ballard MD Active PHENTERMINE HCL 37.5 MG TABS take one tab po daily PHENTERMINE HCL 35672467139 No Longer Active Isatu Coburn APRN Active DIETHYLPROPION HCL ER 75 MG [id number] take one tab po daily 09/04 DIETHYLPROPION HCL 03835281181 No Longer Active Esperanza Sanabria PA Active FLEXERIL 10 MG TABS take one tab po tid prn CYCLOBENZAPRINE HCL 70385021902 No Longer Active Esperanza Sanabria PA Active TEMAZEPAM 15 MG CAPS 2 capsules every h.s TEMAZEPAM 85175544264 No Longer Active Esperanza Sanabria PA Active PRILOSEC OTC 20 MG TBEC take one tab po bid OMEPRAZOLE MAGNESIUM 64499291494 No Longer Active Esperanza Pool PA Active TRIAMTERENE-HCTZ 37.5-25 MG CAPS Take 1 tablet by mouth daily TRIAMTERENE-HCTZ 10169644616 No Longer Active Esperanza Pool PA Active AMOXICILLIN 875 MG TABS Take one (1) tablet by mouth twice a day AMOXICILLIN 97929401550 No Longer Active Esperanza Pool PA Active HYDROCODONE-ACETAMINOPHEN 5-325 MG TABS take 1 tab po q4-6 hrs prn HYDROCODONE-ACETAMINOPHEN 96336957999 No Longer Active Esperanza Pool PA Active PREDNISONE 20 MG TAB 1 twice daily for two days, the once daily for two days PREDNISONE 08402355812 No Longer Active Esperanza Pool PA Active TAMIFLU 75 MG CAPS take one tab po daily x 10 days OSELTAMIVIR PHOSPHATE 84665366325 No Longer Active Esperanza Pool PA Active FLAGYL 500 MG TABS take one tab po bid x 10 days METRONIDAZOLE 28849718498 No Longer Active Esperanza Pool PA Active CIPRO 500 MG TABS take one tab po bid x 10 days CIPROFLOXACIN HCL 31342709172 No Longer Active Esperanza Pool PA Active SUDAFED 12 HOUR 120 MG [id number] take 1 tab po bid prn PSEUDOEPHEDRINE HCL 10665863996 No Longer Active Esperanza Pool PA Active MEDROL (JESSICA) 4 MG TABS take as directed METHYLPREDNISOLONE 36268658102 No Longer Active Sammi Hernandes RN Active BRITTANIE-28 TABS one tab p.o. q.d LEVONORGESTREL- ETHINYL ESTRAD TABS 35150475006 No Longer Active Esperanza Pool PA Active ZITHROMAX 250 MG TABS take 2 tabs po day one then 1 tab po days 2-5 AZITHROMYCIN 33230121247 No Longer Active Esperanza Pool PA Active METRONIDAZOLE 500 MG TABS 1 tab po bid x 7 days METRONIDAZOLE 17689137626 No Longer Active Patricia Dockery RN Active AMOXICILLIN 500 MG TABS Take one (1) tablet by mouth three times a day 03/08 AMOXICILLIN 16468945919 No Longer Active Lock RN Active CLINDAMYCIN HCL 300 MG CAPS take 1 cap po QID x 10 days CLINDAMYCIN HCL 02749502218 No Longer Active Lock RN Active CIPRO 500 MG TABS take 1 tab po bid x 10 days CIPROFLOXACIN HCL 55803777022 No Longer Active Lock RN Active BACTRIM DS 800-160 MG TABS 1 tab po bid x 10 days SULFAMETHOXAZOLE-TRIMETHOPRIM 99688423702 No Longer Active Esperanza Pool PA Active ZOLOFT 100 MG TABS take 1 tab po daily SERTRALINE HCL 53237748588 Active Luke Ballard MD Active ZOLOFT 100 MG TABS take 1/2 tab po daily SERTRALINE HCL 37142949031 No Longer Active Esperanza Pool PA Active BACTRIM DS 800-160 MG TABS 1 tab po bid x 10 days BACTRIM DS 800-160 MG TABS SULFAMETHOXAZOLE-TRIMETHOPRIM Inactive CIPRO 500 MG TABS take 1 tab po bid x 10 days CIPRO 500 MG TABS 213898 CIPROFLOXACIN HCL Inactive CLINDAMYCIN HCL 300 MG CAPS take 1 cap po QID x 10 days CLINDAMYCIN HCL 300 MG CAPS 094186 CLINDAMYCIN HCL Inactive AMOXICILLIN 500 MG TABS Take one (1) tablet by mouth three times a day 03/08 AMOXICILLIN 500 MG TABS 184947 AMOXICILLIN Inactive METRONIDAZOLE 500 MG TABS 1 tab po bid x 7 days METRONIDAZOLE 500 MG TABS 611464 METRONIDAZOLE Inactive ZITHROMAX 250 MG TABS take 2 tabs po day one then 1 tab po days 2-5 ZITHROMAX 250 MG TABS 6022592 AZITHROMYCIN Inactive BRITTANIE-28 TABS one tab p.o. q.d BRITTANIE-28 TABS LEVONORGESTREL-ETHINYL ESTRAD TABS Inactive MEDROL (JESSICA) 4 MG TABS take as directed MEDROL (JESSICA) 4 MG TABS METHYLPREDNISOLONE Inactive SUDAFED 12 HOUR 120 MG [id number] take 1 tab po bid prn SUDAFED 12 HOUR 120 MG [id number] PSEUDOEPHEDRINE HCL Inactive CIPRO 500 MG TABS take one tab po bid x 10 days CIPRO 500 MG TABS 867135 CIPROFLOXACIN HCL Inactive FLAGYL 500 MG TABS take one tab po bid x 10 days FLAGYL 500 MG TABS 212266 METRONIDAZOLE Inactive TAMIFLU 75 MG CAPS take one tab po daily x 10 days TAMIFLU 75 MG CAPS OSELTAMIVIR PHOSPHATE Inactive PREDNISONE 20 MG TAB 1 twice daily for two days, the once daily for two days PREDNISONE 20 MG TAB 989500 PREDNISONE Inactive HYDROCODONE-ACETAMINOPHEN 5-325 MG TABS take 1 tab po q4-6 hrs prn HYDROCODONE-ACETAMINOPHEN 5-325 MG TABS 519720 HYDROCODONE- ACETAMINOPHEN Inactive AMOXICILLIN 875 MG TABS Take one (1) tablet by mouth twice a day AMOXICILLIN 875 MG TABS 535781 AMOXICILLIN Inactive TRIAMTERENE-HCTZ 37.5-25 MG CAPS Take 1 tablet by mouth daily TRIAMTERENE-HCTZ 37.5-25 MG CAPS 162378 TRIAMTERENE-HCTZ Inactive PRILOSEC OTC 20 MG TBEC take one tab po bid PRILOSEC OTC 20 MG TBEC OMEPRAZOLE MAGNESIUM Inactive TEMAZEPAM 15 MG CAPS 2 capsules every h.s TEMAZEPAM 15 MG CAPS 866784 TEMAZEPAM Inactive FLEXERIL 10 MG TABS take one tab po tid prn FLEXERIL 10 MG TABS CYCLOBENZAPRINE HCL Inactive DIETHYLPROPION HCL ER 75 MG [id number] take one tab po daily 09/04 DIETHYLPROPION HCL ER 75 MG [id number] DIETHYLPROPION HCL Inactive PHENTERMINE HCL 37.5 MG TABS take one tab po daily PHENTERMINE HCL 37.5 MG TABS 218967 PHENTERMINE HCL Inactive BRITTANIE-28 0.15-30 MG-MCG TABS take one tab po daily BRITTANIE-28 0.15-30 MG-MCG TABS 933718 LEVONORGESTREL-ETHINYL ESTRAD Inactive CIPRO 500 MG TAB 1 tablet by mouth twice daily CIPRO 500 MG TAB 657344 CIPROFLOXACIN HCL Inactive ZOLOFT 100 MG TABS take 1/2 tab po daily ZOLOFT 100 MG TABS 969798 SERTRALINE HCL Inactive PYRIDIUM 200 MG TAB 1 po TID PRN Dysuria PYRIDIUM 200 MG TAB 8042474 PHENAZOPYRIDINE HCL Inactive DIFLUCAN 150 MG TABS one tab PO x 1 DIFLUCAN 150 MG TABS 001199 FLUCONAZOLE Inactive Immunizations Vaccine Administration Date Value Standard Description Seasonal influenza vaccine, injectable, containing preservative, for > 3 years old (Afluria, FluLaval, Fluzone, Fluvirin, Fluarix, Agriflu(>=18 yo)) Fluzone (>3 yrs.) [[id number]] Influenza, seasonal, injectable Vital Signs Date Name [...] Value Unit Range Description Lab Report: Chlamydia/GC APTIMA/97720 - Lab chlamydia DNA probe NOT DETECTED NOT DETECTED Lab Report: Chlamydia/GC APTIMA/42027 - Microbiology Neisseria gonorrhoeae DNA probe NOT DETECTED NOT DETECTED Lab Report: UADIP W/MICRO, AUTO - Chemistry protein, total urine random Negative mg/dL Negative RBC, urine, dipstick Trace Negative protein, [...] 1.025 1.000-1.030 pH, urine, semiquantitative 5.5 5.0-8.5 pH, urine, semiquantitative 6.0 5.0-8.5 specific gravity, urine 1.025 1.000-1.030 appearance, urine Clear Clear urine color Yellow Colorless;Lightyellow;Straw;Yellow glucose, urine, semiquantitative Negative Negative ketones, urine, by test strip Negative Negative bilirubin, urine Negative Negative Encounters Code Encounter Date Provider Facility CPT-65296 Level 3 Est. Patient 11:13:24 HOUSE PAINTER HELPER Isatu Coburn [facility] CPT-12441 Level 3 Est. Patient 11:56:59 HOUSE PAINTER HELPER Isatu Coburn [facility] CPT-14713 Level 3 Est. Patient 11:17:35 HOUSE PAINTER HELPER Isatu Coburn [facility] CPT-55106 Level 3 Est. Patient 11:02:41 CDT Esperanza Sanabria [facility] CPT-27117 Level 3 Est. Patient 14:35:51 CDT Kalin Carlos DO [facility] CPT-76556 Level 3 Est. Patient 15:48:05 CDT Esperanza Sanabria [facility] CPT-77975 Level 3 Est. Patient 10:40:32 CDT Gonzalez Pinto [facility] CPT-67511 Level 3 Est. Patient 16:15:36 CDT Esperanza Sanabria [facility] CPT-72756 Level 3 Est. Patient 08:25:45 HOUSE PAINTER HELPER Esperanza Sanabria [facility] CPT-43550 Level 3 Est. Patient 16:30:43 [facility] Level 3 Est. Patient 09:15:02 [facility] Level 3 Est. Patient 15:29:15 CDT [facility] CPT-07816 Level 3 Est. Patient 12:48:23 CDT [facility] CPT-55668 Level 3 Est. Patient 14:10:29 CDT [facility] CPT-96241 Level 3 Est. Patient 10:08:36 CDT [facility] CPT-83472 Level 3 Est. Patient 08:21:51 CDT Gonzalez Pinto [facility] CPT-62506 Level 3 Est. Patient 15:57:32 HOUSE PAINTER HELPER [facility]-02205 Level 3 Est. Patient 09:40:30 HOUSE PAINTER HELPER [facility] CPT-60444 Level 3 Est. Patient 08:57:52 HOUSE PAINTER HELPER [facility] CPT-46767 Level 3 Est. Patient 14:31:11 CDT [facility] CPT-46521 Level 3 Est. Patient 09:44:45 CDT [facility] Procedures Code Procedure Name Date Entry Date Standard Description CPT-OV Office Visit 10:06:26 CDT CPT-OV Office Visit 14:03:44 CDT CPT-04892 Sono retroperitoneal complete kidneys and bladder 12:58: 45 HOUSE PAINTER HELPER CPT-J1020 Depo Medrol 20 mg (Methyl Prednisolone Acetate) 15:48: 05 CDT CPT-J1020 Depo Medrol 100 mg (Methyl Prednisolone Acetate) 15:48: 05 CDT CPT-78350 Abx/Therapy Injection 15:48:05 CDT CPT-OV Office Visit 14:58:44 HOUSE PAINTER HELPER CPT-84030 Sono transvag pelvis non OB uterus ovaries cervix 16:31: 03 HOUSE PAINTER HELPER CPT-88489 Venipuncture Draw Fee 09:15:02 HOUSE PAINTER HELPER CPT-86461 Venipuncture Draw Fee 15:29:15 CDT CPT-36592 Abx/Therapy Injection 14:10:29 CDT CPT-J1030 Depo Medrol 40 mg (Methyl Prednisolone Acetate) 14:10: 29 CDT CPT-J1040 Depo Medrol 80 mg (Methyl Prednisolone Acetate) 14:10: 29 CDT CPT-20749 Spec Collection and Handling Fee 08:44:23 HOUSE PAINTER HELPER CPT-65784 Prv Med Est Pt 18-39yrs 08:44:23 HOUSE PAINTER HELPER CPT-88078 Abx/Therapy Injection 08:57:52 HOUSE PAINTER HELPER CPT-J1030 Depo Medrol 40 mg (Methyl Prednisolone Acetate) 08:57: 52 HOUSE PAINTER HELPER CPT-J1040 Depo Medrol 80 mg (Methyl Prednisolone Acetate) 08:57: 52 HOUSE PAINTER HELPER
--- OUTSIDE RECORDS SUMMARY | 2018-12-04 15:28 | XMS REPORT | Clinical Summary ---
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 UPPER RESPIRATORY [...] 1 po TID PRN Dysuria PHENAZOPYRIDINE HCL 24070016189 No Longer Active Isatu Cbourn SMALL BUSINESS SALES REPRESENTATIVE Active CIPRO 500 MG TAB 1 tablet by mouth twice daily CIPROFLOXACIN HCL 30534202152 Active Isatu Coburn APRN Active BRITTANIE-28 0.15-30 MG-MCG TABS take one tab po daily LEVONORGESTREL-ETHINYL ESTRAD 02420122855 No Longer Active Petty Ramila Active ALPRAZOLAM 0.5 MG TABS one tab tid as needed ALPRAZOLAM 13275874460 Active Luke Ballard MD Active PHENTERMINE HCL 37.5 MG TABS take one tab po daily PHENTERMINE HCL 15190958943 No Longer Active Isatu Coburn APRN Active DIETHYLPROPION HCL ER 75 MG [id number] take one tab po daily 09/04 DIETHYLPROPION HCL 25663610171 No Longer Active Esperanza Sanabria PA Active FLEXERIL 10 MG TABS take one tab po tid prn CYCLOBENZAPRINE HCL 75351412351 No Longer Active Esperanza Pool PA Active TEMAZEPAM 15 MG CAPS 2 capsules every h.s TEMAZEPAM 48545037898 No Longer Active Esperanza Pool PA Active PRILOSEC OTC 20 MG TBEC take one tab po bid OMEPRAZOLE MAGNESIUM 50750690908 No Longer Active Esperanza Pool PA Active TRIAMTERENE-HCTZ 37.5-25 MG CAPS Take 1 tablet by mouth daily TRIAMTERENE-HCTZ 28883277430 No Longer Active Esperanza Pool PA Active AMOXICILLIN 875 MG TABS Take one (1) tablet by mouth twice a day AMOXICILLIN 71682452814 No Longer Active Esperanza Pool PA Active HYDROCODONE-ACETAMINOPHEN 5-325 MG TABS take 1 tab po q4-6 hrs prn HYDROCODONE-ACETAMINOPHEN 11484691254 No Longer Active Esperanza Pool PA Active PREDNISONE 20 MG TAB 1 twice daily for two days, the once daily for two days PREDNISONE 27898634258 No Longer Active Esperanza Pool PA Active TAMIFLU 75 MG CAPS take one tab po daily x 10 days OSELTAMIVIR PHOSPHATE 89905315103 No Longer Active Esperanza Pool PA Active FLAGYL 500 MG TABS take one tab po bid x 10 days METRONIDAZOLE 80388091061 No Longer Active Esperanza Pool PA Active CIPRO 500 MG TABS take one tab po bid x 10 days CIPROFLOXACIN HCL 51582236022 No Longer Active Esperanza Pool PA Active SUDAFED 12 HOUR 120 MG [id number] take 1 tab po bid prn PSEUDOEPHEDRINE HCL 20570171916 No Longer Active Esperanza Pool PA Active MEDROL (JESSICA) 4 MG TABS take as directed METHYLPREDNISOLONE 36295585300 No Longer Active Sammi Hernandes RN Active BRITTANIE-28 TABS one tab p.o. q.d LEVONORGESTREL- ETHINYL ESTRAD TABS 51439931474 No Longer Active Esperanza Pool PA Active ZITHROMAX 250 MG TABS take 2 tabs po day one then 1 tab po days 2-5 AZITHROMYCIN 17510329146 No Longer Active Esperanza Pool PA Active METRONIDAZOLE 500 MG TABS 1 tab po bid x 7 days METRONIDAZOLE 70174867570 No Longer Active Lock RN Active AMOXICILLIN 500 MG TABS Take one (1) tablet by mouth three times a day 03/08 AMOXICILLIN 51859311680 No Longer Active Lock RN Active CLINDAMYCIN HCL 300 MG CAPS take 1 cap po QID x 10 days CLINDAMYCIN HCL 64101121981 No Longer Active Lock RN Active CIPRO 500 MG TABS take 1 tab po bid x 10 days CIPROFLOXACIN HCL 10216495927 No Longer Active Lock RN Active BACTRIM DS 800-160 MG TABS 1 tab po bid x 10 days SULFAMETHOXAZOLE-TRIMETHOPRIM 56141362227 No Longer Active Esperanza Pool PA Active ZOLOFT 100 MG TABS take 1 tab po daily SERTRALINE HCL 76194923394 Active Luke Ballard MD Active ZOLOFT 100 MG TABS take 1/2 tab po daily SERTRALINE HCL 15726738282 No Longer Active Esperanza MEJIA Active BACTRIM DS 800-160 MG TABS 1 tab po bid x 10 days BACTRIM DS 800-160 MG TABS SULFAMETHOXAZOLE-TRIMETHOPRIM Inactive CIPRO 500 MG TABS take 1 tab po bid x 10 days CIPRO 500 MG TABS 984957 CIPROFLOXACIN HCL Inactive CLINDAMYCIN HCL 300 MG CAPS take 1 cap po QID x 10 days CLINDAMYCIN HCL 300 MG CAPS 064004 CLINDAMYCIN HCL Inactive AMOXICILLIN 500 MG TABS Take one (1) tablet by mouth three times a day 03/08 AMOXICILLIN 500 MG TABS 179683 AMOXICILLIN Inactive METRONIDAZOLE 500 MG TABS 1 tab po bid x 7 days METRONIDAZOLE 500 MG TABS 241939 METRONIDAZOLE Inactive ZITHROMAX 250 MG TABS take 2 tabs po day one then 1 tab po days 2-5 ZITHROMAX 250 MG TABS 2286691 AZITHROMYCIN Inactive BRITTANIE-28 TABS one tab p.o. q.d BRITTANIE-28 TABS LEVONORGESTREL-ETHINYL ESTRAD TABS Inactive MEDROL (JESSICA) 4 MG TABS take as directed MEDROL (JESSICA) 4 MG TABS METHYLPREDNISOLONE Inactive SUDAFED 12 HOUR 120 MG [id number] take 1 tab po bid prn SUDAFED 12 HOUR 120 MG [id number] PSEUDOEPHEDRINE HCL Inactive CIPRO 500 MG TABS take one tab po bid x 10 days CIPRO 500 MG TABS 796390 CIPROFLOXACIN HCL Inactive FLAGYL 500 MG TABS take one tab po bid x 10 days FLAGYL 500 MG TABS 940604 METRONIDAZOLE Inactive TAMIFLU 75 MG CAPS take one tab po daily x 10 days TAMIFLU 75 MG CAPS OSELTAMIVIR PHOSPHATE Inactive PREDNISONE 20 MG TAB 1 twice daily for two days, the once daily for two days PREDNISONE 20 MG TAB 126841 PREDNISONE Inactive HYDROCODONE-ACETAMINOPHEN 5-325 MG TABS take 1 tab po q4-6 hrs prn HYDROCODONE-ACETAMINOPHEN 5-325 MG TABS 302268 HYDROCODONE- ACETAMINOPHEN Inactive AMOXICILLIN 875 MG TABS Take one (1) tablet by mouth twice a day AMOXICILLIN 875 MG TABS 337916 AMOXICILLIN Inactive TRIAMTERENE-HCTZ 37.5-25 MG CAPS Take 1 tablet by mouth daily TRIAMTERENE-HCTZ 37.5-25 MG CAPS 752159 TRIAMTERENE-HCTZ Inactive PRILOSEC OTC 20 MG TBEC take one tab po bid PRILOSEC OTC 20 MG TBEC OMEPRAZOLE MAGNESIUM Inactive TEMAZEPAM 15 MG CAPS 2 capsules every h.s TEMAZEPAM 15 MG CAPS 332004 TEMAZEPAM Inactive FLEXERIL 10 MG TABS take one tab po tid prn FLEXERIL 10 MG TABS CYCLOBENZAPRINE HCL Inactive DIETHYLPROPION HCL ER 75 MG [id number] take one tab po daily 09/04 DIETHYLPROPION HCL ER 75 MG [id number] DIETHYLPROPION HCL Inactive PHENTERMINE HCL 37.5 MG TABS take one tab po daily PHENTERMINE HCL 37.5 MG TABS 928304 PHENTERMINE HCL Inactive BRITTANIE-28 0.15-30 MG-MCG TABS take one tab po daily BRITTANIE-28 0.15-30 MG-MCG TABS 306255 LEVONORGESTREL-ETHINYL ESTRAD Inactive ZOLOFT 100 MG TABS take 1/2 tab po daily ZOLOFT 100 MG TABS 900675 SERTRALINE HCL Inactive PYRIDIUM 200 MG TAB 1 po TID PRN Dysuria PYRIDIUM 200 MG TAB 0618113 PHENAZOPYRIDINE HCL Inactive Immunizations Vaccine Administration Date Value Standard Description Seasonal influenza vaccine, injectable, containing preservative, for > 3 years old (Afluria, FluLaval, Fluzone, Fluvirin, Fluarix, Agriflu(>=18 yo)) Fluzone (>3 yrs.) [[id number]] Influenza, seasonal, injectable Vital Signs Date Name [...] 1.76 m[iU]/mL 0.36-3.74 sodium, serum 139 mmol/L 077-602 9431/11/20 potassium, serum 4.0 mmol/L 3.5-5.2 chloride, serum [...] CPK - Chemistry sodium, serum 140 mmol/L 330-662 3645/12/06 potassium, serum 3.8 mmol/L 3.5-5.2 chloride, serum [...] 5.0-8.5 Encounters Code Encounter Date Provider Facility CPT-67220 Level 3 Est. Patient 11:13:24 EDUCATION DEAN Isatu Coburn [facility] CPT-44356 Level 3 Est. Patient 11:56:59 EDUCATION DEAN Isatu Coburn [facility] CPT-32532 Level 3 Est. Patient 11:17:35 EDUCATION DEAN Isatu Coburn [facility] CPT-11434 Level 3 Est. Patient 11:02:[address] [facility] CPT-31741 Level 3 Est. Patient 14:35:51 CDT Kalin Carlos DO [facility] CPT-42410 Level 3 Est. Patient 15:48:[address] [facility] CPT-78176 Level 3 Est. Patient 10:40:32 CDT Gonzalez Pinto [facility] CPT-93576 Level 3 Est. Patient 16:15:36 CDT Esperanza Pool [facility] CPT-09404 Level 3 Est. Patient 08:25:45 EDUCATION DEAN Esperanza Pool [facility] CPT-37335 Level 3 Est. Patient 16:30:43 EDUCATION DEAN Esperanza Pool [facility] CPT-79996 Level 3 Est. Patient 09:15:02 EDUCATION DEAN Esperanza Pool [facility] CPT-92319 Level 3 Est. Patient 15:29:[address] [facility] CPT-65227 Level 3 Est. Patient 12:48:[address] [facility] CPT-27621 Level 3 Est. Patient 14:10:[address] [facility] CPT-09402 Level 3 Est. Patient 10:08:[address] [facility] CPT-18882 Level 3 Est. Patient 08:21:51 CDT Gonzalez Pinto [facility] CPT-12339 Level 3 Est. Patient 15:57:[address] [facility] CPT-79806 Level 3 Est. Patient 09:40:30 EDUCATION DEAN Esperanza Pool [facility] CPT-25319 Level 3 Est. Patient 08:57:52 EDUCATION DEAN [facility]87575 Level 3 Est. Patient 14:31:11 CDT Esperanza Sanabria [facility] CPT-82428 Level 3 Est. Patient 09:44:45 CDT Esperanza Sanabria [facility] Procedures Code Procedure Name Date Entry Date Standard Description CPT-OV Office Visit 14:03:44 CDT CPT-77364 Sono retroperitoneal complete kidneys and bladder 12:58: 45 EDUCATION DEAN CPT-J1020 Depo Medrol 20 mg (Methyl Prednisolone Acetate) 15:48: 05 CDT CPT-J1020 Depo Medrol 100 mg (Methyl Prednisolone Acetate) 15:48: 05 CDT CPT-26208 Abx/Therapy Injection 15:48:05 CDT CPT-OV Office Visit 14:58:44 EDUCATION DEAN CPT-38174 Sono transvag pelvis non OB uterus ovaries cervix 16:31: 03 EDUCATION DEAN CPT-36583 Venipuncture Draw Fee 09:15:02 EDUCATION DEAN CPT-09858 Venipuncture Draw Fee 15:29:15 CDT CPT-73104 Abx/Therapy Injection 14:10:29 CDT CPT-J1030 Depo Medrol 40 mg (Methyl Prednisolone Acetate) 14:10: 29 CDT CPT-J1040 Depo Medrol 80 mg (Methyl Prednisolone Acetate) 14:10: 29 CDT CPT-34186 Spec Collection and Handling Fee 08:44:23 EDUCATION DEAN CPT-42448 Prv Med Est Pt 18-39yrs 08:44:23 EDUCATION DEAN CPT-69031 Abx/Therapy Injection 08:57:52 EDUCATION DEAN CPT-J1030 Depo Medrol 40 mg (Methyl Prednisolone Acetate) 08:57: 52 EDUCATION DEAN CPT-J1040 Depo Medrol 80 mg (Methyl Prednisolone Acetate) 08:57: 52 EDUCATION DEAN
--- OUTSIDE RECORDS SUMMARY | 2018-12-04 15:28 | XMS REPORT | Clinical Summary ---
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 UPPER RESPIRATORY [...] 1 po TID PRN Dysuria PHENAZOPYRIDINE HCL 24563224227 No Longer Active Isatu Coburn APRN Active CIPRO 500 MG TAB 1 tablet by mouth twice daily CIPROFLOXACIN HCL 00852759147 Active Isatu Coburn APRN Active BRITTANIE-28 0.15-30 MG-MCG TABS take one tab po daily LEVONORGESTREL-ETHINYL ESTRAD 53904441949 No Longer Active Petty Mcgrath Active ALPRAZOLAM 0.5 MG TABS one tab tid as needed ALPRAZOLAM 27945284681 Active Luke Ballard MD Active PHENTERMINE HCL 37.5 MG TABS take one tab po daily PHENTERMINE HCL 03416172310 No Longer Active Isatu Coburn APRN Active DIETHYLPROPION HCL ER 75 MG [id number] take one tab po daily 09/04 DIETHYLPROPION HCL 19891268643 No Longer Active Esperanza Sanabria PA Active FLEXERIL 10 MG TABS take one tab po tid prn CYCLOBENZAPRINE HCL 30006169251 No Longer Active Esperanza Pool PA Active TEMAZEPAM 15 MG CAPS 2 capsules every h.s TEMAZEPAM 62045394629 No Longer Active Esperanza Pool PA Active PRILOSEC OTC 20 MG TBEC take one tab po bid OMEPRAZOLE MAGNESIUM 40577424972 No Longer Active Esperanza Pool PA Active TRIAMTERENE-HCTZ 37.5-25 MG CAPS Take 1 tablet by mouth daily TRIAMTERENE-HCTZ 90481831184 No Longer Active Esperanza Pool PA Active AMOXICILLIN 875 MG TABS Take one (1) tablet by mouth twice a day AMOXICILLIN 65760762007 No Longer Active Esperanza Pool PA Active HYDROCODONE-ACETAMINOPHEN 5-325 MG TABS take 1 tab po q4-6 hrs prn HYDROCODONE-ACETAMINOPHEN 73550103641 No Longer Active Esperanza Pool PA Active PREDNISONE 20 MG TAB 1 twice daily for two days, the once daily for two days PREDNISONE 42455531971 No Longer Active Esperanza Pool PA Active TAMIFLU 75 MG CAPS take one tab po daily x 10 days OSELTAMIVIR PHOSPHATE 75951232204 No Longer Active Esperanza Pool PA Active FLAGYL 500 MG TABS take one tab po bid x 10 days METRONIDAZOLE 62365857508 No Longer Active Esperanza Pool PA Active CIPRO 500 MG TABS take one tab po bid x 10 days CIPROFLOXACIN HCL 95716863518 No Longer Active Esperanza Pool PA Active SUDAFED 12 HOUR 120 MG [id number] take 1 tab po bid prn PSEUDOEPHEDRINE HCL 11204745589 No Longer Active Esperanza Pool PA Active MEDROL (JESSICA) 4 MG TABS take as directed METHYLPREDNISOLONE 02776068877 No Longer Active Sammi Cecilio RN Active BRITTANIE-28 TABS one tab p.o. q.d LEVONORGESTREL- ETHINYL ESTRAD TABS 52717583793 No Longer Active Esperanza Pool PA Active ZITHROMAX 250 MG TABS take 2 tabs po day one then 1 tab po days 2-5 AZITHROMYCIN 82404220559 No Longer Active Esperanza Pool PA Active METRONIDAZOLE 500 MG TABS 1 tab po bid x 7 days METRONIDAZOLE 43532919878 No Longer Active Lock RN Active AMOXICILLIN 500 MG TABS Take one (1) tablet by mouth three times a day 03/08 AMOXICILLIN 83580068129 No Longer Active Lock RN Active CLINDAMYCIN HCL 300 MG CAPS take 1 cap po QID x 10 days CLINDAMYCIN HCL 46459533077 No Longer Active Lock RN Active CIPRO 500 MG TABS take 1 tab po bid x 10 days CIPROFLOXACIN HCL 69917115550 No Longer Active Lock RN Active BACTRIM DS 800-160 MG TABS 1 tab po bid x 10 days SULFAMETHOXAZOLE-TRIMETHOPRIM 93673624237 No Longer Active Esperanza Pool PA Active ZOLOFT 100 MG TABS take 1 tab po daily SERTRALINE HCL 51027580717 Active Luke Ballard MD Active ZOLOFT 100 MG TABS take 1/2 tab po daily SERTRALINE HCL 18060021288 No Longer Active Esperanza MEJIA Active BACTRIM DS 800-160 MG TABS 1 tab po bid x 10 days BACTRIM DS 800-160 MG TABS SULFAMETHOXAZOLE-TRIMETHOPRIM Inactive CIPRO 500 MG TABS take 1 tab po bid x 10 days CIPRO 500 MG TABS 990521 CIPROFLOXACIN HCL Inactive CLINDAMYCIN HCL 300 MG CAPS take 1 cap po QID x 10 days CLINDAMYCIN HCL 300 MG CAPS 901859 CLINDAMYCIN HCL Inactive AMOXICILLIN 500 MG TABS Take one (1) tablet by mouth three times a day 03/08 AMOXICILLIN 500 MG TABS 151695 AMOXICILLIN Inactive METRONIDAZOLE 500 MG TABS 1 tab po bid x 7 days METRONIDAZOLE 500 MG TABS 798922 METRONIDAZOLE Inactive ZITHROMAX 250 MG TABS take 2 tabs po day one then 1 tab po days 2-5 ZITHROMAX 250 MG TABS 9574087 AZITHROMYCIN Inactive BRITTANIE-28 TABS one tab p.o. q.d BRITTANIE-28 TABS LEVONORGESTREL-ETHINYL ESTRAD TABS Inactive MEDROL (JESSICA) 4 MG TABS take as directed MEDROL (JESSICA) 4 MG TABS METHYLPREDNISOLONE Inactive SUDAFED 12 HOUR 120 MG [id number] take 1 tab po bid prn SUDAFED 12 HOUR 120 MG [id number]-QXM PSEUDOEPHEDRINE HCL Inactive CIPRO 500 MG TABS take one tab po bid x 10 days CIPRO 500 MG TABS 307422 CIPROFLOXACIN HCL Inactive FLAGYL 500 MG TABS take one tab po bid x 10 days FLAGYL 500 MG TABS 237846 METRONIDAZOLE Inactive TAMIFLU 75 MG CAPS take one tab po daily x 10 days TAMIFLU 75 MG CAPS OSELTAMIVIR PHOSPHATE Inactive PREDNISONE 20 MG TAB 1 twice daily for two days, the once daily for two days PREDNISONE 20 MG TAB 873770 PREDNISONE Inactive HYDROCODONE-ACETAMINOPHEN 5-325 MG TABS take 1 tab po q4-6 hrs prn HYDROCODONE-ACETAMINOPHEN 5-325 MG TABS 612047 HYDROCODONE- ACETAMINOPHEN Inactive AMOXICILLIN 875 MG TABS Take one (1) tablet by mouth twice a day AMOXICILLIN 875 MG TABS 501724 AMOXICILLIN Inactive TRIAMTERENE-HCTZ 37.5-25 MG CAPS Take 1 tablet by mouth daily TRIAMTERENE-HCTZ 37.5-25 MG CAPS 649587 TRIAMTERENE-HCTZ Inactive PRILOSEC OTC 20 MG TBEC take one tab po bid PRILOSEC OTC 20 MG TBEC OMEPRAZOLE MAGNESIUM Inactive TEMAZEPAM 15 MG CAPS 2 capsules every h.s TEMAZEPAM 15 MG CAPS 921105 TEMAZEPAM Inactive FLEXERIL 10 MG TABS take one tab po tid prn FLEXERIL 10 MG TABS CYCLOBENZAPRINE HCL Inactive DIETHYLPROPION HCL ER 75 MG [id number] take one tab po daily 09/04 DIETHYLPROPION HCL ER 75 MG [id number] DIETHYLPROPION HCL Inactive PHENTERMINE HCL 37.5 MG TABS take one tab po daily PHENTERMINE HCL 37.5 MG TABS 192981 PHENTERMINE HCL Inactive BRITTANIE-28 0.15-30 MG-MCG TABS take one tab po daily BRITTANIE-28 0.15-30 MG-MCG TABS 734147 LEVONORGESTREL-ETHINYL ESTRAD Inactive ZOLOFT 100 MG TABS take 1/2 tab po daily ZOLOFT 100 MG TABS 787072 SERTRALINE HCL Inactive PYRIDIUM 200 MG TAB 1 po TID PRN Dysuria PYRIDIUM 200 MG TAB 7901385 PHENAZOPYRIDINE HCL Inactive Immunizations Vaccine Administration Date Value Standard Description Seasonal influenza vaccine, injectable, containing preservative, for > 3 years old (Afluria, FluLaval, Fluzone, Fluvirin, Fluarix, Agriflu(>=18 yo)) Fluzone (>3 yrs.) [[id number]] Influenza, seasonal, injectable Vital Signs Date Name [...] 1.76 m[iU]/mL 0.36-3.74 sodium, serum 139 mmol/L 194-917 6460/11/20 potassium, serum 4.0 mmol/L 3.5-5.2 chloride, serum [...] CPK - Chemistry sodium, serum 140 mmol/L 157-834 5680/12/06 potassium, serum 3.8 mmol/L 3.5-5.2 chloride, serum [...] 5.0-8.5 Encounters Code Encounter Date Provider Facility CPT-37601 Level 3 Est. 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 CPT-92918 Level 3 Est. Patient 11:56:59 ENLISTED AIRCREW/AERIAL OBSERVER/GUNNER Isatu Coburn [facility] CPT-66693 Level 3 Est. 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 CPT-39664 Level 3 Est. Patient 11:02:41 CDT Esperanza [facility] CPT-09958 Level 3 Est. Patient 14:35:51 CDT Kalin Carlos DO [facility] CPT-26119 Level 3 Est. Patient 15:48:05 CDT Esperanza [facility] CPT-04667 Level 3 Est. Patient 10:40:32 CDT Gonzalez Pinto [facility] CPT-80108 Level 3 Est. Patient 16:15:[address] [facility] CPT-02574 Level 3 Est. Patient 08:25:45 ENLISTED AIRCREW/AERIAL OBSERVER/GUNNER Esperanza Pool [facility] CPT-40146 Level 3 Est. Patient 16:30:43 ENLISTED AIRCREW/AERIAL OBSERVER/GUNNER Esperanza Pool [facility] CPT-77282 Level 3 Est. Patient 09:15:02 ENLISTED AIRCREW/AERIAL OBSERVER/GUNNER Esperanza Pool [facility] CPT-55861 Level 3 Est. Patient 15:29:[address] [facility] CPT-75809 Level 3 Est. Patient 12:48:[address] [facility] CPT-18068 Level 3 Est. Patient 14:10:29 CDT Esperanza [facility] CPT-00457 Level 3 Est. Patient 10:08:36 CDT Esperanza [facility] CPT-75169 Level 3 Est. Patient 08:21:[address] [facility] CPT-28163 Level 3 Est. Patient 15:57:32 ENLISTED AIRCREW/AERIAL OBSERVER/GUNNER Esperanza Pool [facility] CPT-74233 Level 3 Est. Patient 09:40:30 ENLISTED AIRCREW/AERIAL OBSERVER/GUNNER Esperanza Pool [facility] CPT-70758 Level 3 Est. Patient 08:57:52 ENLISTED AIRCREW/AERIAL OBSERVER/GUNNER [facility]peranza [facility] CPT-58201 Level 3 Est. Patient 14:31:11 CDT [facility] CPT-40212 Level 3 Est. 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/GUNNER CPT-J1020 Depo Medrol 20 mg (Methyl Prednisolone Acetate) 15:48: 05 CDT CPT-J1020 Depo Medrol 100 mg (Methyl Prednisolone Acetate) 15:48: 05 CDT CPT-08605 Abx/Therapy Injection 15:48:05 CDT CPT-OV Office Visit 14:58:44 ENLISTED AIRCREW/AERIAL OBSERVER/GUNNER CPT-08431 Sono transvag pelvis non OB uterus ovaries cervix 16:31: 03 ENLISTED AIRCREW/AERIAL OBSERVER/GUNNER CPT-32172 Venipuncture Draw Fee 09:15:02 ENLISTED AIRCREW/AERIAL OBSERVER/GUNNER CPT-74453 Venipuncture Draw Fee 15:29:15 CDT CPT-05773 Abx/Therapy Injection 14:10:29 CDT CPT-J1030 Depo Medrol 40 mg (Methyl Prednisolone Acetate) 14:10: 29 CDT CPT-J1040 Depo Medrol 80 mg (Methyl Prednisolone Acetate) 14:10: 29 CDT CPT-83778 Spec Collection and Handling Fee 08:44:23 ENLISTED AIRCREW/AERIAL OBSERVER/GUNNER CPT-30139 Prv Med Est Pt 18-39yrs 08:44:23 ENLISTED AIRCREW/AERIAL OBSERVER/GUNNER CPT-03090 Abx/Therapy Injection 08:57:52 ENLISTED AIRCREW/AERIAL OBSERVER/GUNNER CPT-J1030 Depo Medrol 40 mg (Methyl Prednisolone Acetate) 08:57: 52 ENLISTED AIRCREW/AERIAL OBSERVER/GUNNER CPT-J1040 Depo Medrol 80 mg (Methyl Prednisolone Acetate) 08:57: 52 ENLISTED AIRCREW/AERIAL OBSERVER/GUNNER
--- OUTSIDE RECORDS SUMMARY | 2018-12-04 15:29 | XMS REPORT | Clinical Summary ---
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 UPPER RESPIRATORY INFECTION, [...] Hematuria, unspecified Elevated blood pressure 796.2 Active Iastu Coburn APRN Elevated blood pressure reading without [...] Esperanza Pool PA 08/27 COLITIS ICD-558.9 Inactive Seperanza Pool PA MENSTRUAL BLEEDING, ABNORMAL ICD-626.9 Inactive [...] 1 po TID PRN Dysuria PHENAZOPYRIDINE HCL 51094195966 No Longer Active Isatu Coburn MORTUARY BEAUTICIAN Active CIPRO 500 MG TAB 1 tablet by mouth twice daily CIPROFLOXACIN HCL 85345883995 Active Isatu Coburn APRN Active BRITTANIE-28 0.15-30 MG-MCG TABS take one tab po daily LEVONORGESTREL-ETHINYL ESTRAD 92474779136 No Longer Active Petty Ramila Active ALPRAZOLAM 0.5 MG TABS one tab tid as needed ALPRAZOLAM 79482507159 Active Luke Ballard MD Active PHENTERMINE HCL 37.5 MG TABS take one tab po daily PHENTERMINE HCL 89591971871 No Longer Active Isatu Coburn APRN Active DIETHYLPROPION HCL ER 75 MG [id number] take one tab po daily 09/04 DIETHYLPROPION HCL 82764817670 No Longer Active Esperanza Sanabria PA Active FLEXERIL 10 MG TABS take one tab po tid prn CYCLOBENZAPRINE HCL 96785472935 No Longer Active Esperanza Pool PA Active TEMAZEPAM 15 MG CAPS 2 capsules every h.s TEMAZEPAM 22948646258 No Longer Active Esperanza Pool PA Active PRILOSEC OTC 20 MG TBEC take one tab po bid OMEPRAZOLE MAGNESIUM 25838111414 No Longer Active Esperanza Pool PA Active TRIAMTERENE-HCTZ 37.5-25 MG CAPS Take 1 tablet by mouth daily TRIAMTERENE-HCTZ 66830649166 No Longer Active Esperanza Pool PA Active AMOXICILLIN 875 MG TABS Take one (1) tablet by mouth twice a day AMOXICILLIN 92393892389 No Longer Active Esperanza Pool PA Active HYDROCODONE-ACETAMINOPHEN 5-325 MG TABS take 1 tab po q4-6 hrs prn HYDROCODONE-ACETAMINOPHEN 32662499070 No Longer Active Esperanza Pool PA Active PREDNISONE 20 MG TAB 1 twice daily for two days, the once daily for two days PREDNISONE 56722127846 No Longer Active Esperanza Pool PA Active TAMIFLU 75 MG CAPS take one tab po daily x 10 days OSELTAMIVIR PHOSPHATE 90499823216 No Longer Active Esperanza Pool PA Active FLAGYL 500 MG TABS take one tab po bid x 10 days METRONIDAZOLE 16649663462 No Longer Active Esperanza Pool PA Active CIPRO 500 MG TABS take one tab po bid x 10 days CIPROFLOXACIN HCL 85818197534 No Longer Active Esperanza Pool PA Active SUDAFED 12 HOUR 120 MG [id number]-XVO take 1 tab po bid prn PSEUDOEPHEDRINE HCL 24218844312 No Longer Active Esperanza Pool PA Active MEDROL (JESSICA) 4 MG TABS take as directed METHYLPREDNISOLONE 23209685493 No Longer Active Sammi Hernandes RN Active BRITTANIE-28 TABS one tab p.o. q.d LEVONORGESTREL- ETHINYL ESTRAD TABS 73047387859 No Longer Active Esperanza Pool PA Active ZITHROMAX 250 MG TABS take 2 tabs po day one then 1 tab po days 2-5 AZITHROMYCIN 09742350871 No Longer Active Esperanza Pool PA Active METRONIDAZOLE 500 MG TABS 1 tab po bid x 7 days METRONIDAZOLE 60750387656 No Longer Active Lock RN Active AMOXICILLIN 500 MG TABS Take one (1) tablet by mouth three times a day 03/08 AMOXICILLIN 71284615140 No Longer Active Lock RN Active CLINDAMYCIN HCL 300 MG CAPS take 1 cap po QID x 10 days CLINDAMYCIN HCL 77026682170 No Longer Active Lock RN Active CIPRO 500 MG TABS take 1 tab po bid x 10 days CIPROFLOXACIN HCL 66228822934 No Longer Active Lock RN Active BACTRIM DS 800-160 MG TABS 1 tab po bid x 10 days SULFAMETHOXAZOLE-TRIMETHOPRIM 02129083639 No Longer Active Esperanza Pool PA Active ZOLOFT 100 MG TABS take 1 tab po daily SERTRALINE HCL 68169284125 Active Luke Ballard MD Active ZOLOFT 100 MG TABS take 1/2 tab po daily SERTRALINE HCL 25014129660 No Longer Active Esperanza MEJIA Active BACTRIM DS 800-160 MG TABS 1 tab po bid x 10 days BACTRIM DS 800-160 MG TABS SULFAMETHOXAZOLE-TRIMETHOPRIM Inactive CIPRO 500 MG TABS take 1 tab po bid x 10 days CIPRO 500 MG TABS 775477 CIPROFLOXACIN HCL Inactive CLINDAMYCIN HCL 300 MG CAPS take 1 cap po QID x 10 days CLINDAMYCIN HCL 300 MG CAPS 910387 CLINDAMYCIN HCL Inactive AMOXICILLIN 500 MG TABS Take one (1) tablet by mouth three times a day 03/08 AMOXICILLIN 500 MG TABS 873608 AMOXICILLIN Inactive METRONIDAZOLE 500 MG TABS 1 tab po bid x 7 days METRONIDAZOLE 500 MG TABS 920886 METRONIDAZOLE Inactive ZITHROMAX 250 MG TABS take 2 tabs po day one then 1 tab po days 2-5 ZITHROMAX 250 MG TABS 1889691 AZITHROMYCIN Inactive BRITTANIE-28 TABS one tab p.o. q.d BRITTANIE-28 TABS LEVONORGESTREL-ETHINYL ESTRAD TABS Inactive MEDROL (JESSICA) 4 MG TABS take as directed MEDROL (JESSICA) 4 MG TABS METHYLPREDNISOLONE Inactive SUDAFED 12 HOUR 120 MG [id number] take 1 tab po bid prn SUDAFED 12 HOUR 120 MG [id number] PSEUDOEPHEDRINE HCL Inactive CIPRO 500 MG TABS take one tab po bid x 10 days CIPRO 500 MG TABS 266417 CIPROFLOXACIN HCL Inactive FLAGYL 500 MG TABS take one tab po bid x 10 days FLAGYL 500 MG TABS 108395 METRONIDAZOLE Inactive TAMIFLU 75 MG CAPS take one tab po daily x 10 days TAMIFLU 75 MG CAPS OSELTAMIVIR PHOSPHATE Inactive PREDNISONE 20 MG TAB 1 twice daily for two days, the once daily for two days PREDNISONE 20 MG TAB 255463 PREDNISONE Inactive HYDROCODONE-ACETAMINOPHEN 5-325 MG TABS take 1 tab po q4-6 hrs prn HYDROCODONE-ACETAMINOPHEN 5-325 MG TABS 814594 HYDROCODONE- ACETAMINOPHEN Inactive AMOXICILLIN 875 MG TABS Take one (1) tablet by mouth twice a day AMOXICILLIN 875 MG TABS 062364 AMOXICILLIN Inactive TRIAMTERENE-HCTZ 37.5-25 MG CAPS Take 1 tablet by mouth daily TRIAMTERENE-HCTZ 37.5-25 MG CAPS 991510 TRIAMTERENE-HCTZ Inactive PRILOSEC OTC 20 MG TBEC take one tab po bid PRILOSEC OTC 20 MG TBEC OMEPRAZOLE MAGNESIUM Inactive TEMAZEPAM 15 MG CAPS 2 capsules every h.s TEMAZEPAM 15 MG CAPS 054499 TEMAZEPAM Inactive FLEXERIL 10 MG TABS take one tab po tid prn FLEXERIL 10 MG TABS CYCLOBENZAPRINE HCL Inactive DIETHYLPROPION HCL ER 75 MG [id number] take one tab po daily 09/04 DIETHYLPROPION HCL ER 75 MG [id number]-KQV DIETHYLPROPION HCL Inactive PHENTERMINE HCL 37.5 MG TABS take one tab po daily PHENTERMINE HCL 37.5 MG TABS 519068 PHENTERMINE HCL Inactive BRITTANIE-28 0.15-30 MG-MCG TABS take one tab po daily BRITTANIE-28 0.15-30 MG-MCG TABS 615386 LEVONORGESTREL-ETHINYL ESTRAD Inactive ZOLOFT 100 MG TABS take 1/2 tab po daily ZOLOFT 100 MG TABS 914635 SERTRALINE HCL Inactive PYRIDIUM 200 MG TAB 1 po TID PRN Dysuria PYRIDIUM 200 MG TAB 6625093 PHENAZOPYRIDINE HCL Inactive Immunizations Vaccine Administration Date Value Standard Description Seasonal influenza vaccine, injectable, containing preservative, for > 3 years old (Afluria, FluLaval, Fluzone, Fluvirin, Fluarix, Agriflu(>=18 yo)) Fluzone (>3 yrs.) [[id number]] Influenza, seasonal, injectable Vital Signs Date Name [...] 1.76 m[iU]/mL 0.36-3.74 sodium, serum 139 mmol/L 030-526 5506/11/20 potassium, serum 4.0 mmol/L 3.5-5.2 chloride, serum [...] CPK - Chemistry sodium, serum 140 mmol/L 843-365 5608/12/06 potassium, serum 3.8 mmol/L 3.5-5.2 chloride, serum [...] 5.0-8.5 Encounters Code Encounter Date Provider Facility CPT-45458 Level 3 Est. Patient 11:13:24 EXPERT WITNESS Isatu Coburn [facility] CPT-25314 Level 3 Est. Patient 11:56:59 EXPERT WITNESS Isatu Coburn [facility] CPT-42034 Level 3 Est. Patient 11:17:35 EXPERT WITNESS Isatu Coburn [facility] CPT-43659 Level 3 Est. Patient 11:02:41 CDT Esperanza [facility] CPT-03801 Level 3 Est. Patient 14:35:51 CDT Kalin Carlos DO [facility] CPT-12971 Level 3 Est. Patient 15:48:05 CDT Esperanza [facility] CPT-45829 Level 3 Est. Patient 10:40:32 CDT Gonzalez Pinto [facility] CPT-10730 Level 3 Est. Patient 16:15:36 CDT Esperanza Pool [facility] CPT-31240 Level 3 Est. Patient 08:25:45 EXPERT WITNESS Esperanza Pool [facility] CPT-02437 Level 3 Est. Patient 16:30:43 EXPERT WITNESS Esperanza Pool [facility] CPT-01774 Level 3 Est. Patient 09:15:02 EXPERT WITNESS Esperanza Pool [facility] CPT-95794 Level 3 Est. Patient 15:29:15 CDT Esperanza [facility] CPT-36269 Level 3 Est. Patient 12:48:23 CDT Esperanza [facility] CPT-23234 Level 3 Est. Patient 14:10:29 CDT Esperanza [facility] CPT-32173 Level 3 Est. Patient 10:08:36 CDT Esperanza [facility] CPT-86669 Level 3 Est. Patient 08:21:51 CDT Gonzalez Pinto [facility] CPT-53309 Level 3 Est. Patient 15:57:32 EXPERT WITNESS Esperanza [facility] CPT-47125 Level 3 Est. Patient 09:40:30 EXPERT WITNESS Esperanza Pool [facility] CPT-28556 Level 3 Est. Patient 08:57:52 EXPERT WITNESS Es[facility]anza [facility] CPT-17091 Level 3 Est. Patient 14:31:11 CDT Esperanza Sanabria [facility] CPT-51726 Level 3 Est. Patient 09:44:45 CDT Esperanza Sanabria [facility] Reji Procedures Code Procedure Name Date Entry Date Standard Description CPT-OV Office Visit 14:03:44 CDT CPT-52114 Sono retroperitoneal complete kidneys and bladder 12:58: 45 EXPERT WITNESS CPT-J1020 Depo Medrol 20 mg (Methyl Prednisolone Acetate) 15:48: 05 CDT CPT-J1020 Depo Medrol 100 mg (Methyl Prednisolone Acetate) 15:48: 05 CDT CPT-79157 Abx/Therapy Injection 15:48:05 CDT CPT-OV Office Visit 14:58:44 EXPERT WITNESS CPT-48584 Sono transvag pelvis non OB uterus ovaries cervix 16:31: 03 EXPERT WITNESS CPT-01878 Venipuncture Draw Fee 09:15:02 EXPERT WITNESS CPT-49264 Venipuncture Draw Fee 15:29:15 CDT CPT-82830 Abx/Therapy Injection 14:10:29 CDT CPT-J1030 Depo Medrol 40 mg (Methyl Prednisolone Acetate) 14:10: 29 CDT CPT-J1040 Depo Medrol 80 mg (Methyl Prednisolone Acetate) 14:10: 29 CDT CPT-89076 Spec Collection and Handling Fee 08:44:23 EXPERT WITNESS CPT-24303 Prv Med Est Pt 18-39yrs 08:44:23 EXPERT WITNESS CPT-32746 Abx/Therapy Injection 08:57:52 EXPERT WITNESS CPT-J1030 Depo Medrol 40 mg (Methyl Prednisolone Acetate) 08:57: 52 EXPERT WITNESS CPT-J1040 Depo Medrol 80 mg (Methyl Prednisolone Acetate) 08:57: 52 EXPERT WITNESS
--- OUTSIDE RECORDS SUMMARY | 2018-12-04 15:30 | XMS REPORT | Clinical Summary ---
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 UPPER RESPIRATORY [...] and inoculation against influenza Obesity 278.00 Active Isaut Coburn APRN Obesity, unspecified Hematuria 599.70 Resolved [...] TABS one tab PO x 1 FLUCONAZOLE 04327832194 Active Lulu Arreguin MD Active CIPRO 500 MG TAB 1 tablet by mouth twice daily CIPROFLOXACIN HCL 42956933958 No Longer Active Lulu Arreguin MD Active PYRIDIUM 200 MG TAB 1 po TID PRN Dysuria PHENAZOPYRIDINE HCL 65718786292 No Longer Active Isatu Coburn APRN Active BRITTANIE-28 0.15-30 MG-MCG TABS take one tab po daily LEVONORGESTREL-ETHINYL ESTRAD 86702058872 No Longer Active Petty Mcgrath Active ALPRAZOLAM 0.5 MG TABS one tab tid as needed ALPRAZOLAM 10311879387 Active Luke Ballard MD Active PHENTERMINE HCL 37.5 MG TABS take one tab po daily PHENTERMINE HCL 33390603188 No Longer Active Isatu Coburn APRN Active DIETHYLPROPION HCL ER 75 MG [id number] take one tab po daily 09/04 DIETHYLPROPION HCL 03642819250 No Longer Active Esperanza Daniele PA Active FLEXERIL 10 MG TABS take one tab po tid prn CYCLOBENZAPRINE HCL 23447844434 No Longer Active Esperanzafelipa Sanabria PA Active TEMAZEPAM 15 MG CAPS 2 capsules every h.s TEMAZEPAM 01938904478 No Longer Active Esperanza Pool PA Active PRILOSEC OTC 20 MG TBEC take one tab po bid OMEPRAZOLE MAGNESIUM 73136318213 No Longer Active Esperanza Pool PA Active TRIAMTERENE-HCTZ 37.5-25 MG CAPS Take 1 tablet by mouth daily TRIAMTERENE-HCTZ 62570974576 No Longer Active Esperanza Pool PA Active AMOXICILLIN 875 MG TABS Take one (1) tablet by mouth twice a day AMOXICILLIN 96277324791 No Longer Active Esperanza Pool PA Active HYDROCODONE-ACETAMINOPHEN 5-325 MG TABS take 1 tab po q4-6 hrs prn HYDROCODONE-ACETAMINOPHEN 32788151809 No Longer Active Esperanza Pool PA Active PREDNISONE 20 MG TAB 1 twice daily for two days, the once daily for two days PREDNISONE 61725635785 No Longer Active Esperanza Pool PA Active TAMIFLU 75 MG CAPS take one tab po daily x 10 days OSELTAMIVIR PHOSPHATE 85197769422 No Longer Active Esperanza Pool PA Active FLAGYL 500 MG TABS take one tab po bid x 10 days METRONIDAZOLE 38018445688 No Longer Active Esperanza Pool PA Active CIPRO 500 MG TABS take one tab po bid x 10 days CIPROFLOXACIN HCL 10646947291 No Longer Active Esperanza Pool PA Active SUDAFED 12 HOUR 120 MG [id number] take 1 tab po bid prn PSEUDOEPHEDRINE HCL 08939263483 No Longer Active Esperanza Pool PA Active MEDROL (JESSICA) 4 MG TABS take as directed METHYLPREDNISOLONE 82296300823 No Longer Active Sammi Hernandes RN Active BRITTANIE-28 TABS one tab p.o. q.d LEVONORGESTREL- ETHINYL ESTRAD TABS 59934257532 No Longer Active Esperanza Pool PA Active ZITHROMAX 250 MG TABS take 2 tabs po day one then 1 tab po days 2-5 AZITHROMYCIN 45855772833 No Longer Active Esperanza Pool PA Active METRONIDAZOLE 500 MG TABS 1 tab po bid x 7 days METRONIDAZOLE 76244648994 No Longer Active Patricia Dockery RN Active AMOXICILLIN 500 MG TABS Take one (1) tablet by mouth three times a day 03/08 AMOXICILLIN 36100432846 No Longer Active Lock RN Active CLINDAMYCIN HCL 300 MG CAPS take 1 cap po QID x 10 days CLINDAMYCIN HCL 73419037880 No Longer Active Lock RN Active CIPRO 500 MG TABS take 1 tab po bid x 10 days CIPROFLOXACIN HCL 26506757436 No Longer Active Lock RN Active BACTRIM DS 800-160 MG TABS 1 tab po bid x 10 days SULFAMETHOXAZOLE-TRIMETHOPRIM 83849497873 No Longer Active Esperanza Pool PA Active ZOLOFT 100 MG TABS take 1 tab po daily SERTRALINE HCL 80448278742 Active Luke Ballard MD Active ZOLOFT 100 MG TABS take 1/2 tab po daily SERTRALINE HCL 09560664145 No Longer Active Esperanza Pool PA Active BACTRIM DS 800-160 MG TABS 1 tab po bid x 10 days BACTRIM DS 800-160 MG TABS SULFAMETHOXAZOLE-TRIMETHOPRIM Inactive CIPRO 500 MG TABS take 1 tab po bid x 10 days CIPRO 500 MG TABS 055231 CIPROFLOXACIN HCL Inactive CLINDAMYCIN HCL 300 MG CAPS take 1 cap po QID x 10 days CLINDAMYCIN HCL 300 MG CAPS 059441 CLINDAMYCIN HCL Inactive AMOXICILLIN 500 MG TABS Take one (1) tablet by mouth three times a day 03/08 AMOXICILLIN 500 MG TABS 934558 AMOXICILLIN Inactive METRONIDAZOLE 500 MG TABS 1 tab po bid x 7 days METRONIDAZOLE 500 MG TABS 022326 METRONIDAZOLE Inactive ZITHROMAX 250 MG TABS take 2 tabs po day one then 1 tab po days 2-5 ZITHROMAX 250 MG TABS 1101751 AZITHROMYCIN Inactive BRITTANIE-28 TABS one tab p.o. q.d BRITTANIE-28 TABS LEVONORGESTREL-ETHINYL ESTRAD TABS Inactive MEDROL (JESSICA) 4 MG TABS take as directed MEDROL (JESSICA) 4 MG TABS METHYLPREDNISOLONE Inactive SUDAFED 12 HOUR 120 MG [id number] take 1 tab po bid prn SUDAFED 12 HOUR 120 MG [id number] PSEUDOEPHEDRINE HCL Inactive CIPRO 500 MG TABS take one tab po bid x 10 days CIPRO 500 MG TABS 249268 CIPROFLOXACIN HCL Inactive FLAGYL 500 MG TABS take one tab po bid x 10 days FLAGYL 500 MG TABS 077530 METRONIDAZOLE Inactive TAMIFLU 75 MG CAPS take one tab po daily x 10 days TAMIFLU 75 MG CAPS OSELTAMIVIR PHOSPHATE Inactive PREDNISONE 20 MG TAB 1 twice daily for two days, the once daily for two days PREDNISONE 20 MG TAB 303746 PREDNISONE Inactive HYDROCODONE-ACETAMINOPHEN 5-325 MG TABS take 1 tab po q4-6 hrs prn HYDROCODONE-ACETAMINOPHEN 5-325 MG TABS 639174 HYDROCODONE- ACETAMINOPHEN Inactive AMOXICILLIN 875 MG TABS Take one (1) tablet by mouth twice a day AMOXICILLIN 875 MG TABS 847117 AMOXICILLIN Inactive TRIAMTERENE-HCTZ 37.5-25 MG CAPS Take 1 tablet by mouth daily TRIAMTERENE-HCTZ 37.5-25 MG CAPS 945003 TRIAMTERENE-HCTZ Inactive PRILOSEC OTC 20 MG TBEC take one tab po bid PRILOSEC OTC 20 MG TBEC OMEPRAZOLE MAGNESIUM Inactive TEMAZEPAM 15 MG CAPS 2 capsules every h.s TEMAZEPAM 15 MG CAPS 511724 TEMAZEPAM Inactive FLEXERIL 10 MG TABS take one tab po tid prn FLEXERIL 10 MG TABS CYCLOBENZAPRINE HCL Inactive DIETHYLPROPION HCL ER 75 MG [id number] take one tab po daily 09/04 DIETHYLPROPION HCL ER 75 MG [id number] DIETHYLPROPION HCL Inactive PHENTERMINE HCL 37.5 MG TABS take one tab po daily PHENTERMINE HCL 37.5 MG TABS 012813 PHENTERMINE HCL Inactive BRITTANIE-28 0.15-30 MG-MCG TABS take one tab po daily BRITTANIE-28 0.15-30 MG-MCG TABS 683053 LEVONORGESTREL-ETHINYL ESTRAD Inactive CIPRO 500 MG TAB 1 tablet by mouth twice daily CIPRO 500 MG TAB 381193 CIPROFLOXACIN HCL Inactive ZOLOFT 100 MG TABS take 1/2 tab po daily ZOLOFT 100 MG TABS 301018 SERTRALINE HCL Inactive PYRIDIUM 200 MG TAB 1 po TID PRN Dysuria PYRIDIUM 200 MG TAB 2810498 PHENAZOPYRIDINE HCL Inactive Immunizations Vaccine Administration Date Value Standard Description Seasonal influenza vaccine, injectable, containing preservative, for > 3 years old (Afluria, FluLaval, Fluzone, Fluvirin, Fluarix, Agriflu(>=18 yo)) Fluzone (>3 yrs.) [[id number]] Influenza, seasonal, injectable Vital Signs Date Name [...] 1.76 m[iU]/mL 0.36-3.74 sodium, serum 139 mmol/L 325-372 9959/11/20 potassium, serum 4.0 mmol/L 3.5-5.2 chloride, serum [...] CPK - Chemistry sodium, serum 140 mmol/L 445-226 6703/12/06 potassium, serum 3.8 mmol/L 3.5-5.2 chloride, serum [...] 5.0-8.5 Encounters Code Encounter Date Provider Facility CPT-98538 Level 3 Est. 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 CPT-93249 Level 3 Est. Patient 11:56:59 HEATING OPERATORS ENGINEER Isatu Coburn [facility] CPT-58585 Level 3 Est. Patient 11:17:35 HEATING OPERATORS ENGINEER Isatu Coburn [facility] CPT-17921 Level 3 Est. Patient 11:02:41 CDT Esperanza Pool [facility] CPT-30043 Level 3 Est. Patient 14:35:51 CDT Kalin Carlos DO [facility] CPT-69962 Level 3 Est. Patient 15:48:[address] [facility] CPT-42123 Level 3 Est. Patient 10:40:32 CDT Gonzalez Pinto [facility] CPT-79073 Level 3 Est. Patient 16:15:[address] [facility] CPT-99899 Level 3 Est. Patient 08:25:45 HEATING OPERATORS ENGINEER Esperanza Pool [facility] CPT-62987 Level 3 Est. Patient 16:30:43 HEATING OPERATORS ENGINEER Esperanza Pool [facility] CPT-40568 Level 3 Est. Patient 09:15:02 HEATING OPERATORS ENGINEER Esperanza Pool [facility] CPT-94067 Level 3 Est. Patient 15:29:15 CDT Esperanza Pool [facility] CPT-04100 Level 3 Est. Patient 12:48:[address] [facility] CPT-93232 Level 3 Est. Patient 14:10:29 CDT Esperanza Pool [facility] CPT-20442 Level 3 Est. Patient 10:08:[address] [facility] CPT-67750 Level 3 Est. Patient 08:21:51 CDT Gonzalez Pinto [facility] CPT-82917 Level 3 Est. Patient 15:57:32 HEATING OPERATORS ENGINEER Esperanza Sanabria [facility] CPT-83805 Level 3 Est. Patient 09:40:30 HEATING OPERATORS ENGINEER Esperanza Sanabria [facility] CPT-31202 Level 3 Est. Patient 08:57:52 HEATING OPERATORS ENGINEER Esperanza Sanabria [facility] CPT-70311 Level 3 Est. Patient 14:31:11 CDT Esperanza [facility] CPT-29475 Level 3 Est. Patient 09:44:45 CDT [facility] Procedures Code Procedure Name Date Entry Date Standard Description CPT-OV Office Visit 10:06:26 CDT CPT-OV Office Visit 14:03:44 CDT CPT-92957 Sono retroperitoneal complete kidneys and bladder 12:58: 45 HEATING OPERATORS ENGINEER CPT-J1020 Depo Medrol 20 mg (Methyl Prednisolone Acetate) 15:48: 05 CDT CPT-J1020 Depo Medrol 100 mg (Methyl Prednisolone Acetate) 15:48: 05 CDT CPT-60853 Abx/Therapy Injection 15:48:05 CDT CPT-OV Office Visit 14:58:44 HEATING OPERATORS ENGINEER CPT-01449 Sono transvag pelvis non OB uterus ovaries cervix 16:31: 03 HEATING OPERATORS ENGINEER CPT-76321 Venipuncture Draw Fee 09:15:02 HEATING OPERATORS ENGINEER CPT-01443 Venipuncture Draw Fee 15:29:15 CDT CPT-67831 Abx/Therapy Injection 14:10:29 CDT CPT-J1030 Depo Medrol 40 mg (Methyl Prednisolone Acetate) 14:10: 29 CDT CPT-J1040 Depo Medrol 80 mg (Methyl Prednisolone Acetate) 14:10: 29 CDT CPT-96460 Spec Collection and Handling Fee 08:44:23 HEATING OPERATORS ENGINEER CPT-72559 Prv Med Est Pt 18-39yrs 08:44:23 HEATING OPERATORS ENGINEER CPT-65815 Abx/Therapy Injection 08:57:52 HEATING OPERATORS ENGINEER CPT-J1030 Depo Medrol 40 mg (Methyl Prednisolone Acetate) 08:57: 52 HEATING OPERATORS ENGINEER CPT-J1040 Depo Medrol 80 mg (Methyl Prednisolone Acetate) 08:57: 52 HEATING OPERATORS ENGINEER
--- OUTSIDE RECORDS SUMMARY | 2018-12-04 15:31 | XMS REPORT | Clinical Summary ---
Author Author Admin, FLETCHER Organization 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 UPPER RESPIRATORY INFECTION, [...] 1 po TID PRN Dysuria PHENAZOPYRIDINE HCL 33168034955 No Longer Active Isatu Coburn APRN Active CIPRO 500 MG TAB 1 tablet by mouth twice daily CIPROFLOXACIN HCL 68580983395 Active Isatu Coburn APRN Active BRITTANIE-28 0.15-30 MG-MCG TABS take one tab po daily LEVONORGESTREL-ETHINYL ESTRAD 29657036340 No Longer Active Petty Mcgrath Active ALPRAZOLAM 0.5 MG TABS one tab tid as needed ALPRAZOLAM 75837282353 Active Luke Ballard MD Active PHENTERMINE HCL 37.5 MG TABS take one tab po daily PHENTERMINE HCL 56783233574 No Longer Active Isatu Coburn APRN Active DIETHYLPROPION HCL ER 75 MG [id number] take one tab po daily 09/04 DIETHYLPROPION HCL 08309579610 No Longer Active Esperanza Sanabria PA Active FLEXERIL 10 MG TABS take one tab po tid prn CYCLOBENZAPRINE HCL 73736860329 No Longer Active Esperanza Pool PA Active TEMAZEPAM 15 MG CAPS 2 capsules every h.s TEMAZEPAM 49673071686 No Longer Active Esperanza Pool PA Active PRILOSEC OTC 20 MG TBEC take one tab po bid OMEPRAZOLE MAGNESIUM 70817696924 No Longer Active Esperanza Pool PA Active TRIAMTERENE-HCTZ 37.5-25 MG CAPS Take 1 tablet by mouth daily TRIAMTERENE-HCTZ 61158538847 No Longer Active Esperanza Pool PA Active AMOXICILLIN 875 MG TABS Take one (1) tablet by mouth twice a day AMOXICILLIN 74650078874 No Longer Active Esperanza Pool PA Active HYDROCODONE-ACETAMINOPHEN 5-325 MG TABS take 1 tab po q4-6 hrs prn HYDROCODONE-ACETAMINOPHEN 25946822053 No Longer Active Esperanza Pool PA Active PREDNISONE 20 MG TAB 1 twice daily for two days, the once daily for two days PREDNISONE 87938712494 No Longer Active Esperanza Pool PA Active TAMIFLU 75 MG CAPS take one tab po daily x 10 days OSELTAMIVIR PHOSPHATE 60559942649 No Longer Active Esperanza Pool PA Active FLAGYL 500 MG TABS take one tab po bid x 10 days METRONIDAZOLE 39316580439 No Longer Active Esperanza Pool PA Active CIPRO 500 MG TABS take one tab po bid x 10 days CIPROFLOXACIN HCL 30034851992 No Longer Active Esperanza Pool PA Active SUDAFED 12 HOUR 120 MG [id number] take 1 tab po bid prn PSEUDOEPHEDRINE HCL 99583360103 No Longer Active Esperanza Pool PA Active MEDROL (JESSICA) 4 MG TABS take as directed METHYLPREDNISOLONE 57775606675 No Longer Active Sammicedrick Hernandes RN Active BRITTANIE-28 TABS one tab p.o. q.d LEVONORGESTREL- ETHINYL ESTRAD TABS 94451671590 No Longer Active Esperanza Pool PA Active ZITHROMAX 250 MG TABS take 2 tabs po day one then 1 tab po days 2-5 AZITHROMYCIN 48152839836 No Longer Active Esperanza Pool PA Active METRONIDAZOLE 500 MG TABS 1 tab po bid x 7 days METRONIDAZOLE 07338160796 No Longer Active Lock RN Active AMOXICILLIN 500 MG TABS Take one (1) tablet by mouth three times a day 03/08 AMOXICILLIN 57157404451 No Longer Active Lock RN Active CLINDAMYCIN HCL 300 MG CAPS take 1 cap po QID x 10 days CLINDAMYCIN HCL 73813203425 No Longer Active Lock RN Active CIPRO 500 MG TABS take 1 tab po bid x 10 days CIPROFLOXACIN HCL 90457116904 No Longer Active Lock RN Active BACTRIM DS 800-160 MG TABS 1 tab po bid x 10 days SULFAMETHOXAZOLE-TRIMETHOPRIM 11610248756 No Longer Active Esperanza Pool PA Active ZOLOFT 100 MG TABS take 1 tab po daily SERTRALINE HCL 26298011766 Active Luke Ballard MD Active ZOLOFT 100 MG TABS take 1/2 tab po daily SERTRALINE HCL 46474618279 No Longer Active Esperanza MEJIA Active BACTRIM DS 800-160 MG TABS 1 tab po bid x 10 days BACTRIM DS 800-160 MG TABS SULFAMETHOXAZOLE-TRIMETHOPRIM Inactive CIPRO 500 MG TABS take 1 tab po bid x 10 days CIPRO 500 MG TABS 169299 CIPROFLOXACIN HCL Inactive CLINDAMYCIN HCL 300 MG CAPS take 1 cap po QID x 10 days CLINDAMYCIN HCL 300 MG CAPS 742587 CLINDAMYCIN HCL Inactive AMOXICILLIN 500 MG TABS Take one (1) tablet by mouth three times a day 03/08 AMOXICILLIN 500 MG TABS 514028 AMOXICILLIN Inactive METRONIDAZOLE 500 MG TABS 1 tab po bid x 7 days METRONIDAZOLE 500 MG TABS 029399 METRONIDAZOLE Inactive ZITHROMAX 250 MG TABS take 2 tabs po day one then 1 tab po days 2-5 ZITHROMAX 250 MG TABS 6463467 AZITHROMYCIN Inactive BRITTANIE-28 TABS one tab p.o. q.d BRITTANIE-28 TABS LEVONORGESTREL-ETHINYL ESTRAD TABS Inactive MEDROL (JESSICA) 4 MG TABS take as directed MEDROL (JESSICA) 4 MG TABS METHYLPREDNISOLONE Inactive SUDAFED 12 HOUR 120 MG [id number] take 1 tab po bid prn SUDAFED 12 HOUR 120 MG [id number] PSEUDOEPHEDRINE HCL Inactive CIPRO 500 MG TABS take one tab po bid x 10 days CIPRO 500 MG TABS 314228 CIPROFLOXACIN HCL Inactive FLAGYL 500 MG TABS take one tab po bid x 10 days FLAGYL 500 MG TABS 539562 METRONIDAZOLE Inactive TAMIFLU 75 MG CAPS take one tab po daily x 10 days TAMIFLU 75 MG CAPS OSELTAMIVIR PHOSPHATE Inactive PREDNISONE 20 MG TAB 1 twice daily for two days, the once daily for two days PREDNISONE 20 MG TAB 719599 PREDNISONE Inactive HYDROCODONE-ACETAMINOPHEN 5-325 MG TABS take 1 tab po q4-6 hrs prn HYDROCODONE-ACETAMINOPHEN 5-325 MG TABS 758303 HYDROCODONE- ACETAMINOPHEN Inactive AMOXICILLIN 875 MG TABS Take one (1) tablet by mouth twice a day AMOXICILLIN 875 MG TABS 456932 AMOXICILLIN Inactive TRIAMTERENE-HCTZ 37.5-25 MG CAPS Take 1 tablet by mouth daily TRIAMTERENE-HCTZ 37.5-25 MG CAPS 439002 TRIAMTERENE-HCTZ Inactive PRILOSEC OTC 20 MG TBEC take one tab po bid PRILOSEC OTC 20 MG TBEC OMEPRAZOLE MAGNESIUM Inactive TEMAZEPAM 15 MG CAPS 2 capsules every h.s TEMAZEPAM 15 MG CAPS 490056 TEMAZEPAM Inactive FLEXERIL 10 MG TABS take one tab po tid prn FLEXERIL 10 MG TABS CYCLOBENZAPRINE HCL Inactive DIETHYLPROPION HCL ER 75 MG [id number] take one tab po daily 09/04 DIETHYLPROPION HCL ER 75 MG [id number] DIETHYLPROPION HCL Inactive PHENTERMINE HCL 37.5 MG TABS take one tab po daily PHENTERMINE HCL 37.5 MG TABS 898207 PHENTERMINE HCL Inactive BRITTANIE-28 0.15-30 MG-MCG TABS take one tab po daily BRITTANIE-28 0.15-30 MG-MCG TABS 334258 LEVONORGESTREL-ETHINYL ESTRAD Inactive ZOLOFT 100 MG TABS take 1/2 tab po daily ZOLOFT 100 MG TABS 320072 SERTRALINE HCL Inactive PYRIDIUM 200 MG TAB 1 po TID PRN Dysuria PYRIDIUM 200 MG TAB 2614153 PHENAZOPYRIDINE HCL Inactive Immunizations Vaccine Administration Date Value Standard Description Seasonal influenza vaccine, injectable, containing preservative, for > 3 years old (Afluria, FluLaval, Fluzone, Fluvirin, Fluarix, Agriflu(>=18 yo)) Fluzone (>3 yrs.) [[id number]] Influenza, seasonal, injectable Vital Signs Date Name [...] 1.76 m[iU]/mL 0.36-3.74 sodium, serum 139 mmol/L 395-900 1289/11/20 potassium, serum 4.0 mmol/L 3.5-5.2 chloride, serum [...] CPK - Chemistry sodium, serum 140 mmol/L 212-379 2759/12/06 potassium, serum 3.8 mmol/L 3.5-5.2 chloride, serum [...] 5.0-8.5 Encounters Code Encounter Date Provider Facility CPT-01285 Level 3 Est. Patient 11:13:24 SURVEYOR INSTRUMENT ASSISTANT Isatu Coburn [facility] CPT-14309 Level 3 Est. Patient 11:56:59 SURVEYOR INSTRUMENT ASSISTANT Isatu Coburn [facility] CPT-39776 Level 3 Est. Patient 11:17:35 SURVEYOR INSTRUMENT ASSISTANT Isatu Coburn [facility] CPT-72801 Level 3 Est. Patient 11:02:41 CDT Esperanza [facility] CPT-87247 Level 3 Est. Patient 14:35:51 CDT Kalin Carlos DO [facility] CPT-46666 Level 3 Est. Patient 15:48:05 CDT Esperanza [facility] CPT-53937 Level 3 Est. Patient 10:40:32 CDT Gonzalez Pinto [facility] CPT-55759 Level 3 Est. Patient 16:15:36 CDT Esperanza Pool [facility] CPT-54236 Level 3 Est. Patient 08:25:45 SURVEYOR INSTRUMENT ASSISTANT Esperanza Pool [facility] CPT-94860 Level 3 Est. Patient 16:30:43 SURVEYOR INSTRUMENT ASSISTANT Esperanza Pool [facility] CPT-46326 Level 3 Est. Patient 09:15:02 SURVEYOR INSTRUMENT ASSISTANT Esperanza Pool [facility] CPT-26019 Level 3 Est. Patient 15:29:15 CDT Espreanza Pool [facility] CPT-97652 Level 3 Est. Patient 12:48:23 CDT Esperanza Pool [facility] CPT-98274 Level 3 Est. Patient 14:10:29 CDT Esperanza [facility] CPT-10260 Level 3 Est. Patient 10:08:36 CDT Esperanza [facility] CPT-75940 Level 3 Est. Patient 08:21:51 CDT Gonzalez Pinto [facility] CPT-31481 Level 3 Est. Patient 15:57:32 SURVEYOR INSTRUMENT ASSISTANT Esperanza [facility] CPT-06812 Level 3 Est. Patient 09:40:30 SURVEYOR INSTRUMENT ASSISTANT Esperanza Pool [facility] CPT-61129 Level 3 Est. Patient 08:57:52 SURVEYOR INSTRUMENT ASSISTANT [facility] CPT-46271 Level 3 Est. Patient 14:31:11 CDT [facility]anza [facility] CPT-51545 Level 3 Est. Patient 09:44:45 CDT Esperanza Sanabria [facility] Procedures Code Procedure Name Date Entry Date Standard Description CPT-OV Office Visit 14:03:44 CDT CPT-50693 Sono retroperitoneal complete kidneys and bladder 12:58: 45 SURVEYOR INSTRUMENT ASSISTANT CPT-J1020 Depo Medrol 20 mg (Methyl Prednisolone Acetate) 15:48: 05 CDT CPT-J1020 Depo Medrol 100 mg (Methyl Prednisolone Acetate) 15:48: 05 CDT CPT-20761 Abx/Therapy Injection 15:48:05 CDT CPT-OV Office Visit 14:58:44 SURVEYOR INSTRUMENT ASSISTANT CPT-56199 Sono transvag pelvis non OB uterus ovaries cervix 16:31: 03 SURVEYOR INSTRUMENT ASSISTANT CPT-12806 Venipuncture Draw Fee 09:15:02 SURVEYOR INSTRUMENT ASSISTANT CPT-84301 Venipuncture Draw Fee 15:29:15 CDT CPT-64240 Abx/Therapy Injection 14:10:29 CDT CPT-J1030 Depo Medrol 40 mg (Methyl Prednisolone Acetate) 14:10: 29 CDT CPT-J1040 Depo Medrol 80 mg (Methyl Prednisolone Acetate) 14:10: 29 CDT CPT-31029 Spec Collection and Handling Fee 08:44:23 SURVEYOR INSTRUMENT ASSISTANT CPT-11695 Prv Med Est Pt 18-39yrs 08:44:23 SURVEYOR INSTRUMENT ASSISTANT CPT-30889 Abx/Therapy Injection 08:57:52 SURVEYOR INSTRUMENT ASSISTANT CPT-J1030 Depo Medrol 40 mg (Methyl Prednisolone Acetate) 08:57: 52 SURVEYOR INSTRUMENT ASSISTANT CPT-J1040 Depo Medrol 80 mg (Methyl Prednisolone Acetate) 08:57: 52 SURVEYOR INSTRUMENT ASSISTANT
--- OUTSIDE RECORDS SUMMARY | 2018-12-04 15:32 | XMS REPORT | Clinical Summary ---
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 UPPER RESPIRATORY INFECTION, [...] 1 po TID PRN Dysuria PHENAZOPYRIDINE HCL 11165419083 No Longer Active Isatu Coburn APRN Active CIPRO 500 MG TAB 1 tablet by mouth twice daily CIPROFLOXACIN HCL 55597152675 Active Isatu Coburn APRN Active BRITTANIE-28 0.15-30 MG-MCG TABS take one tab po daily LEVONORGESTREL-ETHINYL ESTRAD 00719445260 No Longer Active Petty Mcgrath Active ALPRAZOLAM 0.5 MG TABS one tab tid as needed ALPRAZOLAM 66285594174 Active Luke Ballard MD Active PHENTERMINE HCL 37.5 MG TABS take one tab po daily PHENTERMINE HCL 81721165737 No Longer Active Isatu Coburn APRN Active DIETHYLPROPION HCL ER 75 MG [id number]-HIX take one tab po daily 09/04 DIETHYLPROPION HCL 03920142013 No Longer Active Esperanza Sanabria PA Active FLEXERIL 10 MG TABS take one tab po tid prn CYCLOBENZAPRINE HCL 63714058272 No Longer Active Esperanza Pool PA Active TEMAZEPAM 15 MG CAPS 2 capsules every h.s TEMAZEPAM 99054843751 No Longer Active Esperanza Pool PA Active PRILOSEC OTC 20 MG TBEC take one tab po bid OMEPRAZOLE MAGNESIUM 11982770984 No Longer Active Esperanza Pool PA Active TRIAMTERENE-HCTZ 37.5-25 MG CAPS Take 1 tablet by mouth daily TRIAMTERENE-HCTZ 92445232853 No Longer Active Esperanza Pool PA Active AMOXICILLIN 875 MG TABS Take one (1) tablet by mouth twice a day AMOXICILLIN 83849663830 No Longer Active Esperanza Pool PA Active HYDROCODONE-ACETAMINOPHEN 5-325 MG TABS take 1 tab po q4-6 hrs prn HYDROCODONE-ACETAMINOPHEN 42892686974 No Longer Active Esperanza Pool PA Active PREDNISONE 20 MG TAB 1 twice daily for two days, the once daily for two days PREDNISONE 80660692804 No Longer Active Esperanza Pool PA Active TAMIFLU 75 MG CAPS take one tab po daily x 10 days OSELTAMIVIR PHOSPHATE 53704689481 No Longer Active Esperanza Pool PA Active FLAGYL 500 MG TABS take one tab po bid x 10 days METRONIDAZOLE 10418132241 No Longer Active Esperanza Pool PA Active CIPRO 500 MG TABS take one tab po bid x 10 days CIPROFLOXACIN HCL 56383002101 No Longer Active Esperanza Pool PA Active SUDAFED 12 HOUR 120 MG [id number] take 1 tab po bid prn PSEUDOEPHEDRINE HCL 77456659191 No Longer Active Esperanza Pool PA Active MEDROL (JESSICA) 4 MG TABS take as directed METHYLPREDNISOLONE 72309823297 No Longer Active Sammi Cecilio RN Active BRITTANIE-28 TABS one tab p.o. q.d LEVONORGESTREL- ETHINYL ESTRAD TABS 92614119922 No Longer Active Esperanza Pool PA Active ZITHROMAX 250 MG TABS take 2 tabs po day one then 1 tab po days 2-5 AZITHROMYCIN 76454176248 No Longer Active Esperanza Pool PA Active METRONIDAZOLE 500 MG TABS 1 tab po bid x 7 days METRONIDAZOLE 22056460794 No Longer Active Lock RN Active AMOXICILLIN 500 MG TABS Take one (1) tablet by mouth three times a day 03/08 AMOXICILLIN 35678557988 No Longer Active Lock RN Active CLINDAMYCIN HCL 300 MG CAPS take 1 cap po QID x 10 days CLINDAMYCIN HCL 10923753532 No Longer Active Lock RN Active CIPRO 500 MG TABS take 1 tab po bid x 10 days CIPROFLOXACIN HCL 59307378474 No Longer Active Lock RN Active BACTRIM DS 800-160 MG TABS 1 tab po bid x 10 days SULFAMETHOXAZOLE-TRIMETHOPRIM 44061116621 No Longer Active Esperanza Pool PA Active ZOLOFT 100 MG TABS take 1 tab po daily SERTRALINE HCL 70983695312 Active Luke Ballard MD Active ZOLOFT 100 MG TABS take 1/2 tab po daily SERTRALINE HCL 92704521019 No Longer Active Esperanza MEJIA Active BACTRIM DS 800-160 MG TABS 1 tab po bid x 10 days BACTRIM DS 800-160 MG TABS SULFAMETHOXAZOLE-TRIMETHOPRIM Inactive CIPRO 500 MG TABS take 1 tab po bid x 10 days CIPRO 500 MG TABS 062286 CIPROFLOXACIN HCL Inactive CLINDAMYCIN HCL 300 MG CAPS take 1 cap po QID x 10 days CLINDAMYCIN HCL 300 MG CAPS 216331 CLINDAMYCIN HCL Inactive AMOXICILLIN 500 MG TABS Take one (1) tablet by mouth three times a day 03/08 AMOXICILLIN 500 MG TABS 489171 AMOXICILLIN Inactive METRONIDAZOLE 500 MG TABS 1 tab po bid x 7 days METRONIDAZOLE 500 MG TABS 752370 METRONIDAZOLE Inactive ZITHROMAX 250 MG TABS take 2 tabs po day one then 1 tab po days 2-5 ZITHROMAX 250 MG TABS 6415588 AZITHROMYCIN Inactive BRITTANIE-28 TABS one tab p.o. q.d BRITTANIE-28 TABS LEVONORGESTREL-ETHINYL ESTRAD TABS Inactive MEDROL (JESSICA) 4 MG TABS take as directed MEDROL (JESSICA) 4 MG TABS METHYLPREDNISOLONE Inactive SUDAFED 12 HOUR 120 MG [id number] take 1 tab po bid prn SUDAFED 12 HOUR 120 MG [id number] PSEUDOEPHEDRINE HCL Inactive CIPRO 500 MG TABS take one tab po bid x 10 days CIPRO 500 MG TABS 537161 CIPROFLOXACIN HCL Inactive FLAGYL 500 MG TABS take one tab po bid x 10 days FLAGYL 500 MG TABS 241500 METRONIDAZOLE Inactive TAMIFLU 75 MG CAPS take one tab po daily x 10 days TAMIFLU 75 MG CAPS OSELTAMIVIR PHOSPHATE Inactive PREDNISONE 20 MG TAB 1 twice daily for two days, the once daily for two days PREDNISONE 20 MG TAB 602386 PREDNISONE Inactive HYDROCODONE-ACETAMINOPHEN 5-325 MG TABS take 1 tab po q4-6 hrs prn HYDROCODONE-ACETAMINOPHEN 5-325 MG TABS 695923 HYDROCODONE- ACETAMINOPHEN Inactive AMOXICILLIN 875 MG TABS Take one (1) tablet by mouth twice a day AMOXICILLIN 875 MG TABS 408758 AMOXICILLIN Inactive TRIAMTERENE-HCTZ 37.5-25 MG CAPS Take 1 tablet by mouth daily TRIAMTERENE-HCTZ 37.5-25 MG CAPS 890757 TRIAMTERENE-HCTZ Inactive PRILOSEC OTC 20 MG TBEC take one tab po bid PRILOSEC OTC 20 MG TBEC OMEPRAZOLE MAGNESIUM Inactive TEMAZEPAM 15 MG CAPS 2 capsules every h.s TEMAZEPAM 15 MG CAPS 805630 TEMAZEPAM Inactive FLEXERIL 10 MG TABS take one tab po tid prn FLEXERIL 10 MG TABS CYCLOBENZAPRINE HCL Inactive DIETHYLPROPION HCL ER 75 MG OB42L-DAY take one tab po daily 09/04 DIETHYLPROPION HCL ER 75 MG [id number]-QRT DIETHYLPROPION HCL Inactive PHENTERMINE HCL 37.5 MG TABS take one tab po daily PHENTERMINE HCL 37.5 MG TABS 943050 PHENTERMINE HCL Inactive BRITTANIE-28 0.15-30 MG-MCG TABS take one tab po daily BRITTANIE-28 0.15-30 MG-MCG TABS 435664 LEVONORGESTREL-ETHINYL ESTRAD Inactive ZOLOFT 100 MG TABS take 1/2 tab po daily ZOLOFT 100 MG TABS 504198 SERTRALINE HCL Inactive PYRIDIUM 200 MG TAB 1 po TID PRN Dysuria PYRIDIUM 200 MG TAB 9313598 PHENAZOPYRIDINE HCL Inactive Immunizations Vaccine Administration Date Value Standard Description Seasonal influenza vaccine, injectable, containing preservative, for > 3 years old (Afluria, FluLaval, Fluzone, Fluvirin, Fluarix, Agriflu(>=18 yo)) Fluzone (>3 yrs.) [[id number]] Influenza, seasonal, injectable Vital Signs Date Name [...] 1.76 m[iU]/mL 0.36-3.74 sodium, serum 139 mmol/L 673-729 5464/11/20 potassium, serum 4.0 mmol/L 3.5-5.2 chloride, serum [...] CPK - Chemistry sodium, serum 140 mmol/L 266-693 7210/12/06 potassium, serum 3.8 mmol/L 3.5-5.2 chloride, serum [...] 5.0-8.5 Encounters Code Encounter Date Provider Facility CPT-83356 Level 3 Est. Patient 11:13:24 CONVENTIONS ASSISTANT Isatu Coburn [facility] CPT-08278 Level 3 Est. Patient 11:56:59 CONVENTIONS ASSISTANT Isatu Coburn [facility] CPT-65880 Level 3 Est. Patient 11:17:35 CONVENTIONS ASSISTANT Isatu Coburn [facility] CPT-88808 Level 3 Est. Patient 11:02:41 CDT Esperanza [facility] CPT-72459 Level 3 Est. Patient 14:35:51 CDT Kalin Carlos DO [facility] CPT-17435 Level 3 Est. Patient 15:48:05 CDT Esperanza [facility] CPT-48099 Level 3 Est. Patient 10:40:32 CDT Gonzalez Pinto [facility] CPT-85185 Level 3 Est. Patient 16:15:36 CDT Esperanza Pool [facility] CPT-13662 Level 3 Est. Patient 08:25:45 CONVENTIONS ASSISTANT Esperanza Pool [facility] CPT-56192 Level 3 Est. Patient 16:30:43 CONVENTIONS ASSISTANT Esperanza Pool [facility] CPT-39222 Level 3 Est. Patient 09:15:02 CONVENTIONS ASSISTANT Esperanza Pool [facility] CPT-33493 Level 3 Est. Patient 15:29:15 CDT Esperanza Pool [facility] CPT-44580 Level 3 Est. Patient 12:48:23 CDT Esperanza Pool [facility] CPT-59699 Level 3 Est. Patient 14:10:29 CDT Esperanza [facility] CPT-41684 Level 3 Est. Patient 10:08:36 CDT Esperanza [facility] CPT-04582 Level 3 Est. Patient 08:21:51 CDT Gonzalez Pinto [facility] CPT-29582 Level 3 Est. Patient 15:57:32 CONVENTIONS ASSISTANT Esperanza Pool [facility] CPT-79402 Level 3 Est. Patient 09:40:30 CONVENTIONS ASSISTANT Esperanza Pool [facility] CPT-88771 Level 3 Est. Patient 08:57:52 CONVENTIONS ASSISTANT [facility]peranza [facility] CPT-57863 Level 3 Est. Patient 14:31:11 CDT [facility] CPT-66670 Level 3 Est. Patient 09:44:45 CDT Esperanza Sanabria [facility] Reji Procedures Code Procedure Name Date Entry Date Standard Description CPT-OV Office Visit 14:03:44 CDT CPT-84700 Sono retroperitoneal complete kidneys and bladder 12:58: 45 CONVENTIONS ASSISTANT CPT-J1020 Depo Medrol 20 mg (Methyl Prednisolone Acetate) 15:48: 05 CDT CPT-J1020 Depo Medrol 100 mg (Methyl Prednisolone Acetate) 15:48: 05 CDT CPT-87216 Abx/Therapy Injection 15:48:05 CDT CPT-OV Office Visit 14:58:44 CONVENTIONS ASSISTANT CPT-78854 Sono transvag pelvis non OB uterus ovaries cervix 16:31: 03 CONVENTIONS ASSISTANT CPT-24377 Venipuncture Draw Fee 09:15:02 CONVENTIONS ASSISTANT CPT-41808 Venipuncture Draw Fee 15:29:15 CDT CPT-59079 Abx/Therapy Injection 14:10:29 CDT CPT-J1030 Depo Medrol 40 mg (Methyl Prednisolone Acetate) 14:10: 29 CDT CPT-J1040 Depo Medrol 80 mg (Methyl Prednisolone Acetate) 14:10: 29 CDT CPT-81655 Spec Collection and Handling Fee 08:44:23 CONVENTIONS ASSISTANT CPT-00912 Prv Med Est Pt 18-39yrs 08:44:23 CONVENTIONS ASSISTANT CPT-27546 Abx/Therapy Injection 08:57:52 CONVENTIONS ASSISTANT CPT-J1030 Depo Medrol 40 mg (Methyl Prednisolone Acetate) 08:57: 52 CONVENTIONS ASSISTANT CPT-J1040 Depo Medrol 80 mg (Methyl Prednisolone Acetate) 08:57: 52 CONVENTIONS ASSISTANT
--- OUTSIDE RECORDS SUMMARY | 2018-12-04 15:32 | XMS REPORT | Clinical Summary ---
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 UPPER RESPIRATORY INFECTION, [...] 1 po TID PRN Dysuria PHENAZOPYRIDINE HCL 14990887264 No Longer Active Isatu Coburn LAMINA SEARCHER Active CIPRO 500 MG TAB 1 tablet by mouth twice daily CIPROFLOXACIN HCL 71771559943 Active Isatu Coburn APRN Active BRITTANIE-28 0.15-30 MG-MCG TABS take one tab po daily LEVONORGESTREL-ETHINYL ESTRAD 12983130454 No Longer Active Petty Ramila Active ALPRAZOLAM 0.5 MG TABS one tab tid as needed ALPRAZOLAM 03351197947 Active Luke Ballard MD Active PHENTERMINE HCL 37.5 MG TABS take one tab po daily PHENTERMINE HCL 36366735799 No Longer Active Isatu Coburn APRN Active DIETHYLPROPION HCL ER 75 MG MY12H-XVR take one tab po daily 09/04 DIETHYLPROPION HCL 21608684143 No Longer Active Esperanza Sanabria PA Active FLEXERIL 10 MG TABS take one tab po tid prn CYCLOBENZAPRINE HCL 28748845157 No Longer Active Esperanza Pool PA Active TEMAZEPAM 15 MG CAPS 2 capsules every h.s TEMAZEPAM 08649277130 No Longer Active Esperanza Pool PA Active PRILOSEC OTC 20 MG TBEC take one tab po bid OMEPRAZOLE MAGNESIUM 73829383802 No Longer Active Esperanza Pool PA Active TRIAMTERENE-HCTZ 37.5-25 MG CAPS Take 1 tablet by mouth daily TRIAMTERENE-HCTZ 63394945528 No Longer Active Esperanza Pool PA Active AMOXICILLIN 875 MG TABS Take one (1) tablet by mouth twice a day AMOXICILLIN 59006152094 No Longer Active Esperanza Pool PA Active HYDROCODONE-ACETAMINOPHEN 5-325 MG TABS take 1 tab po q4-6 hrs prn HYDROCODONE-ACETAMINOPHEN 90907684578 No Longer Active Esperanza Pool PA Active PREDNISONE 20 MG TAB 1 twice daily for two days, the once daily for two days PREDNISONE 68998684057 No Longer Active Esperanza Pool PA Active TAMIFLU 75 MG CAPS take one tab po daily x 10 days OSELTAMIVIR PHOSPHATE 78107080328 No Longer Active Esperanza Pool PA Active FLAGYL 500 MG TABS take one tab po bid x 10 days METRONIDAZOLE 30930956602 No Longer Active Esperanza Pool PA Active CIPRO 500 MG TABS take one tab po bid x 10 days CIPROFLOXACIN HCL 42775158313 No Longer Active Esperanza Pool PA Active SUDAFED 12 HOUR 120 MG [id number] take 1 tab po bid prn PSEUDOEPHEDRINE HCL 91235690616 No Longer Active Esperanza Pool PA Active MEDROL (JESSICA) 4 MG TABS take as directed METHYLPREDNISOLONE 59749321576 No Longer Active Sammi Hernandes RN Active BRITTANIE-28 TABS one tab p.o. q.d LEVONORGESTREL- ETHINYL ESTRAD TABS 36432098313 No Longer Active Esperanza Pool PA Active ZITHROMAX 250 MG TABS take 2 tabs po day one then 1 tab po days 2-5 AZITHROMYCIN 42253123168 No Longer Active Esperanza Pool PA Active METRONIDAZOLE 500 MG TABS 1 tab po bid x 7 days METRONIDAZOLE 12281001047 No Longer Active Lock RN Active AMOXICILLIN 500 MG TABS Take one (1) tablet by mouth three times a day 03/08 AMOXICILLIN 04948390983 No Longer Active Lock RN Active CLINDAMYCIN HCL 300 MG CAPS take 1 cap po QID x 10 days CLINDAMYCIN HCL 83130366572 No Longer Active Lock RN Active CIPRO 500 MG TABS take 1 tab po bid x 10 days CIPROFLOXACIN HCL 56366853739 No Longer Active Lock RN Active BACTRIM DS 800-160 MG TABS 1 tab po bid x 10 days SULFAMETHOXAZOLE-TRIMETHOPRIM 39011988213 No Longer Active Esperanza Pool PA Active ZOLOFT 100 MG TABS take 1 tab po daily SERTRALINE HCL 68080587059 Active Luke Ballard MD Active ZOLOFT 100 MG TABS take 1/2 tab po daily SERTRALINE HCL 58250852425 No Longer Active Esperanza MEJIA Active BACTRIM DS 800-160 MG TABS 1 tab po bid x 10 days BACTRIM DS 800-160 MG TABS SULFAMETHOXAZOLE-TRIMETHOPRIM Inactive CIPRO 500 MG TABS take 1 tab po bid x 10 days CIPRO 500 MG TABS 817081 CIPROFLOXACIN HCL Inactive CLINDAMYCIN HCL 300 MG CAPS take 1 cap po QID x 10 days CLINDAMYCIN HCL 300 MG CAPS 737078 CLINDAMYCIN HCL Inactive AMOXICILLIN 500 MG TABS Take one (1) tablet by mouth three times a day 03/08 AMOXICILLIN 500 MG TABS 160121 AMOXICILLIN Inactive METRONIDAZOLE 500 MG TABS 1 tab po bid x 7 days METRONIDAZOLE 500 MG TABS 550197 METRONIDAZOLE Inactive ZITHROMAX 250 MG TABS take 2 tabs po day one then 1 tab po days 2-5 ZITHROMAX 250 MG TABS 2428842 AZITHROMYCIN Inactive BRITTANIE-28 TABS one tab p.o. q.d BRITTANIE-28 TABS LEVONORGESTREL-ETHINYL ESTRAD TABS Inactive MEDROL (JESSICA) 4 MG TABS take as directed MEDROL (JESSICA) 4 MG TABS METHYLPREDNISOLONE Inactive SUDAFED 12 HOUR 120 MG [id number] take 1 tab po bid prn SUDAFED 12 HOUR 120 MG IR51Q-UFH PSEUDOEPHEDRINE HCL Inactive CIPRO 500 MG TABS take one tab po bid x 10 days CIPRO 500 MG TABS 382279 CIPROFLOXACIN HCL Inactive FLAGYL 500 MG TABS take one tab po bid x 10 days FLAGYL 500 MG TABS 802781 METRONIDAZOLE Inactive TAMIFLU 75 MG CAPS take one tab po daily x 10 days TAMIFLU 75 MG CAPS OSELTAMIVIR PHOSPHATE Inactive PREDNISONE 20 MG TAB 1 twice daily for two days, the once daily for two days PREDNISONE 20 MG TAB 849151 PREDNISONE Inactive HYDROCODONE-ACETAMINOPHEN 5-325 MG TABS take 1 tab po q4-6 hrs prn HYDROCODONE-ACETAMINOPHEN 5-325 MG TABS 375701 HYDROCODONE- ACETAMINOPHEN Inactive AMOXICILLIN 875 MG TABS Take one (1) tablet by mouth twice a day AMOXICILLIN 875 MG TABS 159456 AMOXICILLIN Inactive TRIAMTERENE-HCTZ 37.5-25 MG CAPS Take 1 tablet by mouth daily TRIAMTERENE-HCTZ 37.5-25 MG CAPS 526615 TRIAMTERENE-HCTZ Inactive PRILOSEC OTC 20 MG TBEC take one tab po bid PRILOSEC OTC 20 MG TBEC OMEPRAZOLE MAGNESIUM Inactive TEMAZEPAM 15 MG CAPS 2 capsules every h.s TEMAZEPAM 15 MG CAPS 204219 TEMAZEPAM Inactive FLEXERIL 10 MG TABS take one tab po tid prn FLEXERIL 10 MG TABS CYCLOBENZAPRINE HCL Inactive DIETHYLPROPION HCL ER 75 MG [id number] take one tab po daily 09/04 DIETHYLPROPION HCL ER 75 MG [id number] DIETHYLPROPION HCL Inactive PHENTERMINE HCL 37.5 MG TABS take one tab po daily PHENTERMINE HCL 37.5 MG TABS 392451 PHENTERMINE HCL Inactive BRITTANIE-28 0.15-30 MG-MCG TABS take one tab po daily BRITTANIE-28 0.15-30 MG-MCG TABS 452643 LEVONORGESTREL-ETHINYL ESTRAD Inactive ZOLOFT 100 MG TABS take 1/2 tab po daily ZOLOFT 100 MG TABS 281919 SERTRALINE HCL Inactive PYRIDIUM 200 MG TAB 1 po TID PRN Dysuria PYRIDIUM 200 MG TAB 4527896 PHENAZOPYRIDINE HCL Inactive Immunizations Vaccine Administration Date Value Standard Description Seasonal influenza vaccine, injectable, containing preservative, for > 3 years old (Afluria, FluLaval, Fluzone, Fluvirin, Fluarix, Agriflu(>=18 yo)) Fluzone (>3 yrs.) [[id number]] Influenza, seasonal, injectable Vital Signs Date Name [...] 1.76 m[iU]/mL 0.36-3.74 sodium, serum 139 mmol/L 396-510 3921/11/20 potassium, serum 4.0 mmol/L 3.5-5.2 chloride, serum [...] CPK - Chemistry sodium, serum 140 mmol/L 513-294 2221/12/06 potassium, serum 3.8 mmol/L 3.5-5.2 chloride, serum [...] 5.0-8.5 Encounters Code Encounter Date Provider Facility CPT-97697 Level 3 Est. Patient 11:13:24 PYTHON ARCHITECT Isatu Coburn [facility] CPT-66299 Level 3 Est. Patient 11:56:59 PYTHON ARCHITECT Isatu Coburn [facility] CPT-44095 Level 3 Est. Patient 11:17:35 PYTHON ARCHITECT Isatu Coburn [facility] CPT-08459 Level 3 Est. Patient 11:02:41 CDT Esperanza [facility] CPT-99787 Level 3 Est. Patient 14:35:51 CDT Kalin Carlos DO [facility] CPT-13478 Level 3 Est. Patient 15:48:05 CDT Esperanza [facility] CPT-32364 Level 3 Est. Patient 10:40:32 CDT Gonzalez Pinto [facility] CPT-84774 Level 3 Est. Patient 16:15:36 CDT Esperanza Pool [facility] CPT-33602 Level 3 Est. Patient 08:25:45 PYTHON ARCHITECT Esperanza Pool [facility] CPT-65340 Level 3 Est. Patient 16:30:43 PYTHON ARCHITECT Esperanza Pool [facility] CPT-94375 Level 3 Est. Patient 09:15:02 PYTHON ARCHITECT Esperanza Pool [facility] CPT-92665 Level 3 Est. Patient 15:29:15 CDT Esperanza [facility] CPT-15147 Level 3 Est. Patient 12:48:23 CDT Esperanza [facility] CPT-80869 Level 3 Est. Patient 14:10:29 CDT Esperanza [facility] CPT-56981 Level 3 Est. Patient 10:08:36 CDT Esperanza [facility] CPT-43517 Level 3 Est. Patient 08:21:51 CDT Gonzalez Pinto [facility] CPT-30989 Level 3 Est. Patient 15:57:32 PYTHON ARCHITECT Esperanza [facility] CPT-97125 Level 3 Est. Patient 09:40:30 PYTHON ARCHITECT Esperanza Pool [facility] CPT-42077 Level 3 Est. Patient 08:57:52 PYTHON ARCHITECT [facility] C[facility]40810 Level 3 Est. Patient 14:31:11 CDT Esperanza Sanabria [facility] CPT-34392 Level 3 Est. Patient 09:44:45 CDT Esperanza Sanabria [facility] Reji Procedures Code Procedure Name Date Entry Date Standard Description CPT-OV Office Visit 14:03:44 CDT CPT-80208 Sono retroperitoneal complete kidneys and bladder 12:58: 45 PYTHON ARCHITECT CPT-J1020 Depo Medrol 20 mg (Methyl Prednisolone Acetate) 15:48: 05 CDT CPT-J1020 Depo Medrol 100 mg (Methyl Prednisolone Acetate) 15:48: 05 CDT CPT-49545 Abx/Therapy Injection 15:48:05 CDT CPT-OV Office Visit 14:58:44 PYTHON ARCHITECT CPT-31484 Sono transvag pelvis non OB uterus ovaries cervix 16:31: 03 PYTHON ARCHITECT CPT-71169 Venipuncture Draw Fee 09:15:02 PYTHON ARCHITECT CPT-17289 Venipuncture Draw Fee 15:29:15 CDT CPT-45643 Abx/Therapy Injection 14:10:29 CDT CPT-J1030 Depo Medrol 40 mg (Methyl Prednisolone Acetate) 14:10: 29 CDT CPT-J1040 Depo Medrol 80 mg (Methyl Prednisolone Acetate) 14:10: 29 CDT CPT-43218 Spec Collection and Handling Fee 08:44:23 PYTHON ARCHITECT CPT-43134 Prv Med Est Pt 18-39yrs 08:44:23 PYTHON ARCHITECT CPT-53486 Abx/Therapy Injection 08:57:52 PYTHON ARCHITECT CPT-J1030 Depo Medrol 40 mg (Methyl Prednisolone Acetate) 08:57: 52 PYTHON ARCHITECT CPT-J1040 Depo Medrol 80 mg (Methyl Prednisolone Acetate) 08:57: 52 PYTHON ARCHITECT
--- OUTSIDE RECORDS SUMMARY | 2018-12-04 15:33 | XMS REPORT | Clinical Summary ---
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 UPPER RESPIRATORY INFECTION, [...] 1 po TID PRN Dysuria PHENAZOPYRIDINE HCL 75599693044 No Longer Active Isatu Coburn APRN Active CIPRO 500 MG TAB 1 tablet by mouth twice daily CIPROFLOXACIN HCL 63786440943 Active Isatu Coburn APRN Active BRITTANIE-28 0.15-30 MG-MCG TABS take one tab po daily LEVONORGESTREL-ETHINYL ESTRAD 33562905903 No Longer Active Petty Mcgrath Active ALPRAZOLAM 0.5 MG TABS one tab tid as needed ALPRAZOLAM 26066057520 Active Luke Balladr MD Active PHENTERMINE HCL 37.5 MG TABS take one tab po daily PHENTERMINE HCL 31306280746 No Longer Active Isatu Coburn APRN Active DIETHYLPROPION HCL ER 75 MG [id number] take one tab po daily 09/04 DIETHYLPROPION HCL 63822002025 No Longer Active Esperanza Sanabria PA Active FLEXERIL 10 MG TABS take one tab po tid prn CYCLOBENZAPRINE HCL 71027730146 No Longer Active Esperanza Pool PA Active TEMAZEPAM 15 MG CAPS 2 capsules every h.s TEMAZEPAM 99026297868 No Longer Active Esperanza Pool PA Active PRILOSEC OTC 20 MG TBEC take one tab po bid OMEPRAZOLE MAGNESIUM 18504675960 No Longer Active Esperanza Pool PA Active TRIAMTERENE-HCTZ 37.5-25 MG CAPS Take 1 tablet by mouth daily TRIAMTERENE-HCTZ 05426504988 No Longer Active Esperanza Pool PA Active AMOXICILLIN 875 MG TABS Take one (1) tablet by mouth twice a day AMOXICILLIN 01910540387 No Longer Active Esperanza Pool PA Active HYDROCODONE-ACETAMINOPHEN 5-325 MG TABS take 1 tab po q4-6 hrs prn HYDROCODONE-ACETAMINOPHEN 34569002943 No Longer Active Esperanza Pool PA Active PREDNISONE 20 MG TAB 1 twice daily for two days, the once daily for two days PREDNISONE 05565898937 No Longer Active Esperanza Pool PA Active TAMIFLU 75 MG CAPS take one tab po daily x 10 days OSELTAMIVIR PHOSPHATE 79992750553 No Longer Active Esperanza Pool PA Active FLAGYL 500 MG TABS take one tab po bid x 10 days METRONIDAZOLE 94819866859 No Longer Active Esperanza Pool PA Active CIPRO 500 MG TABS take one tab po bid x 10 days CIPROFLOXACIN HCL 81244453021 No Longer Active Esperanza Pool PA Active SUDAFED 12 HOUR 120 MG [id number] take 1 tab po bid prn PSEUDOEPHEDRINE HCL 38279469688 No Longer Active Esperanza Pool PA Active MEDROL (JESSICA) 4 MG TABS take as directed METHYLPREDNISOLONE 73550451892 No Longer Active Sammi Cecilio RN Active BRITTANIE-28 TABS one tab p.o. q.d LEVONORGESTREL- ETHINYL ESTRAD TABS 88519719909 No Longer Active Esperanza Pool PA Active ZITHROMAX 250 MG TABS take 2 tabs po day one then 1 tab po days 2-5 AZITHROMYCIN 76756122154 No Longer Active Esperanza Pool PA Active METRONIDAZOLE 500 MG TABS 1 tab po bid x 7 days METRONIDAZOLE 37006482157 No Longer Active Lock RN Active AMOXICILLIN 500 MG TABS Take one (1) tablet by mouth three times a day 03/08 AMOXICILLIN 26677990816 No Longer Active Lock RN Active CLINDAMYCIN HCL 300 MG CAPS take 1 cap po QID x 10 days CLINDAMYCIN HCL 88807302933 No Longer Active Lock RN Active CIPRO 500 MG TABS take 1 tab po bid x 10 days CIPROFLOXACIN HCL 96829620833 No Longer Active Lock RN Active BACTRIM DS 800-160 MG TABS 1 tab po bid x 10 days SULFAMETHOXAZOLE-TRIMETHOPRIM 52049608051 No Longer Active Esperanza Pool PA Active ZOLOFT 100 MG TABS take 1 tab po daily SERTRALINE HCL 59078683610 Active Luke Ballard MD Active ZOLOFT 100 MG TABS take 1/2 tab po daily SERTRALINE HCL 77328747559 No Longer Active Esperanza MEJIA Active BACTRIM DS 800-160 MG TABS 1 tab po bid x 10 days BACTRIM DS 800-160 MG TABS SULFAMETHOXAZOLE-TRIMETHOPRIM Inactive CIPRO 500 MG TABS take 1 tab po bid x 10 days CIPRO 500 MG TABS 133017 CIPROFLOXACIN HCL Inactive CLINDAMYCIN HCL 300 MG CAPS take 1 cap po QID x 10 days CLINDAMYCIN HCL 300 MG CAPS 463073 CLINDAMYCIN HCL Inactive AMOXICILLIN 500 MG TABS Take one (1) tablet by mouth three times a day 03/08 AMOXICILLIN 500 MG TABS 007128 AMOXICILLIN Inactive METRONIDAZOLE 500 MG TABS 1 tab po bid x 7 days METRONIDAZOLE 500 MG TABS 808279 METRONIDAZOLE Inactive ZITHROMAX 250 MG TABS take 2 tabs po day one then 1 tab po days 2-5 ZITHROMAX 250 MG TABS 2112299 AZITHROMYCIN Inactive BRITTANIE-28 TABS one tab p.o. q.d BRITTANIE-28 TABS LEVONORGESTREL-ETHINYL ESTRAD TABS Inactive MEDROL (JESSICA) 4 MG TABS take as directed MEDROL (JESSICA) 4 MG TABS METHYLPREDNISOLONE Inactive SUDAFED 12 HOUR 120 MG [id number] take 1 tab po bid prn SUDAFED 12 HOUR 120 MG [id number] PSEUDOEPHEDRINE HCL Inactive CIPRO 500 MG TABS take one tab po bid x 10 days CIPRO 500 MG TABS 443673 CIPROFLOXACIN HCL Inactive FLAGYL 500 MG TABS take one tab po bid x 10 days FLAGYL 500 MG TABS 847483 METRONIDAZOLE Inactive TAMIFLU 75 MG CAPS take one tab po daily x 10 days TAMIFLU 75 MG CAPS OSELTAMIVIR PHOSPHATE Inactive PREDNISONE 20 MG TAB 1 twice daily for two days, the once daily for two days PREDNISONE 20 MG TAB 269249 PREDNISONE Inactive HYDROCODONE-ACETAMINOPHEN 5-325 MG TABS take 1 tab po q4-6 hrs prn HYDROCODONE-ACETAMINOPHEN 5-325 MG TABS 791160 HYDROCODONE- ACETAMINOPHEN Inactive AMOXICILLIN 875 MG TABS Take one (1) tablet by mouth twice a day AMOXICILLIN 875 MG TABS 571783 AMOXICILLIN Inactive TRIAMTERENE-HCTZ 37.5-25 MG CAPS Take 1 tablet by mouth daily TRIAMTERENE-HCTZ 37.5-25 MG CAPS 162369 TRIAMTERENE-HCTZ Inactive PRILOSEC OTC 20 MG TBEC take one tab po bid PRILOSEC OTC 20 MG TBEC OMEPRAZOLE MAGNESIUM Inactive TEMAZEPAM 15 MG CAPS 2 capsules every h.s TEMAZEPAM 15 MG CAPS 329104 TEMAZEPAM Inactive FLEXERIL 10 MG TABS take one tab po tid prn FLEXERIL 10 MG TABS CYCLOBENZAPRINE HCL Inactive DIETHYLPROPION HCL ER 75 MG [id number] take one tab po daily 09/04 DIETHYLPROPION HCL ER 75 MG [id number] DIETHYLPROPION HCL Inactive PHENTERMINE HCL 37.5 MG TABS take one tab po daily PHENTERMINE HCL 37.5 MG TABS 367754 PHENTERMINE HCL Inactive BRITTANIE-28 0.15-30 MG-MCG TABS take one tab po daily BRITTANIE-28 0.15-30 MG-MCG TABS 335691 LEVONORGESTREL-ETHINYL ESTRAD Inactive ZOLOFT 100 MG TABS take 1/2 tab po daily ZOLOFT 100 MG TABS 546450 SERTRALINE HCL Inactive PYRIDIUM 200 MG TAB 1 po TID PRN Dysuria PYRIDIUM 200 MG TAB 9362566 PHENAZOPYRIDINE HCL Inactive Immunizations Vaccine Administration Date Value Standard Description Seasonal influenza vaccine, injectable, containing preservative, for > 3 years old (Afluria, FluLaval, Fluzone, Fluvirin, Fluarix, Agriflu(>=18 yo)) Fluzone (>3 yrs.) [FRO574] Influenza, seasonal, injectable Vital Signs Date Name [...] 4.0 mmol/L 3.5-5.2 sodium, serum 139 mmol/L 117-219 8197/11/20 TSH 1.76 m[iU]/mL 0.36-3.74 Lab Report: UADIP (AUTO), Comp. Metabolic Panel, CPK - Chemistry sodium, serum 140 mmol/L 453-043 9735/12/06 potassium, serum 3.8 mmol/L 3.5-5.2 chloride, serum [...] 5.0-8.5 Encounters Code Encounter Date Provider Facility CPT-03354 Level 3 Est. Patient 11:13:24 DIRECTOR MOTION PICTURE Isatu Coburn [facility] CPT-16874 Level 3 Est. Patient 11:56:59 DIRECTOR MOTION PICTURE Isatu Coburn [facility] CPT-28342 Level 3 Est. Patient 11:17:35 DIRECTOR MOTION PICTURE Isatu Coburn [facility] CPT-69468 Level 3 Est. Patient 11:02:41 CDT Esperanza [facility] CPT-61711 Level 3 Est. Patient 14:35:51 CDT Kalin Carlos DO [facility] CPT-49423 Level 3 Est. Patient 15:48:05 CDT Esperanza [facility] CPT-42482 Level 3 Est. Patient 10:40:[address] [facility] CPT-04703 Level 3 Est. Patient 16:15:36 CDT Esperanza Pool [facility] CPT-85239 Level 3 Est. Patient 08:25:45 DIRECTOR MOTION PICTURE Esperanza Pool [facility] CPT-72728 Level 3 Est. Patient 16:30:43 DIRECTOR MOTION PICTURE Esperanza Pool [facility] CPT-91576 Level 3 Est. Patient 09:15:02 DIRECTOR MOTION PICTURE Esperanza Pool [facility] CPT-02269 Level 3 Est. Patient 15:29:15 CDT Esperanza Pool [facility] CPT-37196 Level 3 Est. Patient 12:48:23 CDT Esperanza Pool [facility] CPT-24684 Level 3 Est. Patient 14:10:29 CDT Esperanza [facility] CPT-59230 Level 3 Est. Patient 10:08:36 CDT Esperanza [facility] CPT-24502 Level 3 Est. Patient 08:21:51 CDT Gonzalez Pinto [facility] CPT-10945 Level 3 Est. Patient 15:57:32 DIRECTOR MOTION PICTURE Esperanza Pool [facility] CPT-23665 Level 3 Est. Patient 09:40:30 DIRECTOR MOTION PICTURE Esperanza Pool [facility] CPT-16215 Level 3 Est. Patient 08:57:52 DIRECTOR MOTION PICTURE [facility]anza [facility] CPT-56472 Level 3 Est. Patient 14:31:11 CDT [facility] CPT-12661 Level 3 Est. Patient 09:44:45 CDT Esperanza Sanabria [facility] Procedures Code Procedure Name Date Entry Date Standard Description CPT-OV Office Visit 14:03:44 CDT CPT-18619 Sono retroperitoneal complete kidneys and bladder 12:58: 45 DIRECTOR MOTION PICTURE CPT-J1020 Depo Medrol 20 mg (Methyl Prednisolone Acetate) 15:48: 05 CDT CPT-J1020 Depo Medrol 100 mg (Methyl Prednisolone Acetate) 15:48: 05 CDT CPT-99764 Abx/Therapy Injection 15:48:05 CDT CPT-OV Office Visit 14:58:44 DIRECTOR MOTION PICTURE CPT-45930 Sono transvag pelvis non OB uterus ovaries cervix 16:31: 03 DIRECTOR MOTION PICTURE CPT-96671 Venipuncture Draw Fee 09:15:02 DIRECTOR MOTION PICTURE CPT-70013 Venipuncture Draw Fee 15:29:15 CDT CPT-36584 Abx/Therapy Injection 14:10:29 CDT CPT-J1030 Depo Medrol 40 mg (Methyl Prednisolone Acetate) 14:10: 29 CDT CPT-J1040 Depo Medrol 80 mg (Methyl Prednisolone Acetate) 14:10: 29 CDT CPT-90640 Spec Collection and Handling Fee 08:44:23 DIRECTOR MOTION PICTURE CPT-18389 Prv Med Est Pt 18-39yrs 08:44:23 DIRECTOR MOTION PICTURE CPT-72043 Abx/Therapy Injection 08:57:52 DIRECTOR MOTION PICTURE CPT-J1030 Depo Medrol 40 mg (Methyl Prednisolone Acetate) 08:57: 52 DIRECTOR MOTION PICTURE CPT-J1040 Depo Medrol 80 mg (Methyl Prednisolone Acetate) 08:57: 52 DIRECTOR MOTION PICTURE
--- OUTSIDE RECORDS SUMMARY | 2018-12-04 15:34 | XMS REPORT | Clinical Summary ---
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 UPPER RESPIRATORY INFECTION, [...] unspecified Elevated blood pressure 796.2 Active Isatu Coubrn APRN Elevated blood pressure reading without diagnosis [...] TABS one tab PO x 1 FLUCONAZOLE 52923608047 No Longer Active Lulu Arreguin MD Active CIPRO 500 MG TAB 1 tablet by mouth twice daily CIPROFLOXACIN HCL 57475048948 No Longer Active Lulu Arreguin MD Active PYRIDIUM 200 MG TAB 1 po TID PRN Dysuria PHENAZOPYRIDINE HCL 20061939373 No Longer Active Isatu Coburn APRN Active BRITTANIE-28 0.15-30 MG-MCG TABS take one tab po daily LEVONORGESTREL-ETHINYL ESTRAD 11451823669 No Longer Active Petty Mcgrath Active ALPRAZOLAM 0.5 MG TABS one tab tid as needed ALPRAZOLAM 70447655744 Active Luke Ballard MD Active PHENTERMINE HCL 37.5 MG TABS take one tab po daily PHENTERMINE HCL 70887771261 No Longer Active Isatu Coburn APRN Active DIETHYLPROPION HCL ER 75 MG [id number] take one tab po daily 09/04 DIETHYLPROPION HCL 02893255343 No Longer Active Esperanza Sanabria PA Active FLEXERIL 10 MG TABS take one tab po tid prn CYCLOBENZAPRINE HCL 16284645134 No Longer Active Esperanza Sanabria PA Active TEMAZEPAM 15 MG CAPS 2 capsules every h.s TEMAZEPAM 65106264042 No Longer Active Esperanza Pool PA Active PRILOSEC OTC 20 MG TBEC take one tab po bid OMEPRAZOLE MAGNESIUM 63566029380 No Longer Active Esperanza Pool PA Active TRIAMTERENE-HCTZ 37.5-25 MG CAPS Take 1 tablet by mouth daily TRIAMTERENE-HCTZ 86051307999 No Longer Active Esperanza Pool PA Active AMOXICILLIN 875 MG TABS Take one (1) tablet by mouth twice a day AMOXICILLIN 91303744664 No Longer Active Esperanza Pool PA Active HYDROCODONE-ACETAMINOPHEN 5-325 MG TABS take 1 tab po q4-6 hrs prn HYDROCODONE-ACETAMINOPHEN 95138116118 No Longer Active Esperanza Pool PA Active PREDNISONE 20 MG TAB 1 twice daily for two days, the once daily for two days PREDNISONE 59704201865 No Longer Active Esperanza Pool PA Active TAMIFLU 75 MG CAPS take one tab po daily x 10 days OSELTAMIVIR PHOSPHATE 70337881458 No Longer Active Esperanza Pool PA Active FLAGYL 500 MG TABS take one tab po bid x 10 days METRONIDAZOLE 51039243018 No Longer Active Esperanza Pool PA Active CIPRO 500 MG TABS take one tab po bid x 10 days CIPROFLOXACIN HCL 87195578585 No Longer Active Esperanza Pool PA Active SUDAFED 12 HOUR 120 MG [id number] take 1 tab po bid prn PSEUDOEPHEDRINE HCL 80567040911 No Longer Active Esperanza Pool PA Active MEDROL (JESSICA) 4 MG TABS take as directed METHYLPREDNISOLONE 39899714696 No Longer Active Sammi Hernandes RN Active BRITTANIE-28 TABS one tab p.o. q.d LEVONORGESTREL- ETHINYL ESTRAD TABS 54077147031 No Longer Active Esperanza Pool PA Active ZITHROMAX 250 MG TABS take 2 tabs po day one then 1 tab po days 2-5 AZITHROMYCIN 58614956008 No Longer Active Esperanza Pool PA Active METRONIDAZOLE 500 MG TABS 1 tab po bid x 7 days METRONIDAZOLE 68045869112 No Longer Active Patricia Dockery RN Active AMOXICILLIN 500 MG TABS Take one (1) tablet by mouth three times a day 03/08 AMOXICILLIN 85356317200 No Longer Active Lock RN Active CLINDAMYCIN HCL 300 MG CAPS take 1 cap po QID x 10 days CLINDAMYCIN HCL 34440867835 No Longer Active Lock RN Active CIPRO 500 MG TABS take 1 tab po bid x 10 days CIPROFLOXACIN HCL 81890673980 No Longer Active Lock RN Active BACTRIM DS 800-160 MG TABS 1 tab po bid x 10 days SULFAMETHOXAZOLE-TRIMETHOPRIM 73095976048 No Longer Active Esperanza Pool PA Active ZOLOFT 100 MG TABS take 1 tab po daily SERTRALINE HCL 30910436941 Active Luke Ballard MD Active ZOLOFT 100 MG TABS take 1/2 tab po daily SERTRALINE HCL 75811307482 No Longer Active Esperanza Pool PA Active BACTRIM DS 800-160 MG TABS 1 tab po bid x 10 days BACTRIM DS 800-160 MG TABS SULFAMETHOXAZOLE-TRIMETHOPRIM Inactive CIPRO 500 MG TABS take 1 tab po bid x 10 days CIPRO 500 MG TABS 766421 CIPROFLOXACIN HCL Inactive CLINDAMYCIN HCL 300 MG CAPS take 1 cap po QID x 10 days CLINDAMYCIN HCL 300 MG CAPS 121518 CLINDAMYCIN HCL Inactive AMOXICILLIN 500 MG TABS Take one (1) tablet by mouth three times a day 03/08 AMOXICILLIN 500 MG TABS 770446 AMOXICILLIN Inactive METRONIDAZOLE 500 MG TABS 1 tab po bid x 7 days METRONIDAZOLE 500 MG TABS 967645 METRONIDAZOLE Inactive ZITHROMAX 250 MG TABS take 2 tabs po day one then 1 tab po days 2-5 ZITHROMAX 250 MG TABS 1750487 AZITHROMYCIN Inactive BRITTANIE-28 TABS one tab p.o. q.d BRITTANIE-28 TABS LEVONORGESTREL-ETHINYL ESTRAD TABS Inactive MEDROL (JESSICA) 4 MG TABS take as directed MEDROL (JESSICA) 4 MG TABS METHYLPREDNISOLONE Inactive SUDAFED 12 HOUR 120 MG [id number] take 1 tab po bid prn SUDAFED 12 HOUR 120 MG [id number] PSEUDOEPHEDRINE HCL Inactive CIPRO 500 MG TABS take one tab po bid x 10 days CIPRO 500 MG TABS 479249 CIPROFLOXACIN HCL Inactive FLAGYL 500 MG TABS take one tab po bid x 10 days FLAGYL 500 MG TABS 650769 METRONIDAZOLE Inactive TAMIFLU 75 MG CAPS take one tab po daily x 10 days TAMIFLU 75 MG CAPS OSELTAMIVIR PHOSPHATE Inactive PREDNISONE 20 MG TAB 1 twice daily for two days, the once daily for two days PREDNISONE 20 MG TAB 405954 PREDNISONE Inactive HYDROCODONE-ACETAMINOPHEN 5-325 MG TABS take 1 tab po q4-6 hrs prn HYDROCODONE-ACETAMINOPHEN 5-325 MG TABS 103818 HYDROCODONE- ACETAMINOPHEN Inactive AMOXICILLIN 875 MG TABS Take one (1) tablet by mouth twice a day AMOXICILLIN 875 MG TABS 557364 AMOXICILLIN Inactive TRIAMTERENE-HCTZ 37.5-25 MG CAPS Take 1 tablet by mouth daily TRIAMTERENE-HCTZ 37.5-25 MG CAPS 807177 TRIAMTERENE-HCTZ Inactive PRILOSEC OTC 20 MG TBEC take one tab po bid PRILOSEC OTC 20 MG TBEC OMEPRAZOLE MAGNESIUM Inactive TEMAZEPAM 15 MG CAPS 2 capsules every h.s TEMAZEPAM 15 MG CAPS 930228 TEMAZEPAM Inactive FLEXERIL 10 MG TABS take one tab po tid prn FLEXERIL 10 MG TABS CYCLOBENZAPRINE HCL Inactive DIETHYLPROPION HCL ER 75 MG [id number] take one tab po daily 09/04 DIETHYLPROPION HCL ER 75 MG [id number] DIETHYLPROPION HCL Inactive PHENTERMINE HCL 37.5 MG TABS take one tab po daily PHENTERMINE HCL 37.5 MG TABS 191731 PHENTERMINE HCL Inactive BRITTANIE-28 0.15-30 MG-MCG TABS take one tab po daily BRITTANIE-28 0.15-30 MG-MCG TABS 826766 LEVONORGESTREL-ETHINYL ESTRAD Inactive CIPRO 500 MG TAB 1 tablet by mouth twice daily CIPRO 500 MG TAB 803206 CIPROFLOXACIN HCL Inactive ZOLOFT 100 MG TABS take 1/2 tab po daily ZOLOFT 100 MG TABS 149290 SERTRALINE HCL Inactive PYRIDIUM 200 MG TAB 1 po TID PRN Dysuria PYRIDIUM 200 MG TAB 2036918 PHENAZOPYRIDINE HCL Inactive DIFLUCAN 150 MG TABS one tab PO x 1 DIFLUCAN 150 MG TABS 078832 FLUCONAZOLE Inactive Immunizations Vaccine Administration Date Value Standard Description Seasonal influenza vaccine, injectable, containing preservative, for > 3 years old (Afluria, FluLaval, Fluzone, Fluvirin, Fluarix, Agriflu(>=18 yo)) Fluzone (>3 yrs.) [[id number]] Influenza, seasonal, injectable Vital Signs Date Name [...] Value Unit Range Description Lab Report: Chlamydia/GC APTIMA/[id number] - Lab chlamydia DNA probe NOT DETECTED NOT DETECTED Lab Report: Chlamydia/GC APTIMA/[id number] - Microbiology Neisseria gonorrhoeae DNA probe NOT DETECTED NOT DETECTED Lab Report: Thyroid Stimulating Hormone (L), Comp. Metabolic Panel, Free ... - Chemistry alkaline phosphatase, serum 106 U/L 50-136 calcium, serum 8.8 mg/dL 8.5-10.1 bilirubin, serum, total 0.40 mg/dL 0.00-1.00 thyroxine, serum, free 0.99 ng/dL 0.76-1.46 carbon dioxide, venous blood 30.4 mmol/L 21.0-32.0 chloride, serum 103 mmol/L 98-107 potassium, serum 4.0 mmol/L 3.5-5.2 sodium, serum 139 mmol/L 023-725 9951/11/20 TSH 1.76 m[iU]/mL 0.36-3.74 aspartate aminotransferase (SGOT), serum 15 U/L 15-37 alanine aminotransferase (SGPT), serum 34 U/L 12-78 creatinine, serum 0.80 mg/dL 0.60-1.30 urea nitrogen, blood 7 mg/dL 7-18 blood glucose 80 mg/dL 65-110 Lab Report: UADIP (AUTO), Comp. Metabolic Panel, CPK - Chemistry sodium, serum 140 mmol/L 706-061 7916/12/06 potassium, serum 3.8 mmol/L 3.5-5.2 chloride, serum [...] 8.5-10.1 bilirubin, serum, total 0.40 mg/dL 0.00-1.00 RBC, urine, dipstick 2+ Negative protein, total urine random Negative mg/dL Negative Lab Report: UADIP (AUTO), Comp. Metabolic Panel, CPK - Urinalysis glucose, urine, semiquantitative Negative Negative appearance, urine Clear Clear specific gravity, urine 1.010 1.000-1.030 pH, urine, semiquantitative 7.5 5.0-8.5 urobilinogen, urine, semiquantitative (dipstick) 0.2 Normal leukocyte esterase, urine, by dipstick Negative Negative ketones, urine, by test strip Negative Negative bilirubin, urine Negative Negative urine color Yellow Colorless;Lightyellow;Straw;Yellow nitrite, urine, semiquantitative Negative Negative Lab Report: UADIP W/MICRO, AUTO - Chemistry RBC, urine, dipstick Trace Negative protein, total urine random Negative mg/dL Negative protein, total urine random Negative mg/dL Negative RBC, urine, dipstick 3+ Negative Lab Report: UADIP W/MICRO, AUTO - Urinalysis urobilinogen, urine, semiquantitative (dipstick) 0.2 Normal leukocyte esterase, urine, by dipstick Trace Negative nitrite, urine, semiquantitative Negative Negative appearance, urine Clear Clear specific gravity, urine 1.025 1.000-1.030 pH, urine, semiquantitative 6.0 5.0-8.5 glucose, urine, semiquantitative Negative Negative ketones, urine, by test strip Negative Negative bilirubin, urine Negative Negative specific gravity, urine 1.025 1.000-1.030 pH, urine, semiquantitative 5.5 5.0-8.5 glucose, urine, semiquantitative Negative Negative urobilinogen, urine, semiquantitative (dipstick) 0.2 Normal leukocyte esterase, urine, by dipstick Negative Negative nitrite, urine, semiquantitative Negative Negative urine color Yellow Colorless;Lightyellow;Straw;Yellow appearance, urine Hazy Clear urine color Yellow Colorless;Lightyellow;Straw;Yellow ketones, urine, by test strip Negative Negative bilirubin, urine Negative Negative Encounters Code Encounter Date Provider Facility CPT-98927 Level 3 Est. Patient 11:13:24 PATROL CONDUCTOR Isatu Coburn [facility] CPT-76268 Level 3 Est. Patient 11:56:59 PATROL CONDUCTOR Isatu Coburn [facility] CPT-69123 Level 3 Est. Patient 11:17:35 PATROL CONDUCTOR Isatu Coburn [facility] CPT-51434 Level 3 Est. Patient 11:02:41 CDT Esperanza [facility] CPT-07816 Level 3 Est. Patient 14:35:51 CDT Kalin Carlos DO [facility] CPT-35876 Level 3 Est. Patient 15:48:05 CDT Esperanza [facility] CPT-93945 Level 3 Est. Patient 10:40:32 CDT Gonzalez Pinto [facility] CPT-66601 Level 3 Est. Patient 16:15:36 CDT Esperanza [facility] CPT-39083 Level 3 Est. Patient 08:25:45 PATROL CONDUCTOR Esperanza [facility] CPT-20800 Level 3 Est. Patient 16:30:43 PATROL CONDUCTOR Esperanza Sanabria [facility] CPT-15896 Level 3 Est. Patient 09:15:02 PATROL CONDUCTOR Esperanza [facility] CPT-24603 Level 3 Est. Patient 15:29:15 CDT Esperanza [facility] CPT-49511 Level 3 Est. Patient 12:48:23 CDT Esperanza [facility] CPT-54456 Level 3 Est. Patient 14:10:29 CDT Esperanza [facility] CPT-82630 Level 3 Est. Patient 10:08:36 CDT Esperanza [facility] CPT-48648 Level 3 Est. Patient 08:21:51 CDT Gonzalez Pinto [facility] CPT-62018 Level 3 Est. Patient 15:57:32 PATROL CONDUCTOR Esperanza [facility] CPT-40088 Level 3 Est. Patient 09:40:30 PATROL CONDUCTOR Esperanza [facility] CPT-92543 Level 3 Est. Patient 08:57:52 PATROL CONDUCTOR Esperanza [facility] CPT-71779 Level 3 Est. Patient 14:31:11 [facility] CPT-36703 Level 3 Est. Patient 09:44:45 CDT Esperanza [facility] Procedures Code Procedure Name Date Entry Date Standard Description CPT-OV Office Visit 10:06:26 CDT CPT-OV Office Visit 14:03:44 CDT CPT-64749 Sono retroperitoneal complete kidneys and bladder 12:58: 45 PATROL CONDUCTOR CPT-J1020 Depo Medrol 20 mg (Methyl Prednisolone Acetate) 15:48: 05 CDT CPT-J1020 Depo Medrol 100 mg (Methyl Prednisolone Acetate) 15:48: 05 CDT CPT-52731 Abx/Therapy Injection 15:48:05 CDT CPT-OV Office Visit 14:58:44 PATROL CONDUCTOR CPT-81158 Sono transvag pelvis non OB uterus ovaries cervix 16:31: 03 PATROL CONDUCTOR CPT-96593 Venipuncture Draw Fee 09:15:02 PATROL CONDUCTOR CPT-45980 Venipuncture Draw Fee 15:29:15 CDT CPT-45073 Abx/Therapy Injection 14:10:29 CDT CPT-J1030 Depo Medrol 40 mg (Methyl Prednisolone Acetate) 14:10: 29 CDT CPT-J1040 Depo Medrol 80 mg (Methyl Prednisolone Acetate) 14:10: 29 CDT CPT-63203 Spec Collection and Handling Fee 08:44:23 PATROL CONDUCTOR CPT-36549 Prv Med Est Pt 18-39yrs 08:44:23 PATROL CONDUCTOR CPT-39998 Abx/Therapy Injection 08:57:52 PATROL CONDUCTOR CPT-J1030 Depo Medrol 40 mg (Methyl Prednisolone Acetate) 08:57: 52 PATROL CONDUCTOR CPT-J1040 Depo Medrol 80 mg (Methyl Prednisolone Acetate) 08:57: 52 PATROL CONDUCTOR
--- OUTSIDE RECORDS SUMMARY | 2018-12-04 15:35 | XMS REPORT | Continuity of Care Document ---
Demographics x Preferred Language Unknown Marital Status Unknown Episcopalian Affiliation Unknown Race Unknown Ethnic Group Unknown Author Author [facility] Address Unknown Phone Unavailable Allergies Active Description Code Type Severity Reaction Onset Reported/Identified Relationship to Patient Clinical Status Yes No Known Drug Allergies [id number] ND N/A N/A Yes amoxicillin Drug N/A N/A Yes amoxicillin-clavulanate Drug N/A N/A Yes Augmentin Drug N/A N/A Yes Augmentin Drug Moderate N/A Yes Augmentin Drug Mild N/A Yes No Known Drug Allergies [id number] Drug Allergy Unknown N/A 12/02/2018 Medications There is no data. Problems Date Dx Coded Attending Type Code Diagnosis Diagnosed By 12/02/2018 MIYA RETANA MD Ot Z01.818 ENCOUNTER FOR OTHER PREPROCEDURAL EXAMIN 12/03/2018 MIYA RETANA MD Ot Z01.818 ENCOUNTER FOR OTHER PREPROCEDURAL EXAMIN Procedures There is no data. Results Test Result Range RAPID MYCOPLASMA - 11/26/14 00:00 RAPMYCO P Negative CBC - 02/21/15 00:00 HCT 39.0 % 36.9-47.0 HGB 12.7 G/DL 12.0-16.0 MCH 27.7 PG 27-31 MCHC 32.6 G/DL 33-37 MCV 85.0 FL 81-99 MPV 11.5 FL 7.3-10.4 PLT 233 10^3u 130-400 RBC 4.6 10^6u 4.2-5.4 RDW 13.2 % 11.5-15.5 WBC 8.4 10^3u 4.8-10.8 TSH - 02/21/15 00:00 TSH 2.01 UIUML 0.36-3.74 CKMB - 02/21/15 00:00 CKMB 1.5 NG/ML 0-3.6 CK - 02/21/15 00:00 CK 86 IU/L 26-192 CMP - 02/21/15 00:00 ALB 4.1 G/DL 3.5-5 ALP 78 IU/L 25-72 ALT 25 IU/L 65 AST 14 IU/L 10-42 BCR 11.3 10-20 BUN 11 MG/DL 7-18 CA 8.8 MG/DL 8.4-10.2 CL 102 MEQ/L 98-107 CO2 28.3 MEQ/L 22-28 CREA 0.97 MG/DL 0.6-1.0 EGFR 67 eGFR >=60 GLU 129 MG/DL 70-105 K 3.7 MEQ/L 3.5-5.1 NA 141 MEQ/L 134-145 OSMSC 282.4 MOSML 280-300 TBIL 0.4 MG/DL 0.1-1.0 TP 7.5 G/DL 6.0-8.3 Albumin/Globulin Ratio 1.2 0-8 Anion Gap 10.7 8-16 TROP - 02/21/15 00:00 TROP < 0.04 NG/ML 0.0-0.4 CRP - 02/21/15 00:00 CRP 0.2 MG/DL 0-1 SEDR - 02/21/15 00:00 SEDR 4 0-20 UA - 04/23/15 00:00 PH 6.5 4.5-8.0 SG 1.025 1.003-1.035 UABILI NEGATIVE UABLD 2+ UACOLOR YEL UAGLU NEGATIVE UAKET NEGATIVE UALEUK NEGATIVE UANIT NEGATIVE UAURO 0.2 0-0.2 CLARITY HAZY PROTEIN 1+ UA WBC TNTC UA RBC R05 SQUAMOUS EPITHELIAL CELLS 1+ BACTERIA 3+ AMORPHOUS CRYSTALS FEW MUCOUS 1+ CBC - 06/09/15 00:00 HCT 38.9 % 36.9-47.0 HGB 12.3 G/DL 12.0-16.0 MCH 27.6 PG 27-31 MCHC 31.6 G/DL 33-37 MCV 87.2 FL 81-99 MPV 12.1 FL 7.3-10.4 PLT 224 10^3u 130-400 RBC 4.5 10^6u 4.2-5.4 RDW 13.0 % 11.5-15.5 WBC 7.3 10^3u 4.8-10.8 CMP - 06/09/15 00:00 ALB 3.8 G/DL 3.5-5 ALP 67 IU/L -72 ALT 23 IU/L 12-65 AST 16 IU/L 10-42 BCR 12.5 10-20 BUN 11 MG/DL 7-18 CA 8.4 MG/DL 8.4-10.2 CL 104 MEQ/L 98-107 CO2 26.1 MEQ/L 22-28 CREA 0.88 MG/DL 0.6-1.0 EGFR 75 eGFR >=60 GLU 83 MG/DL 70-105 K 3.9 MEQ/L 3.5-5.1 NA 140 MEQ/L 134-145 OSMSC 277.9 MOSML 280-300 TBIL 0.4 MG/DL 0.1-1.0 TP 7.4 G/DL 6.0-8.3 Albumin/Globulin Ratio 1.1 0-8 Anion Gap 9.9 8-16 CBC WITH DIFF - 12/22/15 00:00 BASO% 0.5 % 0-2 EOS% 1.3 % 0-7.0 HCT 41.6 % 36.9-47.0 HGB 13.4 G/DL 12.0-16.0 LYMPH% 23.9 % 20-40 MCH 28.3 PG 27-31 MCHC 32.2 G/DL 33-37 MCV 87.8 FL 81-99 MONO% 6.1 % 0-10.0 MPV 12.6 FL 7.3-10.4 NEUTRO% 67.9 % 40-70 PLT 221 10^3u 130-400 RBC 4.7 10^6u 4.2-5.4 RDW 12.7 % 11.5-15.5 WBC 7.7 10^3u 4.8-10.8 NEUTRO# 5.2 10^3u 1.5-7.5 LYMPH# 1.8 10^3u 0.9-4.0 MONO# 0.5 10^3u 0-0.8 EOS# 0.1 10^3u 0-0.6 BASO# 0.0 10^3u 0-0.1 IMM GRANULOCYTE % 0.3 % IMM GRANULOCYTE # 0.0 10^3u 0-5 Encounters ACCT No. Visit Date/Time Discharge Status Pt. Type Provider Facility Loc./Unit Complaint [id number] 12/22/2015 11:33:00 12/22/2015 11:33:00 DIS Outpatient MARCEL LORENZANA [facility] [id number] 06/17/2015 13:59:00 06/17/2015 13:59:00 DIS Outpatient MICHELLE MORRISON [facility] [id number] 06/16/2015 13:32:00 06/16/2015 23:59:59 CLS Outpatient MICHELLE MORRISON [facility] [id number] 06/09/2015 12:01:00 06/09/2015 23:59:59 CLS Outpatient MARCEL LORENZANA [facility] [id number] 04/23/2015 09:53:00 04/23/2015 09:53:00 DIS Outpatient MARCEL LORENZANA [facility] [id number] 02/21/2015 21:29:00 02/21/2015 23:40:00 DIS Emergency MELVIN CASTILLO [facility] [id number] 11/26/2014 16:50:00 11/26/2014 16:50:00 DIS Outpatient MARCEL LORENZANA [facility] [id number] 08/05/2014 10:26:00 08/05/2014 10:26:00 DIS Outpatient MARCLE LORENZANA [facility] [id number] 10/18/2015 00:00:00 Document Registration [id number] 10/18/2014 00:00:00 Document Registration [id number] 10/18/2014 00:00:00 Document Registration [id number] 10/18/2014 00:00:00 Document Registration [id number] 10/18/2014 00:00:00 Document Registration [id number] 10/30/2018 11:23:49 10/30/2018 23:59:59 DIS Outpatient MARCEL LORENZANA [facility] [id number] 10/21/2018 15:30:00 10/21/2018 23:59:59 DIS Outpatient MARCEL LORENZANA [facility] [id number] 10/07/2018 14:36:17 10/07/2018 23:59:59 DIS Outpatient MARCEL LORENZANA [facility] [id number] 10/07/2018 13:46:41 10/07/2018 23:59:59 DIS Outpatient MARCEL LORENZANA [facility] [id number] 09/23/2018 13:55:31 09/23/2018 23:59:59 DIS Outpatient MARCEL LORENZANA [facility] [id number] 06/11/2018 16:35:10 06/11/2018 23:59:59 DIS Outpatient Radha Ruffin [facility] xray [id number] 06/11/2018 13:55:32 06/11/2018 23:59:59 DIS Outpatient RuffinDemarcusy Bhumika [facility] [id number] 06/11/2018 13:22:55 06/11/2018 23:59:59 DIS Outpatient AugustinVicenteRadha Bhumika [facility] [id number] 06/10/2018 09:19:18 06/10/2018 23:59:59 DIS Outpatient MARCEL LORENZANA [facility] lab [id number] 06/10/2018 09:00:00 06/10/2018 23:59:59 DIS Outpatient MARCEL LORENZANA [facility] [id number] 04/25/2018 16:14:41 04/25/2018 23:59:59 DIS Outpatient MARCEL LORENZANA [facility] imaging [id number] 04/25/2018 14:30:00 04/25/2018 23:59:59 DIS Outpatient MARCEL LORENZANA [facility] [id number] 04/19/2018 10:24:29 04/19/2018 23:59:59 DIS Outpatient MARCEL LORENZANA [facility] [id number] 02/15/2018 10:00:00 02/15/2018 23:59:59 DIS Outpatient MARCEL LORENZANA [facility] [id number] 11/08/2017 14:20:00 11/08/2017 23:59:59 DIS Outpatient LORENZANA MARCEL Jones [facility] [id number] 10/10/2017 09:15:00 10/10/2017 23:59:59 DIS Outpatient LORENZANA MARCEL Karen [facility] [id number] 10/08/2017 12:06:46 10/08/2017 23:59:59 DIS Outpatient SALOMÓN MARCEL D [facility] lab [id number] 10/08/2017 10:00:00 10/08/2017 23:59:59 DIS Outpatient SALOMÓN MARCEL D [facility] [id number] 09/18/2017 08:53:22 09/18/2017 23:59:59 DIS Outpatient MARCEL LORENZANA [facility] labs [id number] 09/04/2017 14:30:00 09/04/2017 23:59:59 DIS Outpatient MARCEL LORENZANA [facility] [id number] 08/23/2017 14:36:19 08/23/2017 23:59:59 DIS Outpatient Radha Ruffin Bhumika [facility] xray [id number] 08/23/2017 13:48:34 08/23/2017 23:59:59 DIS Outpatient Radha Ruffin [facility] [id number] 06/19/2017 15:29:29 06/19/2017 23:59:59 DIS Outpatient SALOMÓN MARCEL D [facility] [id number] 05/18/2017 08:24:44 05/18/2017 23:59:59 DIS Outpatient MARCEL LORENZANA [facility] [id number] 04/20/2017 08:41:08 04/20/2017 23:59:59 CLS Outpatient MARCEL LORENZANA [facility] [id number] 04/20/2017 08:15:00 04/20/2017 23:59:59 CLS Outpatient MARCEL LORENZANA [facility] [id number] 03/26/2017 13:30:00 03/26/2017 23:59:59 CLS Outpatient MARCEL LORENZANA [facility] [id number] 02/13/2017 15:30:00 02/13/2017 23:59:59 CLS Outpatient MARCEL LORENZANA [facility] [id number] 01/16/2017 15:30:00 01/16/2017 23:59:59 CLS Outpatient MARCEL LORENZANA [facility] [id number] 11/09/2016 15:00:00 11/09/2016 23:59:59 CLS Outpatient MARCEL LORENZANA [facility] [id number] 11/07/2016 08:16:39 11/07/2016 23:59:59 CLS Outpatient MARCEL LORENZANA [facility] lab [id number] 11/02/2016 16:30:00 11/02/2016 23:59:59 CLS Outpatient MARCEL LORENZANA [facility] [id number] 01/16/2017 15:37:25 Document Registration [id number] 01/16/2017 15:36:43 Document Registration [id number] 10/15/2018 15:00:00 10/15/2018 23:59:59 CLS Outpatient ANA ORTEGA [facility] [id number] 06/12/2018 18:06:00 06/12/2018 23:59:00 DIS Outpatient RADHA RUFFIN [id number] 06/12/2018 00:00:00 06/12/2018 23:59:00 DIS Outpatient RADHA RUFFIN [id number] 12/02/2018 06:00:00 12/02/2018 13:20:00 DIS Outpatient MIYA RETANA MD [facility] PREOP CHRONIC PELVIC PAIN [id number] 12/04/2018 11:07:00 ACT Outpatient MIYA RETANA MD [facility] ROBOTIC TOTAL HYSTERECTOMY [id number] 12/23/2017 10:05:42 ACT Unknown
--- OUTSIDE RECORDS SUMMARY | 2018-12-04 15:35 | XMS REPORT | Clinical Summary ---
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 UPPER RESPIRATORY INFECTION, [...] TABS one tab PO x 1 FLUCONAZOLE [id number] No Longer Active Lulu Arreguin MD Active CIPRO 500 MG TAB 1 tablet by mouth twice daily CIPROFLOXACIN HCL 84384056613 No Longer Active Lulu Arreguin MD Active PYRIDIUM 200 MG TAB 1 po TID PRN Dysuria PHENAZOPYRIDINE HCL 39769863814 No Longer Active Isatu Coburn APRN Active BRITTANIE-28 0.15-30 MG-MCG TABS take one tab po daily LEVONORGESTREL-ETHINYL ESTRAD 39403369864 No Longer Active Petty Mcgrath Active ALPRAZOLAM 0.5 MG TABS one tab tid as needed ALPRAZOLAM 81432820386 Active Shannan Yokum MASTER GLAZIER Active PHENTERMINE HCL 37.5 MG TABS take one tab po daily PHENTERMINE HCL 71688254046 No Longer Active Isatu Coburn APRN Active DIETHYLPROPION HCL ER 75 MG [id number] take one tab po daily 09/04 DIETHYLPROPION HCL 11007545225 No Longer Active Esperanza Sanabria PA Active FLEXERIL 10 MG TABS take one tab po tid prn CYCLOBENZAPRINE HCL 69933011962 No Longer Active Esperanza Sanabria PA Active TEMAZEPAM 15 MG CAPS 2 capsules every h.s TEMAZEPAM 32492358724 No Longer Active Esperanza Pool PA Active PRILOSEC OTC 20 MG TBEC take one tab po bid OMEPRAZOLE MAGNESIUM 98166276055 No Longer Active Esperanza Pool PA Active TRIAMTERENE-HCTZ 37.5-25 MG CAPS Take 1 tablet by mouth daily TRIAMTERENE-HCTZ 36113743113 No Longer Active Esperanza Pool PA Active AMOXICILLIN 875 MG TABS Take one (1) tablet by mouth twice a day AMOXICILLIN 40687010610 No Longer Active Esperanza Pool PA Active HYDROCODONE-ACETAMINOPHEN 5-325 MG TABS take 1 tab po q4-6 hrs prn HYDROCODONE-ACETAMINOPHEN 43622780753 No Longer Active Esperanza Pool PA Active PREDNISONE 20 MG TAB 1 twice daily for two days, the once daily for two days PREDNISONE 99788878465 No Longer Active Esperanza Pool PA Active TAMIFLU 75 MG CAPS take one tab po daily x 10 days OSELTAMIVIR PHOSPHATE 58844913050 No Longer Active Esperanza Pool PA Active FLAGYL 500 MG TABS take one tab po bid x 10 days METRONIDAZOLE 08809761391 No Longer Active Esperanza Pool PA Active CIPRO 500 MG TABS take one tab po bid x 10 days CIPROFLOXACIN HCL 75217444400 No Longer Active Esperanza Pool PA Active SUDAFED 12 HOUR 120 MG [id number] take 1 tab po bid prn PSEUDOEPHEDRINE HCL 27787199028 No Longer Active Esperanza Pool PA Active MEDROL (JESSICA) 4 MG TABS take as directed METHYLPREDNISOLONE 18033683938 No Longer Active Sammi Hernandes RN Active BRITTANIE-28 TABS one tab p.o. q.d LEVONORGESTREL- ETHINYL ESTRAD TABS 58771756162 No Longer Active Esperanza Pool PA Active ZITHROMAX 250 MG TABS take 2 tabs po day one then 1 tab po days 2-5 AZITHROMYCIN 78771750596 No Longer Active Esperanza Pool PA Active METRONIDAZOLE 500 MG TABS 1 tab po bid x 7 days METRONIDAZOLE 76246703565 No Longer Active Lock RN Active AMOXICILLIN 500 MG TABS Take one (1) tablet by mouth three times a day 03/08 AMOXICILLIN 18373737634 No Longer Active Lock RN Active CLINDAMYCIN HCL 300 MG CAPS take 1 cap po QID x 10 days CLINDAMYCIN HCL 96352541087 No Longer Active Lock RN Active CIPRO 500 MG TABS take 1 tab po bid x 10 days CIPROFLOXACIN HCL 00204902864 No Longer Active Lock RN Active BACTRIM DS 800-160 MG TABS 1 tab po bid x 10 days SULFAMETHOXAZOLE-TRIMETHOPRIM 30823603416 No Longer Active Esperanza Pool PA Active ZOLOFT 100 MG TABS take 1 tab po daily SERTRALINE HCL 53182798387 Active Shannan Phil MASTER GLAZIER Active ZOLOFT 100 MG TABS take 1/2 tab po daily SERTRALINE HCL 79223679464 No Longer Active Esperanza Pool PA Active BACTRIM DS 800-160 MG TABS 1 tab po bid x 10 days BACTRIM DS 800-160 MG TABS SULFAMETHOXAZOLE-TRIMETHOPRIM Inactive CIPRO 500 MG TABS take 1 tab po bid x 10 days CIPRO 500 MG TABS 859802 CIPROFLOXACIN HCL Inactive CLINDAMYCIN HCL 300 MG CAPS take 1 cap po QID x 10 days CLINDAMYCIN HCL 300 MG CAPS 279986 CLINDAMYCIN HCL Inactive AMOXICILLIN 500 MG TABS Take one (1) tablet by mouth three times a day 03/08 AMOXICILLIN 500 MG TABS 106158 AMOXICILLIN Inactive METRONIDAZOLE 500 MG TABS 1 tab po bid x 7 days METRONIDAZOLE 500 MG TABS 620586 METRONIDAZOLE Inactive ZITHROMAX 250 MG TABS take 2 tabs po day one then 1 tab po days 2-5 ZITHROMAX 250 MG TABS 1567774 AZITHROMYCIN Inactive BRITTANIE-28 TABS one tab p.o. q.d BRITTANIE-28 TABS LEVONORGESTREL-ETHINYL ESTRAD TABS Inactive MEDROL (JESSICA) 4 MG TABS take as directed MEDROL (JESSICA) 4 MG TABS METHYLPREDNISOLONE Inactive SUDAFED 12 HOUR 120 MG [id number] take 1 tab po bid prn SUDAFED 12 HOUR 120 MG [id number] PSEUDOEPHEDRINE HCL Inactive CIPRO 500 MG TABS take one tab po bid x 10 days CIPRO 500 MG TABS 314081 CIPROFLOXACIN HCL Inactive FLAGYL 500 MG TABS take one tab po bid x 10 days FLAGYL 500 MG TABS 146060 METRONIDAZOLE Inactive TAMIFLU 75 MG CAPS take one tab po daily x 10 days TAMIFLU 75 MG CAPS OSELTAMIVIR PHOSPHATE Inactive PREDNISONE 20 MG TAB 1 twice daily for two days, the once daily for two days PREDNISONE 20 MG TAB 058713 PREDNISONE Inactive HYDROCODONE-ACETAMINOPHEN 5-325 MG TABS take 1 tab po q4-6 hrs prn HYDROCODONE-ACETAMINOPHEN 5-325 MG TABS 630879 HYDROCODONE- ACETAMINOPHEN Inactive AMOXICILLIN 875 MG TABS Take one (1) tablet by mouth twice a day AMOXICILLIN 875 MG TABS 531840 AMOXICILLIN Inactive TRIAMTERENE-HCTZ 37.5-25 MG CAPS Take 1 tablet by mouth daily TRIAMTERENE-HCTZ 37.5-25 MG CAPS 435138 TRIAMTERENE-HCTZ Inactive PRILOSEC OTC 20 MG TBEC take one tab po bid PRILOSEC OTC 20 MG TBEC OMEPRAZOLE MAGNESIUM Inactive TEMAZEPAM 15 MG CAPS 2 capsules every h.s TEMAZEPAM 15 MG CAPS 844858 TEMAZEPAM Inactive FLEXERIL 10 MG TABS take one tab po tid prn FLEXERIL 10 MG TABS CYCLOBENZAPRINE HCL Inactive DIETHYLPROPION HCL ER 75 MG [id number] take one tab po daily 09/04 DIETHYLPROPION HCL ER 75 MG [id number] DIETHYLPROPION HCL Inactive PHENTERMINE HCL 37.5 MG TABS take one tab po daily PHENTERMINE HCL 37.5 MG TABS 514210 PHENTERMINE HCL Inactive BRITTANIE-28 0.15-30 MG-MCG TABS take one tab po daily BRITTANIE-28 0.15-30 MG-MCG TABS 872974 LEVONORGESTREL-ETHINYL ESTRAD Inactive CIPRO 500 MG TAB 1 tablet by mouth twice daily CIPRO 500 MG TAB 917368 CIPROFLOXACIN HCL Inactive ZOLOFT 100 MG TABS take 1/2 tab po daily ZOLOFT 100 MG TABS 998479 SERTRALINE HCL Inactive PYRIDIUM 200 MG TAB 1 po TID PRN Dysuria PYRIDIUM 200 MG TAB 3871783 PHENAZOPYRIDINE HCL Inactive DIFLUCAN 150 MG TABS one tab PO x 1 DIFLUCAN 150 MG TABS 744567 FLUCONAZOLE Inactive Immunizations Vaccine Administration Date Value Standard Description Seasonal influenza vaccine, injectable, containing preservative, for > 3 years old (Afluria, FluLaval, Fluzone, Fluvirin, Fluarix, Agriflu(>=18 yo)) Fluzone (>3 yrs.) [IAW141] Influenza, seasonal, injectable Vital Signs Date Name Value Unit Range Description blood pressure, diastolic - 8462-4 78 mm[Hg] BP tineo blood pressure, systolic - 8480-6 115 mm[Hg] BP sys pulse rate E&M - 8867-4 72 /min Heart rate temperature E&M 97.9 [degF] Body temperature weight E&M - 3141-9 234 [lb_av] Weight Measured blood pressure, diastolic - 8462-4 81 mm[Hg] BP tineo blood pressure, systolic - 8480-6 132 mm[Hg] BP sys height E&M - 8302-2 67 [in_us] Bdy height pulse rate E&M - 8867-4 72 /min Heart rate temperature E&M 99.2 [degF] Body temperature weight E&M - 3141-9 262 [lb_av] Weight Measured Diagnostic Results Date Name Value Unit Range Description Lab Report: Chlamydia/GC APTIMA/61981 - Lab chlamydia DNA probe NOT DETECTED NOT DETECTED Lab Report: Chlamydia/GC APTIMA/82593 - Microbiology Neisseria gonorrhoeae DNA probe NOT DETECTED NOT DETECTED Lab Report: UADIP W/MICRO, AUTO - Chemistry RBC, urine, dipstick 3+ Negative protein, total [...] Trace Negative nitrite, urine, semiquantitative Negative Negative Encounters Code Encounter Date Provider Facility CPT-77310 Level 3 Est. Patient 11:13:24 PROCESS DESCRIPTION WRITER Isatu Coburn [facility] CPT-54596 Level 3 Est. Patient 11:56:59 PROCESS DESCRIPTION WRITER Isatu Coburn [facility] CPT-64864 Level 3 Est. Patient 11:17:35 PROCESS DESCRIPTION WRITER Isatu Coburn [facility] CPT-64311 Level 3 Est. Patient 11:02:41 CDT Esperanza Pool [facility] CPT-50337 Level 3 Est. Patient 14:35:51 CDT Kalin Carlos DO [facility] CPT-87373 Level 3 Est. Patient 15:48:05 CDT Esperanza Pool [facility] CPT-13747 Level 3 Est. Patient 10:40:32 CDT Gonzalez Pinto [facility] CPT-76426 Level 3 Est. Patient 16:15:36 CDT Esperanza Pool [facility] CPT-27195 Level 3 Est. Patient 08:25:45 PROCESS DESCRIPTION WRITER Esperanza Pool [facility] CPT-27978 Level 3 Est. Patient 16:30:43 PROCESS DESCRIPTION WRITER Esperanza Pool [facility] CPT-36096 Level 3 Est. Patient 09:15:02 PROCESS DESCRIPTION WRITER Esperanza Pool [facility] CPT-82363 Level 3 Est. Patient 15:29:15 CDT Esperanza Pool [facility] CPT-87436 Level 3 Est. Patient 12:48:23 CDT Esperanza Pool [facility] CPT-32532 Level 3 Est. Patient 14:10:29 CDT Esperanza Pool [facility] CPT-13926 Level 3 Est. Patient 10:08:36 CDT Esperanza Pool [facility] CPT-11556 Level 3 Est. Patient 08:21:51 CDT Gonzalez Pinto [facility] CPT-94373 Level 3 Est. Patient 15:57:32 PROCESS DESCRIPTION WRITER Esperanza Pool [facility] CPT-89666 Level 3 Est. Patient 09:40:30 PROCESS DESCRIPTION WRITER [facility] CPT-47070 Level 3 Est. Patient 08:57:52 PROCESS DESCRIPTION WRITER [facility]ria [facility] CPT-87908 Level 3 Est. Patient 14:31:11 CDT Esperanza Sanabria [facility] CPT-41362 Level 3 Est. Patient 09:44:45 CDT Esperanza Daniele [facility] Procedures Code Procedure Name Date Entry Date Standard Description CPT-OV Office Visit 10:39:58 PROCESS DESCRIPTION WRITER CPT-OV Office Visit 10:06:26 CDT CPT-OV Office Visit 14:03:44 CDT CPT-51501 Sono retroperitoneal complete kidneys and bladder 12:58: 45 PROCESS DESCRIPTION WRITER CPT-J1020 Depo Medrol 20 mg (Methyl Prednisolone Acetate) 15:48: 05 CDT CPT-J1020 Depo Medrol 100 mg (Methyl Prednisolone Acetate) 15:48: 05 CDT CPT-03937 Abx/Therapy Injection 15:48:05 CDT CPT-OV Office Visit 14:58:44 PROCESS DESCRIPTION WRITER CPT-39768 Sono transvag pelvis non OB uterus ovaries cervix 16:31: 03 PROCESS DESCRIPTION WRITER CPT-53899 Venipuncture Draw Fee 09:15:02 PROCESS DESCRIPTION WRITER CPT-84081 Venipuncture Draw Fee 15:29:15 CDT CPT-73192 Abx/Therapy Injection 14:10:29 CDT CPT-J1030 Depo Medrol 40 mg (Methyl Prednisolone Acetate) 14:10: 29 CDT CPT-J1040 Depo Medrol 80 mg (Methyl Prednisolone Acetate) 14:10: 29 CDT CPT-49727 Spec Collection and Handling Fee 08:44:23 PROCESS DESCRIPTION WRITER CPT-86214 Prv Med Est Pt 18-39yrs 08:44:23 PROCESS DESCRIPTION WRITER CPT-51408 Abx/Therapy Injection 08:57:52 PROCESS DESCRIPTION WRITER CPT-J1030 Depo Medrol 40 mg (Methyl Prednisolone Acetate) 08:57: 52 PROCESS DESCRIPTION WRITER CPT-J1040 Depo Medrol 80 mg (Methyl Prednisolone Acetate) 08:57: 52 PROCESS DESCRIPTION WRITER
--- NOTE | 2018-12-04 16:10 | NUR ---
SHELIA BROWN ADMITTED TO ROOM 306 VIA PT BED ACC BY MIKAYLA GONZALEZ PACK OPERATOR AFTER A TOTAL ROBOTIC ASSISTED LAPAROSCOPIC HYSTERECTOMY, BILATERAL SALPINECTOMY, LEFT OOPHORECTOMY,LAPAROSCOPIC APPENDECTOMY, DESTRUCTION OF ENDOMETRIOSIS,LAPAROSCOPIC ADHESIOLYSIS, AND CYSTOSCOPY TODAY BY DR. RETANA. SHELIA BROWN AND FAMILY introduced to surroundings, call light, bed controls, phone, TV, temperature control, lights, meal times, smoking policy, visitor policy, side rail policy, bathrooms and showers. Patient Rights given to patient in the handbook.
--- NOTE | 2018-12-04 16:15 | NUR ---
IV FLUIDS OF LR TO W/O RATE R/T DECREASED BP. PT DROWSY BUT AWAKE BUT DROWSY. TALKING WITH THIS RN. COOL CLOTHS PLACED ON FOREHEAD AND BACK OF NECK BY SPEECH WRITER MIKAYLA. PT PERSPIRING. HRRR. BREATH SOUNDS CTA BILATERALLY. ABD SOFT. LAP SITES X3 ON ABDOMEN WITH DRESSINGS D/I. V-PAD DRY. THIGH HIGH SCDS ON BILATERALLY. IV PATENT. SITE CLEAR. MARTINEZ PATENT TO DD WITH GOOD URINE OUTPUT NOTED AND BLUE TINGE TO URINE R/T INDIGO JESUS. FAMILY AT BEDSIDE. DOING CONTINUOUS SPO2 MONITORING AND FREQUENT VS.
[2018-12-04] MEDS: D5 LR IV SOLUTION 1,000 ML IV SCH (16:45)
--- NOTE | 2018-12-04 16:45 | NUR ---
LR BOLUS INFUSED. 1000 CC D5LR HUNG IV TRA 125CC /HR /PUMP WITH NEW TUBING. SITE CLEAR. REQUESTING PAIN MEDICATION. BP IMPROVED.
--- NOTE | 2018-12-04 16:53 | NUR ---
RT NOTIFIED OF NEED FOR INCENTIVE SPIROMETRY.
[2018-12-04] MEDS: oxyCODONE/APAP 5/325MG (PERCOCET 5) TABLET PO PRN ×2 (16:55→21:28)
--- NOTE | 2018-12-04 16:55 | NUR ---
PERCOCET 1 TAB P.O. FOR C/O ABD PAIN/PRESSURE. FAMILY REMAINS AT BEDSIDE.
--- NOTE | 2018-12-04 17:30 | NUR ---
CONTINUOUS SPO2 MONITORING. DOING WELL. EATING REGULAR DIET. MORE ALERT. ICE PACK REMAINS ON ABDOMEN. FAMILY MEMBERS AT BEDSIDE. GOOD URINE OUTPUT. URINE BECOMING CLEAR.
--- NOTE | 2018-12-04 18:30 | NUR ---
WARM BLANKET APPLIED PER PT REQUEST. STATES PAIN DECREASED.
--- NOTE | 2018-12-04 18:45 | NUR ---
DISCONTINUED FREQUENT VS AND CONTINUOUS SPO2 MONITORING.
--- NOTE | 2018-12-04 19:42 | OPERATIVE REPORT ---
DATE OF SERVICE: 12/04/2018 PREOPERATIVE DIAGNOSES: Chronic pelvic pain, history of endometriosis, dysfunctional uterine bleeding and ovarian cyst. POSTOPERATIVE DIAGNOSES: Chronic pelvic pain, history of endometriosis, dysfunctional uterine bleeding and ovarian cyst with abnormal appendix, with appendiceal adhesions, with recurrent endometriosis and with pathology pending. OPERATIVE PROCEDURES: Total laparoscopic hysterectomy with bilateral salpingectomy, left oophorectomy, destruction of endometriosis implants, laparoscopic appendectomy, adhesiolysis and cystoscopy. OPERATIVE DESCRIPTION: With the patient in the supine position under satisfactory general anesthesia, she was prepped and draped in the usual fashion for abdominal and vaginal surgery using robotic assistance in the usual manner in [facility]. The weighted speculum was placed in the posterior fornix of the vagina and cervix exposed and grasped anteriorly with single tooth tenaculum. Uterus was sounded to 12.5 cm with uterine sound. The cervix was then serially dilated with Desmond dilators to accommodate a Christine II manipulator, which was placed using a 30 mm colpotomy ring and a 6 mm x 8 cm uterine probe. Sutures of #1 Vicryl were placed at 3 and 9 o'clock position of the cervix to affix the uterus to the manipulator. Hampton catheter was placed in the urinary bladder. The patient was brought in low dorsal lithotomy position and a 12 mm incision was made 4 cm superior to the umbilicus, 8 mm incisions were made 9 cm lateral to the umbilicus. All the incision sites were infiltrated with 0.25% Marcaine with epinephrine prior to incision. Veress needle was placed through the stab wound in the base of the umbilicus. Correct placement of the port was confirmed with the water drop test. The abdomen was then insufflated with 2.4 liters of carbon dioxide. The Veress needle was removed. A 12 mm Optiview laparoscopic port was placed through the midline incision. An 8 mm port was placed under direct vision through the lateral incision. The patient was placed in Trendelenburg, allowing the bowel to spill up out of the pelvis and the clinical laboratory assistant was positioned and I proceeded with the laparoscopic portion of the surgery. Using a vessel sealer on the right and a bipolar fenestrated grasper on the left, the pelvis was first examined. There was extensive endometriosis in the posterior surface of the uterus. The right ovary was densely adherent to the right pelvic side wall and to the posterior surface of the uterus. Posterior surface of the uterus was adherent to the right uterosacral ligament as well. The fallopian tubes were somewhat tortuous and distorted with endometriosis. The left ovary was densely involved in endometriosis and there was a fairly large simple cyst on the left ovary. There was evidence of ovulation on the right ovary. There were endometriosis implants in the cul-de-sac and on both pelvic brim on the left and on the right. The appendix appeared to be involved with endometriosis and was inflamed and indurated and involved in with adhesions as well. Decision was made to go ahead with appendectomy concurrent with the balance of the procedures. Decision was made to proceed with conservation of the right ovary. The right fallopian tube was grasped and elevated. The mesosalpinx was clamped, cauterized and divided over to the uteroovarian pedicle, which was clamped, cauterized and divided as was the round ligament, the broad ligaments on the right and eventually down on to the cardinal ligament on the left side. The IP ligament was exposed, clamped, cauterized and divided, that was continued across the mesovarium to the round ligament and across the broad ligament to the cardinal ligament. Both ureters seemed to peristalse and were away from the areas of dissection at this point. The anterior lower uterine segment peritoneum was then exposed and using a monopolar shear and placing the vessel sealer on the right, the bladder peritoneum was carefully dissected down. There were some adhesions there from her previous two C-sections, but the bladder dissected nicely down off the lower uterine segment. Colpotomy incision was initiated at 12 o'clock position of the cervix onto the colpotomy ring and then the colpotomy was exposed circumferentially until the entire ring was exposed and then the uterus was removed through the vagina with both fallopian tubes and the left ovary still attached. The uterus was somewhat large and was removed with some difficulty, but it was removed intact. There was some bleeding from the vaginal cuff. After removing the uterus, pulsatile bleeding was cauterized to effect hemostasis and then the vaginal cuff was closed with a running suture of V-Loc barbed suture starting first from the right angle and continued to approximately two-thirds of the way across the cuff and then from the left angle to close the balance of the cuff and then reapproximated the bladder peritoneum onto the vaginal cuff to prevent adhesions. Care was taken to ensure inclusion of the uterine vessel pedicles into the initial sutures on each side. A third suture was then used to attach and support the ovary to the stump of the round ligament on the right to keep it above the pelvis. The pelvis was copiously irrigated and examined for hemostasis, which was complete. The operative instruments were replaced now again with monopolar shear on the right and a bipolar fenestrated grasper on the left. The endometriosis implants in the cul-de-sac and in both ovarian fossa and on the vaginal cuff and the bladder dome and the pelvic brim on the right and left were touched with electrocautery to destroy them. With all of the endometriosis implants destroyed, both ureters were still seemed to peristalse. The appendix was then grasped and elevated. The mesoappendix was divided with electrocautery over to the base of the appendix and the adhesions of the appendix were freed in the process leaving the appendix only attached by to the cecum with no other tissue involved. At this point, the laparoscopic portion of the procedure was halted in favor of replacing the large camera with a 5 mm scope in the left lateral port and then a grasper in the right port and a stapler in the midline port and the appendix was grasped and elevated. The Endo ELIANA was placed across the base of the appendix and fired, severing the appendix from its attachments. That organ was then placed in an Endobag and brought out through the umbilical port. The stump of the appendix was copiously irrigated as was the pelvis. Irrigant was aspirated out. There was no bleeding. There was no remaining pathology. Several drops of Betadine solution were dripped on the appendix and then the procedure was terminated. The operative instruments were removed under direct vision. No bleeding was noted. The operative ports were removed under direct vision. The abdomen was evacuated of the insufflating gas in the process of removing the ports. The skin incisions were stapled after first closing the fascia at the supraumbilical incision with [id number] suture of 2-0 Vicryl. A cystoscope was then introduced and using sterile water as a distending medium, the patient had been given an amp of indigo carmine and 10 mg of Lasix. Blue urine was present. Both ureteral orifices were seen and efflux was noted from both ureteral orifices easily and persistently confirming the integrity and the function of the ureters. At this point, the procedure was terminated. The Hampton catheter was replaced in the urinary bladder and left to dependent drainage. A speculum was replaced in the vagina. The vaginal apex was explored and found completely reapproximated and completely intact and completely hemostatic. Sponge and needle counts were correct. Estimated blood loss was minimal. The patient tolerated the procedure well and was uneventfully awakened from her general anesthesia and transferred to the recovery room in stable condition. Job ID: [id number] DocumentID: [id number] Dictated Date: 12/04/2018 15:11:52 Marketing Operations Intern Date: 12/04/2018 19:41:56 Dictated By: MIYA RETANA MD
[2018-12-05 00:47] VITALS: BP 115/66
[2018-12-05] MEDS: D5 LR IV SOLUTION 1,000 ML IV SCH (00:47)
[2018-12-05] MEDS: KETOROLAC 30 MG/ML VIAL IVP SCH (02:40)
[2018-12-05 04:47] VITALS: BP 114/66
[2018-12-05] MEDS: oxyCODONE/APAP 5/325MG (PERCOCET 5) TABLET PO PRN ×2 (04:47→12:24)
--- NOTE | 2018-12-05 07:05 | Anesthesia-General Post-Op ---
General Patient Condition Mental Status/LOC: Same as Preop Cardiovascular: Satisfactory Nausea/Vomiting: Absent Respiratory: Satisfactory Pain: Controlled Complications: Absent Post Op Complications Complications None Follow Up Care/Instructions Patient Instructions None needed. Anesthesia/Patient Condition Patient Condition Patient is doing well, no complaints, stable vital signs, no apparent adverse anesthesia problems. No complications reported per nursing. D/C home per [facility] [place] Criteria: Yes PATTIE RAJPUT CRNA Dec 05, 2018 07:05
--- NOTE | 2018-12-05 07:40 | NUR ---
here to see pt. dismissal orders received.
--- NOTE | 2018-12-05 08:07 | Progress Note-Standard ---
Standard Progress Note Progress Notes/Assess & Plan Date Seen by a Provider: Dec 05, 2018 Time Seen by a Provider: 08:05 Progress/Assessment & Plan This patient is without complaint. She is ambulating, tolerating oral intake and has good pain control. She has not voided as of yet. Vital Signs 12/05/18 04:47 Temp 97.7 Pulse 80 Resp 18 B/P (MAP) 114/66 (82) Pulse Ox 97 O2 Delivery Room Air Signs are stable. Patient afebrile. Abdomen is benign. Extremities show no clubbing cyanosis. There is no Homans sign. Assessment and plan postoperative day number 1 doing well plan is for discharge home with follow-up in clinic Final Diagnosis Chronic pelvic pain/dysfunctional uterine bleeding/endometriosis MIYA RETANA MD Dec 05, 2018 08:07
[2018-12-05] MEDS ORDERED: IBUPROFEN 800 MG (MOTRIN) TAB PO ONE (08:53)
--- NOTE | 2018-12-05 08:55 | NUR ---
assisted up to BR. voided 100cc urine without difficulty. ramone-care instructions shown, returned demonstration.
[2018-12-05 09:00] VITALS: BP 120/67
[2018-12-05] MEDS ORDERED: DOCUSATE SODIUM 100 MG (COLACE) CAP PO SCH (09:00)
--- NOTE | 2018-12-05 09:00 | NUR ---
initial shift assessment completed, see interventions for further. POC reviewed, states understanding.
--- NOTE | 2018-12-05 09:08 | NUR ---
ambulated in hallways with staff @ side. pt tolerated well. denies c/o dizziness or lightheadedness.
--- NOTE | 2018-12-05 11:15 | NUR ---
dismissal instructions given, verbalizes understanding. reviewed follow up appointments and Rx's. signature page signed, placed on chart.
--- NOTE | 2018-12-05 11:50 | NUR ---
ambulating in hallways by self. tolerating well.
--- NOTE | 2018-12-05 12:30 | NUR ---
pt dismissed to private vehicle via w/c with this RN and s/o @ side. pt stable with no sx's distress noted.
--- NOTE | 2018-12-05 12:48 | NUR ---
Shelia and Kimmy Rx's called into [facility] in [place] per pt's request.
[2018-12-05] MEDS ORDERED: IBUPROFEN 800 MG (MOTRIN) TAB PO SCH (18:00)
== END 2018-12-05 12:30 | disposition home or self-care (01) ==
LOC: SDC 11:07 → WS 16:10 → SDC 12-05 12:30
PROVIDERS: ATTEND Obstetrics & Gynecology
DX: N80.0 Endometriosis of uterus (principal); N88.8 Other specified noninflammatory disorders of cervix uteri; N83.12 Corpus luteum cyst of left ovary; K38.8 Other specified diseases of appendix; N93.8 Other specified abnormal uterine and vaginal bleeding; J45.909 Unspecified asthma, uncomplicated; E66.9 Obesity, unspecified; Z68.34 Body mass index [BMI] 34.0-34.9, adult; Z79.899 Other long term (current) drug therapy
CPT/HCPCS: 36415; 84443; 84703; 85025; 86850; 86900; 86901; 87081; 88304; 88307; 94664